=== PATIENT | male | born 1950 | race Caucasian/White ===

== ENCOUNTER 2017-06-19 09:05 | Inpatient (IN) | payer OTHER ==
--- NOTE | 2017-06-19 10:07 | PDOC ---
History of Present Illness - General Chief Complaint: Weakness Stated Complaint: WEAKNESS, CONSTIPATED Time Seen by Provider: 06/19/17 09:27 - History of Present Illness Initial Comments: 06/19/17 10:01 67-year-old male history of schizoaffective disorder (not on meds), COPD, active smoking, throat cancer in remission presents with elevated leukocytosis to 22 as an outpatient. History is from the patient's PMD Dr. Lona Camp as patient denies all symptoms currently. Per Dr. Camp, patient had monthly blood work done 3 days ago and this is routine in [facility] patient's. When his white count was found to be 22 she started him on Augmentin which she has been taking for 2 days. He did not appear to have a source at the time. In addition, she reports the patient has a significant amount of weight loss over the last few months, intermittent complaints of abdominal pain, and per another resident at [facility] the patient had an episode of hematemesis recently. It is unknown when this occured exactly. Dr. Camp reports that he has no family. The patient reports that 2 weeks ago he had generalized muscle weakness and was constipated.He reports that both of these symptoms are a lot better now because he began to take Ex-Lax and had a normal bowel movement. He denies any fevers, chills, chest pain, shortness of breath, abdominal pain, nausea, vomiting, diarrhea, lower extremity edema, focal weakness or numbness. PMD: Dr. Camp Past History - Past Medical History Allergies/Adverse Reactions: Allergies Allergy/AdvReac Type Severity Reaction Status Date / Time "TRANQUILIZERS AND SEDATIVES" Allergy Hives Uncoded 06/19/17 09:08 Home Medications: Ambulatory Orders Albuterol Sulfate Inhaler - [Ventolin Hfa Inhaler -] 1 puff IH BID 06/19/17 Amox-Tr/K Cl [Augmentin - 875Mg Tablet] 1 tab PO BID 06/19/17 Cholecalciferol (Vitamin D3) [Vitamin D3] 2,000 unit PO DAILY 06/19/17 COPD: Yes - Suicide/Smoking/Psychosocial Hx Smoking History: Current every day smoker Have you smoked in the past 12 months: Yes Number of Cigarettes Smoked Daily: 10 Information on smoking cessation initiated: Yes 'Breaking Loose' booklet given: 06/19/17 Hx Alcohol Use: (occasional) Review of Systems - Review of Systems Comments:: 06/19/17 10:07 GENERAL/CONSTITUTIONAL: No fever or chills. No weakness. HEAD, EYES, EARS, NOSE AND THROAT: No change in vision. No ear pain or discharge. No sore throat. GASTROINTESTINAL: No nausea, vomiting, diarrhea or constipation. GENITOURINARY: No dysuria, frequency, or change in urination. CARDIOVASCULAR: No chest pain or shortness of breath. RESPIRATORY: No cough, wheezing, or hemoptysis. MUSCULOSKELETAL: No joint or muscle swelling or pain. No neck or back pain. SKIN: No rash NEUROLOGIC: No headache, vertigo, loss of consciousness, or change in strength/ sensation. ENDOCRINE: No increased thirst. No abnormal weight change. HEMATOLOGIC/LYMPHATIC: No anemia, easy bleeding, or history of blood clots. ALLERGIC/IMMUNOLOGIC: No hives or skin allergy. *Physical Exam - Vital Signs Last Vital Signs Temp Pulse Resp BP Pulse Ox 97.5 F L 96 H 18 122/70 95 06/19/17 09:05 06/19/17 09:05 06/19/17 09:05 06/19/17 09:05 06/19/17 09:05 - Physical Exam Comments: 06/19/17 10:08 GENERAL: Awake, alert, and fully oriented, in no acute distress. Cacechtic and chronically ill appearing HEAD: No signs of trauma EYES: PERRLA, EOMI, mild scleral icterus, conjunctiva clear ENT: Auricles normal inspection, hearing grossly normal, nares patent, oropharynx clear without exudates. Moist mucosa NECK: Normal ROM, supple, no lymphadenopathy, JVD, or masses LUNGS: absent BS on the R base, mild air movement in RML. No wheezes, and no crackles HEART: Regular rate and rhythm, normal S1 and S2, no murmurs, rubs or gallops ABDOMEN: Soft, nontender, normoactive bowel sounds. No guarding, no rebound. No masses EXTREMITIES: Normal range of motion, no edema. No clubbing or cyanosis. No cords, erythema, or tenderness NEUROLOGICAL: Normal speech, cranial nerves intact, negative pronator drift, 5/ 5 strength in all 4 extremities, normal sensation to light touch in all 4 extremities, normal cerebellar exam, normal gait, normal reflexes and tone SKIN: Warm, Dry, normal turgor, no rashes or lesions noted. Heart Score/ECG Review #1 06/19/17 10:22 Twelve-lead EKG was performed and reviewed by me. NSR, rate 80, low voltage in some leads. no RUBIN ED Treatment Course - LABORATORY CBC & Chemistry Diagram: 06/19/17 10:00 06/19/17 10:00 - RADIOLOGY Radiology Studies Ordered: Category Date Time Status CHEST PA & LAT [RAD] Stat Radiology 06/19/17 09:36 Taken Medical Decision Making - Medical Decision Making 06/19/17 10:19 67-year-old male history of throat CA in remission, active smoking, COPD, schizoaffective disorder presents with leukocytosis to 22 as an outpatient. Vitals here are unremarkable. Exam remarkable for cachectic appearance and absent breath sounds on the right. Concern for infectious and possibly malignant process. Plan: -EKG -CXR -labs -UA -consider CT chest/abd pelvis -discuss with Dr. Camp 06/19/17 11:01 EKG nonischemic. Chest x-ray with large effusion and possible underlying mass on the right. Labs remarkable for white count of 33. Ordered Vanc/Zosyn/Azithro IV. Blooc cx/lactate pending. UA is negative for infection. I ordered a CT chest abdomen and pelvis with IV contrast to look for underlying malignancy. I updated Dr. Camp, who will admit the patient for further management and workup. *DC/Admit/Observation/Transfer Diagnosis at time of Disposition: Pleural effusion - Discharge Dispostion Condition at time of disposition: Stable Admit: Yes - Attestations Physician Attestion: 06/19/17 11:03 I, Dr. Radha Sharma MD, attest that this document has been prepared under my direction and personally reviewed by me in its entirety. I further attest, that it accurately reflects all work, treatment, procedures and medical decision -making performed by me.
[2017-06-19 10:17] LABS: PH,URINE 5.5 (4.5-8); URINE APPEARANCE Clear; URINE BILIRUBIN Negative (NEGATIVE); URINE BLOOD Negative (NEGATIVE); URINE COLOR YELLOW; URINE GLUCOSE (UA) Negative (NEGATIVE); URINE KETONE Negative (NEGATIVE); URINE LEUK ESTERASE Negative (NEGATIVE); URINE NITRITE Negative (NEGATIVE); URINE PROTEIN Negative (NEGATIVE)
[2017-06-19 10:27] LABS: MCH 26.5 pg (25.7-33.7); MCHC 32.8 g/dl (32.0-35.9); MEAN CELL VOLUME 80.6 fl (80-96); MEAN PLT VOLUME 8.2 fl (7.5-11.1); PLATELET COUNT 529 K/MM3 (134-434); RDW 15.5 % (11.9-15.9)
[2017-06-19 10:36] LABS: ALK PHOS 111 U/L (32-92); ANION GAP 5 (8-16); BILIRUBIN,TOTAL 0.2 mg/dl (0.2-1.0); CALCIUM 8.1 mg/dl (8.4-10.2); CO2 29 mmol/L (22-28); CREATININE 0.7 mg/dl (0.6-1.3); GLUCOSE,RANDOM 104 mg/dl (74-106); MAGNESIUM 1.9 mg/dL (1.8-2.4); SGOT/AST 31 U/L (10-42); SGPT/ALT 20 U/L (10-40)
[2017-06-19 10:58] LABS: PLATELET COMMENT2 FEW LARGE PLTS; PLATELET ESTIMATE SLT INCREASED (NORMAL)
[2017-06-19] MEDS ORDERED: AZITHROMYCIN IVPB 500 MG in DEXTROSE 5%-WATER - 250 ML IVPB ONE (10:59)
[2017-06-19] MEDS ORDERED: VANCOMYCIN 1,000 MG in DEXTROSE 5%-WATER - 250 ML IVPB ONE (11:00)
[2017-06-19] MEDS ORDERED: PIPERACILLIN/TAZOB 4.5 GM 4.5 GM in DEXTROSE 5%-WATER - 100 ML IVPB ONE (11:00)
[2017-06-19] MEDS ORDERED: AZITHROMYCIN 500 MG VIAL IVPB ONE (11:05)
[2017-06-19] MEDS ORDERED: PIPERACILLIN/TAZOBACTAM 4.5 GM VIAL IVPB ONE (11:05)
[2017-06-19] MEDS ORDERED: VANCOMYCIN 1,000 MG VIAL (RESTRICTED TO ID ONLY) ONE (11:05)
[2017-06-19 14:27] VITALS: BMI 19.9
--- NOTE | 2017-06-19 17:02 | HP ---
Admitting History and Physical - Admission Chief Complaint: elevated WBC, poor appetite and weight loss, hematemesis History of Present Illness: The patient is a 67 yo male with PMH COPD, throat cancer in remission post radiation therapy, chronic smoker, PTSD ([place]). Over the past 2 weeks he developed poor appetite, and weight loss. Approximately 1 month ago he had hemoptysis for which he was evaluated at [facility]. There is no information on how extensive the investigations were and on the outcome of the investigations but he was discharged with no recommendations for follow up. The patient is a very poor historian and most of the information was obtained from the residents at [facility] where he lives. Approximately 25 years ago he moved from his apartment to the [facility] because of his inability to take care of himself. 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 He has a sister living in [place] who he visits frequently. His oncologist is Dr. Kaur from [facility]. History Source: Patient, Family Member (sister) Limitations to Obtaining History: Poor Historian - Past Medical History Cardiovascular: Yes: HTN Pulmonary: Yes: COPD Psych: Yes: Other (PTSD) Endocrine: Yes: Other (Throat cancer) - Past Surgical History Past Surgical History: Yes: None - Smoking History Smoking history: Current every day smoker Have you smoked in the past 12 months: Yes Aproximately how many cigarettes per day: 10 - Alcohol/Substance Use Hx Alcohol Use: No (occasional) History of Substance Use: reports: None - Social History History of Recent Travel: No Home Medications - Allergies Allergies/Adverse Reactions: Allergies Allergy/AdvReac Type Severity Reaction Status Date / Time No Known Drug Allergies Allergy Verified 06/19/17 17:26 "TRANQUILIZERS AND SEDATIVES" Allergy Mild Hives Uncoded 06/19/17 17:26 - Home Medications Home Medications: Ambulatory Orders Albuterol Sulfate Inhaler - [Ventolin Hfa Inhaler -] 1 puff IH BID 06/19/17 Amox-Tr/K Cl [Augmentin - 875Mg Tablet] 1 tab PO BID 06/19/17 Cholecalciferol (Vitamin D3) [Vitamin D3] 2,000 unit PO DAILY 06/19/17 Review of Systems - Review of Systems Constitutional: reports: Lethargy, Loss of Appetite, Malaise, Unintentional Wgt. Loss Eyes: reports: No Symptoms Neck: reports: No Symptoms Cardiovascular: reports: Shortness of Breath Respiratory: reports: Cough, Hemoptysis, SOB, SOB on Exertion. denies: Orthopnea, PND, Wheezing Gastrointestinal: reports: No Symptoms Genitourinary: reports: No Symptoms Breasts: reports: No Symptoms Reported Musculoskeletal: reports: No Symptoms Integumentary: reports: No Symptoms Neurological: reports: No Symptoms Endocrine: reports: No Symptoms Hematology/Lymphatic: reports: No Symptoms Psychiatric: reports: No Symptoms Physical Examination Vital Signs: Vital Signs Temperature 97.7 F 06/19/17 12:53 Pulse Rate 88 06/19/17 12:53 Respiratory Rate 20 06/19/17 12:53 Blood Pressure 103/64 06/19/17 12:53 O2 Sat by Pulse Oximetry (%) 94 L 06/19/17 12:53 Findings/Remarks: The patient looks emaciated with a significant weight loss compared to his baseline, he is dyspneic at rest. Constitutional: Yes: Mild Distress Eyes: Yes: Conjunctiva Clear, EOM Intact HENT: Yes: Atraumatic, Normocephalic Neck: Yes: Supple, Trachea Midline Cardiovascular: Yes: Regular Rate and Rhythm, S1, S2 Respiratory: Yes: Regular, Cough (sporadic), Dullness (at the right base), On Nasal O2, Poor Air Entry (at the right base), SOB, SOB on Exertion, Tachypnea. No: Intubated, Rales, Rhonchi, Wheezes Gastrointestinal: Yes: Normal Bowel Sounds, Soft, Abdomen, Obese. No: Hepatomegaly, Splenomegaly ...Rectal Exam: Yes: Deferred Extremities: No: Calf Tenderness Edema: No Peripheral Pulses WNL: Yes Neurological: Yes: Alert, Oriented Psychiatric: Yes: Alert, Oriented Imaging - Results Chest X-ray: Other (read by me: right pleural effusion, no infiltrate to masses) Cat Scan: Other (no masses, right hepatic lobe 2 cm hemangioma. no pericardial effusion) Problem List - Problems (1) Pleural effusion Assessment/Plan: Zosyn iv Oxygen via nasal cannula interventional radiology and pulmonary consult, monitor oxygen potential transfer to [facility] pending response to antibiotics Code(s): J90 - PLEURAL EFFUSION, NOT ELSEWHERE CLASSIFIED (2) COPD (chronic obstructive pulmonary disease) Assessment/Plan: Albuterol nebulizer Code(s): J44.9 - CHRONIC OBSTRUCTIVE PULMONARY DISEASE, UNSPECIFIED (3) Hemoptysis Assessment/Plan: pulmonary consult Code(s): R04.2 - HEMOPTYSIS (4) History of throat cancer Assessment/Plan: although the initial work up is not indicative of cancer recurrence or metastases, malignancy is still part of the differential Code(s): Z85.819 - PRSNL HX OF MALIG NEOPLM OF UNSP SITE LIP,ORAL CAV,& PHARYNX (5) PTSD (post-traumatic stress disorder) Assessment/Plan: on no medications Code(s): F43.10 - POST-TRAUMATIC STRESS DISORDER, UNSPECIFIED
[2017-06-19] MEDS: AMPICILLIN NA/SULBACTAM NA 3 GM in SODIUM CHLORIDE 100 ML IVPB SCH (18:35)
[2017-06-19] MEDS: POTASSIUM CHLORIDE 10 MEQ in DEXTROSE 5%-NORMAL SALINE 1,000 ML IVPB SCH (18:35)
[2017-06-20] MEDS: ZOLPIDEM TARTRATE 5 MG TABLET PO PRN ×2 (00:11→23:01)
[2017-06-20] MEDS: AMPICILLIN NA/SULBACTAM NA 3 GM in SODIUM CHLORIDE 100 ML IVPB SCH (01:14)
--- NOTE | 2017-06-20 06:39 | PN ---
Progress Note, Physician Chief Complaint: ID Full note dictated 67 y/o [place] COPD history of throat CA in past with weight loss PALOMO productive couph several weeks. Poor historian trinity notes previous hemoptsis. NO fever night sweats history of TB travel HIV risks CT shows loculated right fluid collection/effusion. - Current Medication List Current Medications: Active Medications Acetaminophen (Tylenol -) 325 mg PO Q6H PRN PRN Reason: FEVER OR PAIN Albuterol Sulfate (Ventolin 0.083% Nebulizer Soln -) 1 amp NEB Q6H PRN PRN Reason: SHORT OF BREATH/WHEEZING Potassium Chloride 10 meq/ (Dextrose/Sodium Chloride) 1,005 mls @ 75 mls/hr IVPB Q13H MARIS Last Admin: 06/19/17 18:35 Dose: 75 mls/hr Ampicillin Sodium/Sulbactam (Sodium 3 gm/ Sodium Chloride) 100 mls @ 200 mls/ hr IVPB Q8H-IV MARIS Last Admin: 06/20/17 01:14 Dose: 200 mls/hr Zolpidem Tartrate (Ambien -) 5 mg PO HS PRN PRN Reason: INSOMNIA Last Admin: 06/20/17 00:11 Dose: 5 mg - Objective Vital Signs: Vital Signs Temperature 98.1 F 06/20/17 06:07 Pulse Rate 87 06/20/17 06:07 Respiratory Rate 20 06/20/17 06:07 Blood Pressure 108/57 06/20/17 06:07 O2 Sat by Pulse Oximetry (%) 98 06/20/17 06:07 Constitutional: Yes: Other (Chronically ill appearing in NAD) Cardiovascular: Yes: Murmur, S1, S2, Other (2/6 systolic apical murmur) Respiratory: Yes: Diminished, Rhonchi Problem List - Problems (1) COPD (chronic obstructive pulmonary disease) Code(s): J44.9 - CHRONIC OBSTRUCTIVE PULMONARY DISEASE, UNSPECIFIED (2) History of throat cancer Code(s): Z85.819 - (3) Empyema Code(s): J86.9 - PYOTHORAX WITHOUT FISTULA Assessment/Plan Microbiology Laboratory Tests 06/19/17 06/19/17 10:00 10:00 WBC 33.0 H* D Hgb 11.1 L D Hct 33.6 L D Plt Count 529 H D AST 31 D TSH 2.10 Assessment EMPYEMA Plan Thoracic surgery evaluation for drainage and consideration of thoracotomy Zosyn 4.5 grs every 8H ESR CRP Quant gold HIV testing Mercedes ROBERTS
[2017-06-20] MEDS: POTASSIUM CHLORIDE 10 MEQ in DEXTROSE 5%-NORMAL SALINE 1,000 ML IVPB SCH (06:56)
[2017-06-20 09:17] LABS: BASOPHIL 0.1 % (0-2.0); EOSINOPHIL 0.2 % (0-4.5); MCH 27.2 pg (25.7-33.7); MCHC 32.9 g/dl (32.0-35.9); MEAN CELL VOLUME 82.7 fl (80-96); MEAN PLT VOLUME 8.4 fl (7.5-11.1); NEUTROPHILS 90.9 % (42.8-82.8); PLATELET COUNT 484 K/MM3 (134-434); WHITE BLOOD COUNT 28.3 K/mm3 (4.0-10.8)
[2017-06-20 10:03] LABS: ALBUMIN 1.7 g/dl (3.5-5.0); ALK PHOS 93 U/L (32-92); ANION GAP 8 (8-16); BILIRUBIN,TOTAL 0.5 mg/dl (0.2-1.0); CALCIUM 7.9 mg/dl (8.4-10.2); CO2 27 mmol/L (22-28); CREATININE 0.7 mg/dl (0.6-1.3); GLUCOSE,RANDOM 82 mg/dl (74-106); SGOT/AST 29 U/L (10-42); SGPT/ALT 22 U/L (10-40); TOT PROT 6.1 g/dl (6.4-8.3)
--- NOTE | 2017-06-20 11:41 | EKG ---
Test Reason : Blood Pressure : / mmHG Vent. Rate : 080 BPM Atrial Rate : 080 BPM P-R Int : 128 ms QRS Dur : 094 ms QT Int : 394 ms P-R-T Axes : 009 021 037 degrees QTc Int : 454 ms SINUS RHYTHM LOW VOLTAGE QRS in limb leads CANNOT RULE OUT SEPTAL INFARCT NO PREVIOUS ECGS AVAILABLE Confirmed by ARUNA ROBERTS, NEENA ([id number]) on 06/20/2017 11:41:21 AM Referred By: KATHY SLOAN Confirmed By:NEENA AVLDOVINOS MD
--- NOTE | 2017-06-20 12:11 | CONS ---
DATE OF CONSULTATION: DATE OF DICTATION: 06/20/2017 This is a 67-year-old [place] , who was admitted with 2 to 3 week history of cough productive of sputum with loss of appetite and weight loss. The patient has a history of COPD and throat cancer in the past. He has been followed by Dr. Kaur. He is a poor historian, noting that he experienced cough for some time over April and May and had an admission to [facility] [place], though when asked, says that he only spent 1 day there, so the details of this are unclear. Currently his appetite has been poor and he has continued to cough, noting that his hemoptysis has resolved. He has loss of appetite. Denies any fevers or night sweats. He came to the emergency room now, where his white count was noted to be 33,000. He was afebrile here. A CAT scan of the chest showed a large loculated right pleural effusion. He has no history of recent travel and his HIV status is unknown. Past medical history includes throat cancer, COPD, chronic smoking. MEDICATIONS: Albuterol. ALLERGIES: No known drug allergies. Family history reviewed and noncontributory. SOCIAL HISTORY: Denies drug use, alcohol use, but heavy smoking. REVIEW OF SYSTEMS: Productive cough with sputum, recent hemoptysis. Denies shortness of breath, pleuritic chest pain. Cardiac: No chest pain, palpitations, syncope. Gastrointestinal: No nausea, vomiting, diarrhea. Positive weight loss, positive loss of appetite. No change in bowel habits. Genitourinary: No dysuria, hematuria, urinary frequency. PHYSICAL EXAMINATION: Vital Signs: He was afebrile, with a pulse of 90, respirations 20, blood pressure 130/64, O2 saturation 94%. Neck: Supple. Lungs: With diminished breath sounds, with dullness to percussion at the right base. Scattered rhonchi. No rales. Heart: S1, S2. Regular rhythm with a 2/6 apical systolic murmur. Abdomen: Soft, nontender. Positive bowel sounds, without hepatosplenomegaly. No palpable mass. Extremities: No clubbing, cyanosis or edema. The white count was 33,000, with a hemoglobin of 11.1, hematocrit 33.6, platelets 529, 87% polys, 2 bands, 4 lymphs, and 7 monocytes. BUN 16, creatinine 0.7, TSH 2.1. Liver enzymes: Alkaline phosphatase 111. UA screening negative. Blood and urine cultures pending. CT imaging shows large loculated right pleural effusion with pleural thickening, 2.7 right hepatic lobe hemangioma. ASSESSMENT: Probable empyema, given clinical findings including marked leukocytosis. He does not, however, appear acutely ill at this time. PLAN: I suspect he will need a surgical drainage by way of thoracotomy, and thoracic surgery consult has been requested. I will empirically treat him with piperacillin and tazobactam, obtain a CRP, HIV screening, and sedimentation rate, along with QuantiFERON Gold. PB GARCIA M.D. [id number]
[2017-06-20 12:40] LABS: HIV 1 & 2 AB NEGATIVE; HIV 1 AGp24 NEGATIVE
--- NOTE | 2017-06-20 14:09 | PN ---
Progress Note, Physician Chief Complaint: Patient doing better, still coughing but with no hemoptysis. He has better appetite today, there was no fever. History of Present Illness: 67 yo male known to me from the community, presented to ER for weight loss( more then 20 lbs within 3 weeks), poor appetite and acute elevation in WBC. The patient has h/o throat cancer in remission s/p radiation therapy. The patient' s oncologist is Dr Kaur at [facility]. Mr Jesus is a longstanding smoker who did not stop smoking despite the diagnosis of throat cancer. He was admtted for diagnostic and treatment. - Current Medication List Current Medications: Active Medications Acetaminophen (Tylenol -) 325 mg PO Q6H PRN PRN Reason: FEVER OR PAIN Albuterol Sulfate (Ventolin 0.083% Nebulizer Soln -) 1 amp NEB Q6H PRN PRN Reason: SHORT OF BREATH/WHEEZING Piperacillin Sod/Tazobactam Sod (Zosyn 4.5gm Ivpb (Pre-Docked)) 4.5 gm IVPB Q8H -IV MARIS Zolpidem Tartrate (Ambien -) 5 mg PO HS PRN PRN Reason: INSOMNIA Last Admin: 06/20/17 00:11 Dose: 5 mg - Objective Vital Signs: Vital Signs Temperature 98.1 F 06/20/17 06:07 Pulse Rate 87 06/20/17 06:07 Respiratory Rate 20 06/20/17 06:07 Blood Pressure 108/57 06/20/17 06:07 O2 Sat by Pulse Oximetry (%) 98 06/20/17 06:07 Constitutional: Yes: No Distress Eyes: Yes: Conjunctiva Clear HENT: Yes: Atraumatic, Normocephalic Neck: Yes: Supple, Trachea Midline Cardiovascular: Yes: Regular Rate and Rhythm, S1, S2 Respiratory: Yes: Regular, Cough, Diminished (air entry at the righ base has improved compared to yesterday), Dullness (at the right base), On Nasal O2 (non compliant), SOB. No: Rales, Rhonchi, Wheezes Gastrointestinal: Yes: Normal Bowel Sounds, Soft. No: Hepatomegaly, Splenomegaly, Tenderness, Rebound ...Rectal Exam: Yes: Deferred Genitourinary: No: CVA Tenderness - Right Breast(s): Yes: WNL Extremities: No: Calf Tenderness Edema: No Peripheral Pulses WNL: Yes Integumentary: Yes: WNL Neurological: Yes: Alert, Oriented Psychiatric: Yes: Alert, Oriented Labs: CBC, BMP 06/20/17 06:00 06/20/17 06:00 Problem List - Problems (1) Pleural effusion Assessment/Plan: Zosyn iv Oxygen via nasal canula interventional radiology and pulmonary consult, monitor oxygen potential transfer to [facility] pending response to antibiotics repeat CXR and labs in am stop iv fluids Code(s): J90 - PLEURAL EFFUSION, NOT ELSEWHERE CLASSIFIED (2) COPD (chronic obstructive pulmonary disease) Assessment/Plan: Albuterol nebulizer continue Zosyn Code(s): J44.9 - CHRONIC OBSTRUCTIVE PULMONARY DISEASE, UNSPECIFIED (3) Hemoptysis Assessment/Plan: pulmonary consult bronchiectasis? Code(s): R04.2 - HEMOPTYSIS (4) History of throat cancer Assessment/Plan: although the initial work up was negative for cancer recurrence or metastases, malignancy is still part of the differential diagnosis Code(s): Z85.819 - PRSNL HX OF MALIG NEOPLM OF UNSP SITE LIP,ORAL CAV,& PHARYNX (5) PTSD (post-traumatic stress disorder) Assessment/Plan: on no medications Code(s): F43.10 - POST-TRAUMATIC STRESS DISORDER, UNSPECIFIED
[2017-06-20] MEDS: PIPERACILLIN/TAZOB 4.5 GM/100 ML PRE-DOCKED IVPB SCH ×2 (14:15→18:11)
[2017-06-20] MEDS: MULTIVITAMINS (DAILY MVI) TABLET (FP) PO SCH (14:17)
[2017-06-20] MEDS: ALBUTEROL SO4 0.083% IH SOL 2.5 MG/3 ML VIAL.NEB. NEB PRN (22:13)
[2017-06-21] MEDS: PIPERACILLIN/TAZOB 4.5 GM/100 ML PRE-DOCKED IVPB SCH ×3 (01:24→18:05)
[2017-06-21 09:16] LABS: EOSINOPHIL 0.1 % (0-4.5); MCH 26.6 pg (25.7-33.7); MEAN PLT VOLUME 8.4 fl (7.5-11.1); NEUTROPHILS 92.3 % (42.8-82.8); PLATELET COUNT 447 K/MM3 (134-434); RDW 15.9 % (11.9-15.9)
[2017-06-21 09:18] LABS: WHITE BLOOD COUNT 32.4 K/mm3 (4.0-10.8)
--- NOTE | 2017-06-21 09:18 | CON.PULM ---
Consult Consult Specialty:: PULMONARY Referred by:: PMD Reason for Consultation:: PLEURAL EFFUSION - History of Present Illness Chief Complaint: SOB/COUGH History of Present Illness: 67-year-old male history of schizoaffective disorder (not on meds), COPD, active smoking, throat cancer in remission presents with elevated leukocytosis to 22 as an outpatient. History is from the patient's PMD Dr. Lona Camp as patient denies all symptoms currently. Per Dr. Camp, patient had monthly blood work done 3 days ago and this is routine in [facility] patient's. When his white count was found to be 22 she started him on Augmentin which she has been taking for 2 days. He did not appear to have a source at the time. In addition, she reports the patient has a significant amount of weight loss over the last few months, intermittent complaints of abdominal pain, and per another resident at [facility] the patient had an episode of hematemesis recently. It is unknown when this occured exactly. Dr. Camp reports that he has no family. The patient reports that 2 weeks ago he had generalized muscle weakness and was constipated.He reports that both of these symptoms are a lot better now because he began to take Ex-Lax and had a normal bowel movement. He denies any fevers, chills, chest pain, shortness of breath, abdominal pain, nausea, vomiting, diarrhea, lower extremity edema, focal weakness or numbness. - History Source History Provided By: Patient, Medical Record Limitations to Obtaining History: Poor Historian - Past Medical History [employer]: Yes: Other (PTSD) Cardio/Vascular: Yes: HTN Pulmonary: Yes: COPD Gastrointestinal: Yes: Cancer (LARYNGEAL), Irritable Bowel Disease Psych: Yes: Other (PTSD) Endocrine: Yes: Other (Throat cancer) - Past Surgical History Past Surgical History: Yes: None - Alcohol/Substance Use Hx Alcohol Use: No (occasional) History of Substance Use: reports: None - Smoking History Smoking history: Current every day smoker Have you smoked in the past 12 months: Yes Aproximately how many cigarettes per day: 10 - Social History History of Recent Travel: No Home Medications - Allergies Allergies/Adverse Reactions: Allergies Allergy/AdvReac Type Severity Reaction Status Date / Time No Known Drug Allergies Allergy Verified 06/19/17 17:26 "TRANQUILIZERS AND SEDATIVES" Allergy Mild Hives Uncoded 06/19/17 17:26 - Home Medications Home Medications: Ambulatory Orders Albuterol Sulfate Inhaler - [Ventolin Hfa Inhaler -] 1 puff IH BID 06/19/17 Amox-Tr/K Cl [Augmentin - 875Mg Tablet] 1 tab PO BID 06/19/17 Cholecalciferol (Vitamin D3) [Vitamin D3] 2,000 unit PO DAILY 06/19/17 Family Disease History - Family Disease History Family History: Unable to Obtain Review of Systems - Review of Systems Cardiovascular: denies: Chest Pain Respiratory: reports: Cough, Exercise Intolerance, SOB, SOB on Exertion. denies : Hemoptysis Gastrointestinal: denies: Abdominal Pain Physical Exam Vital Sings: Vital Signs Temperature 98.5 F 06/21/17 06:00 Pulse Rate 108 H 06/21/17 06:00 Respiratory Rate 20 06/21/17 06:00 Blood Pressure 103/66 06/21/17 06:00 O2 Sat by Pulse Oximetry (%) 94 L 06/21/17 08:18 Constitutional: Yes: Anxious Eyes: Yes: EOM Intact HENT: Yes: Normocephalic Neck: Yes: Trachea Midline Cardiovascular: Yes: Tachycardia, S1, S2 Respiratory: Yes: Diminished, Dullness (RIGHT SIDE) Gastrointestinal: Yes: Soft Edema: No Labs: REVIEWED ALL Imaging - Results Chest X-ray: Report Reviewed, Image Reviewed Cat Scan: Report Reviewed, Image Reviewed Problem List - Problems (1) COPD (chronic obstructive pulmonary disease) Code(s): J44.9 - CHRONIC OBSTRUCTIVE PULMONARY DISEASE, UNSPECIFIED (2) History of throat cancer Code(s): Z85.819 - PRSNL HX OF MALIG NEOPLM OF UNSP SITE LIP,ORAL CAV,& PHARYNX (3) PTSD (post-traumatic stress disorder) Code(s): F43.10 - POST-TRAUMATIC STRESS DISORDER, UNSPECIFIED (4) Pleural effusion Code(s): J90 - PLEURAL EFFUSION, NOT ELSEWHERE CLASSIFIED Assessment/Plan LARGE VOLUME LOCULATED RIGHT SIDED EFFUSION IN A PATIENT WITH PREVIOUS LARYNGEAL CA. MUST R/O MALIGNANT PLEURAL EFFUSION WILL THORACENTESIS/T-SURG EVAL CHECK CYTOLOGY CALL ONCOLOGIST DR. Shahzad MCKEE [phone] CONSIDER TRANSFER TO [facility] TO EXPEDITE WORK UP Tiarra LAYTON MD
[2017-06-21 09:19] LABS: ALBUMIN 1.6 g/dl (3.5-5.0); ALK PHOS 77 U/L (32-92); ANION GAP 10 (8-16); BILIRUBIN,TOTAL 0.3 mg/dl (0.2-1.0); CALCIUM 7.9 mg/dl (8.4-10.2); CO2 25 mmol/L (22-28); CREATININE 0.6 mg/dl (0.6-1.3); GLUCOSE,RANDOM 89 mg/dl (74-106); SGOT/AST 24 U/L (10-42); SGPT/ALT 21 U/L (10-40); TOT PROT 5.8 g/dl (6.4-8.3)
[2017-06-21] MEDS: MULTIVITAMINS (DAILY MVI) TABLET (FP) PO SCH (09:36)
[2017-06-21] MEDS: ALBUTEROL SO4 0.083% IH SOL 2.5 MG/3 ML VIAL.NEB. NEB PRN (10:20)
[2017-06-21 11:27] LABS: INR 1.33 (0.82-1.09); PROTHROMBIN TIME (PATIENT) 14.8 SEC (10.2-13.0)
[2017-06-21 13:28] LABS: ARTERIAL BLD GAS O2 SATURATION 97.9 % (90-98.9); ARTERIAL BLOOD GAS BASE EXCESS 3.6 meq/l (-2-2); ARTERIAL BLOOD GAS HCO3 26.9 meq/L (22-26); ARTERIAL BLOOD GAS PO2 94.5 mmHg (80-100); ARTERIAL BLOOD GAS pH 7.48 (7.35-7.45)
[2017-06-21 13:29] LABS: ALLENS TEST POSITIVE; ART PUNCT SITE RIGHT RADIAL; LPM/O2% 35%; MECH. VENT. BIPAP; PT. ON O2? YES; TYPE OF O2 BIPAP; VENT RATE 12
[2017-06-21 14:00] LABS: MCH 25.7 pg (25.7-33.7); MCHC 32.1 g/dl (32.0-35.9); MEAN CELL VOLUME 80.2 fl (80-96); MEAN PLT VOLUME 7.5 fl (7.5-11.1); PLATELET COUNT 408 K/MM3 (134-434); RDW 16.6 % (11.9-15.9)
[2017-06-21 14:03] LABS: WHITE BLOOD COUNT 30.6 K/mm3 (4.0-10.0)
--- NOTE | 2017-06-21 14:54 | CONSULT ---
Consultation: REQUESTING PROVIDER: CONSULT REQUEST: We have been asked to medically evaluate this patient for hemoptysis. HISTORY OF PRESENT ILLNESS: 67 yo M with h/o COPD, PTSD ([place] ), chronic tobacco use, and throat cancer in remission s/p radiation therapy who presented to ED ( 06/19 ) with episode of hemoptysis that has since resolved, elevated WBC~33,000, and CT chest that revealed a large loculated right sided pleural effusion. Patient is a poor historian but endorses 2 weeks of loss of appetite, 20 IB weight loss in 3 weeks, and chronic cough ( 05/06 ). Started on Augmentin 3 days ago following routine blood work revealing WBC of 22,[address] German Camp. Denies fevers/chills, night sweats, N/V, diarrhea, blood per rectum, hematuria, or pleuritic chest pain. on admission. Recently evaluated at [facility] 1 month ago for hemoptysis with 1 day admission. Pt lives at rest home in [place] and his Oncologist is Dr. Kaur from [facility]. Denies recent traveling and HIV status currently unknown. On encounter patient is restless, agitated,and confused. He is repeatedly attempting to exit the room with BIPAP device attached. Patient is poor historian, but denies any current complaints or pain. REVIEW OF SYSTEMS: CONSTITUTIONAL: Absent: Denies fever, chills, diaphoresis, generalized weakness, malaise, loss of appetite, weight change HEENT: Absent: rhinorrhea, nasal congestion, throat pain, throat swelling, difficulty swallowing, mouth swelling, ear pain, eye pain, visual changes CARDIOVASCULAR: Absent: chest pain, syncope, palpitations, irregular heart rate, lightheadedness , peripheral edema RESPIRATORY: +cough, shortness of breath, and dyspnea with exertion. Denies orthopnea, wheezing, stridor, hemoptysis GASTROINTESTINAL: Absent: abdominal pain, abdominal distension, nausea, vomiting, diarrhea, constipation, melena, hematochezia GENITOURINARY: Absent: dysuria, frequency, urgency, hesitancy, hematuria, flank pain, genital pain MUSCULOSKELETAL: Absent: myalgia, arthralgia, joint swelling, back pain, neck pain SKIN: Absent: rash, itching, pallor HEMATOLOGIC/IMMUNOLOGIC: Absent: easy bleeding, easy bruising, lymphadenopathy, frequent infections ENDOCRINE: + unexplained weight loss.Denies heat intolerance, cold intolerance NEUROLOGIC: Absent: headache, focal weakness or paresthesias, dizziness, unsteady gait, seizure, mental status changes, bladder or bowel incontinence PSYCHIATRIC: Absent: anxiety, depression, suicidal or homicidal ideation, hallucinations. PHYSICAL EXAMINATION Vital Signs - 24 hr 06/20/17 06/21/17 06/21/17 21:00 06:00 08:18 Temperature 98.5 F Pulse Rate 108 H Respiratory 20 Rate Blood Pressure 103/66 O2 Sat by Pulse 93 L 94 L 94 L Oximetry (%) 06/21/17 06/21/17 06/21/17 10:10 10:40 12:51 Temperature 99.0 F Pulse Rate 80 108 H Respiratory 28 H Rate Blood Pressure 110/66 O2 Sat by Pulse 96 99 Oximetry (%) 06/21/17 06/21/17 13:28 13:31 Temperature Pulse Rate 86 Respiratory Rate Blood Pressure O2 Sat by Pulse 98 97 Oximetry (%) GENERAL: Awake, alert, and fully oriented, in no acute distress. HEAD: Normal with no signs of trauma. EYES: Pupils equal, round and reactive to light, extraocular movements intact, sclera anicteric, conjunctiva clear. No lid lag. EARS, NOSE, THROAT: Ears normal, nares patent, oropharynx clear without exudates. Moist mucous membranes. NECK: supple without lymphadenopathy, JVD, or masses. LUNGS:+ Diminished breath sounds BL. Diffuse rhonci with absent rales. Dullness to percussion at right lung base. No accesory muscle use. HEART:+ Apical systolic murmur. Normal S1 and S2 without rub or gallop. ABDOMEN: Soft, nontender, not distended, normoactive bowel sounds, no guarding, no rebound, no masses. No hepatomegaly or splenomegaly. MUSCULOSKELETAL: Normal range of motion at all joints. No bony deformities or tenderness. No CVA tenderness. UPPER EXTREMITIES: 2+ pulses, warm, well-perfused. No cyanosis. No clubbing. Cap refill <2 seconds. No peripheral edema. LOWER EXTREMITIES: 2+ pulses, warm, well-perfused. No calf tenderness. No peripheral edema. NEUROLOGICAL: Cranial nerves II-XII intact. Normal speech. Normal gait. PSYCHIATRIC: Slightly agitated Appropriate mood and affect. SKIN: Warm, dry, normal turgor, no rashes or lesions noted. Laboratory Results - last 24 hr 06/21/17 06/21/17 06/21/17 07:20 07:20 07:20 WBC 32.4 H* RBC 2.76 L D Hgb 7.3 L D Hct 22.9 L D MCV 83.0 MCH 26.6 MCHC 32.0 RDW 15.9 Plt Count 447 H MPV 8.4 Neutrophils % 92.3 H Lymphocytes % 3.2 L Monocytes % 4.4 Eosinophils % 0.1 Basophils % 0.0 ESR 128 H PT with INR INR Puncture Site ABG pH ABG pCO2 at Pt Temp ABG pO2 at Pt Temp ABG HCO3 ABG O2 Sat (Measured) ABG O2 Content ABG Base Excess Andre Test O2 Delivery Device Oxygen Flow Rate Vent Mode Vent Rate Mechanical Rate PEEP Pressure Support Vent Sodium 138 Potassium 4.1 Chloride 103 Carbon Dioxide 25 Anion Gap 10 BUN 30 H D Creatinine 0.6 Creat Clearance w eGFR > 60 Random Glucose 89 Calcium 7.9 L Total Bilirubin 0.3 D AST 24 ALT 21 Alkaline Phosphatase 77 Total Protein 5.8 L Albumin 1.6 L Blood Type Antibody Screen Crossmatch 06/21/17 06/21/17 06/21/17 10:00 10:00 10:00 WBC RBC Hgb Hct MCV MCH MCHC RDW Plt Count MPV Neutrophils % Lymphocytes % Monocytes % Eosinophils % Basophils % ESR PT with INR 14.8 H INR 1.33 H Puncture Site ABG pH ABG pCO2 at Pt Temp ABG pO2 at Pt Temp ABG HCO3 ABG O2 Sat (Measured) ABG O2 Content ABG Base Excess Andre Test O2 Delivery Device Oxygen Flow Rate Vent Mode Vent Rate Mechanical Rate PEEP Pressure Support Vent Sodium Potassium Chloride Carbon Dioxide Anion Gap BUN Creatinine Creat Clearance w eGFR Random Glucose Calcium Total Bilirubin AST ALT Alkaline Phosphatase Total Protein Albumin Blood Type O NEGATIVE O NEGATIVE Antibody Screen Negative Crossmatch See Detail See Detail 06/21/17 06/21/17 13:23 13:50 WBC 30.6 H* RBC 2.66 L Hgb 6.8 L* Hct 21.3 L MCV 80.2 MCH 25.7 MCHC 32.1 RDW 16.6 H Plt Count 408 MPV 7.5 Neutrophils % No Result Required. Lymphocytes % No Result Required. Monocytes % Eosinophils % Basophils % ESR PT with INR INR Puncture Site Right radial ABG pH 7.48 H ABG pCO2 at Pt Temp 36.3 ABG pO2 at Pt Temp 94.5 ABG HCO3 26.9 H ABG O2 Sat (Measured) 97.9 ABG O2 Content 9.1 L* ABG Base Excess 3.6 H Andre Test Positive O2 Delivery Device Bipap Oxygen Flow Rate 35% Vent Mode S/t Vent Rate 12 Mechanical Rate Bipap PEEP 0.0 Pressure Support Vent 12/5 Sodium Potassium Chloride Carbon Dioxide Anion Gap BUN Creatinine Creat Clearance w eGFR Random Glucose Calcium Total Bilirubin AST ALT Alkaline Phosphatase Total Protein Albumin Blood Type Antibody Screen Crossmatch Active Medications Generic Name Dose Route Start Last Admin Trade Name Freq PRN Reason Stop Dose Admin Acetaminophen 325 mg 06/19/17 17:16 Tylenol - PO Q6H PRN FEVER OR PAIN Albuterol Sulfate 1 amp 06/19/17 17:25 06/21/17 10:20 Ventolin 0.083% Nebulizer Soln - NEB 1 amp Q6H PRN Administration SHORT OF BREATH/WHEEZING Multivitamins/Minerals/Vitamin C 1 tab 06/20/17 14:15 06/21/17 09:36 Tab-A-Vit - PO 1 tab DAILY MARIS Administration Piperacillin Sod/Tazobactam Sod 4.5 gm 06/20/17 14:00 06/21/17 09:36 Zosyn 4.5gm Ivpb (Pre-Docked) IVPB 4.5 gm Q8H-IV MARIS Administration Zolpidem Tartrate 5 mg 06/20/17 00:06 06/20/17 23:01 Ambien - PO 5 mg HS PRN Administration INSOMNIA ASSESSMENT/PLAN: 67 yo M with h/o COPD, PTSD ([place] ), chronic tobacco use, and laryngeal cancer in remission s/p radiation therapy who presented to ED ( 06/19 ) with resolved episode of hemoptysis, 2 weeks of loss of appetite, 20 IB weight loss in 3 weeks, chronic cough ( 05/06 ) , and elevated WBC~33,000 on admission, and CT chest that revealed a large loculated right sided pleural effusion. Hemoptysis: Possible right sided complicated parapneumoinic effusion vs empyema 2/2 to infection vs. paraneoplastic effusion or malignancy. CT chest ( 06/19) Centrilobular emphysema, large partially loculated right sided pleural effusion, nonspeciifc free fluid in abdomen and pelvis. Patient aefbrile through admission WBC on admission 33,000--> 30.6 ( 06/21) HIV negative Unasyn D/c'd Plan: - Daily CBC - Cont. Zosyn 4.5 mg - Thoracentesis/Surgical Evaluation. Obtain consent for procedure. - Pending IR evaluation for pleural drainage/cytology. - Call Dr. Jayden Kaur [phone] Acute on Chronic COPD: Patient with cont'd swallow labored breathing and decreased breath sounds bilaterally. Increased productive cough over past week. AB.48/36.3/94.5/26.9 Plan: - Albuterol Q6 - BIPAP: FiO2 35%, Rate 12, /5 Anemia: Hgb 11.1 -6.8 (06/21) PRBC if Hgb <7.0 UA Neg Plan: - 1 unit PRBC - Trend Hgb/Hct - FOBT pending FEN: No IVF, Lytes PRN, NPO Dispo: ICU Monitoring Visit type - Emergency Visit Emergency Visit: Yes ED Registration Date: 06/19/17 Care time: The patient presented to the Emergency Department on the above date and was hospitalized for further evaluation of their emergent condition. - New Patient This patient is new to me today: Yes Date on this admission: 06/21/17 - Critical Care Critical Care patient: Yes Total Critical Care Time (in minutes): 30 Critical Care Statement: The care of this patient involved high complexity decision making to prevent further life threatening deterioration of the patient 's condition and/or to evaluate & treat vital organ system(s) failure or risk of failure.
[2017-06-21] MEDS ORDERED: SODIUM BICARBONATE 8.4% 50 MEQ/50 ML VIAL ONE (15:55)
--- NOTE | 2017-06-21 16:36 | PN ---
Progress Note, Physician History of Present Illness: S/P R chest tube No c/o pain No c/o dyspnea Denies cough Afebrile WBC remains elevated Cultures pending - Current Medication List Current Medications: Active Medications Acetaminophen (Tylenol -) 325 mg PO Q6H PRN PRN Reason: FEVER OR PAIN Albuterol Sulfate (Ventolin 0.083% Nebulizer Soln -) 1 amp NEB Q6H PRN PRN Reason: SHORT OF BREATH/WHEEZING Last Admin: 06/21/17 10:20 Dose: 1 amp Multivitamins/Minerals/Vitamin C (Tab-A-Vit -) 1 tab PO DAILY MARIS Last Admin: 06/21/17 09:36 Dose: 1 tab Piperacillin Sod/Tazobactam Sod (Zosyn 4.5gm Ivpb (Pre-Docked)) 4.5 gm IVPB Q8H -IV MARIS Last Admin: 06/21/17 09:36 Dose: 4.5 gm Zolpidem Tartrate (Ambien -) 5 mg PO HS PRN PRN Reason: INSOMNIA Last Admin: 06/20/17 23:01 Dose: 5 mg - Objective Vital Signs: Vital Signs Temperature 98.3 F 06/21/17 16:05 Pulse Rate 98 H 06/21/17 16:22 Respiratory Rate 34 H 06/21/17 16:22 Blood Pressure 107/66 06/21/17 16:22 O2 Sat by Pulse Oximetry (%) 100 06/21/17 16:31 Constitutional: Yes: No Distress Eyes: Yes: Conjunctiva Clear Cardiovascular: Yes: Regular Rate and Rhythm, S1, S2 Respiratory: Yes: Diminished Gastrointestinal: Yes: Normal Bowel Sounds, Soft. No: Tenderness Edema: LLE: 1+, RLE: 1+ Labs: CBC, BMP 06/21/17 13:50 06/21/17 07:20 INR, PTT INR 1.33 (0.82-1.09) H 06/21/17 10:00 Assessment/Plan S/P R chest tube Loculated R effusion COPD Await cultures Continue empiric zosyn
[2017-06-21 17:21] LABS: GLUCOSE,PLEURAL FLUID < 1.000
[2017-06-21 18:03] LABS: TOTAL PROTEIN,PLEURAL FLUID 5.249
--- NOTE | 2017-06-21 19:58 | PN ---
Progress Note, Physician Chief Complaint: During the past 24 hours the patient dropped his H/H.There is no sign of acute bleeding and no record of hemoptysis, hematemesis or melanotic stools while in the hospital. A pig tail catheter was placed with extraction of 200 cc yellow fluid. The patient felt better. Currently his cough is more forceful and he is able to expectorate feeling slightly better. Blood transfusion was started and the patient his appetite improved. The pateint s apoor historian and the information gived for yuliana absence of melanotic stools is not reliable - Current Medication List Current Medications: Active Medications Acetaminophen (Tylenol -) 325 mg PO Q6H PRN PRN Reason: FEVER OR PAIN Albuterol Sulfate (Ventolin 0.083% Nebulizer Soln -) 1 amp NEB Q6H PRN PRN Reason: SHORT OF BREATH/WHEEZING Last Admin: 06/21/17 10:20 Dose: 1 amp Multivitamins/Minerals/Vitamin C (Tab-A-Vit -) 1 tab PO DAILY MARIS Last Admin: 06/21/17 09:36 Dose: 1 tab Pantoprazole Sodium (Protonix -) 40 mg PO DAILY MARIS Piperacillin Sod/Tazobactam Sod (Zosyn 4.5gm Ivpb (Pre-Docked)) 4.5 gm IVPB Q8H -IV MARIS Last Admin: 06/21/17 18:05 Dose: 4.5 gm Zolpidem Tartrate (Ambien -) 5 mg PO HS PRN PRN Reason: INSOMNIA Last Admin: 06/20/17 23:01 Dose: 5 mg - Objective Vital Signs: Vital Signs Temperature 99.6 F 06/21/17 18:00 Pulse Rate 103 H 06/21/17 18:00 Respiratory Rate 28 H 06/21/17 18:00 Blood Pressure 109/66 06/21/17 18:00 O2 Sat by Pulse Oximetry (%) 100 06/21/17 16:31 Constitutional: Yes: No Distress, Calm Eyes: Yes: Conjunctiva Clear, EOM Intact HENT: Yes: Atraumatic, Normocephalic Neck: Yes: Supple, Trachea Midline Cardiovascular: Yes: Regular Rate and Rhythm, S1, S2 Respiratory: Yes: Regular, CTA Bilaterally, On Venti-Mask. No: Accessory Muscle Use Gastrointestinal: Yes: Normal Bowel Sounds, Soft. No: Hepatomegaly, Splenomegaly Genitourinary: Yes: WNL Breast(s): Yes: WNL Musculoskeletal: Yes: WNL Extremities: No: Calf Tenderness Edema: Yes Peripheral Pulses WNL: Yes Wound/Incision: Yes: Well Approximated Neurological: Yes: Alert, Oriented Psychiatric: Yes: Alert, Oriented Labs: CBC, BMP 06/21/17 13:50 06/21/17 07:20 INR, PTT INR 1.33 (0.82-1.09) H 06/21/17 10:00 - ....Imaging Chest X-ray: Other (rright pleaural effusion, no masses, no cardiomegaly) Problem List - Problems (1) Pleural effusion Assessment/Plan: Zosyn in venti MAsk s/p pleural right pig tail catheter, results are pending monitor oxygen transferred to [facility] ICU Code(s): J90 - PLEURAL EFFUSION, NOT ELSEWHERE CLASSIFIED (2) COPD (chronic obstructive pulmonary disease) Assessment/Plan: Albuterol nebulizer continue Zosyn Code(s): J44.9 - CHRONIC OBSTRUCTIVE PULMONARY DISEASE, UNSPECIFIED (3) Hemoptysis Assessment/Plan: pulmonary consult bleeding bronchiectasis? Code(s): R04.2 - HEMOPTYSIS (4) History of throat cancer Assessment/Plan: although the initial work up was negative for cancer recurrence or metastases, malignancy is still part of the differential diagnosis Code(s): Z85.819 - PRSNL HX OF MALIG NEOPLM OF UNSP SITE LIP,ORAL CAV,& PHARYNX (5) PTSD (post-traumatic stress disorder) Assessment/Plan: on no medications Code(s): F43.10 - POST-TRAUMATIC STRESS DISORDER, UNSPECIFIED (6) Acute blood loss anemia Assessment/Plan: monitor CBC, transfuse start Protonix hemocult all stools Code(s): D62 - ACUTE POSTHEMORRHAGIC ANEMIA
[2017-06-21 21:08] LABS: PLEURAL FLUID COLOR COLORLESS; PLEURAL FLUID SOURCE PLEURAL FLUID
[2017-06-21 21:09] LABS: PLEURAL FLUID APPEARANCE CLOUDY; PLEURAL FLUID LYMPHOCYTES 2 %; PLEURAL FLUID NEUTROPHIL 98 %
--- NOTE | 2017-06-21 21:41 | CONSULT ---
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 I do not have any record that I have seen pt since that time in the office.He reports having hemoptysis twice in last 2 months w progressive SOB; He went to ER at [facility] seen by ENT resident ; CT neck which showed improvement in previous fulness of L tonsillar pillar as compared to a 2008 scan and a CXR showed RLL opacification r/o atelectasis/ aspiration/ pneumonitis ; he was referred to see Dr Norman (ENT) as outpatient (pt does not remember). Now , pt w progressive SOB, mild increase in cough, low appetite , 20 lb weight loss in 2 months , generalized weakness ; CT c/a/p here shows large loculated R pleural effusion, no underlying mass,compressive atelectasis , several likely hemangiomas in liver .CBC showedWBC 33K with mostly polys , Hgb11 ,plates 529K ; chemistries w low albumin , nl LFT's/creat/ Na+ ; R pigtail placed and straw colored fluid obtained ; pt w less SOB.Pt on ab 's (Zosyn).He denies fevers/chills /sweats. He has a hx of tonsillectomy as a child . 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 to get records), Irritable Bowel Disease Hepatobiliary: No: Cirrhosis, Cholelithiasis, Cholecystitis, Choledocholithiasis , Hepatitis A, Hepatitis B, Hepatitis C, Other Renal/: No: Renal Failure, Renal Inusuff, BPH, Cancer, Hematuria, Hemodialysis , Neurogenic Bladder, Renal Calculi, UTI, Other Heme/Onc: Yes: Anemia Infectious Disease: No: AIDS, C-Diff, Herpes Zoster, HIV, MRSA, STD's, Tuberculosis, VREF, Other Psych: Yes: Other (PTSD) Musculoskeletal: No: Bursitis, Chronic low back pain, Hemiparesis, Hemiplegia, Osteoarthritis, Paraplegia, Other Rheumatology: No: Fibromyalgia, Gout, Lupus, Rheumatoid Arthritis, Sarcoidosis, Vasculitis, Other ENT: No: Allergic Rhinitis, Sinusitis, Other Dermatology: No: Basal Cell, Cellulitis, Eczema, Melanoma, Psoriasis, Squamous Cell, Other - Past Surgical History Past Surgical History: Yes: None - Alcohol/Substance Use Hx Alcohol Use: No (occ) History of Substance Use: reports: None - Smoking History Smoking history: Current every day smoker Have you smoked in the past 12 months: Yes Aproximately how many cigarettes per day: 10 - Social History History of Recent Travel: No Home Medications - Allergies Allergies/Adverse Reactions: Allergies Allergy/AdvReac Type Severity Reaction Status Date / Time No Known Drug Allergies Allergy Verified 06/19/17 17:26 "TRANQUILIZERS AND SEDATIVES" Allergy Mild Hives Uncoded 06/19/17 17:26 - Home Medications Home Medications: Ambulatory Orders Albuterol Sulfate Inhaler - [Ventolin Hfa Inhaler -] 1 puff IH BID 06/19/17 Amox-Tr/K Cl [Augmentin - 875Mg Tablet] 1 tab PO BID 06/19/17 Cholecalciferol (Vitamin D3) [Vitamin D3] 2,000 unit PO DAILY 06/19/17 Family Disease History - Family Disease History Family History: Unable to Obtain Review of Systems - Review of Systems Constitutional: reports: Loss of Appetite, Unintentional Wgt. Loss, Weakness Eyes: reports: No Symptoms HENT: reports: No Symptoms Neck: reports: No Symptoms Cardiovascular: reports: Shortness of Breath Respiratory: reports: Cough, Exercise Intolerance, SOB on Exertion Gastrointestinal: reports: Constipation. denies: No Symptoms, Abdominal Pain, Bloating, Diarrhea, Dysphagia, Indigestion, Melena, Nausea, Rectal Bleeding, Vomiting, Vomiting Blood, Other Genitourinary: reports: No Symptoms Musculoskeletal: reports: No Symptoms Integumentary: reports: No Symptoms Neurological: reports: No Symptoms Endocrine: reports: No Symptoms, Unexplained Weight Loss Hematology/Lymphatic: reports: No Symptoms Psychiatric: reports: No Symptoms Physical Exam Vital Signs: Vital Signs Temperature 99.6 F 06/21/17 18:00 Pulse Rate 102 H 06/21/17 20:00 Respiratory Rate 24 06/21/17 20:00 Blood Pressure 99/57 06/21/17 20:00 O2 Sat by Pulse Oximetry (%) 100 06/21/17 16:31 Constitutional: Yes: Calm, Cachectic, Mild Distress Eyes: Yes: Conjunctiva Clear, EOM Intact HENT: Yes: Atraumatic, Normocephalic. No: WNL, Drooling, Epistaxis, Hoarseness , Nasal Congestion, Pharyngeal Erythema, Rhinnorhea, Thrush, Tonsillar Exudate, Other Neck: Yes: Supple, Trachea Midline. No: WNL, Decreased ROM, Lymphadenopathy, Rigid, Tenderness, Thyromegaly, Other Cardiovascular: Yes: Regular Rate and Rhythm Respiratory: Yes: Diminished, Poor Air Entry (RLL) Gastrointestinal: Yes: Normal Bowel Sounds, Soft. No: WNL, Abdomen, Obese, Ascites, Distention, Hematemesis, Hemorrhoids, Hepatomegaly, Hernia, Hyperactive Bowel Sounds, Hypoactive Bowel Sounds, Melena, Palpable Mass, Pulsatile Mass, Rectal Bleeding, Splenomegaly, Tenderness, Tenderness, Epigastrium, Tenderness, Rebound, Vomiting, Other Musculoskeletal: Yes: WNL Extremities: Yes: WNL Edema: No Integumentary: Yes: WNL Neurological: Yes: Alert, Oriented Psychiatric: Yes: Alert, Oriented Labs: CBC, BMP 06/21/17 13:50 06/21/17 07:20 Problem List - Problems (1) COPD (chronic obstructive pulmonary disease) Code(s): J44.9 - CHRONIC OBSTRUCTIVE PULMONARY DISEASE, UNSPECIFIED (2) History of throat cancer Code(s): Z85.819 - PRSNL HX OF MALIG NEOPLM OF UNSP SITE LIP,ORAL CAV,& PHARYNX (3) Pleural effusion Code(s): J90 - PLEURAL EFFUSION, NOT ELSEWHERE CLASSIFIED Assessment/Plan Pt w pleural effusion R s/p pigtail etiology uncertain . If empyema may explain the high WBC and the thrombocytosis (reactive ) and perhaps part of the anemia. Need to send the fluid for cytology (send now if not sent). Continue ab's for now /pulm f/u ; will consider a bone marrow exam to make sure there is no primary bone marrow disorder , eg MPD ; Tx as needed for now . Will follow.Will order basic anemia w/u.
[2017-06-21] MEDS: PANTOPRAZOLE 40 MG TABLET (FP) PO SCH (21:55)
[2017-06-22] MEDS: ZOLPIDEM TARTRATE 5 MG TABLET PO PRN ×2 (00:03→23:45)
[2017-06-22] MEDS: PIPERACILLIN/TAZOB 4.5 GM/100 ML PRE-DOCKED IVPB SCH ×3 (02:45→17:40)
[2017-06-22 05:48] LABS: MCH 26.5 pg (25.7-33.7); MCHC 32.9 g/dl (32.0-35.9); MEAN CELL VOLUME 80.6 fl (80-96); MEAN PLT VOLUME 7.9 fl (7.5-11.1); PLATELET COUNT 404 K/MM3 (134-434); RDW 15.8 % (11.9-15.9); WHITE BLOOD COUNT 23.7 K/mm3 (4.0-10.0)
[2017-06-22 06:07] LABS: ALBUMIN 1.5 g/dl (3.4-5.0); BILIRUBIN,TOTAL 0.4 mg/dL (0.2-1.0); CO2 31 mmol/L (21-32); CREATININE 0.7 mg/dL (0.7-1.3); GLUCOSE,RANDOM 92 mg/dL (74-106); LDH 142 U/L (87-241); MAGNESIUM 2.2 mg/dL (1.8-2.4); TOT PROT 6.4 g/dl (6.4-8.2)
[2017-06-22 06:10] LABS: ANION GAP 6 (8-16); CALCIUM 7.8 mg/dL (8.5-10.1); FERRITIN 384.676 ng/ml (16.4-293.9); FREE T4 1.64 ng/dl (0.76-1.16); SGOT/AST 42 U/L (15-37); SGPT/ALT 32 U/L (12-78)
[2017-06-22 06:14] LABS: INR 1.32 (0.82-1.09); PROTHROMBIN TIME (PATIENT) 14.6 SEC (9.98-11.88)
[2017-06-22 06:16] LABS: ALK PHOS 99 U/L (45-117); THYROID STIMULATING HORMONE 0.82 uIU/ml (0.358-3.74)
[2017-06-22] MEDS: MULTIVITAMINS (DAILY MVI) TABLET (FP) PO SCH (09:31)
[2017-06-22] MEDS: PANTOPRAZOLE 40 MG TABLET (FP) PO SCH (09:31)
[2017-06-22 10:19] LABS: TOTAL CELLS COUNTED 100
[2017-06-22 10:20] LABS: MYELOCYTE 1 % (0-2)
[2017-06-22] MEDS ORDERED: methylPREDNISolone NA SUCC 40 MG/1 ML VIAL IVPB SCH (12:15)
--- NOTE | 2017-06-22 12:40 | PN ---
Physical Exam: SUBJECTIVE: Patient seen and examined 67 yo M with h/o COPD, PTSD ([place] ), chronic tobacco use, and throat cancer in remission s/p radiation therapy who presents to ICU with right sided loculated pleural effusion s/p day 1 right chest tube placement. Presented to ED ( 06/19 ) with episode of hemoptysis that has since resolved, elevated WBC~33 ,000, and CT chest that revealed a large loculated right sided pleural effusion. Patient is a poor historian but endorses 2 weeks of loss of appetite, 20 IB weight loss in 3 weeks, and chronic cough ( 05/06 ). Started on Augmentin 3 days ago following routine blood work revealing WBC of 22,[address] [place]. Denies fevers/chills, night sweats, N/V, diarrhea, blood per rectum, hematuria, or pleuritic chest pain. on admission. Recently evaluated at [facility] 1 month ago for hemoptysis with 1 day admission. Pt lives at rest home in [place] and his Oncologist is Dr. Kaur from [facility]. Denies recent traveling and HIV status currently unknown. On encounter patient is alert and resting comfortably in bed. He is s/p day 1 chest tube placement with initial 200 ml pleural drainage. He endorses improvement in respiratory status with partial resolution of SOB. He denies fevers/chills, chest pain, dysuria, abdominal pain. or difficulty sleeping. He reports minor discomfort from right sided posterior chest tube insertion site. OBJECTIVE: Vital Signs Period Temp Pulse Resp BP Sys/Bunn Pulse Ox Last 24 Hr 97.6 F-99.6 F 86-120 20-37 85-119/55-75 97-100 GENERAL: Patient on 2 L NC. The patient is awake, alert, and fully oriented, in no acute distress. HEAD: Normal with no signs of trauma. NECK: supple without lymphadenopathy, JVD, or masses. LUNGS: Rigth sided posterior drainage in place c/d/i. Diffuse rhonci with absent rales. Dullness to percussion at right lung base. No accesory muscle use. HEART:+ Apical systolic murmur. Normal S1 and S2 without rub or gallop. ABDOMEN: Soft, nontender, not distended, normoactive bowel sounds, no guarding, no rebound, no masses. No hepatomegaly or splenomegaly. MUSCULOSKELETAL: Normal range of motion at all joints. No bony deformities or tenderness. No CVA tenderness. UPPER EXTREMITIES: 2+ pulses, warm, well-perfused. No cyanosis. No clubbing. Cap refill <2 seconds. No peripheral edema. LOWER EXTREMITIES: 2+ pulses, warm, well-perfused. No calf tenderness. No peripheral edema. PSYCHIATRIC: Slightly agitated Appropriate mood and affect. SKIN: Warm, dry, normal turgor, no rashes or lesions noted. Laboratory Results - last 24 hr 06/21/17 06/21/17 06/21/17 10:00 10:00 13:23 WBC RBC Hgb Hct MCV MCH MCHC RDW Plt Count MPV Total Counted Neutrophils % Neutrophils % (Manual) Lymphocytes % Lymphocytes % (Manual) Monocytes % (Manual) Myelocytes % (Man) Retic Count PT with INR INR Puncture Site Right radial ABG pH 7.48 H ABG pCO2 at Pt Temp 36.3 ABG pO2 at Pt Temp 94.5 ABG HCO3 26.9 H ABG O2 Sat (Measured) 97.9 ABG O2 Content 9.1 L* ABG Base Excess 3.6 H Andre Test Positive O2 Delivery Device Bipap Oxygen Flow Rate 35% Vent Mode S/t Vent Rate 12 Mechanical Rate Bipap PEEP 0.0 Pressure Support Vent 12/5 Sodium Potassium Chloride Carbon Dioxide Anion Gap BUN Creatinine Creat Clearance w eGFR Random Glucose Calcium Phosphorus Magnesium Ferritin Total Bilirubin AST ALT Alkaline Phosphatase LD Total Total Protein Albumin Vitamin B12 Serum Folate TSH Free T4 Pleural Fluid Source Pleural Color Pleural Appearance Pleural WBC Pleural RBC Pleural Neutrophils Pleural Lymphocytes Pleural Total Protein Pleural Albumin Pleural LDH Pleural Glucose Pleural Amylase Pleural Triglycerides Blood Type O NEGATIVE O NEGATIVE Antibody Screen Negative Crossmatch See Detail See Detail 06/21/17 06/21/17 06/22/17 13:50 16:30 05:00 WBC 30.6 H* RBC 2.66 L Hgb 6.8 L* Hct 21.3 L MCV 80.2 MCH 25.7 MCHC 32.1 RDW 16.6 H Plt Count 408 MPV 7.5 Total Counted Neutrophils % No Result Required. Neutrophils % (Manual) Lymphocytes % No Result Required. Lymphocytes % (Manual) Monocytes % (Manual) Myelocytes % (Man) Retic Count PT with INR 14.60 H INR 1.32 H Puncture Site ABG pH ABG pCO2 at Pt Temp ABG pO2 at Pt Temp ABG HCO3 ABG O2 Sat (Measured) ABG O2 Content ABG Base Excess Andre Test O2 Delivery Device Oxygen Flow Rate Vent Mode Vent Rate Mechanical Rate PEEP Pressure Support Vent Sodium Potassium Chloride Carbon Dioxide Anion Gap BUN Creatinine Creat Clearance w eGFR Random Glucose Calcium Phosphorus Magnesium Ferritin Total Bilirubin AST ALT Alkaline Phosphatase LD Total Total Protein Albumin Vitamin B12 Serum Folate TSH Free T4 Pleural Fluid Source Pleural fluid Pleural Color Colorless Pleural Appearance Cloudy Pleural WBC [id number] Pleural RBC 90893 Pleural Neutrophils 98 Pleural Lymphocytes 2 Pleural Total Protein 5.249 Pleural Albumin 2 Pleural LDH 66471 Pleural Glucose < 1.000 Pleural Amylase 18.850 Pleural Triglycerides 42 Blood Type Antibody Screen Crossmatch 06/22/17 06/22/17 06/22/17 05:00 05:00 05:00 WBC 23.7 H RBC 3.38 L D Hgb 8.9 L D Hct 27.2 L D MCV 80.6 MCH 26.5 MCHC 32.9 RDW 15.8 Plt Count 404 MPV 7.9 Total Counted 100 Neutrophils % Neutrophils % (Manual) 90 H Lymphocytes % Lymphocytes % (Manual) 6 L D Monocytes % (Manual) 3 L Myelocytes % (Man) 1 Retic Count 1.63 H PT with INR INR Puncture Site ABG pH ABG pCO2 at Pt Temp ABG pO2 at Pt Temp ABG HCO3 ABG O2 Sat (Measured) ABG O2 Content ABG Base Excess Andre Test O2 Delivery Device Oxygen Flow Rate Vent Mode Vent Rate Mechanical Rate PEEP Pressure Support Vent Sodium 139 Potassium 4.0 Chloride 102 Carbon Dioxide 31 Anion Gap 6 L BUN 20 H Creatinine 0.7 Creat Clearance w eGFR > 60 Random Glucose 92 Calcium 7.8 L Phosphorus 4.0 Magnesium 2.2 Ferritin Total Bilirubin 0.4 AST 42 H ALT 32 Alkaline Phosphatase 99 LD Total 142 Total Protein 6.4 Albumin 1.5 L Vitamin B12 Serum Folate 13 TSH 0.82 D Free T4 Pleural Fluid Source Pleural Color Pleural Appearance Pleural WBC Pleural RBC Pleural Neutrophils Pleural Lymphocytes Pleural Total Protein Pleural Albumin Pleural LDH Pleural Glucose Pleural Amylase Pleural Triglycerides Blood Type Antibody Screen Crossmatch 06/22/17 05:00 WBC RBC Hgb Hct MCV MCH MCHC RDW Plt Count MPV Total Counted Neutrophils % Neutrophils % (Manual) Lymphocytes % Lymphocytes % (Manual) Monocytes % (Manual) Myelocytes % (Man) Retic Count PT with INR INR Puncture Site ABG pH ABG pCO2 at Pt Temp ABG pO2 at Pt Temp ABG HCO3 ABG O2 Sat (Measured) ABG O2 Content ABG Base Excess Andre Test O2 Delivery Device Oxygen Flow Rate Vent Mode Vent Rate Mechanical Rate PEEP Pressure Support Vent Sodium Potassium Chloride Carbon Dioxide Anion Gap BUN Creatinine Creat Clearance w eGFR Random Glucose Calcium Phosphorus Magnesium Ferritin 384.676 H Total Bilirubin AST ALT Alkaline Phosphatase LD Total Total Protein Albumin Vitamin B12 628 Serum Folate TSH Free T4 1.64 H Pleural Fluid Source Pleural Color Pleural Appearance Pleural WBC Pleural RBC Pleural Neutrophils Pleural Lymphocytes Pleural Total Protein Pleural Albumin Pleural LDH Pleural Glucose Pleural Amylase Pleural Triglycerides Blood Type Antibody Screen Crossmatch Active Medications Generic Name Dose Route Start Last Admin Trade Name Freq PRN Reason Stop Dose Admin Acetaminophen 325 mg 06/19/17 17:16 Tylenol - PO Q6H PRN FEVER OR PAIN Albuterol Sulfate 1 amp 06/19/17 17:25 06/21/17 10:20 Ventolin 0.083% Nebulizer Soln - NEB 1 amp Q6H PRN Administration SHORT OF BREATH/WHEEZING Methylprednisolone Sodium Succinate 40 mg 06/22/17 12:15 Solu-Medrol - IVPB DAILY [facility] Multivitamins/Minerals/Vitamin C 1 tab 06/20/17 14:15 06/22/17 09:31 Tab-A-Vit - PO 1 tab DAILY [facility] Administration Pantoprazole Sodium 40 mg 06/21/17 20:00 06/22/17 09:31 Protonix - PO 40 mg DAILY [facility] Administration Piperacillin Sod/Tazobactam Sod 4.5 gm 06/20/17 14:00 06/22/17 09:32 Zosyn 4.5gm Ivpb (Pre-Docked) IVPB 4.5 gm Q8H-IV [facility] Administration Zolpidem Tartrate 5 mg 06/20/17 00:06 06/22/17 00:03 Ambien - PO 5 mg HS PRN Administration INSOMNIA ASSESSMENT/PLAN: 67 yo M with h/o COPD, PTSD ([place] ), chronic tobacco use, and throat cancer in remission s/p radiation therapy who presents to ICU with right sided loculated pleural effusion s/p day 1 right chest tube placement Hemoptysis: Possible right sided complicated parapneumoinic effusion vs empyema 2/2 to infection vs. paraneoplastic effusion or malignancy. CT chest ( 06/19) Centrilobular emphysema, large partially loculated right sided pleural effusion, nonspeciifc free fluid in abdomen and pelvis. S/P day 1 right sided chest tube placement (300 ml drained- red serous fluid). Cytology reveals Pleural protein/Total protein ratio of 5.249/6.4- 0.82, Pleural LDH 17861/ (2/3 x upper limit of normal)- 148. Lites criteria positive for exudative effusion. Consider bacterial infection, ( glucose >1.000 ) vs. malignant effusion. Dr. Mancilla ( 06/21) - hemotpysis 2/2 bronchiestasis vs. malignancy. Patient afebrile through admission. WBC on admission 33,000--> 23.7 ( 06/22) HIV negative Unasyn D/c'd Plan: - Daily CBC - Cont. Zosyn 4.5 mg - Per cardiothoracic discuss risk/benefit of tPA x2 with patient vs. surgical management. - Incentive Spirometry Acute on Chronic COPD: Patient with cont'd swallow labored breathing and decreased breath sounds bilaterally. Increased productive cough over past week. AB.48/36.3/94.5/26.9 Plan: - Albuterol Q6 - BIPAP: FiO2 35%, Rate 12, 12/5 - D/c Solumedrol and start oral Prednisone 40 mg PO QD Anemia:MDS vs Anemia of chronic disease Hgb 11.1 -6.8 (06/21) PRBC if Hgb <7.0. Patient given 1 PRBC (06/21) Ferritin 384.[address] Kaur ( Oncology) (06/21) recommends bone marrow biopsy to evaluate MDS in setting of thrombocytosis ( PLT 447) and increased RDW. Thrombocytosis may be reactive and d/t empyema. Plan: - Trend Hgb/Hct - FOBT pending - f/u Iron studies FEN: No IVF, Lytes PRN, NPO Dispo: ICU Monitoring Visit type - Emergency Visit Emergency Visit: Yes ED Registration Date: 06/19/17 Care time: The patient presented to the Emergency Department on the above date and was hospitalized for further evaluation of their emergent condition. - New Patient This patient is new to me today: No - Critical Care Critical Care patient: Yes Total Critical Care Time (in minutes): 30 Critical Care Statement: The care of this patient involved high complexity decision making to prevent further life threatening deterioration of the patient 's condition and/or to evaluate & treat vital organ system(s) failure or risk of failure.
--- NOTE | 2017-06-22 12:55 | PN ---
Progress Note, Physician History of Present Illness: Awake, alert No complaints No c/o chest pain or dyspnea No fever/ chills Breathing non-labored Afebrile WBC improved Cultures pending - Current Medication List Current Medications: Active Medications Acetaminophen (Tylenol -) 325 mg PO Q6H PRN PRN Reason: FEVER OR PAIN Albuterol Sulfate (Ventolin 0.083% Nebulizer Soln -) 1 amp NEB Q6H PRN PRN Reason: SHORT OF BREATH/WHEEZING Last Admin: 06/21/17 10:20 Dose: 1 amp Methylprednisolone Sodium Succinate (Solu-Medrol -) 40 mg IVPB DAILY [facility] Multivitamins/Minerals/Vitamin C (Tab-A-Vit -) 1 tab PO DAILY [facility] Last Admin: 06/22/17 09:31 Dose: 1 tab Pantoprazole Sodium (Protonix -) 40 mg PO DAILY [facility] Last Admin: 06/22/17 09:31 Dose: 40 mg Piperacillin Sod/Tazobactam Sod (Zosyn 4.5gm Ivpb (Pre-Docked)) 4.5 gm IVPB Q8H -IV [facility] Last Admin: 06/22/17 09:32 Dose: 4.5 gm Zolpidem Tartrate (Ambien -) 5 mg PO HS PRN PRN Reason: INSOMNIA Last Admin: 06/22/17 00:03 Dose: 5 mg - Objective Vital Signs: Vital Signs Temperature 98.6 F 06/22/17 10:00 Pulse Rate 87 06/22/17 10:47 Respiratory Rate 26 H 06/22/17 10:00 Blood Pressure 107/69 06/22/17 10:00 O2 Sat by Pulse Oximetry (%) 98 06/22/17 10:47 Constitutional: Yes: No Distress Eyes: Yes: Conjunctiva Clear Cardiovascular: Yes: Regular Rate and Rhythm, S1, S2 Respiratory: Yes: Diminished, Other (R chest tube) Gastrointestinal: Yes: Normal Bowel Sounds, Soft. No: Tenderness Edema: No Labs: CBC, BMP 06/22/17 05:00 06/22/17 05:00 INR, PTT INR 1.32 (0.82-1.09) H 06/22/17 05:00 Assessment/Plan S/P R chest tube Loculated R effusion COPD Await cultures Continue empiric zosyn
--- NOTE | 2017-06-22 13:11 | PN ---
Teaching Attending Note Name of Resident: John Smiley ATTENDING PHYSICIAN STATEMENT I saw and evaluated the patient. I reviewed the resident's note and discussed the case with the resident. I agree with the resident's findings and plan as documented. SUBJECTIVE: Patient seen and examined in the ICU. Awake and alert. Some mild discomfort at the pigtail site. Reports SOB is better. Intake & Output 06/19/17 06/20/17 06/21/17 06/22/17 23:59 23:59 23:59 23:59 Intake Total 400 1725 1980 100 Output Total 1350 380 Balance 400 1725 630 -280 Weight 135 lb 129 lb 1.6 oz 125 lb 9 oz Last Vital Signs Temp Pulse Resp BP Pulse Ox 98.6 F 87 26 H 107/69 98 06/22/17 10:00 06/22/17 10:47 06/22/17 10:00 06/22/17 10:00 06/22/17 10:47 Active Medications Acetaminophen (Tylenol -) 325 mg PO Q6H PRN PRN Reason: FEVER OR PAIN Albuterol Sulfate (Ventolin 0.083% Nebulizer Soln -) 1 amp NEB Q6H PRN PRN Reason: SHORT OF BREATH/WHEEZING Last Admin: 06/21/17 10:20 Dose: 1 amp Methylprednisolone Sodium Succinate (Solu-Medrol -) 40 mg IVPB DAILY [facility] Multivitamins/Minerals/Vitamin C (Tab-A-Vit -) 1 tab PO DAILY [facility] Last Admin: 06/22/17 09:31 Dose: 1 tab Pantoprazole Sodium (Protonix -) 40 mg PO DAILY [facility] Last Admin: 06/22/17 09:31 Dose: 40 mg Piperacillin Sod/Tazobactam Sod (Zosyn 4.5gm Ivpb (Pre-Docked)) 4.5 gm IVPB Q8H -IV [facility] Last Admin: 06/22/17 09:32 Dose: 4.5 gm Zolpidem Tartrate (Ambien -) 5 mg PO HS PRN PRN Reason: INSOMNIA Last Admin: 06/22/17 00:03 Dose: 5 mg Constitutional: Yes: Awake and alert Eyes: Yes: EOM Intact HENT: Yes: Normocephalic Neck: Yes: Trachea Midline Cardiovascular: Yes: Tachycardia, S1, S2 Respiratory: Yes: Right pigtail intact. coarse BS and rhonchi on the right Gastrointestinal: Yes: Soft Edema: No Labs: Laboratory Results - last 24 hr 06/21/17 06/21/17 06/21/17 10:00 10:00 13:23 WBC RBC Hgb Hct MCV MCH MCHC RDW Plt Count MPV Total Counted Neutrophils % Neutrophils % (Manual) Lymphocytes % Lymphocytes % (Manual) Monocytes % (Manual) Myelocytes % (Man) Retic Count PT with INR INR Puncture Site Right radial ABG pH 7.48 H ABG pCO2 at Pt Temp 36.3 ABG pO2 at Pt Temp 94.5 ABG HCO3 26.9 H ABG O2 Sat (Measured) 97.9 ABG O2 Content 9.1 L* ABG Base Excess 3.6 H Andre Test Positive O2 Delivery Device Bipap Oxygen Flow Rate 35% Vent Mode S/t Vent Rate 12 Mechanical Rate Bipap PEEP 0.0 Pressure Support Vent 12/5 Sodium Potassium Chloride Carbon Dioxide Anion Gap BUN Creatinine Creat Clearance w eGFR Random Glucose Calcium Phosphorus Magnesium Ferritin Total Bilirubin AST ALT Alkaline Phosphatase LD Total Total Protein Albumin Vitamin B12 Serum Folate TSH Free T4 Pleural Fluid Source Pleural Color Pleural Appearance Pleural WBC Pleural RBC Pleural Neutrophils Pleural Lymphocytes Pleural Total Protein Pleural Albumin Pleural LDH Pleural Glucose Pleural Amylase Pleural Triglycerides Blood Type O NEGATIVE O NEGATIVE Antibody Screen Negative Crossmatch See Detail See Detail 06/21/17 06/21/17 06/22/17 13:50 16:30 05:00 WBC 30.6 H* RBC 2.66 L Hgb 6.8 L* Hct 21.3 L MCV 80.2 MCH 25.7 MCHC 32.1 RDW 16.6 H Plt Count 408 MPV 7.5 Total Counted Neutrophils % No Result Required. Neutrophils % (Manual) Lymphocytes % No Result Required. Lymphocytes % (Manual) Monocytes % (Manual) Myelocytes % (Man) Retic Count PT with INR 14.60 H INR 1.32 H Puncture Site ABG pH ABG pCO2 at Pt Temp ABG pO2 at Pt Temp ABG HCO3 ABG O2 Sat (Measured) ABG O2 Content ABG Base Excess Andre Test O2 Delivery Device Oxygen Flow Rate Vent Mode Vent Rate Mechanical Rate PEEP Pressure Support Vent Sodium Potassium Chloride Carbon Dioxide Anion Gap BUN Creatinine Creat Clearance w eGFR Random Glucose Calcium Phosphorus Magnesium Ferritin Total Bilirubin AST ALT Alkaline Phosphatase LD Total Total Protein Albumin Vitamin B12 Serum Folate TSH Free T4 Pleural Fluid Source Pleural fluid Pleural Color Colorless Pleural Appearance Cloudy Pleural WBC 188665 Pleural RBC 24875 Pleural Neutrophils 98 Pleural Lymphocytes 2 Pleural Total Protein 5.249 Pleural Albumin 2 Pleural LDH 16667 Pleural Glucose < 1.000 Pleural Amylase 18.850 Pleural Triglycerides 42 Blood Type Antibody Screen Crossmatch 06/22/17 06/22/17 06/22/17 05:00 05:00 05:00 WBC 23.7 H RBC 3.38 L D Hgb 8.9 L D Hct 27.2 L D MCV 80.6 MCH 26.5 MCHC 32.9 RDW 15.8 Plt Count 404 MPV 7.9 Total Counted 100 Neutrophils % Neutrophils % (Manual) 90 H Lymphocytes % Lymphocytes % (Manual) 6 L D Monocytes % (Manual) 3 L Myelocytes % (Man) 1 Retic Count 1.63 H PT with INR INR Puncture Site ABG pH ABG pCO2 at Pt Temp ABG pO2 at Pt Temp ABG HCO3 ABG O2 Sat (Measured) ABG O2 Content ABG Base Excess Andre Test O2 Delivery Device Oxygen Flow Rate Vent Mode Vent Rate Mechanical Rate PEEP Pressure Support Vent Sodium 139 Potassium 4.0 Chloride 102 Carbon Dioxide 31 Anion Gap 6 L BUN 20 H Creatinine 0.7 Creat Clearance w eGFR > 60 Random Glucose 92 Calcium 7.8 L Phosphorus 4.0 Magnesium 2.2 Ferritin Total Bilirubin 0.4 AST 42 H ALT 32 Alkaline Phosphatase 99 LD Total 142 Total Protein 6.4 Albumin 1.5 L Vitamin B12 Serum Folate 13 TSH 0.82 D Free T4 Pleural Fluid Source Pleural Color Pleural Appearance Pleural WBC Pleural RBC Pleural Neutrophils Pleural Lymphocytes Pleural Total Protein Pleural Albumin Pleural LDH Pleural Glucose Pleural Amylase Pleural Triglycerides Blood Type Antibody Screen Crossmatch 06/22/17 05:00 WBC RBC Hgb Hct MCV MCH MCHC RDW Plt Count MPV Total Counted Neutrophils % Neutrophils % (Manual) Lymphocytes % Lymphocytes % (Manual) Monocytes % (Manual) Myelocytes % (Man) Retic Count PT with INR INR Puncture Site ABG pH ABG pCO2 at Pt Temp ABG pO2 at Pt Temp ABG HCO3 ABG O2 Sat (Measured) ABG O2 Content ABG Base Excess Andre Test O2 Delivery Device Oxygen Flow Rate Vent Mode Vent Rate Mechanical Rate PEEP Pressure Support Vent Sodium Potassium Chloride Carbon Dioxide Anion Gap BUN Creatinine Creat Clearance w eGFR Random Glucose Calcium Phosphorus Magnesium Ferritin 384.676 H Total Bilirubin AST ALT Alkaline Phosphatase LD Total Total Protein Albumin Vitamin B12 628 Serum Folate TSH Free T4 1.64 H Pleural Fluid Source Pleural Color Pleural Appearance Pleural WBC Pleural RBC Pleural Neutrophils Pleural Lymphocytes Pleural Total Protein Pleural Albumin Pleural LDH Pleural Glucose Pleural Amylase Pleural Triglycerides Blood Type Antibody Screen Crossmatch Problem List - Problems (1) COPD (chronic obstructive pulmonary disease) Code(s): J44.9 - CHRONIC OBSTRUCTIVE PULMONARY DISEASE, UNSPECIFIED (2) History of throat cancer Code(s): Z85.819 - PRSNL HX OF MALIG NEOPLM OF UNSP SITE LIP,ORAL CAV,& PHARYNX (3) PTSD (post-traumatic stress disorder) Code(s): F43.10 - POST-TRAUMATIC STRESS DISORDER, UNSPECIFIED (4) Pleural effusion/Exudate Code(s): J90 - PLEURAL EFFUSION, NOT ELSEWHERE CLASSIFIED Assessment/Plan Continue to monitor CT outputs Daily CXR Incentive Spirometry O2 as needed Medrol ABX coverage May attempt trial of tPA tomorrow via the pleural catheter May needs VATs ICU monitoring Dr Moon Critical care time spent in reviewing chart, evaluating patient and formulating plan - 36 minutes.
--- NOTE | 2017-06-22 13:56 | CONSULT ---
Consult - text type - Consultation Consultation Note: Thoracic Surgery Consultation: Reason for consultation: Right pleural effusion. Pt seen and examined. 67M with Schizoaffective disorder, COPD, active smoker, laryngeal cancer s/p radiation, p/w fatigue, weight loss, leukocytosis and large right pleural effusion. Now s/p U/S guided pigtail. Exudative effusion. PE: slight tachypnea and hypoxia decreased breath sounds right side, poor cough Imp/Plan: Pleural effusion--likely empyema over malignant, parapneumonic possible. -F/U studies, does not appear to be TB -Consider tpa versus vats if clearly this is empyema (at present poor ineffective cough, increasing risk of surgery, no likely bleeding going on). -Will follow I have spent 40minutes on this consultation with >50% in counseling and coordination of care with the patient, Dr. Moon, and health care team in ICU.
[2017-06-22] MEDS ORDERED: CHLORHEXIDINE GLUCONATE 0.12% 15ML CUP MM ONE (19:36)
--- NOTE | 2017-06-22 20:09 | PN ---
Progress Note, Physician Chief Complaint: 67 yo male with PMH of schizoaffective disorder, PTSD, was admitted for weight loss, poor oral intake, remote hematemesis, and elevation of the WBC. Admission CXR and Ct scan diagnosed a large loculated right pleural effusion. A pig tail catheter was inserted with drainage of yellow purulent fluid, today otehr 200 cc inaddition to 200 upon initial catheter placement During the first 48 hours 24 hours of admission the patient dropped his H/H.There was no sign of acute bleeding and no record of hemoptysis, hematemesis or melanotic stools since the hospital admission. 2 units of blood were transfused. The patient is a very poor historian. Today the patient feels fine, and his appetite has a significantly improved.There is no fever, and he has sporadic cough. History of Present Illness: as above - Current Medication List Current Medications: Active Medications Acetaminophen (Tylenol -) 325 mg PO Q6H PRN PRN Reason: FEVER OR PAIN Albuterol Sulfate (Ventolin 0.083% Nebulizer Soln -) 1 amp NEB Q6H PRN PRN Reason: SHORT OF BREATH/WHEEZING Last Admin: 06/21/17 10:20 Dose: 1 amp Multivitamins/Minerals/Vitamin C (Tab-A-Vit -) 1 tab PO DAILY [facility]IS Last Admin: 06/22/17 09:31 Dose: 1 tab Pantoprazole Sodium (Protonix -) 40 mg PO DAILY [facility]IS Last Admin: 06/22/17 09:31 Dose: 40 mg Piperacillin Sod/Tazobactam Sod (Zosyn 4.5gm Ivpb (Pre-Docked)) 4.5 gm IVPB Q8H -IV MARIS Last Admin: 06/22/17 17:40 Dose: 4.5 gm Prednisone (Deltasone -) 40 mg PO DAILY [facility]IS Zolpidem Tartrate (Ambien -) 5 mg PO HS PRN PRN Reason: INSOMNIA Last Admin: 06/22/17 00:03 Dose: 5 mg - Objective Vital Signs: Vital Signs Temperature 98.8 F 06/22/17 16:00 Pulse Rate 101 H 06/22/17 20:00 Respiratory Rate 18 06/22/17 17:54 Blood Pressure 96/72 06/22/17 20:00 O2 Sat by Pulse Oximetry (%) 97 06/22/17 19:34 Constitutional: Yes: No Distress, Calm Eyes: Yes: Conjunctiva Clear, EOM Intact HENT: Yes: Atraumatic, Normocephalic Neck: Yes: Supple, Trachea Midline Cardiovascular: Yes: Regular Rate and Rhythm, S1, S2 Respiratory: Yes: Regular, Poor Air Entry (improved air entry at the righ base) Gastrointestinal: Yes: Normal Bowel Sounds, Soft. No: Ascites, Distention, Hepatomegaly, Melena, Palpable Mass, Splenomegaly, Vomiting Genitourinary: Yes: WNL Breast(s): Yes: WNL Musculoskeletal: Yes: WNL Extremities: Yes: WNL. No: Calf Tenderness Edema: No Peripheral Pulses WNL: Yes Neurological: Yes: Alert, Oriented Psychiatric: Yes: Alert, Oriented Labs: CBC, BMP 06/22/17 05:00 06/22/17 05:00 INR, PTT INR 1.32 (0.82-1.09) H 06/22/17 05:00 Problem List - Problems (1) Pleural effusion Assessment/Plan: continue Zosyn iv continue venti MAsk s/p pleural right pig tail catheter, thoracic surgeon consulted possible VATS? fluid is an exudate monitor oxygen Code(s): J90 - PLEURAL EFFUSION, NOT ELSEWHERE CLASSIFIED (2) COPD (chronic obstructive pulmonary disease) Assessment/Plan: Albuterol nebulizer continue Zosyn Code(s): J44.9 - CHRONIC OBSTRUCTIVE PULMONARY DISEASE, UNSPECIFIED (3) Hemoptysis Assessment/Plan: pulmonary consult bleeding bronchiectasis? Code(s): R04.2 - HEMOPTYSIS (4) History of throat cancer Assessment/Plan: although the initial work up was negative for cancer recurrence or metastases, malignancy is still part of the differential diagnosis Code(s): Z85.819 - PRSNL HX OF MALIG NEOPLM OF UNSP SITE LIP,ORAL CAV,& PHARYNX (5) PTSD (post-traumatic stress disorder) Assessment/Plan: on no medications Code(s): F43.10 - POST-TRAUMATIC STRESS DISORDER, UNSPECIFIED (6) Acute blood loss anemia Assessment/Plan: continue monitoring CBC continue Protonix hemocult all stools Code(s): D62 - ACUTE POSTHEMORRHAGIC ANEMIA (7) Schizoaffective disorder Assessment/Plan: on no medications Code(s): F25.9 - SCHIZOAFFECTIVE DISORDER, UNSPECIFIED
[2017-06-23] MEDS: PIPERACILLIN/TAZOB 4.5 GM/100 ML PRE-DOCKED IVPB SCH ×3 (02:42→17:07)
[2017-06-23 06:06] LABS: FREE T3 1.5 pg/mL (2.0-4.4)
[2017-06-23 06:19] LABS: BASOPHIL 0.4 % (0-2.0); EOSINOPHIL 0.3 % (0-4.5); MCHC 33.1 g/dl (32.0-35.9); MEAN CELL VOLUME 81.5 fl (80-96); NEUTROPHILS 89.5 % (42.8-82.8); PLATELET COUNT 417 K/MM3 (134-434); RDW 15.8 % (11.9-15.9)
[2017-06-23 06:45] LABS: ALBUMIN 1.6 g/dl (3.4-5.0); ANION GAP 9 (8-16); CALCIUM 7.8 mg/dL (8.5-10.1); CO2 30 mmol/L (21-32); GLUCOSE,RANDOM 84 mg/dL (74-106); MAGNESIUM 2.2 mg/dL (1.8-2.4); PHOSPHOROUS 3.3 mg/dL (2.5-4.9); SGOT/AST 38 U/L (15-37); TOT PROT 6.3 g/dl (6.4-8.2)
[2017-06-23 06:50] LABS: ALK PHOS 103 U/L (45-117); BILIRUBIN,TOTAL 0.3 mg/dL (0.2-1.0); CREATININE 0.5 mg/dL (0.7-1.3); SGPT/ALT 35 U/L (12-78)
--- NOTE | 2017-06-23 07:17 | PN ---
Progress Note, Physician Chief Complaint: ID ICU follow up for this 67 year old male wit history of Laryngeal cancer presents with loculated right pleural effusion and WBC 33K. I saw him at [address] but since then transferred here for insertion of chest tube. The fluid is cloudy exudative and has unmeasurably low blood sugar! Currently day 3 Pip Tazobactam Remains afebrile - Current Medication List Current Medications: Active Medications Acetaminophen (Tylenol -) 325 mg PO Q6H PRN PRN Reason: FEVER OR PAIN Albuterol Sulfate (Ventolin 0.083% Nebulizer Soln -) 1 amp NEB Q6H PRN PRN Reason: SHORT OF BREATH/WHEEZING Last Admin: 06/21/17 10:20 Dose: 1 amp Multivitamins/Minerals/Vitamin C (Tab-A-Vit -) 1 tab PO DAILY MARIS Last Admin: 06/22/17 09:31 Dose: 1 tab Pantoprazole Sodium (Protonix -) 40 mg PO DAILY [facility]IS Last Admin: 06/22/17 09:31 Dose: 40 mg Piperacillin Sod/Tazobactam Sod (Zosyn 4.5gm Ivpb (Pre-Docked)) 4.5 gm IVPB Q8H -IV [facility] Last Admin: 06/23/17 02:42 Dose: 4.5 gm Prednisone (Deltasone -) 40 mg PO DAILY [facility] - Objective Vital Signs: Vital Signs Temperature 98.2 F 06/23/17 06:00 Pulse Rate 89 06/23/17 06:00 Respiratory Rate 18 06/23/17 06:00 Blood Pressure 101/70 06/23/17 06:00 O2 Sat by Pulse Oximetry (%) 97 06/22/17 20:01 Constitutional: Yes: Cachectic HENT: Yes: WNL, Atraumatic Neck: Yes: WNL, Supple Cardiovascular: Yes: Regular Rate and Rhythm, S1, S2. No: Murmur Respiratory: Yes: WNL, Regular, CTA Bilaterally, Rhonchi, Other (right chest tube). No: SOB, Wheezes Gastrointestinal: Yes: WNL, Normal Bowel Sounds, Soft. No: Splenomegaly, Tenderness, Tenderness, Epigastrium, Tenderness, Rebound Extremities: No: Cold, Cool, Cyanosis Edema: No Labs: CBC, BMP 06/23/17 06:00 06/23/17 06:00 INR, PTT INR 1.32 (0.82-1.09) H 06/22/17 05:00 Problem List - Problems (1) COPD (chronic obstructive pulmonary disease) Code(s): J44.9 - CHRONIC OBSTRUCTIVE PULMONARY DISEASE, UNSPECIFIED (2) History of throat cancer Code(s): Z85.819 - PRSNL HX OF MALIG NEOPLM OF UNSP SITE LIP,ORAL CAV,& PHARYNX (3) Empyema Code(s): J86.9 - PYOTHORAX WITHOUT FISTULA (4) Hemoptysis Code(s): R04.2 - HEMOPTYSIS Assessment/Plan Microbiology 06/21/17 16:30 Pleural Fluid Gram Stain - Final 06/19/17 10:00 Urine - Urine Clean Catch Urine Culture - Final NO GROWTH OBTAINED 06/21/17 16:30 Pleural Fluid REBECA Preparation - Preliminary 06/21/17 16:30 Pleural Fluid Fungal Culture - Preliminary 06/21/17 16:30 Pleural Fluid AFB Smear Concentration - Preliminary 06/21/17 16:30 Pleural Fluid Mycobacterial Culture - Preliminary 06/19/17 11:10 Blood - Peripheral Venous Blood Culture - Preliminary NO GROWTH OBTAINED AFTER 72 HOURS, INCUBATION TO CONTINUE FOR 2 DAYS. 06/19/17 11:10 Blood - Peripheral Venous Blood Culture - Preliminary NO GROWTH OBTAINED AFTER 72 HOURS, INCUBATION TO CONTINUE FOR 2 DAYS. Laboratory Tests 06/20/17 06/21/17 06/21/17 06:00 07:20 13:23 WBC Hgb Hct Plt Count Neutrophils % Lymphocytes % Monocytes % ESR 128 H INR ABG pH 7.48 H ABG pCO2 at Pt Temp 36.3 Oxygen Flow Rate 35% Creat Clearance w eGFR Total Bilirubin AST ALT Alkaline Phosphatase Albumin Pleural Fluid Source Pleural Color Pleural Appearance Pleural WBC Pleural RBC Pleural Neutrophils Pleural Lymphocytes Pleural Total Protein Pleural LDH Pleural Glucose HIV 1&2 Antibody Screen Negative HIV P24 Antigen Negative 06/21/17 06/22/17 06/23/17 16:30 05:00 06:00 WBC 23.0 H Hgb 8.9 L Hct 26.8 L Plt Count 417 Neutrophils % 89.5 H Lymphocytes % 3.8 L Monocytes % 6.0 ESR INR 1.32 H ABG pH ABG pCO2 at Pt Temp Oxygen Flow Rate Creat Clearance w eGFR Total Bilirubin AST ALT Alkaline Phosphatase Albumin Pleural Fluid Source Pleural fluid Pleural Color Colorless Pleural Appearance Cloudy Pleural WBC 269146 Pleural RBC 47652 Pleural Neutrophils 98 Pleural Lymphocytes 2 Pleural Total Protein 5.249 Pleural LDH 44241 Pleural Glucose < 1.000 HIV 1&2 Antibody Screen HIV P24 Antigen 06/23/17 06:00 WBC Hgb Hct Plt Count Neutrophils % Lymphocytes % Monocytes % ESR INR ABG pH ABG pCO2 at Pt Temp Oxygen Flow Rate Creat Clearance w eGFR > 60 Total Bilirubin 0.3 D AST 38 H ALT 35 Alkaline Phosphatase 103 Albumin 1.6 L Pleural Fluid Source Pleural Color Pleural Appearance Pleural WBC Pleural RBC Pleural Neutrophils Pleural Lymphocytes Pleural Total Protein Pleural LDH Pleural Glucose HIV 1&2 Antibody Screen HIV P24 Antigen Assessment Right sided Empyema post chest tube insertion glucose less then 1 ! Exudative on antibiotic Severe COPD History of Laryngeal cancer Previous hemoptysis Weight loss Plan For now continue current antibiotic as ordered Await final culture Thoracic surgery evaluation done 35 minutes spent providing Critical care evaluation in ICU today Mercedes ROBERTS
[2017-06-23] MEDS: MULTIVITAMINS (DAILY MVI) TABLET (FP) PO SCH (09:20)
[2017-06-23] MEDS: PANTOPRAZOLE 40 MG TABLET (FP) PO SCH (09:20)
[2017-06-23] MEDS ORDERED: predniSONE 20 MG TABLET (UD) PO SCH (10:00)
--- NOTE | 2017-06-23 11:01 | PN ---
Progress Note, Physician Chief Complaint: SOB,weakness,weight loss History of Present Illness: 67 y/o male w hx L oropharyngeal cancer s/p RT [id number] admitted w SOB , weight loss found to have R pleural effusion s/p drainage w CT ; so far fluid more c/w infection , on ab's, afebrile ,cytology pending ; no underlying mass seen on imaging so far. PT also w leukocytosis mostly PMN's , anemia ( hypoproliferative , low iron sat ) at least partilly due to iron def ; Pt still SOB at rest, low appetite, dark soft stool. Occ chest pain at CT site. - Current Medication List Current Medications: Active Medications Acetaminophen (Tylenol -) 325 mg PO Q6H PRN PRN Reason: FEVER OR PAIN Albuterol Sulfate (Ventolin 0.083% Nebulizer Soln -) 1 amp NEB Q6H PRN PRN Reason: SHORT OF BREATH/WHEEZING Last Admin: 06/21/17 10:20 Dose: 1 amp Multivitamins/Minerals/Vitamin C (Tab-A-Vit -) 1 tab PO DAILY [facility] Last Admin: 06/23/17 09:20 Dose: 1 tab Pantoprazole Sodium (Protonix -) 40 mg PO DAILY [facility] Last Admin: 06/23/17 09:20 Dose: 40 mg Piperacillin Sod/Tazobactam Sod (Zosyn 4.5gm Ivpb (Pre-Docked)) 4.5 gm IVPB Q8H -IV [facility] Last Admin: 06/23/17 09:19 Dose: 4.5 gm Prednisone (Deltasone -) 40 mg PO DAILY [facility] Last Admin: 06/23/17 09:20 Dose: 40 mg - Objective Vital Signs: Vital Signs Temperature 98.3 F 06/23/17 10:00 Pulse Rate 94 H 06/23/17 10:00 Respiratory Rate 18 06/23/17 10:00 Blood Pressure 199/83 06/23/17 10:00 O2 Sat by Pulse Oximetry (%) 97 06/22/17 20:01 Constitutional: Yes: Anxious, Mild Distress, Pallor, Thin Eyes: Yes: Conjunctiva Clear, EOM Intact HENT: Yes: Atraumatic, Normocephalic Neck: Yes: WNL, Supple, Trachea Midline. No: Decreased ROM, Lymphadenopathy, Rigid, Tenderness, Thyromegaly, Other Cardiovascular: Yes: WNL, Regular Rate and Rhythm Respiratory: Yes: Diminished Gastrointestinal: Yes: WNL, Normal Bowel Sounds, Soft Musculoskeletal: No: WNL, Back Pain, Joint Stiffness, Joint Swelling, Muscle Pain, Muscle Weakness, Other Edema: No Integumentary: Yes: WNL Neurological: Yes: Alert ...Motor Strength: WNL Labs: CBC, BMP 06/23/17 06:00 06/23/17 06:00 INR, PTT INR 1.32 (0.82-1.09) H 06/22/17 05:00 Problem List - Problems (1) COPD (chronic obstructive pulmonary disease) Code(s): J44.9 - CHRONIC OBSTRUCTIVE PULMONARY DISEASE, UNSPECIFIED (2) History of throat cancer Code(s): Z85.819 - PRSNL HX OF MALIG NEOPLM OF UNSP SITE LIP,ORAL CAV,& PHARYNX (3) Pleural effusion Code(s): J90 - PLEURAL EFFUSION, NOT ELSEWHERE CLASSIFIED Assessment/Plan Await cytology ; continue CT drainage ,ab's ; Tx as needed for now ; follow CBC ; thoracic surgery following
--- NOTE | 2017-06-23 11:39 | PN ---
Physical Exam: SUBJECTIVE: Patient seen and examined Patient resting in bed NAD. No acute events overnight. Afebrile and hemodynamically stable. D2 s/p R chest pigtail placement. No complications at entry site, drained 580 cc in total, 100 cc purulent fluid overnight. Patient has remained on NC 2L wih 95% O2 sats, denies f/c, chest pain, worsening sob cough, palpitations, hemoptysis, n/v, diarhea, dysuria, constipation, melena, hemoatochezia or thorax pain. Plan further discussion with TS about VATS OBJECTIVE: Vital Signs Period Temp Pulse Resp BP Sys/Bunn Pulse Ox Last 24 Hr 98.0 F-99.0 F 86-101 18-26 92-199/52-83 95-97 GENERAL: The patient is awake, alert, and fully oriented, in no acute distress. HEAD: Normal with no signs of trauma. EYES: PERRL, extraocular movements intact, sclera anicteric, conjunctiva clear. No ptosis. ENT:moist mucous membranes. NECK: supple w/o JVD LUNGS: R lung diffusely reduced coarse breath sounds, pigtail in place, entry site erythema, exudate, clean dressing. HEART: Regular rate and rhythm, S1, S2. L lung diffuse end expiratory wheezes, mildly restricted ABDOMEN: Soft, nontender, nondistended, normoactive bowel sounds, no guarding, no rebound, no hepatosplenomegaly, no masses. EXTREMITIES: 2+ pulses, warm, well-perfused, no edema. NEUROLOGICAL: Cranial nerves II through XII grossly intact. Normal speech, gait not observed. PSYCH: Normal mood, normal affect. SKIN: Warm, dry Laboratory Results - last 24 hr 06/22/17 06/23/17 06/23/17 05:00 06:00 06:00 WBC 23.0 H RBC 3.29 L Hgb 8.9 L Hct 26.8 L MCV 81.5 MCH 27.0 MCHC 33.1 RDW 15.8 Plt Count 417 MPV 8.0 Neutrophils % 89.5 H Lymphocytes % 3.8 L Monocytes % 6.0 Eosinophils % 0.3 Basophils % 0.4 Sodium 138 Potassium 4.2 Chloride 99 Carbon Dioxide 30 Anion Gap 9 BUN 14 D Creatinine 0.5 L D Creat Clearance w eGFR > 60 Random Glucose 84 Calcium 7.8 L Phosphorus 3.3 Magnesium 2.2 Iron 14 L TIBC 152 L Iron Saturation 9 L Transferrin 130 L Total Bilirubin 0.3 D AST 38 H ALT 35 Alkaline Phosphatase 103 Total Protein 6.3 L Albumin 1.6 L Free T3 1.5 L Active Medications Generic Name Dose Route Start Last Admin Trade Name Freq PRN Reason Stop Dose Admin Acetaminophen 325 mg 06/19/17 17:16 Tylenol - PO Q6H PRN FEVER OR PAIN Albuterol Sulfate 1 amp 06/19/17 17:25 06/21/17 10:20 Ventolin 0.083% Nebulizer Soln - NEB 1 amp Q6H PRN Administration SHORT OF BREATH/WHEEZING Multivitamins/Minerals/Vitamin C 1 tab 06/20/17 14:15 06/23/17 09:20 Tab-A-Vit - PO 1 tab DAILY MARIS Administration Pantoprazole Sodium 40 mg 06/21/17 20:00 06/23/17 09:20 Protonix - PO 40 mg DAILY [facility] Administration Piperacillin Sod/Tazobactam Sod 4.5 gm 06/20/17 14:00 06/23/17 09:19 Zosyn 4.5gm Ivpb (Pre-Docked) IVPB 4.5 gm Q8H-IV MARIS Administration Prednisone 40 mg 06/23/17 10:00 06/23/17 09:20 Deltasone - PO 40 mg DAILY [facility] Administration ASSESSMENT/PLAN: This is a 67 yo M current smoker with PMH of COPD, laryngeal CA in remission s/ p RT and PTSD ([place] ), who presented due to weight loss, malaise, hemoptysis and respiratory failure, found to have R massive loculated pleural effusion Neuro -aaox3 -PTSD no recent aggravation CV *anemia stable s/p transfusion 1 unit 2 d ago -hgb 8.9 -Fe studies indicative of chronic disease component. Pulm *Massive R sided loculated pleural effusion -Empyema; cannont exclude underlying malignancy -day 2 s/p R chest pig tail placement; insufficient purulent drainage ( 520 cc total) wit minimal cxr improvement -pleural fluid exudative, gram stain negative, cytology p/d; send out triglyceride level -CT chest appreciated, large multiloculated effusion, with pleural enhancement and some bronchial collapse. CT chest from last summer shows a consolidation in RML -In light of clinical picture, Tpa is less likely to be helpful and Kirk Mcbride has been contacted for VATS evaluation -blood cultures negative -leukocytosis platoe at 23, persistent left shift -continue zosyn and prednisone 40 d -BIPAP PRN *hemoptysis -in setting of underlying infection -resolved but expect to reemerge once lung re-expands and cough reflex resumes *COPD -albuterol PRN *current smoker -cessation counseling Oncology *thrombocytosis and increased RDW -Dr. Kaur ( Oncology) (06/21) recommends bone marrow biopsy to evaluate MDS -thrombocytosis may be reactive in setting of empyema. FEN -No IVF -Lytes stable -regular diet Dispo: monitor in ICU Problem List - Problems (1) COPD (chronic obstructive pulmonary disease) Code(s): J44.9 - CHRONIC OBSTRUCTIVE PULMONARY DISEASE, UNSPECIFIED (2) Empyema Code(s): J86.9 - PYOTHORAX WITHOUT FISTULA (3) Hemoptysis Code(s): R04.2 - HEMOPTYSIS (4) History of throat cancer Code(s): Z85.819 - PRSNL HX OF MALIG NEOPLM OF UNSP SITE LIP,ORAL CAV,& PHARYNX (5) Pleural effusion Code(s): J90 - PLEURAL EFFUSION, NOT ELSEWHERE CLASSIFIED (6) PTSD (post-traumatic stress disorder) Code(s): F43.10 - POST-TRAUMATIC STRESS DISORDER, UNSPECIFIED (7) Schizoaffective disorder Code(s): F25.9 - SCHIZOAFFECTIVE DISORDER, UNSPECIFIED Visit type - Emergency Visit Emergency Visit: Yes ED Registration Date: 06/19/17 Care time: The patient presented to the Emergency Department on the above date and was hospitalized for further evaluation of their emergent condition. - New Patient This patient is new to me today: No - Critical Care Critical Care patient: Yes Total Critical Care Time (in minutes): 35 Critical Care Statement: The care of this patient involved high complexity decision making to prevent further life threatening deterioration of the patient 's condition and/or to evaluate & treat vital organ system(s) failure or risk of failure. - Discharge Referral Referred to [facility] Med P.C.: No
--- NOTE | 2017-06-23 13:17 | PN ---
Teaching Attending Note Name of Resident: Ramona Landin ATTENDING PHYSICIAN STATEMENT I saw and evaluated the patient. I reviewed the resident's note and discussed the case with the resident. I agree with the resident's findings and plan as documented. SUBJECTIVE: Pt seen and examined in the ICU. States breathing is slowly improving. No fevers recorded. Denies chest pain. OBJECTIVE: Last Vital Signs Temp Pulse Resp BP Pulse Ox 98.3 F 94 H 18 120/95 98 06/23/17 10:00 06/23/17 12:45 06/23/17 12:45 06/23/17 12:45 06/23/17 11:48 Intake & Output 06/20/17 06/21/17 06/22/17 06/23/17 23:59 23:59 23:59 23:59 Intake Total 1725 1980 1100 400 Output Total 1350 1520 1000 Balance 1725 630 -420 -600 Weight 129 lb 1.6 oz 125 lb 9 oz 127 lb 1 oz Gen: NAD at rest Heart: RRR Lung: decreased breath sounds right base, bilateral rhonchi, wheezes Abd: soft, nontender Ext: no edema Chest tube: purulent drainage, no air leak CBC, BMP 06/23/17 06:00 06/23/17 06:00 Active Medications Acetaminophen (Tylenol -) 325 mg PO Q6H PRN PRN Reason: FEVER OR PAIN Albuterol Sulfate (Ventolin 0.083% Nebulizer Soln -) 1 amp NEB Q6H PRN PRN Reason: SHORT OF BREATH/WHEEZING Last Admin: 06/21/17 10:20 Dose: 1 amp Multivitamins/Minerals/Vitamin C (Tab-A-Vit -) 1 tab PO DAILY [facility] Last Admin: 06/23/17 09:20 Dose: 1 tab Pantoprazole Sodium (Protonix -) 40 mg PO DAILY [facility] Last Admin: 06/23/17 09:20 Dose: 40 mg Piperacillin Sod/Tazobactam Sod (Zosyn 4.5gm Ivpb (Pre-Docked)) 4.5 gm IVPB Q8H -IV MARIS Last Admin: 06/23/17 09:19 Dose: 4.5 gm Prednisone (Deltasone -) 40 mg PO DAILY [facility] Last Admin: 06/23/17 09:20 Dose: 40 mg ASSESSMENT AND PLAN: Loculated Pleural Effusion likely Empyema Acute COPD Exacerbation Hemoptysis PTSD h/o Laryngeal Ca Smoker - continue antibiotics - f/u cultures - f/u pleural fluid cytology - continue prednisone - inhaled bronchodilators - O2 to keep SpO2 >90% - will likely need VATS - DVT prophylaxis
--- NOTE | 2017-06-23 13:35 | SPA.PREOP ---
- PRE-OP NOTE Dx: Right parapneumonic effusion Planned Procedure: Right VATS/possible decortication/thoracotomy Surgeon: Dr. Cleaning Last Vital Signs Temp Pulse Resp BP Pulse Ox 98.3 F 94 H 18 120/95 98 06/23/17 10:00 06/23/17 12:45 06/23/17 12:45 06/23/17 12:45 06/23/17 11:48 Lab Results WBC 23.0 K/mm3 (4.0-10.0) H 06/23/17 06:00 RBC 3.29 M/mm3 (4.00-5.60) L 06/23/17 06:00 Hgb 8.9 GM/dL (11.7-16.9) L 06/23/17 06:00 Hct 26.8 % (35.4-49) L 06/23/17 06:00 MCV 81.5 fl (80-96) 06/23/17 06:00 MCHC 33.1 g/dl (32.0-35.9) 06/23/17 06:00 RDW 15.8 % (11.9-15.9) 06/23/17 06:00 Plt Count 417 K/MM3 (134-434) 06/23/17 06:00 Sodium 138 mmol/L (136-145) 06/23/17 06:00 Potassium 4.2 mmol/L (3.5-5.1) 06/23/17 06:00 Chloride 99 mmol/L (98-107) 06/23/17 06:00 Carbon Dioxide 30 mmol/L (21-32) 06/23/17 06:00 Anion Gap 9 (8-16) 06/23/17 06:00 BUN 14 mg/dL (7-18) D 06/23/17 06:00 Creatinine 0.5 mg/dL (0.7-1.3) L D 06/23/17 06:00 Random Glucose 84 mg/dL (74-106) 06/23/17 06:00 Calcium 7.8 mg/dL (8.5-10.1) L 06/23/17 06:00 Blood Type O NEGATIVE 06/21/17 10:00 Antibody Screen Negative 06/21/17 10:00 INR 1.32 (0.82-1.09) H 06/22/17 05:00 PE: chest tube with purulent drainage, no obvious air leak, on suction, 450ml drainage in canister - IMAGING Chest X-ray: Report Reviewed (right chest tube with effusion) - ASSESSMENT/PLAN 1. Make NPO after midnight except po meds 2. GI/DVT PPX 3. Medical optimization / clearance 4. Type and screen ordered, s/p transfusion of 2 units PRBC Visit type - Case Type Case Type: ED Admission - Emergency Emergency Visit: Yes ED Registration Date: 06/19/17 Care time: The patient presented to the Emergency Department on the above date and was hospitalized for further evaluation of their emergent condition. - New patient This patient is new to me today: Yes Date on this admission: 06/23/17
--- NOTE | 2017-06-23 14:35 | PATH ---
Cytology Non-Gynecological Report Patient Name: JOSE WEEMS [facility]. Rec. #: [id number] /Age/Gender: 1950 (Age: 67) / M Account: [id number] Location: ICU GUEST SERVICES AGENT Taken: 06/21/2017 Received: 06/22/2017 Reported: 06/23/2017 Physicians: Osman Nick M.D. Carmelo Puccio, MD Specimen(s) Received PLEURAL FLUID Clinical History Pleural effusion, history of head and neck cancer Final Diagnosis PLEURAL FLUID, THORACENTESIS: NO MALIGNANT CELLS IDENTIFIED. ABUNDANT ACUTE INFLAMMATION AND NECROINFLAMMATORY MATERIAL. Electronically Signed Rajiv Toussaint M.D. Gross Description Received is 50 cc of yellow fluid in 50% alcohol. Two cytofunnel slides and one cell block are made.
[2017-06-23] MEDS: methylPREDNISolone NA SUCC 40 MG/1 ML VIAL IVPB SCH ×2 (17:06→17:07)
--- NOTE | 2017-06-23 22:38 | PN ---
Progress Note, Physician Chief Complaint: 67 yo male poor historian with PMH of schizoaffective disorder, PTSD, was admitted for weight loss, poor oral intake, remote hematemesis, and elevation of the WBC. Admission CXR and Ct scan diagnosed a large loculated right pleural effusion. A pig tail catheter was inserted with continuous drainage of yellow purulent fluid, approximately 400 cc daily over the past 3 days. The patient developed acute anemia which required transfusion. There was no sign of acute bleeding and no record of hemoptysis, hematemesis or melanotic stools since the hospital admission. Today the patient feels fine, and his appetite improved and denies any pain. There is dyspnea when the patient is speaking and he has audible wheezes. - Current Medication List Current Medications: Active Medications Acetaminophen (Tylenol -) 325 mg PO Q6H PRN PRN Reason: FEVER OR PAIN Albuterol Sulfate (Ventolin 0.083% Nebulizer Soln -) 1 amp NEB Q6H PRN PRN Reason: SHORT OF BREATH/WHEEZING Last Admin: 06/21/17 10:20 Dose: 1 amp Methylprednisolone Sodium Succinate (Solu-Medrol -) 40 mg IVPB Q8H-IV MARIS Last Admin: 06/23/17 17:07 Dose: Not Given Multivitamins/Minerals/Vitamin C (Tab-A-Vit -) 1 tab PO DAILY MARIS Last Admin: 06/23/17 09:20 Dose: 1 tab Pantoprazole Sodium (Protonix -) 40 mg PO DAILY MARIS Last Admin: 06/23/17 09:20 Dose: 40 mg Piperacillin Sod/Tazobactam Sod (Zosyn 4.5gm Ivpb (Pre-Docked)) 4.5 gm IVPB Q8H -IV MARIS Last Admin: 06/23/17 17:07 Dose: 4.5 gm - Objective Vital Signs: Vital Signs Temperature 98.1 F 06/23/17 20:00 Pulse Rate 80 06/23/17 22:00 Respiratory Rate 17 06/23/17 22:00 Blood Pressure 127/66 06/23/17 22:00 O2 Sat by Pulse Oximetry (%) 98 06/23/17 20:29 Constitutional: Yes: No Distress (sporadic cough) Eyes: Yes: Conjunctiva Clear, EOM Intact HENT: Yes: Atraumatic, Normocephalic Neck: Yes: Supple, Trachea Midline Cardiovascular: Yes: Regular Rate and Rhythm, S1, S2 Respiratory: Yes: Regular, CTA Bilaterally, Accessory Muscle Use, On Nasal O2, SOB, Wheezes (bilaterally from bottom to the top), Other (pig taill catheter present right posterior hemithorax). No: Intubated, Rhonchi Gastrointestinal: Yes: Normal Bowel Sounds, Soft. No: Distention, Hematemesis, Hemorrhoids, Hepatomegaly, Melena, Rectal Bleeding, Splenomegaly ...Rectal Exam: Yes: Deferred Musculoskeletal: Yes: WNL Extremities: Yes: WNL. No: Calf Tenderness Edema: No Peripheral Pulses WNL: Yes Neurological: Yes: Alert, Oriented Psychiatric: Yes: Alert, Oriented Labs: CBC, BMP 06/23/17 06:00 06/23/17 06:00 INR, PTT INR 1.32 (0.82-1.09) H 06/22/17 05:00 Problem List - Problems (1) Pleural effusion Assessment/Plan: continue Zosyn iv switched to O2 NC during the day s/p pleural right pig tail catheter, possible VATS? monitor oxygen discussed with sister and patient regarding procedure Code(s): J90 - PLEURAL EFFUSION, NOT ELSEWHERE CLASSIFIED (2) COPD (chronic obstructive pulmonary disease) Assessment/Plan: the patient has bilateral wheezing from bottom to the top, requiring injectable steroid and not oral Prednisone. I switched the patient to IV SoluMedrol 40 mg iv every 8 hours Albuterol nebulizer to be continued continue Zosyn Code(s): J44.9 - CHRONIC OBSTRUCTIVE PULMONARY DISEASE, UNSPECIFIED (3) Hemoptysis Assessment/Plan: pulmonary consult bleeding bronchiectasis? high retic count: acute loss anemia continue monitoring H/H Code(s): R04.2 - HEMOPTYSIS (4) History of throat cancer Assessment/Plan: although the initial work up was negative for cancer recurrence or metastases, malignancy is still part of the differential diagnosis Code(s): Z85.819 - PRSNL HX OF MALIG NEOPLM OF UNSP SITE LIP,ORAL CAV,& PHARYNX (5) PTSD (post-traumatic stress disorder) Assessment/Plan: on no medications Code(s): F43.10 - POST-TRAUMATIC STRESS DISORDER, UNSPECIFIED (6) Acute blood loss anemia Code(s): D62 - ACUTE POSTHEMORRHAGIC ANEMIA (7) Schizoaffective disorder Code(s): F25.9 - SCHIZOAFFECTIVE DISORDER, UNSPECIFIED Assessment/Plan 67 yo male with loculated right pleural effusion scheduled tomorrow for VATS procedure +- lung decortication in am PAtient class III ASA medically clear for procedure; EKG in am, ABG in am continue Solumedrol iv, there is no need for stress dose
[2017-06-24] MEDS: ZOLPIDEM TARTRATE 5 MG TABLET PO PRN (01:18)
[2017-06-24] MEDS: PIPERACILLIN/TAZOB 4.5 GM/100 ML PRE-DOCKED IVPB SCH ×4 (02:03→17:59)
[2017-06-24] MEDS: methylPREDNISolone NA SUCC 40 MG/1 ML VIAL IVPB SCH ×3 (02:03→18:00)
[2017-06-24 06:27] LABS: MCH 26.5 pg (25.7-33.7); MCHC 32.7 g/dl (32.0-35.9); MEAN CELL VOLUME 81.1 fl (80-96); PLATELET COUNT 465 K/MM3 (134-434); RDW 16.1 % (11.9-15.9); WHITE BLOOD COUNT 28.9 K/mm3 (4.0-10.0)
[2017-06-24 06:29] LABS: INR 1.19 (0.82-1.09); PROTHROMBIN TIME (PATIENT) 13.1 SEC (9.98-11.88)
[2017-06-24 06:58] LABS: ALBUMIN 1.6 g/dl (3.4-5.0); ANION GAP 8 (8-16); CALCIUM 8.6 mg/dL (8.5-10.1); CO2 32 mmol/L (21-32); CREATININE 0.5 mg/dL (0.7-1.3); GLUCOSE,RANDOM 115 mg/dL (74-106); SGOT/AST 21 U/L (15-37); SGPT/ALT 32 U/L (12-78)
[2017-06-24 07:00] LABS: ALK PHOS 102 U/L (45-117); BILIRUBIN,TOTAL 0.3 mg/dL (0.2-1.0); TOT PROT 6.7 g/dl (6.4-8.2)
[2017-06-24] MEDS ORDERED: LIDOCAINE 1%/EPI 1:100000 (50 ML MULTI DOSE VIAL) ONE (08:03)
[2017-06-24] MEDS ORDERED: PROPOFOL 20 ML ONE ×2 (08:29→09:06)
[2017-06-24] MEDS ORDERED: LIDOCAINE HCL/PF 2% SDV 5ML VIAL ONE (08:29)
[2017-06-24] MEDS ORDERED: ROCURONIUM BROMIDE 50 MG/5 ML VIAL ONE ×4 (08:29→12:02)
--- NOTE | 2017-06-24 08:34 | PN ---
Progress Note (short form) - Note Progress Note: ID Jacquelyn day 4 therapy Afebrile Selected Entries 06/24/17 07:00 Temperature 97.8 F Pulse Rate 76 Respiratory 21 Rate Blood Pressure 117/68 Chest tube in Microbiology 06/21/17 16:30 Pleural Fluid Gram Stain - Final 06/19/17 10:00 Urine - Urine Clean Catch Urine Culture - Final NO GROWTH OBTAINED 06/21/17 16:30 Pleural Fluid REBECA Preparation - Preliminary 06/21/17 16:30 Pleural Fluid Fungal Culture - Preliminary 06/21/17 16:30 Pleural Fluid Body Fluid Culture - Preliminary NO AEROBIC GROWTH, 24 HRS 06/21/17 16:30 Pleural Fluid AFB Smear Concentration - Preliminary 06/21/17 16:30 Pleural Fluid Mycobacterial Culture - Preliminary 06/19/17 11:10 Blood - Peripheral Venous Blood Culture - Preliminary NO GROWTH OBTAINED AFTER 96 HOURS, INCUBATION TO CONTINUE FOR 1 DAYS. 06/19/17 11:10 Blood - Peripheral Venous Blood Culture - Preliminary NO GROWTH OBTAINED AFTER 96 HOURS, INCUBATION TO CONTINUE FOR 1 DAYS. Laboratory Tests 06/20/17 06/21/17 06/24/17 06:00 07:20 05:10 WBC 28.9 H Hgb 9.0 L Hct 27.7 L Plt Count 465 H ESR 128 H C-Reactive Protein 15.7 H Assessment Empyema cultures pending Plan Thoracotomy today Await c/s Antibiotic Mercedes ROBERTS Problem List - Problems (1) COPD (chronic obstructive pulmonary disease) Code(s): J44.9 - CHRONIC OBSTRUCTIVE PULMONARY DISEASE, UNSPECIFIED (2) History of throat cancer Code(s): Z85.819 - PRSNL HX OF MALIG NEOPLM OF UNSP SITE LIP,ORAL CAV,& PHARYNX (3) Empyema Code(s): J86.9 - PYOTHORAX WITHOUT FISTULA (4) Hemoptysis Code(s): R04.2 - HEMOPTYSIS
[2017-06-24] MEDS ORDERED: ePHEDrine SULFATE 50 MG/1 ML AMPULE ONE ×2 (09:24→11:59)
[2017-06-24] MEDS ORDERED: BUPIVACAINE HCL/PF 0.25% (2.5MG/ML) 10 ML VIAL IJ ONE (09:33)
[2017-06-24] MEDS ORDERED: BUPIVACAINE HCL/PF 0.5% (5MG/ML) 10 ML VIAL IJ ONE ×2 (09:33)
[2017-06-24] MEDS ORDERED: LIDOCAINE 1%/EPI 1:100000 (50 ML MULTI DOSE VIAL) INF ONE ×2 (09:33)
[2017-06-24] MEDS ORDERED: FENTANYL/BUPIVACAINE/NS/PF - PCEA - 50 ML DISP.SYRIN EP SCH (09:45)
[2017-06-24] MEDS: MULTIVITAMINS (DAILY MVI) TABLET (FP) PO SCH (10:08)
[2017-06-24] MEDS: PANTOPRAZOLE 40 MG TABLET (FP) PO SCH (10:08)
[2017-06-24] MEDS ORDERED: PHENYLEPHRINE HCL 10 MG/1 ML SINGLE DOSE VIAL ONE (11:59)
[2017-06-24] MEDS ORDERED: MIDAZOLAM HCL 2 MG/2 ML SINGLE DOSE VIAL ONE ×3 (12:25→14:20)
--- NOTE | 2017-06-24 12:39 | OP ---
Operative Note - Note: Operative Date: 06/24/17 Pre-Operative Diagnosis: Right empyema Operation: Bronchoscopy, right VATS, thoracotomy, pneumolysis, partial decortication, drainage of empyema Findings: Pre-bronchoscopy: extremely narrowed lower lobe segmental bronchi Thoracoscopy: severely trapped lower lobe with dense adhesions to chest wall suggesting chronicity, moderately trapped upper and middle lobe; ~800cc seropurulent fluid and fibrinous exudate in the chest; no organized rind allowing reexpansion of lower lobe Post-bronchoscopy: open superior segment and basilar bronchi, still some mucus in right airway. Post-Operative Diagnosis: Same as Pre-op Surgeon: Brayan Cleaning Asset Protection Specialist: Hadley Hanks Specimens Removed: bronchial washing, pleural fluid, rind and pleura Estimated Blood Loss (mls): 250 Drains & Tubes with Location: 3 chest tubes in chest Operative Report Dictated: Yes
--- NOTE | 2017-06-24 12:55 | SURG ---
Surgery Wrap Yarn Sorter Note Wrap Yarn Sorter: Hadley Hanks PA-C Date of Service: 06/24/17 Diagnosis: Right empyema Procedure: Bronchoscopy, right VATS, thoracotomy, pneumolysis, partial decortication, drainage of empyema I was present for the entirety of the operative procedure. For further detail, please refer to operative report. Visit type - Case Type Case Type: ED Admission - Emergency Emergency Visit: Yes ED Registration Date: 06/19/17 Care time: The patient presented to the Emergency Department on the above date and was hospitalized for further evaluation of their emergent condition. - New patient This patient is new to me today: Yes Date on this admission: 06/24/17
[2017-06-24 13:04] LABS: HYPOCHROMIA 1+; PLATELET ESTIMATE ADEQUATE (NORMAL); TOTAL CELLS COUNTED 100
[2017-06-24] MEDS ORDERED: SODIUM CHLORIDE 0.9% 1000 ML INFUS.BAG IV SCH (13:45)
[2017-06-24] MEDS ORDERED: SODIUM CHLORIDE 1,000 ML IV STA (13:50)
[2017-06-24] MEDS ORDERED: NOREPINEPHRINE BITARTRATE 4 MG/4 ML ML IV ONE ×2 (13:58→22:16)
[2017-06-24] MEDS ORDERED: MAGNESIUM SULF 50% (8.12 MEQ/2 ML-1 GM VIAL) ONE (14:01)
[2017-06-24] MEDS ORDERED: AMIODARONE HCL 150 MG/3 ML VIAL ONE (14:10)
[2017-06-24] MEDS ORDERED: AMIODARONE HCL INJECTION 450 MG in DEXTROSE 5%-WATER - 241 ML IVPB SCH (14:15)
--- NOTE | 2017-06-24 14:16 | EKG ---
Test Reason : Blood Pressure : / mmHG Vent. Rate : 089 BPM Atrial Rate : 089 BPM P-R Int : 156 ms QRS Dur : 098 ms QT Int : 374 ms P-R-T Axes : -15 083 008 degrees QTc Int : 455 ms SINUS RHYTHM WITH PREMATURE ATRIAL COMPLEXES LOW VOLTAGE QRS BORDERLINE ECG WHEN COMPARED WITH ECG OF 19-JUN-2017 10:20, PREMATURE ATRIAL COMPLEXES ARE NOW PRESENT Confirmed by JAYJAY ROBERTS, NATALIE ([id number]) on 06/24/2017 2:15:32 PM Referred By: CRISTINA SO DR Confirmed By:NATALIE RO MD
[2017-06-24 14:26] LABS: ARTERIAL BLD GAS O2 SATURATION 95.5 % (90-98.9); ARTERIAL BLOOD GAS BASE EXCESS 0.5 meq/l (-2-2); ARTERIAL BLOOD GAS HCO3 26.6 meq/L (22-26); ARTERIAL BLOOD GAS PO2 90.2 mmHg (80-100)
[2017-06-24 14:29] LABS: ART PUNCT SITE RIGHT BRACHIAL; LPM/O2% 100%; MECH. VENT. ESPRIT; PT. ON O2? YES; TYPE OF O2 OT; VENT RATE 14; VT/PRESS 500
[2017-06-24] MEDS ORDERED: MIDAZOLAM HCL 2 MG/2 ML SINGLE DOSE VIAL IVPUSH ONE (14:36)
--- NOTE | 2017-06-24 14:55 | PN ---
Progress Note (short form) - Note Progress Note: Code Note: Patient arrived from OR without difficulty following flexible bronchoscopy, right thoracoscopy, pneumolysis, thoracotomy, and decortication. Pt. was intubated and three chest tubes were placed in OR. CBC was ordered on arrival to ICU. 30 minutes upon his arrival SBP dropped from 100's-60's. On physical exam patient was cold, clammy, responsive to painful stimuli. Patient was given 1 L NS and SBP improved to 90's. 5-10 minutes later SBP declined to 46, and patient became bradycardic. On reassessment patient was cold and clammy with weak and thready pulses. 1 Unit PRBC was then ordered. Shortly after patient developed PEA and 4 cycles of chest compressions were started, while leads were placed, and epinephrine was administered x 1. Patient then developed return of spontaneous circulation and chest compressions were withheld. SBP improved to 187. 2 minutes later patient developed v-tach and v-fib and cardioverted to sinus rate rhythm at 200 Joules. Epidural was stopped. Central line was placed. CMP, ABG, trop, BNP, CKMB, CPK labs were ordered. Problem List - Problems (1) Empyema Code(s): J86.9 - PYOTHORAX WITHOUT FISTULA
[2017-06-24 15:06] LABS: INR 1.23 (0.82-1.09); PROTHROMBIN TIME (PATIENT) 13.6 SEC (9.98-11.88)
[2017-06-24 15:13] LABS: ALBUMIN 1.1 g/dl (3.4-5.0); ANION GAP 8 (8-16); BILIRUBIN,TOTAL 0.1 mg/dL (0.2-1.0); CALCIUM 7.7 mg/dL (8.5-10.1); CO2 27 mmol/L (21-32); CREATININE 0.8 mg/dL (0.7-1.3); GLUCOSE,RANDOM 223 mg/dL (74-106); PHOSPHOROUS 5.4 mg/dL (2.5-4.9); SGOT/AST 128 U/L (15-37); SGPT/ALT 73 U/L (12-78)
[2017-06-24 15:16] LABS: ALK PHOS 75 U/L (45-117); CPK 167 IU/L (39-308); TROPONIN I 0.02 ng/ml (0.00-0.05)
--- NOTE | 2017-06-24 15:30 | PN ---
Progress Note, Physician Chief Complaint: 67 yo male poor historian with PMH of schizoaffective disorder, PTSD, was admitted for weight loss, poor oral intake, remote hematemesis, and elevation of the WBC. Admission CXR and Ct scan diagnosed a large loculated right pleural effusion. A pig tail catheter was inserted with continuous drainage of yellow purulent fluid, approximately 400 cc daily over the past 3 days. The patient developed acute anemia which required transfusion. There was no sign of acute bleeding and no record of hemoptysis, hematemesis or melanotic stools since the hospital admission. The patient had thoracotomy, right pulmonary partial decortication, VATS, bronchoscopy, 3 chest tubes were placed in the right hemithorax, the patient lost approximately 250 cc of blood during the procedure. He cam from OR but shortly after that his blood pressure dropped and he became bradycardic, developed V Fib had cardioversion at 200 Joules, with conversion to sinus rate. Epidural was stopped, he had 2 mg of Versed and was intubated. History of Present Illness: as above - Current Medication List Current Medications: Active Medications Acetaminophen (Tylenol -) 325 mg PO Q6H PRN PRN Reason: FEVER OR PAIN Albuterol Sulfate (Ventolin 0.083% Nebulizer Soln -) 1 amp NEB Q6H PRN PRN Reason: SHORT OF BREATH/WHEEZING Last Admin: 06/21/17 10:20 Dose: 1 amp Fentanyl/Bupivacaine/Sodium Chlor (Bupivicaine 0.125%/Fentanyl 2mcg/Ml Pcea -) 50 ml EP ASDIR MARIS PRN Reason: Protocol Amiodarone HCl 450 mg/ (Dextrose) 250 mls @ 16.66 mls/hr IVPB TITR MARIS; 0.5 MG/ MIN PRN Reason: Protocol Methylprednisolone Sodium Succinate (Solu-Medrol -) 40 mg IVPB Q8H-IV MARIS Last Admin: 06/24/17 11:27 Dose: Not Given Multivitamins/Minerals/Vitamin C (Tab-A-Vit -) 1 tab PO DAILY MARIS Last Admin: 06/24/17 10:08 Dose: Not Given Pantoprazole Sodium (Protonix -) 40 mg PO DAILY MARIS Last Admin: 06/24/17 10:08 Dose: Not Given Piperacillin Sod/Tazobactam Sod (Zosyn 4.5gm Ivpb (Pre-Docked)) 4.5 gm IVPB Q8H -IV MARIS Last Admin: 06/24/17 11:28 Dose: Not Given Zolpidem Tartrate (Ambien -) 5 mg PO HS PRN PRN Reason: INSOMNIA Last Admin: 06/24/17 01:18 Dose: 5 mg - Objective Vital Signs: Vital Signs Temperature 96.9 F L 06/24/17 13:35 Pulse Rate 76 06/24/17 13:35 Respiratory Rate 14 06/24/17 14:00 Blood Pressure 73/60 06/24/17 13:35 O2 Sat by Pulse Oximetry (%) 100 06/24/17 12:45 Constitutional: Yes: Other (sedated and intubated CMV PEEP 7) Eyes: Yes: WNL HENT: Yes: Other (intubated) Cardiovascular: Yes: Regular Rate and Rhythm, S1, S2 Respiratory: Yes: Rhonchi (at the right middle lobe), Other (no air entry at the right base). No: Wheezes Gastrointestinal: Yes: Normal Bowel Sounds, Soft. No: Hepatomegaly, Splenomegaly Genitourinary: Yes: Cruz Present Extremities: No: Calf Tenderness Edema: No Peripheral Pulses WNL: Yes Neurological: Yes: Oriented Labs: CBC, BMP 06/24/17 05:10 06/24/17 14:40 INR, PTT INR 1.23 (0.82-1.09) H 06/24/17 14:40 - ....Imaging X-ray: Other (non expaneded right lung post procedure) Problem List - Problems (1) Pleural effusion Assessment/Plan: the patient developed asystole and V fib and coded post VATS procedure continue Zosyn iv had VATS an 3 chest tubes were placed in intubated right now no expansion of the right lung by the CXR performed at 14:33 patient was suctioned and a repeat CXR will be performed to check the right lung status Code(s): J90 - PLEURAL EFFUSION, NOT ELSEWHERE CLASSIFIED (2) Empyema Assessment/Plan: S/p decortication and VATS, with 3 chest tubes planted in the right hemithorax, continue IV antibiotics Code(s): J86.9 - PYOTHORAX WITHOUT FISTULA (3) COPD (chronic obstructive pulmonary disease) Assessment/Plan: chronic smoker status the patient was intubated, there is poor air entry at the right base Albuterol nebulizer to be continued continue Zosyn continue Solu-Medrol Code(s): J44.9 - CHRONIC OBSTRUCTIVE PULMONARY DISEASE, UNSPECIFIED Qualifiers : COPD type: COPD with acute exacerbation Qualified Code(s): J44.1 - Chronic obstructive pulmonary disease with (acute) exacerbation; J44.1 - Chronic obstructive pulmonary disease with (acute) exacerbation; J44.1 - Chronic obstructive pulmonary disease with (acute) exacerbation; J44.1 - Chronic obstructive pulmonary disease with (acute) exacerbation (4) History of throat cancer Assessment/Plan: in remission Code(s): Z85.819 - PRSNL [facility],ORAL CAV,& PHARYNX (5) Schizoaffective disorder Assessment/Plan: on no medications Code(s): F25.9 - SCHIZOAFFECTIVE DISORDER, UNSPECIFIED Qualifiers: Schizoaffective disorder type: unspecified Qualified Code(s): F25.9 - Schizoaffective disorder, unspecified; F25.9 - Schizoaffective disorder, unspecified; F25.9 - Schizoaffective disorder, unspecified; F25.9 - Schizoaffective disorder, unspecified Assessment/Plan discussed with sister and informed her on the critical situation of he patient: Genet [phone]
--- NOTE | 2017-06-24 15:30 | PN ---
Teaching Attending Note Name of Resident: John Smiley ATTENDING PHYSICIAN STATEMENT I saw and evaluated the patient. I reviewed the resident's note and discussed the case with the resident. I agree with the resident's findings and plan as documented. SUBJECTIVE: Patient seen and examined in the ICU. S/P Right VATs/decortication/converted to Thoracotomy/placement of CT x 3. Shortly after arrival to the ICU, patient rapidly went into sinus bradycardia and then asystole. CPR initiated. 1 Epi given. VT noted and cardioverted x 1. ROSC after about 4. OBJECTIVE: Intake & Output 06/21/17 06/22/17 06/23/17 06/24/17 23:59 23:59 23:59 23:59 Intake Total 1980 1100 1350 5800 Output Total 1350 1520 1940 4120 Balance 630 -420 -590 1680 Weight 129 lb 1.6 oz 125 lb 9 oz 127 lb 1 oz 125 lb 7.088 oz Last Vital Signs Temp Pulse Resp BP Pulse Ox 96.9 F L 76 14 73/60 100 06/24/17 13:35 06/24/17 13:35 06/24/17 14:00 06/24/17 13:35 06/24/17 12:45 Active Medications Acetaminophen (Tylenol -) 325 mg PO Q6H PRN PRN Reason: FEVER OR PAIN Albuterol Sulfate (Ventolin 0.083% Nebulizer Soln -) 1 amp NEB Q6H PRN PRN Reason: SHORT OF BREATH/WHEEZING Last Admin: 06/21/17 10:20 Dose: 1 amp Fentanyl/Bupivacaine/Sodium Chlor (Bupivicaine 0.125%/Fentanyl 2mcg/Ml Pcea -) 50 ml EP ASDIR MARIS PRN Reason: Protocol Amiodarone HCl 450 mg/ (Dextrose) 250 mls @ 16.66 mls/hr IVPB TITR MARIS; 0.5 MG/ MIN PRN Reason: Protocol Sodium Chloride (Normal Saline -) 1,000 mls @ 150 mls/hr IV ASDIR MARIS Methylprednisolone Sodium Succinate (Solu-Medrol -) 40 mg IVPB Q8H-IV MARIS Last Admin: 06/24/17 11:27 Dose: Not Given Multivitamins/Minerals/Vitamin C (Tab-A-Vit -) 1 tab PO DAILY MARIS Last Admin: 06/24/17 10:08 Dose: Not Given Pantoprazole Sodium (Protonix -) 40 mg PO DAILY MARIS Last Admin: 06/24/17 10:08 Dose: Not Given Piperacillin Sod/Tazobactam Sod (Zosyn 4.5gm Ivpb (Pre-Docked)) 4.5 gm IVPB Q8H -IV MARIS Last Admin: 06/24/17 11:28 Dose: Not Given Zolpidem Tartrate (Ambien -) 5 mg PO HS PRN PRN Reason: INSOMNIA Last Admin: 06/24/17 01:18 Dose: 5 mg Gen: Intubated and sedated Heart: RRR Lung: decreased breath sounds right, CT x 3 intact, small airleak noted. Abd: soft, nontender Ext: no edema Laboratory Results - last 24 hr 06/23/17 06/24/17 06/24/17 14:00 05:10 05:10 WBC 28.9 H RBC 3.41 L Hgb 9.0 L Hct 27.7 L MCV 81.1 MCH 26.5 MCHC 32.7 RDW 16.1 H Plt Count 465 H MPV 8.0 Total Counted 100 Neutrophils % No Result Required. Neutrophils % (Manual) 97 H* Lymphocytes % No Result Required. Lymphocytes % (Manual) 2 L Monocytes % (Manual) 1 L Hypochromia 1+ Platelet Estimate Adequate PT with INR 13.10 H INR 1.19 H Puncture Site ABG pH ABG pCO2 at Pt Temp ABG pO2 at Pt Temp ABG HCO3 ABG O2 Sat (Measured) ABG O2 Content ABG Base Excess Andre Test O2 Delivery Device Oxygen Flow Rate Vent Mode Vent Rate Mechanical Rate PEEP Pressure Support Vent Sodium Potassium Chloride Carbon Dioxide Anion Gap BUN Creatinine Creat Clearance w eGFR Random Glucose Calcium Phosphorus Magnesium Total Bilirubin AST ALT Alkaline Phosphatase Creatine Kinase Creatine Kinase Index CK-MB (CK-2) Troponin I Total Protein Albumin Blood Type O NEGATIVE Antibody Screen Negative Crossmatch See Detail 06/24/17 06/24/17 06/24/17 05:10 14:10 14:40 WBC RBC Hgb Hct MCV MCH MCHC RDW Plt Count MPV Total Counted Neutrophils % Neutrophils % (Manual) Lymphocytes % Lymphocytes % (Manual) Monocytes % (Manual) Hypochromia Platelet Estimate PT with INR 13.60 H INR 1.23 H Puncture Site Right brachial ABG pH 7.30 L D ABG pCO2 at Pt Temp 55.7 H D ABG pO2 at Pt Temp 90.2 ABG HCO3 26.6 H ABG O2 Sat (Measured) 95.5 ABG O2 Content 10.3 L ABG Base Excess 0.5 Andre Test Not applicable O2 Delivery Device Ot Oxygen Flow Rate 100% Vent Mode Ac Vent Rate 14 Mechanical Rate Esprit PEEP 7.0 Pressure Support Vent 500 Sodium 141 Potassium 4.7 Chloride 101 Carbon Dioxide 32 Anion Gap 8 BUN 23 H D Creatinine 0.5 L Creat Clearance w eGFR > 60 Random Glucose 115 H D Calcium 8.6 Phosphorus Magnesium Total Bilirubin 0.3 AST 21 D ALT 32 Alkaline Phosphatase 102 Creatine Kinase Creatine Kinase Index CK-MB (CK-2) Troponin I Total Protein 6.7 Albumin 1.6 L Blood Type Antibody Screen Crossmatch 06/24/17 14:40 WBC RBC Hgb Hct MCV MCH MCHC RDW Plt Count MPV Total Counted Neutrophils % Neutrophils % (Manual) Lymphocytes % Lymphocytes % (Manual) Monocytes % (Manual) Hypochromia Platelet Estimate PT with INR INR Puncture Site ABG pH ABG pCO2 at Pt Temp ABG pO2 at Pt Temp ABG HCO3 ABG O2 Sat (Measured) ABG O2 Content ABG Base Excess Andre Test O2 Delivery Device Oxygen Flow Rate Vent Mode Vent Rate Mechanical Rate PEEP Pressure Support Vent Sodium 141 Potassium 4.5 Chloride 106 Carbon Dioxide 27 Anion Gap 8 BUN 26 H Creatinine 0.8 D Creat Clearance w eGFR > 60 Random Glucose 223 H D Calcium 7.7 L Phosphorus 5.4 H D Magnesium 3.0 H D Total Bilirubin 0.1 L D AST 128 H D ALT 73 D Alkaline Phosphatase 75 D Creatine Kinase 167 Creatine Kinase Index 1.1 CK-MB (CK-2) 1.844 Troponin I 0.02 Total Protein 5.0 L D Albumin 1.1 L D Blood Type Antibody Screen Crossmatch ASSESSMENT AND PLAN: Loculated Pleural Effusion likely Empyema Acute COPD Exacerbation Hemoptysis PTSD h/o Laryngeal Ca Smoker - NE for hemodynamic support - ABX - BD TX - f/u pleural fluid analysis - Medrol - Strict I & O - IVF for low CVP - Follow CXR - Follow ABG - May need Bronch Dr Moon Critical care time spent in reviewing chart, evaluating patient and formulating plan - 35 minutes
[2017-06-24] MEDS ORDERED: SODIUM CHLORIDE 1,000 ML IV SCH ×2 (15:45→16:15)
--- NOTE | 2017-06-24 15:57 | OPR ---
Patient Name: Ponce Jesus MR#: [id number] Procedure Date: 06/24/17 Preoperative Diagnosis: Right empyema Postoperative Diagnosis: Same, trapped lung Procedure: 1. Flexible bronchoscopy; 2. Right thoracoscopy; 3. Pneumolysis; 4. Thoracotomy; 5. Decortication; Indication: as above Surgeon(s): Dr. Brayan Cleaning, VICENTE Johnston. Anesthesia: General Endotracheal Wound Classification: Clean Antibiotic Prophylaxis: n/a Findings: 1. Pre-bronchoscopy: thick mucus in lower lobe; compressed superior segment and basilar bronchi; 2. VATS/thoracotomy: chronically trapped lower lobe; 800cc seropurulent fluid and fibrinous exudate; lower lobe not able to expand significantly despite decortication; 3. Post-bronchoscopy: easier to intubate superior segment and basilar bronchi. Specimens Sent: BAL cultures; frozen on pleura negative for tumor; pleura for permanent; pleural tissue for culture. Complications: none Drains / Tubes / Catheters: 3 right chest tubes Hardware / Implants: n/a Blood / Fluid Losses: 250cc Blood / Fluids Administered: per anesthesia Post-Operative Condition: stable, extubated to PACU Indications: This patient is a 67 year-old male smoker with a history of head and neck cancer s/p radiation who presented with fatigue, an abnormal x-ray, and a leukocytosis. A diagnosis of empyema was made. Dr. Green and I discussed the option of surgery since he had not improved significantly after IR drainage. We both agreed it was best to expedite his recovery. The patient was explained the risks, benefits, and alternatives of a bronchoscopy, vats, thoracoscopy, possible thoracotomy, and agreed and understood. Details of Procedure: The patient was taken into the operating room and placed supine on the table. He was monitored with pulse oximetry and blood pressure monitoring. Sequential compression devices were placed. Subcutaneous heparin was not given. A viveros catheter was placed. He was given sedation and an endotracheal tube was placed. A bronchoscopy was performed showing a narrowed lower lobe bronchus and significant secretions. A bronchial penny was placed. He was then positioned in the left lateral decubitus postion and the penny position was reconfirmed. His chest was prepared and draped in sterile fashion. We made 3 ports and performed pneumolysis. The lower lobe felt like a mass from chronic consolidation. There was over 800cc of seropurulent fluid and extensive fibrinous exudate throughout. We sent frozen section on some pleura which came back as inflammatory. We then decided to do extend the lower incision into a thoracotomy to completely pneumolyse the lower lobe. This was done. We also performed decortication. The lower lobe and part of the middle lobe was severely trapped and decorticated by the end of the procedure. The lower lobe did not expand completely. All pockets were drained. Multiple cultures were sent. We then placed 3 chest tubes. We then closed the thoracotomy with pericostal sutures. We expanded the lung after ensuring good hemostasis. The lower lobe expanded more than prior to bronchoscopy but there was some residual space. The chest tubes were secured and the ports and thoracotomy were closed with absorbable sutures. Sterile dressings were placed. The patient was then awakened but needed to remain intubated due to poor oxygenation and to maximize lung expansion. He tolerated the procedure well and was taken to the ICU.
[2017-06-24] MEDS: NOREPINEPHRINE BITARTRATE 8,000 MCG in DEXTROSE 5%-WATER - 492 ML IV SCH (16:00)
[2017-06-24] MEDS: FENTANYL INJECTION 500 MCG in DEXTROSE 5%-WATER - 90 ML IJ SCH (16:00)
[2017-06-24] MEDS: MIDAZOLAM 100 MG in SODIUM CHLORIDE 100 ML IVPB SCH (16:00)
--- NOTE | 2017-06-24 16:35 | PN ---
Physical Exam: SUBJECTIVE: Patient seen and examined 67 yo M with h/o COPD, PTSD ([place] ), chronic tobacco use, and throat cancer in remission s/p radiation therapy who presents to ICU with right sided loculated pleural effusion s/p day 1 right chest tube placement. Presented to ED ( 06/19 ) with episode of hemoptysis that has since resolved, elevated WBC~33 ,000, and CT chest that revealed a large loculated right sided pleural effusion. Patient is a poor historian but endorses 2 weeks of loss of appetite, 20 IB weight loss in 3 weeks, and chronic cough ( 05/06 ). Started on Augmentin 3 days ago following routine blood work revealing WBC of 22,[address] German Camp. Denies fevers/chills, night sweats, N/V, diarrhea, blood per rectum, hematuria, or pleuritic chest pain. on admission. Recently evaluated at [facility] 1 month ago for hemoptysis with 1 day admission. Pt lives at rest home in [place] and his Oncologist is Dr. Kaur from [facility]. Denies recent traveling and HIV status currently unknown. On encounter patient is alert and resting comfortably in bed. He denies fevers/ chills, chest pain, dysuria, melena/hematochezia abdominal pain. or difficulty sleeping. He reports minor discomfort from right sided posterior chest tube insertion site. Afebrile and hemodynamically stable. No complications at entry site, drained 110 cc overnight, 670 cc purulent fluid total .n. Plan for bronchoscopy VATS this AM with possible thoracotomy. Obtain consent. OBJECTIVE: Vital Signs Period Temp Pulse Resp BP Sys/Bunn Pulse Ox Last 24 Hr 96.9 F-98.8 F 68-86 10-21 73-127/50-71 96-100 GENERAL: Patient on 2 L NC. The patient is awake, alert, and fully oriented, in no acute distress. HEAD: Normal with no signs of trauma. NECK: supple without lymphadenopathy, JVD, or masses. LUNGS: Rigth sided posterior drainage in place c/d/i. Diffuse rhonci with absent rales. Dullness to percussion at right lung base. No accesory muscle use. HEART:+ Apical systolic murmur. Normal S1 and S2 without rub or gallop. ABDOMEN: Soft, nontender, not distended, normoactive bowel sounds, no guarding, no rebound, no masses. No hepatomegaly or splenomegaly. MUSCULOSKELETAL: Normal range of motion at all joints. No bony deformities or tenderness. No CVA tenderness. UPPER EXTREMITIES: 2+ pulses, warm, well-perfused. No cyanosis. No clubbing. Cap refill <2 seconds. No peripheral edema. LOWER EXTREMITIES: 2+ pulses, warm, well-perfused. No calf tenderness. No peripheral edema. PSYCHIATRIC: Slightly agitated Appropriate mood and affect. SKIN: Warm, dry, normal turgor, no rashes or lesions noted. Laboratory Results - last 24 hr 06/21/17 06/23/17 06/24/17 10:00 14:00 05:10 WBC 28.9 H RBC 3.41 L Hgb 9.0 L Hct 27.7 L MCV 81.1 MCH 26.5 MCHC 32.7 RDW 16.1 H Plt Count 465 H MPV 8.0 Total Counted 100 Neutrophils % No Result Required. Neutrophils % (Manual) 97 H* Lymphocytes % No Result Required. Lymphocytes % (Manual) 2 L Monocytes % (Manual) 1 L Hypochromia 1+ Platelet Estimate Adequate PT with INR INR Puncture Site ABG pH ABG pCO2 at Pt Temp ABG pO2 at Pt Temp ABG HCO3 ABG O2 Sat (Measured) ABG O2 Content ABG Base Excess Andre Test O2 Delivery Device Oxygen Flow Rate Vent Mode Vent Rate Mechanical Rate PEEP Pressure Support Vent Sodium Potassium Chloride Carbon Dioxide Anion Gap BUN Creatinine Creat Clearance w eGFR Random Glucose Calcium Phosphorus Magnesium Total Bilirubin AST ALT Alkaline Phosphatase Creatine Kinase Creatine Kinase Index CK-MB (CK-2) Troponin I Total Protein Albumin Blood Type O NEGATIVE O NEGATIVE Antibody Screen Negative Crossmatch See Detail See Detail 06/24/17 06/24/17 06/24/17 05:10 05:10 14:10 WBC RBC Hgb Hct MCV MCH MCHC RDW Plt Count MPV Total Counted Neutrophils % Neutrophils % (Manual) Lymphocytes % Lymphocytes % (Manual) Monocytes % (Manual) Hypochromia Platelet Estimate PT with INR 13.10 H INR 1.19 H Puncture Site Right brachial ABG pH 7.30 L D ABG pCO2 at Pt Temp 55.7 H D ABG pO2 at Pt Temp 90.2 ABG HCO3 26.6 H ABG O2 Sat (Measured) 95.5 ABG O2 Content 10.3 L ABG Base Excess 0.5 Andre Test Not applicable O2 Delivery Device Ot Oxygen Flow Rate 100% Vent Mode Ac Vent Rate 14 Mechanical Rate Esprit PEEP 7.0 Pressure Support Vent 500 Sodium 141 Potassium 4.7 Chloride 101 Carbon Dioxide 32 Anion Gap 8 BUN 23 H D Creatinine 0.5 L Creat Clearance w eGFR > 60 Random Glucose 115 H D Calcium 8.6 Phosphorus Magnesium Total Bilirubin 0.3 AST 21 D ALT 32 Alkaline Phosphatase 102 Creatine Kinase Creatine Kinase Index CK-MB (CK-2) Troponin I Total Protein 6.7 Albumin 1.6 L Blood Type Antibody Screen Crossmatch 06/24/17 06/24/17 14:40 14:40 WBC RBC Hgb Hct MCV MCH MCHC RDW Plt Count MPV Total Counted Neutrophils % Neutrophils % (Manual) Lymphocytes % Lymphocytes % (Manual) Monocytes % (Manual) Hypochromia Platelet Estimate PT with INR 13.60 H INR 1.23 H Puncture Site ABG pH ABG pCO2 at Pt Temp ABG pO2 at Pt Temp ABG HCO3 ABG O2 Sat (Measured) ABG O2 Content ABG Base Excess Andre Test O2 Delivery Device Oxygen Flow Rate Vent Mode Vent Rate Mechanical Rate PEEP Pressure Support Vent Sodium 141 Potassium 4.5 Chloride 106 Carbon Dioxide 27 Anion Gap 8 BUN 26 H Creatinine 0.8 D Creat Clearance w eGFR > 60 Random Glucose 223 H D Calcium 7.7 L Phosphorus 5.4 H D Magnesium 3.0 H D Total Bilirubin 0.1 L D AST 128 H D ALT 73 D Alkaline Phosphatase 75 D Creatine Kinase 167 Creatine Kinase Index 1.1 CK-MB (CK-2) 1.844 Troponin I 0.02 Total Protein 5.0 L D Albumin 1.1 L D Blood Type Antibody Screen Crossmatch Active Medications Generic Name Dose Route Start Last Admin Trade Name Freq PRN Reason Stop Dose Admin Acetaminophen 325 mg 06/19/17 17:16 Tylenol - PO Q6H PRN FEVER OR PAIN Albuterol Sulfate 1 amp 06/19/17 17:25 06/21/17 10:20 Ventolin 0.083% Nebulizer Soln - NEB 1 amp Q6H PRN Administration SHORT OF BREATH/WHEEZING Fentanyl/Bupivacaine/Sodium Chlor 50 ml 06/24/17 09:45 Bupivicaine 0.125%/Fentanyl 2mcg/Ml Pcea - EP ASDIR MARIS Protocol Amiodarone HCl 450 mg/ 250 mls @ 16.66 mls/hr 06/24/17 14:15 06/24/17 16:16 Dextrose IVPB Not Given TITR MARIS Protocol 0.5 MG/MIN Sodium Chloride 1,000 mls @ 150 mls/hr 06/24/17 16:15 06/24/17 16:00 Normal Saline - IV 150 mls/hr ASDIR MARIS Administration Midazolam HCl 100 mg/ Sodium 100 mls @ 1 mls/hr 06/24/17 16:30 Chloride IVPB TITR MARIS Protocol 1 MG/HR Fentanyl 500 mcg/ Dextrose 100 mls @ 10 mls/hr 06/24/17 16:30 IJ TITR MARIS 50 MCG/HR Norepinephrine Bitartrate 8, 500 mls @ 18.75 mls/hr 06/24/17 16:30 000 mcg/ Dextrose IV TITR MARIS Protocol 5 MCG/MIN Methylprednisolone Sodium Succinate 40 mg 06/23/17 14:30 06/24/17 11:27 Solu-Medrol - IVPB Not Given Q8H-IV MARIS Multivitamins/Minerals/Vitamin C 1 tab 06/20/17 14:15 06/24/17 10:08 Tab-A-Vit - PO Not Given DAILY MARIS Pantoprazole Sodium 40 mg 06/21/17 20:00 06/24/17 10:08 Protonix - PO Not Given DAILY MARIS Piperacillin Sod/Tazobactam Sod 4.5 gm 06/20/17 14:00 06/24/17 11:28 Zosyn 4.5gm Ivpb (Pre-Docked) IVPB Not Given Q8H-IV MARIS Zolpidem Tartrate 5 mg 06/24/17 01:01 06/24/17 01:18 Ambien - PO 5 mg HS PRN Administration INSOMNIA ASSESSMENT/PLAN: 67 yo M with h/o COPD, PTSD ([place] ), chronic tobacco use, and throat cancer in remission s/p radiation therapy who presents to ICU with right sided loculated pleural effusion s/p day 3 right chest tube placement. Neuro: H/o PTSD -A&Ox3 - holding PTSD medications Cardiovascular: Anemia: stable - Hgb 11.1 -9.0 (06/24) - PRBC if Hgb <7.0. Patient given 1 PRBC (06/21) - Fe studies: Anemia of chronic disease. Ferritin 384.676 Plan: - Trend Hgb/Hct - FOBT pending Pulmonary: Massive R sided loculated pleural effusion: Possible right sided complicated parapneumoinic effusion vs empyema 2/2 to infection vs. paraneoplastic effusion or malignancy. - Most likely 2/2 empyema. - Pleural protein/Total protein ratio of 5.249/6.4- 0.82, Pleural LDH 17496/ (2/ 3 x upper limit of normal)- 148. Lites criteria positive for exudative effusion. - cytology (06/24) reveals non malignant cells with increased inflammatory cells. - Day 3 s/p R chest pig tail placement; insufficient purulent drainage ( 520 cc total) wit minimal cxr improvement -pleural fluid exudative, gram stain negative, cytology p/d; send out triglyceride level -CT chest ( 06/19) Centrilobular emphysema, large partially loculated right sided pleural effusion, nonspeciifc free fluid in abdomen and pelvis. CT chest from past summer depicts RML consolidation -blood cultures negative - Patient afebrile through admission. - WBC on admission 33,000--> 28.9 ( 06/24) -Per cardiothoracic discuss risk/benefit of tPA x2 with patient vs. surgical management. - HIV negative - Unasyn D/c'd Plan: - Prepare pt. for VATS ( 06/24) -continue zosyn and IV solumedrol ( audible wheezing) - BIPAP PRN Hemoptysis: 2/2 malignancy vs. underlying infection. - In setting of underlying infection -resolved COPD: -Albuterol PRN - incentive spriometry Tobacco/smoking: -smoking cessation/counseling Oncology - Thrombocytosis and increased RDW - Per Dr. Kaur ( Oncology) (06/24) bone marrow biopsy to evaluate MDS -Thrombocytosis may be reactive in setting of empyema. FEN -No IVF -Lytes stable -regular diet Dispo: monitor in ICU Visit type - Emergency Visit Emergency Visit: Yes ED Registration Date: 06/19/17 Care time: The patient presented to the Emergency Department on the above date and was hospitalized for further evaluation of their emergent condition. - New Patient This patient is new to me today: No - Critical Care Critical Care patient: Yes Total Critical Care Time (in minutes): 35 Critical Care Statement: The care of this patient involved high complexity decision making to prevent further life threatening deterioration of the patient 's condition and/or to evaluate & treat vital organ system(s) failure or risk of failure.
--- NOTE | 2017-06-24 16:58 | CON.CARD ---
Consult Consult Specialty:: Cardiology Referred by:: Lona Camp MD Reason for Consultation:: Post-arrest cardiovascular evaluation - History of Present Illness Chief Complaint: Intra-procedure arrest History of Present Illness: 67-year-old male history of schizoaffective disorder (not on meds), COPD, active smoking, throat cancer in remission presented with episode of hematemesis , leukocytosis, inadvertent weight loss, found to have right empyema and underwent bronchoscopy, right VATS, thoracotomy, pneumolysis, partial decortication, drainage of empyema, noted to have trapped right lung. Shortly after arrival to the ICU, patient rapidly went into sinus bradycardia and then asystole. CPR initiated. 1 Epi given. VT noted and cardioverted x 1. ROSC after about 4. Currently hemodynamically stable on Levophed gtt, ventilated, moving all extremities. - History Source History Provided By: Medical Record Limitations to Obtaining History: Intubated - Past Medical History JOB P[employer]: Yes: Other (PTSD) Cardio/Vascular: Yes: HTN Pulmonary: Yes: COPD Gastrointestinal: Yes: Cancer (type? to get records), Irritable Bowel Disease Hepatobiliary: No: Cirrhosis, Cholelithiasis, Cholecystitis, Choledocholithiasis , Hepatitis A, Hepatitis B, Hepatitis C, Other Renal/: No: Renal Failure, Renal Inusuff, BPH, Cancer, Hematuria, Hemodialysis , Neurogenic Bladder, Renal Calculi, UTI, Other Infectious Disease: No: AIDS, C-Diff, Herpes Zoster, HIV, MRSA, STD's, Tuberculosis, VREF, Other Psych: Yes: Other (PTSD) Musculoskeletal: No: Bursitis, Chronic low back pain, Hemiparesis, Hemiplegia, Osteoarthritis, Paraplegia, Other Rheumatology: No: Fibromyalgia, Gout, Lupus, Rheumatoid Arthritis, Sarcoidosis, Vasculitis, Other ENT: No: Allergic Rhinitis, Sinusitis, Other Endocrine: Yes: Other (Throat cancer) Dermatology: No: Basal Cell, Cellulitis, Eczema, Melanoma, Psoriasis, Squamous Cell, Other - Past Surgical History Past Surgical History: Yes: None - Alcohol/Substance Use Hx Alcohol Use: No (occ) History of Substance Use: reports: None - Smoking History Smoking history: Current every day smoker Have you smoked in the past 12 months: Yes Aproximately how many cigarettes per day: 10 - Social History History of Recent Travel: No Home Medications - Allergies Allergies/Adverse Reactions: Allergies Allergy/AdvReac Type Severity Reaction Status Date / Time No Known Drug Allergies Allergy Verified 06/19/17 17:26 "TRANQUILIZERS AND SEDATIVES" Allergy Mild Hives Uncoded 06/19/17 17:26 - Home Medications Home Medications: Ambulatory Orders Albuterol Sulfate Inhaler - [Ventolin Hfa Inhaler -] 1 puff IH BID 06/19/17 Amox-Tr/K Cl [Augmentin - 875Mg Tablet] 1 tab PO BID 06/19/17 Cholecalciferol (Vitamin D3) [Vitamin D3] 2,000 unit PO DAILY 06/19/17 Review of Systems Unable to obtain ROS, reason: Intubated Vital Signs: Vital Signs Temperature 97.8 F 06/24/17 15:00 Pulse Rate 96 H 06/24/17 15:00 Respiratory Rate 14 06/24/17 16:45 Blood Pressure 133/87 06/24/17 15:00 O2 Sat by Pulse Oximetry (%) 100 06/24/17 12:45 Respiratory: Yes: Intubated, Mechanically Ventilated, Rhonchi Gastrointestinal: Yes: Soft, Hypoactive Bowel Sounds Cardiovascular: Yes: Regular Rate and Rhythm JVD: No Carotid Bruit: No Heart Sounds: Yes: S1, S2 Murmur: Yes: Systolic Murmur, Grade 1 Edema: No - Other Data Labs, Other Data: CBC, BMP 06/24/17 05:10 06/24/17 14:40 INR, PTT INR 1.23 (0.82-1.09) H 06/24/17 14:40 Troponin, BNP 06/24/17 14:40 Troponin I 0.02 Troponin, BNP 06/24/17 14:40 Troponin I 0.02 NSR @ 89 PAC QTc 455 msec Imaging - Results Chest X-ray: Report Reviewed (Developing right hemithorax opacification c/w atelectasis) Problem List - Problems (1) Acute blood loss anemia Code(s): D62 - ACUTE POSTHEMORRHAGIC ANEMIA (2) COPD (chronic obstructive pulmonary disease) Code(s): J44.9 - CHRONIC OBSTRUCTIVE PULMONARY DISEASE, UNSPECIFIED Qualifiers : COPD type: COPD with acute exacerbation Qualified Code(s): J44.1 - Chronic obstructive pulmonary disease with (acute) exacerbation; J44.1 - Chronic obstructive pulmonary disease with (acute) exacerbation; J44.1 - Chronic obstructive pulmonary disease with (acute) exacerbation; J44.1 - Chronic obstructive pulmonary disease with (acute) exacerbation (3) Empyema Code(s): J86.9 - PYOTHORAX WITHOUT FISTULA (4) Hemoptysis Code(s): R04.2 - HEMOPTYSIS (5) History of throat cancer Code(s): Z85.819 - PRSNL HX OF MALIG NEOPLM OF UNSP SITE LIP,ORAL CAV,& PHARYNX (6) PTSD (post-traumatic stress disorder) Code(s): F43.10 - POST-TRAUMATIC STRESS DISORDER, UNSPECIFIED (7) Schizoaffective disorder Code(s): F25.9 - SCHIZOAFFECTIVE DISORDER, UNSPECIFIED Qualifiers: Schizoaffective disorder type: unspecified Qualified Code(s): F25.9 - Schizoaffective disorder, unspecified; F25.9 - Schizoaffective disorder, unspecified; F25.9 - Schizoaffective disorder, unspecified; F25.9 - Schizoaffective disorder, unspecified (8) Leukocytosis Code(s): D72.829 - ELEVATED WHITE BLOOD CELL COUNT, UNSPECIFIED Qualifiers: Leukocytosis type: unspecified Qualified Code(s): D72.829 - Elevated white blood cell count, unspecified; D72.829 - Elevated white blood cell count, unspecified (9) Acute hypercapnic respiratory failure Code(s): J96.02 - ACUTE RESPIRATORY FAILURE WITH HYPERCAPNIA Assessment/Plan 1. Post bradycardic/asystolic arrest suspect mucous plugging and atelectasis 2. Hemoptysis and loculated pleural effusion likely empyema post bronchoscopy, right VATS, thoracotomy, pneumolysis, partial decortication, drainage of empyema 3. h/o Laryngeal Ca 4. PTSD 5. Acute COPD Exacerbation 6. Anemia P:1. Wean Levophed gtt for MAP>65 mmHg 2. BD, empiric abx, steroids, vent management per ABG, transfuse to maintain Hgb >8.0 3. Chest tube management, daily CXR, f/u pleural fluid studies and cultures 4. Consider bronchoscopy if right lung atelectasis persists despite mucolytics, chest PT 5. F/u echocardiogram to assess ventricular and valve fxn 6. Thank you for consultative opportunity
[2017-06-24 17:30] LABS: MCH 26.4 pg (25.7-33.7); MCHC 30.9 g/dl (32.0-35.9); MEAN CELL VOLUME 85.3 fl (80-96); MEAN PLT VOLUME 8.2 fl (7.5-11.1); PLATELET COUNT 392 K/MM3 (134-434); RDW 16.8 % (11.9-15.9); WHITE BLOOD COUNT 29.5 K/mm3 (4.0-10.0)
[2017-06-24 17:45] LABS: ARTERIAL BLD GAS O2 SATURATION 99.1 % (90-98.9); ARTERIAL BLOOD GAS BASE EXCESS 1.7 meq/l (-2-2); ARTERIAL BLOOD GAS HCO3 27.1 meq/L (22-26); ARTERIAL BLOOD GAS pH 7.36 (7.35-7.45)
[2017-06-24 17:47] LABS: ALLENS TEST POSITIVE; ART PUNCT SITE RIGHT RADIAL; LPM/O2% 80%; MECH. VENT. ESPRIT; PT. ON O2? YES; VENT RATE 10; VT/PRESS 600
[2017-06-24 18:09] LABS: PLATELET ESTIMATE INCREASED (NORMAL); TOTAL CELLS COUNTED 100
[2017-06-24 19:41] LABS: TROPONIN I 0.09 ng/ml (0.00-0.05)
[2017-06-24] MEDS ORDERED: ALBUTEROL SO4 2.5/IPRATROPIUM 0.5 INH SOL 3 ML VIAL.NEB. NEB PRN (19:56)
[2017-06-24 22:19] LABS: MCH 26.6 pg (25.7-33.7); MCHC 32.1 g/dl (32.0-35.9); MEAN CELL VOLUME 82.8 fl (80-96); MEAN PLT VOLUME 8.2 fl (7.5-11.1); PLATELET COUNT 433 K/MM3 (134-434); RDW 15.7 % (11.9-15.9); WHITE BLOOD COUNT 41.4 K/mm3 (4.0-10.0)
[2017-06-25] MEDS: DEXTROSE 5%-NORMAL SALINE 1,000 ML IV SCH ×3 (00:32→18:11)
[2017-06-25] MEDS: NOREPINEPHRINE BITARTRATE 8,000 MCG in DEXTROSE 5%-WATER - 492 ML IV SCH ×3 (00:33→17:07)
[2017-06-25] MEDS: INSULIN SLIDING SCALE (NOVOLOG) 1 VIAL SQ SCH ×5 (00:38→23:11)
[2017-06-25 01:21] LABS: TROPONIN I 0.09 ng/ml (0.00-0.05)
[2017-06-25] MEDS: methylPREDNISolone NA SUCC 40 MG/1 ML VIAL IVPB SCH ×2 (02:23→10:20)
[2017-06-25] MEDS: PIPERACILLIN/TAZOB 4.5 GM/100 ML PRE-DOCKED IVPB SCH ×3 (02:23→17:05)
[2017-06-25] MEDS: FENTANYL INJECTION 500 MCG in DEXTROSE 5%-WATER - 90 ML IJ SCH (03:54)
[2017-06-25] MEDS: MIDAZOLAM 100 MG in SODIUM CHLORIDE 100 ML IVPB SCH (04:00)
[2017-06-25 05:55] LABS: BASOPHIL 0.1 % (0-2.0); MCH 26.5 pg (25.7-33.7); MEAN PLT VOLUME 8.2 fl (7.5-11.1); NEUTROPHILS 92.4 % (42.8-82.8); PLATELET COUNT 407 K/MM3 (134-434); WHITE BLOOD COUNT 26.6 K/mm3 (4.0-10.0)
[2017-06-25 06:35] LABS: ALBUMIN 1.3 g/dl (3.4-5.0); ALK PHOS 80 U/L (45-117); ANION GAP 7 (8-16); BILIRUBIN,TOTAL 0.3 mg/dL (0.2-1.0); CALCIUM 7.7 mg/dL (8.5-10.1); CO2 28 mmol/L (21-32); CREATININE 0.8 mg/dL (0.7-1.3); GLUCOSE,RANDOM 179 mg/dL (74-106); MAGNESIUM 2.3 mg/dL (1.8-2.4); PHOSPHOROUS 4.2 mg/dL (2.5-4.9); SGOT/AST 50 U/L (15-37); SGPT/ALT 65 U/L (12-78); TOT PROT 5.7 g/dl (6.4-8.2)
[2017-06-25 06:42] LABS: PLATELET ESTIMATE SLT INCREASED (NORMAL); TOTAL CELLS COUNTED 100
[2017-06-25 06:44] LABS: ANISOCYTOSIS 1+; HYPOCHROMIA 2+; MICROCYTOSIS 1+
--- NOTE | 2017-06-25 07:11 | PN ---
Progress Note, Physician Chief Complaint: Went for thoracotomy for empyema yesterday and post op cardiac arrest. Currently intubated minimal pressors support Got transfused PRBC 40%FIO2 Zosyn empiric at this point 800 cc seropurulent fluid at time of surgery Tissue negative for malignancy Solumedrol - Current Medication List Current Medications: Active Medications Acetaminophen (Tylenol -) 325 mg PO Q6H PRN PRN Reason: FEVER OR PAIN Albuterol Sulfate (Ventolin 0.083% Nebulizer Soln -) 1 amp NEB Q6H PRN PRN Reason: SHORT OF BREATH/WHEEZING Last Admin: 06/21/17 10:20 Dose: 1 amp Albuterol/Ipratropium (Duoneb -) 1 amp NEB Q6H PRN PRN Reason: SHORTNESS OF BREATH Fentanyl/Bupivacaine/Sodium Chlor (Bupivicaine 0.125%/Fentanyl 2mcg/Ml Pcea -) 50 ml EP ASDIR MARIS PRN Reason: Protocol Midazolam HCl 100 mg/ Sodium (Chloride) 100 mls @ 1 mls/hr IVPB TITR MARIS; 1 MG/ HR PRN Reason: Protocol Last Admin: 06/25/17 04:00 Dose: 5 mls/hr Fentanyl 500 mcg/ Dextrose 100 mls @ 10 mls/hr IJ TITR MARIS PRN Reason: 50 MCG/HR Last Admin: 06/25/17 03:54 Dose: 10 mls/hr Norepinephrine Bitartrate 8, (000 mcg/ Dextrose) 500 mls @ 18.75 mls/hr IV TITR MARIS; 5 MCG/MIN PRN Reason: Protocol Last Titration: 06/25/17 03:00 Dose: 4 mcg/min Dextrose/Sodium Chloride (D5-Ns -) 1,000 mls @ 125 mls/hr IV ASDIR MARIS Last Admin: 06/25/17 00:32 Dose: 125 mls/hr Insulin Aspart (Novolog Vial Sliding Scale -) 1 vial SQ Q6H MARIS PRN Reason: Protocol Last Admin: 06/25/17 06:04 Dose: 2 units Methylprednisolone Sodium Succinate (Solu-Medrol -) 40 mg IVPB Q8H-IV MARIS Last Admin: 06/25/17 02:23 Dose: 40 mg Multivitamins/Minerals/Vitamin C (Tab-A-Vit -) 1 tab PO DAILY MARIS Last Admin: 06/24/17 10:08 Dose: Not Given Pantoprazole Sodium (Protonix -) 40 mg PO DAILY MARIS Last Admin: 06/24/17 10:08 Dose: Not Given Piperacillin Sod/Tazobactam Sod (Zosyn 4.5gm Ivpb (Pre-Docked)) 4.5 gm IVPB Q8H -IV MARIS Last Admin: 06/25/17 02:23 Dose: 4.5 gm Zolpidem Tartrate (Ambien -) 5 mg PO HS PRN PRN Reason: INSOMNIA Last Admin: 06/24/17 01:18 Dose: 5 mg - Objective Vital Signs: Vital Signs Temperature 98.4 F 06/25/17 05:58 Pulse Rate 82 06/25/17 05:58 Respiratory Rate 12 06/25/17 07:04 Blood Pressure 104/73 06/25/17 05:58 O2 Sat by Pulse Oximetry (%) 99 06/24/17 22:35 Constitutional: Yes: Severe Distress HENT: Yes: Other (Intubated) Neck: Yes: Other (CVC line) Cardiovascular: Yes: Regular Rate and Rhythm, S1, S2. No: Murmur, Rub Respiratory: Yes: WNL, Regular, CTA Bilaterally, Rhonchi, Other (3 right chest tubes) Gastrointestinal: Yes: WNL, Normal Bowel Sounds, Soft. No: Tenderness, Tenderness, Epigastrium, Tenderness, Rebound Extremities: No: Cold, Cool, Cyanosis Edema: No Labs: CBC, BMP 06/25/17 05:30 06/25/17 05:30 INR, PTT INR 1.23 (0.82-1.09) H 06/24/17 14:40 Problem List - Problems (1) COPD (chronic obstructive pulmonary disease) Code(s): J44.9 - CHRONIC OBSTRUCTIVE PULMONARY DISEASE, UNSPECIFIED Qualifiers : COPD type: COPD with acute exacerbation Qualified Code(s): J44.1 - Chronic obstructive pulmonary disease with (acute) exacerbation; J44.1 - Chronic obstructive pulmonary disease with (acute) exacerbation; J44.1 - Chronic obstructive pulmonary disease with (acute) exacerbation; J44.1 - Chronic obstructive pulmonary disease with (acute) exacerbation (2) History of throat cancer Code(s): Z85.819 - PRSNL HX OF MALIG NEOPLM OF UNSP SITE LIP,ORAL CAV,& PHARYNX (3) Empyema Code(s): J86.9 - PYOTHORAX WITHOUT FISTULA (4) Hemoptysis Code(s): R04.2 - HEMOPTYSIS Assessment/Plan Microbiology 06/21/17 16:30 Pleural Fluid Gram Stain - Final 06/21/17 16:30 Pleural Fluid Anaerobic Culture - Final NO GROWTH OF AEROBIC ORGANISMS AFTER 48 HOURS INCUBATION NO ANAEROBES WERE ISOLATED 06/21/17 16:30 Pleural Fluid AFB Smear Concentration - Final 06/24/17 09:40 Pleural Fluid REBECA Preparation - Preliminary 06/24/17 09:40 Pleural Fluid Fungal Culture - Preliminary 06/24/17 09:40 Bronchial Washings - Right Upper Lobe REBECA Preparation - Preliminary 06/24/17 09:40 Bronchial Washings - Right Upper Lobe Fungal Culture - Preliminary 06/21/17 16:30 Pleural Fluid Mycobacterial Culture - Preliminary 06/21/17 16:30 Pleural Fluid REBECA Preparation - Preliminary 06/21/17 16:30 Pleural Fluid Fungal Culture - Preliminary Laboratory Tests 06/24/17 06/24/17 06/25/17 14:40 17:40 05:30 WBC Hgb Hct Plt Count INR 1.23 H ABG pH 7.36 ABG pO2 at Pt Temp 189.0 H* Oxygen Flow Rate 80% Random Glucose 179 H Total Bilirubin 0.3 D AST 50 H D ALT 65 Alkaline Phosphatase 80 06/25/17 05:30 WBC 26.6 H D Hgb 8.8 L Hct 27.5 L Plt Count 407 INR ABG pH ABG pO2 at Pt Temp Oxygen Flow Rate Random Glucose Total Bilirubin AST ALT Alkaline Phosphatase Assessment Post cardiac arrest S/P thoracotomy for empyema yesterday Transfusion of 2 units PRBC Empyema culture negative but pretreated 2 days prior to surgery( Pus at time of surgery) History of Laryngeal cancer but neg malignancy at time of surgery Severe COPD Plan Continue current therapy antibiotic Critical care time spent today 38 minutes Mercedes ROBERTS
[2017-06-25 07:36] LABS: ARTERIAL BLD GAS O2 SATURATION 99.3 % (90-98.9); ARTERIAL BLOOD GAS BASE EXCESS 2.1 meq/l (-2-2); ARTERIAL BLOOD GAS HCO3 26.7 meq/L (22-26)
[2017-06-25 07:45] LABS: ALLENS TEST POSITIVE; ART PUNCT SITE RIGHT RADIAL; LPM/O2% 40; MECH. VENT. YES; PT. ON O2? YES; TYPE OF O2 VENT; VENT RATE 10; VT/PRESS 600
--- NOTE | 2017-06-25 08:48 | PN ---
Progress Note (short form) - Note Progress Note: POD #1 - s/p right VATS, decortication, thoracotomy under general anesthesia. Pt. was transferred directly to ICU post-op. Shortly after arrival, pt. had a cardiac arrest, and was resuscitated successfully. Currently pt. remains intubated and sedated, on minimal pressure support. Thoracic epidural placed preoperatively for post-op pain management removed intact. Continue current critical care management.
[2017-06-25] MEDS ORDERED: HYDROmorphone HCL CARPU-JECT 2 MG/1 ML DISP.SYRIN ONE (09:40)
--- NOTE | 2017-06-25 09:58 | PN ---
Progress Note, Physician Chief Complaint: SOB/weakness History of Present Illness: 67y/o M hx H&N cancer yrs ago now w clinical picture c/w empyema , cytology pleural fluid neg, s/p VATS/decortication , currently w 3 chest tubes , awake, on ab's, mild pail R chest/mild SOB at rest on O2 mask - Current Medication List Current Medications: Active Medications Acetaminophen (Tylenol -) 325 mg PO Q6H PRN PRN Reason: FEVER OR PAIN Acetaminophen (Ofirmev Injection -) 1,000 mg IVPB Q6H PRN PRN Reason: FEVER OR PAIN Stop: 06/26/17 03:34 Albuterol Sulfate (Ventolin 0.083% Nebulizer Soln -) 1 amp NEB Q6H PRN PRN Reason: SHORT OF BREATH/WHEEZING Last Admin: 06/21/17 10:20 Dose: 1 amp Albuterol/Ipratropium (Duoneb -) 1 amp NEB Q6H PRN PRN Reason: SHORTNESS OF BREATH Fentanyl/Bupivacaine/Sodium Chlor (Bupivicaine 0.125%/Fentanyl 2mcg/Ml Pcea -) 50 ml EP ASDIR MARIS PRN Reason: Protocol Last Admin: 06/25/17 09:49 Dose: Not Given Hydromorphone HCl (Dilaudid Injection -) 1 mg IVPUSH Q4H PRN PRN Reason: PAIN Midazolam HCl 100 mg/ Sodium (Chloride) 100 mls @ 1 mls/hr IVPB TITR MARIS; 1 MG/ HR PRN Reason: Protocol Last Titration: 06/25/17 09:30 Dose: 0 mg/hr Fentanyl 500 mcg/ Dextrose 100 mls @ 10 mls/hr IJ TITR MARIS PRN Reason: 50 MCG/HR Last Titration: 06/25/17 09:47 Dose: 0 mcg/hr Norepinephrine Bitartrate 8, (000 mcg/ Dextrose) 500 mls @ 18.75 mls/hr IV TITR MARIS; 5 MCG/MIN PRN Reason: Protocol Last Titration: 06/25/17 09:46 Dose: 0 mcg/min Dextrose/Sodium Chloride (D5-Ns -) 1,000 mls @ 125 mls/hr IV ASDIR MARIS Last Admin: 06/25/17 09:44 Dose: 125 mls/hr Insulin Aspart (Novolog Vial Sliding Scale -) 1 vial SQ Q6H MARIS PRN Reason: Protocol Last Admin: 06/25/17 06:04 Dose: 2 units Methylprednisolone Sodium Succinate (Solu-Medrol -) 40 mg IVPB Q8H-IV MARIS Last Admin: 06/25/17 02:23 Dose: 40 mg Multivitamins/Minerals/Vitamin C (Tab-A-Vit -) 1 tab PO DAILY MARIS Last Admin: 06/24/17 10:08 Dose: Not Given Pantoprazole Sodium (Protonix -) 40 mg PO DAILY MARIS Last Admin: 06/24/17 10:08 Dose: Not Given Piperacillin Sod/Tazobactam Sod (Zosyn 4.5gm Ivpb (Pre-Docked)) 4.5 gm IVPB Q8H -IV MARIS Last Admin: 06/25/17 02:23 Dose: 4.5 gm Zolpidem Tartrate (Ambien -) 5 mg PO HS PRN PRN Reason: INSOMNIA Last Admin: 06/24/17 01:18 Dose: 5 mg - Objective Vital Signs: Vital Signs Temperature 98.4 F 06/25/17 05:58 Pulse Rate 90 06/25/17 09:46 Respiratory Rate 12 06/25/17 07:04 Blood Pressure 117/76 06/25/17 09:46 O2 Sat by Pulse Oximetry (%) 99 06/24/17 22:35 Constitutional: Yes: Anxious, Cachectic, Mild Distress, Pallor Eyes: Yes: Conjunctiva Clear, EOM Intact HENT: Yes: Atraumatic, Normocephalic Neck: Yes: Supple, Trachea Midline Cardiovascular: Yes: Regular Rate and Rhythm Respiratory: Yes: Diminished, Dullness (right base) Gastrointestinal: Yes: Soft, Hypoactive Bowel Sounds (not distended, non-tender) , Other (nontender,non-distended) Labs: CBC, BMP 06/25/17 05:30 06/25/17 05:30 INR, PTT INR 1.23 (0.82-1.09) H 06/24/17 14:40 Problem List - Problems (1) COPD (chronic obstructive pulmonary disease) Code(s): J44.9 - CHRONIC OBSTRUCTIVE PULMONARY DISEASE, UNSPECIFIED Qualifiers : COPD type: COPD with acute exacerbation Qualified Code(s): J44.1 - Chronic obstructive pulmonary disease with (acute) exacerbation; J44.1 - Chronic obstructive pulmonary disease with (acute) exacerbation; J44.1 - Chronic obstructive pulmonary disease with (acute) exacerbation; J44.1 - Chronic obstructive pulmonary disease with (acute) exacerbation (2) History of throat cancer Code(s): Z85.819 - PRSNL HX OF MALIG NEOPLM OF UNSP SITE LIP,ORAL CAV,& PHARYNX (3) Pleural effusion Code(s): J90 - PLEURAL EFFUSION, NOT ELSEWHERE CLASSIFIED (4) Empyema Code(s): J86.9 - PYOTHORAX WITHOUT FISTULA (5) Anemia, iron deficiency Code(s): D50.9 - IRON DEFICIENCY ANEMIA, UNSPECIFIED Assessment/Plan Continue cardiothoracic/ICU managenent, ab's for empyema/COPD, Tx as necessary , await any other pathology/cytology to r/o any underlying cancer
[2017-06-25] MEDS: HYDROmorphone HCL CARPU-JECT 1 MG/1 ML DISP.SYRIN IVPUSH PRN ×3 (10:30→21:30)
[2017-06-25] MEDS: PANTOPRAZOLE 40 MG TABLET (FP) PO SCH (10:49)
[2017-06-25] MEDS: MULTIVITAMINS (DAILY MVI) TABLET (FP) PO SCH (10:53)
--- NOTE | 2017-06-25 10:53 | PN ---
Progress Note, Physician Chief Complaint: The patient was intubated post op yesterday, and started on pressors and iv fluids to maintain BP within NL. Levophed, Phentanyl were stopped this morning. The am CXR showed improvement and expansion of the right lung with atelectatic changes at the right base. The chest tubes drained 320 cc serosangvinolent fluid with the past 12 hours, and the patient's urine output was 360 cc in 3 hours since 6 am. He received 2 u PRBC since yesterday, 4 units of RBC in total since admission and 5 l of iv fluids since procedure. History of Present Illness: as67 yo male with PMH of throat cancer was admitted with complaints of weight loss, poor appetite and elevated WBC. He was diagnosed with right empyema which was treated with VATS pulmonary decortication and temporary placement of 3 right chest tubes. The patient coded post op and had to be intubated due to low blood pressure and collapsed right lung. The patient was extubated this am and pressors were discontinued - Current Medication List Current Medications: Active Medications Acetaminophen (Tylenol -) 325 mg PO Q6H PRN PRN Reason: FEVER OR PAIN Acetaminophen (Ofirmev Injection -) 1,000 mg IVPB Q6H PRN PRN Reason: FEVER OR PAIN Stop: 06/26/17 03:34 Albuterol Sulfate (Ventolin 0.083% Nebulizer Soln -) 1 amp NEB Q6H PRN PRN Reason: SHORT OF BREATH/WHEEZING Last Admin: 06/21/17 10:20 Dose: 1 amp Albuterol/Ipratropium (Duoneb -) 1 amp NEB Q6H PRN PRN Reason: SHORTNESS OF BREATH Hydromorphone HCl (Dilaudid Injection -) 1 mg IVPUSH Q4H PRN PRN Reason: PAIN Midazolam HCl 100 mg/ Sodium (Chloride) 100 mls @ 1 mls/hr IVPB TITR MARIS; 1 MG/ HR PRN Reason: Protocol Last Titration: 06/25/17 09:30 Dose: 0 mg/hr Fentanyl 500 mcg/ Dextrose 100 mls @ 10 mls/hr IJ TITR MARIS PRN Reason: 50 MCG/HR Last Titration: 06/25/17 09:47 Dose: 0 mcg/hr Norepinephrine Bitartrate 8, (000 mcg/ Dextrose) 500 mls @ 18.75 mls/hr IV TITR MARIS; 5 MCG/MIN PRN Reason: Protocol Last Titration: 06/25/17 09:46 Dose: 0 mcg/min Dextrose/Sodium Chloride (D5-Ns -) 1,000 mls @ 125 mls/hr IV ASDIR MARIS Last Admin: 06/25/17 09:44 Dose: 125 mls/hr Insulin Aspart (Novolog Vial Sliding Scale -) 1 vial SQ Q6H MARIS PRN Reason: Protocol Last Admin: 06/25/17 06:04 Dose: 2 units Methylprednisolone Sodium Succinate (Solu-Medrol -) 40 mg IVPB Q8H-IV MARIS Last Admin: 06/25/17 02:23 Dose: 40 mg Multivitamins/Minerals/Vitamin C (Tab-A-Vit -) 1 tab PO DAILY MARIS Last Admin: 06/24/17 10:08 Dose: Not Given Pantoprazole Sodium (Protonix -) 40 mg PO DAILY MARIS Last Admin: 06/24/17 10:08 Dose: Not Given Piperacillin Sod/Tazobactam Sod (Zosyn 4.5gm Ivpb (Pre-Docked)) 4.5 gm IVPB Q8H -IV MARIS Last Admin: 06/25/17 02:23 Dose: 4.5 gm Zolpidem Tartrate (Ambien -) 5 mg PO HS PRN PRN Reason: INSOMNIA Last Admin: 06/24/17 01:18 Dose: 5 mg - Objective Vital Signs: Vital Signs Temperature 98.4 F 06/25/17 05:58 Pulse Rate 90 06/25/17 09:46 Respiratory Rate 12 06/25/17 07:04 Blood Pressure 117/76 06/25/17 09:46 O2 Sat by Pulse Oximetry (%) 99 06/24/17 22:35 Constitutional: Yes: Other (receievd Dilaudid IV foe pain cvontrol and is sedated now) Eyes: Yes: EOM Intact HENT: Yes: Atraumatic, Normocephalic Neck: Yes: Supple, Trachea Midline Cardiovascular: Yes: Regular Rate and Rhythm, S1, S2 Respiratory: Yes: Regular, Other (improved air entry at the right base, pleuritic rubs present. no rales and no wheezing) Gastrointestinal: Yes: Normal Bowel Sounds, Soft. No: Hepatomegaly, Splenomegaly Genitourinary: Yes: Cruz Present (urine output aproxiametly 120 cc/ hr since 6 am) Breast(s): Yes: WNL Musculoskeletal: Yes: Other (3 chesttubes present in the right thorax) Extremities: No: Calf Tenderness Edema: No Peripheral Pulses WNL: Yes (warm lower extremities, good capillary refill) Integumentary: Yes: WNL Neurological: Yes: Other (sedated) ...Motor Strength: WNL Psychiatric: Yes: Alert, Other (sedated) Labs: CBC, BMP 06/25/17 05:30 06/25/17 05:30 INR, PTT INR 1.23 (0.82-1.09) H 06/24/17 14:40 - ....Imaging X-ray: Other (improved air entry in the right lung, atelectasis present at the right base) EKG: Other (06/25/17 ------``NSR 79 b/min, [facility], normal PA interval, QRS axis at 0, DIV[facility], good R wave progression, increased voltage of the QRS, non specific St - T changes) Problem List - Problems (1) Pleural effusion Assessment/Plan: empyema by chemistry of fluid, negative gram stains and cultures of fluid pending 3 chest tubes are present in the right hemithorax draining sangvinolent fluid the patient was extubated and is now on VM, tolerating it well with good oxygenation still receiving Zosyn empirically pain management with Dilaudid 1 gm iv every 4 hours prn Code(s): J90 - PLEURAL EFFUSION, NOT ELSEWHERE CLASSIFIED (2) Empyema Assessment/Plan: S/p decortication and VATS, with 3 chest tubes planted in the right hemithorax, continue IV antibiotics Code(s): J86.9 - PYOTHORAX WITHOUT FISTULA (3) COPD (chronic obstructive pulmonary disease) Assessment/Plan: Albuterol nebulizer Solu Medrol, decrease dosage continue Zosyn Code(s): J44.9 - CHRONIC OBSTRUCTIVE PULMONARY DISEASE, UNSPECIFIED Qualifiers : COPD type: COPD with acute exacerbation Qualified Code(s): J44.1 - Chronic obstructive pulmonary disease with (acute) exacerbation; J44.1 - Chronic obstructive pulmonary disease with (acute) exacerbation; J44.1 - Chronic obstructive pulmonary disease with (acute) exacerbation; J44.1 - Chronic obstructive pulmonary disease with (acute) exacerbation (4) History of throat cancer Assessment/Plan: pleural fluid negative for malignancy Code(s): Z85.819 - PRSNL HX OF MALIG NEOPLM OF UNSP SITE LIP,ORAL CAV,& PHARYNX (5) Schizoaffective disorder Assessment/Plan: on no medications Code(s): F25.9 - SCHIZOAFFECTIVE DISORDER, UNSPECIFIED Qualifiers: Schizoaffective disorder type: unspecified Qualified Code(s): F25.9 - Schizoaffective disorder, unspecified; F25.9 - Schizoaffective disorder, unspecified; F25.9 - Schizoaffective disorder, unspecified; F25.9 - Schizoaffective disorder, unspecified (6) Cardiac arrest Assessment/Plan: s/p cardiac arrest yesterday, serial cardiac enzymes slightly elevated, repeat levels at 2 pm, ekg serially showing normalization of low voltage QRS complexes ECHO pending Code(s): I46.9 - CARDIAC ARREST, CAUSE UNSPECIFIED (7) Cachexia Assessment/Plan: the patient has poor nutritional status, needs supplements and start feeding as soon as more alert Code(s): R64 - CACHEXIA (8) Glucose intolerance (impaired glucose tolerance) Assessment/Plan: had borderline Hb A1 C of 6.5 before the weigh loss, since IV steroids were started will monitor glucose levels Code(s): R73.02 - IMPAIRED GLUCOSE TOLERANCE (ORAL)
[2017-06-25] MEDS: ACETAMINOPHEN 1000 MG/100 ML VIAL (NON FORMULARY) IVPB PRN ×3 (10:54→23:34)
--- NOTE | 2017-06-25 12:00 | EKG ---
Test Reason : Blood Pressure : / mmHG Vent. Rate : 079 BPM Atrial Rate : 079 BPM P-R Int : 166 ms QRS Dur : 096 ms QT Int : 394 ms P-R-T Axes : 071 -07 041 degrees QTc Int : 451 ms SINUS RHYTHM WITH MARKED SINUS ARRHYTHMIA CANNOT RULE OUT INFERIOR INFARCT , AGE UNDETERMINED Confirmed by JONAS LOCKWOOD MD ([id number]) on 06/25/2017 12:00:06 PM Referred By: CRISTINA SO DR Confirmed By:JONAS LOCKWOOD MD
--- NOTE | 2017-06-25 12:22 | PN ---
Teaching Attending Note Name of Resident: John Smiley ATTENDING PHYSICIAN STATEMENT I saw and evaluated the patient. I reviewed the resident's note and discussed the case with the resident. I agree with the resident's findings and plan as documented. SUBJECTIVE: Patient seen and examined in the ICU. Awake and alert. Remains on low dose NE for hemodynamic support. AC mode of vent. CXR : improving aeration of the right hemithorax / left is clear. OBJECTIVE: Intake & Output 06/22/17 06/23/17 06/24/17 06/25/17 23:59 23:59 23:59 23:59 Intake Total 1100 1350 8350 2157 Output Total 1520 1940 5105 563 Balance -420 -590 3245 1594 Weight 125 lb 9 oz 127 lb 1 oz 125 lb 7.088 oz 136 lb 10.986 oz Last Vital Signs Temp Pulse Resp BP Pulse Ox 98.3 F 76 12 120/73 99 06/25/17 10:00 06/25/17 12:00 06/25/17 12:00 06/25/17 12:00 06/25/17 11:42 Active Medications Acetaminophen (Tylenol -) 325 mg PO Q6H PRN PRN Reason: FEVER OR PAIN Acetaminophen (Ofirmev Injection -) 1,000 mg IVPB Q6H PRN PRN Reason: FEVER OR PAIN Stop: 06/26/17 03:34 Last Admin: 06/25/17 10:54 Dose: 1,000 mg Albuterol Sulfate (Ventolin 0.083% Nebulizer Soln -) 1 amp NEB Q6H PRN PRN Reason: SHORT OF BREATH/WHEEZING Last Admin: 06/21/17 10:20 Dose: 1 amp Albuterol/Ipratropium (Duoneb -) 1 amp NEB Q6H PRN PRN Reason: SHORTNESS OF BREATH Hydromorphone HCl (Dilaudid Injection -) 1 mg IVPUSH Q4H PRN PRN Reason: PAIN Last Admin: 06/25/17 10:30 Dose: 1 mg Norepinephrine Bitartrate 8, (000 mcg/ Dextrose) 500 mls @ 18.75 mls/hr IV TITR MARIS; 5 MCG/MIN PRN Reason: Protocol Last Titration: 06/25/17 09:46 Dose: 0 mcg/min Dextrose/Sodium Chloride (D5-Ns -) 1,000 mls @ 125 mls/hr IV ASDIR [facility] Last Admin: 06/25/17 09:44 Dose: 125 mls/hr Insulin Aspart (Novolog Vial Sliding Scale -) 1 vial SQ Q6H MARIS PRN Reason: Protocol Last Admin: 06/25/17 06:04 Dose: 2 units Methylprednisolone Sodium Succinate (Solu-Medrol -) 40 mg IVPB BID MARIS Multivitamins/Minerals/Vitamin C (Tab-A-Vit -) 1 tab PO DAILY MARIS Last Admin: 06/25/17 10:53 Dose: Not Given Pantoprazole Sodium (Protonix -) 40 mg PO DAILY MARIS Last Admin: 06/25/17 10:49 Dose: Not Given Piperacillin Sod/Tazobactam Sod (Zosyn 4.5gm Ivpb (Pre-Docked)) 4.5 gm IVPB Q8H -IV MARIS Last Admin: 06/25/17 10:50 Dose: 4.5 gm Zolpidem Tartrate (Ambien -) 5 mg PO HS PRN PRN Reason: INSOMNIA Last Admin: 06/24/17 01:18 Dose: 5 mg Gen: Intubated and awake and responsive Heart: RRR Lung: decreased breath sounds right, CT x 3 intact, no air leak noted. Abd: soft, nontender Ext: no edema Laboratory Results - last 24 hr 06/21/17 06/21/17 06/23/17 10:00 10:00 14:00 WBC RBC Hgb Hct MCV MCH MCHC RDW Plt Count MPV Total Counted Neutrophils % Neutrophils % (Manual) Band Neuts % (Manual) Lymphocytes % Lymphocytes % (Manual) Monocytes % Monocytes % (Manual) Eosinophils % Eosinophils % (Manual) Basophils % Hypochromia Platelet Estimate Platelet Comment RBC Morphology Anisocytosis Microcytosis PT with INR INR Puncture Site ABG pH ABG pCO2 at Pt Temp ABG pO2 at Pt Temp ABG HCO3 ABG O2 Sat (Measured) ABG O2 Content ABG Base Excess Andre Test O2 Delivery Device Oxygen Flow Rate Vent Mode Vent Rate Mechanical Rate PEEP Pressure Support Vent Sodium Potassium Chloride Carbon Dioxide Anion Gap BUN Creatinine Creat Clearance w eGFR Random Glucose Lactic Acid Calcium Phosphorus Magnesium Total Bilirubin AST ALT Alkaline Phosphatase Creatine Kinase Creatine Kinase Index CK-MB (CK-2) Troponin I Total Protein Albumin Blood Type O NEGATIVE O NEGATIVE O NEGATIVE Antibody Screen Negative Negative Crossmatch See Detail See Detail See Detail 06/24/17 06/24/17 06/24/17 05:10 14:10 14:40 WBC 28.9 H RBC 3.41 L Hgb 9.0 L Hct 27.7 L MCV 81.1 MCH 26.5 MCHC 32.7 RDW 16.1 H Plt Count 465 H MPV 8.0 Total Counted 100 Neutrophils % Neutrophils % (Manual) 97 H* Band Neuts % (Manual) Lymphocytes % Lymphocytes % (Manual) 2 L Monocytes % Monocytes % (Manual) 1 L Eosinophils % Eosinophils % (Manual) Basophils % Hypochromia 1+ Platelet Estimate Adequate Platelet Comment RBC Morphology Anisocytosis Microcytosis PT with INR 13.60 H INR 1.23 H Puncture Site Right brachial ABG pH 7.30 L D ABG pCO2 at Pt Temp 55.7 H D ABG pO2 at Pt Temp 90.2 ABG HCO3 26.6 H ABG O2 Sat (Measured) 95.5 ABG O2 Content 10.3 L ABG Base Excess 0.5 Andre Test Not applicable O2 Delivery Device Ot Oxygen Flow Rate 100% Vent Mode Ac Vent Rate 14 Mechanical Rate Esprit PEEP 7.0 Pressure Support Vent 500 Sodium Potassium Chloride Carbon Dioxide Anion Gap BUN Creatinine Creat Clearance w eGFR Random Glucose Lactic Acid Calcium Phosphorus Magnesium Total Bilirubin AST ALT Alkaline Phosphatase Creatine Kinase Creatine Kinase Index CK-MB (CK-2) Troponin I Total Protein Albumin Blood Type Antibody Screen Crossmatch 06/24/17 06/24/17 06/24/17 14:40 16:35 17:40 WBC 29.5 H RBC 2.99 L Hgb 7.9 L D Hct 25.5 L MCV 85.3 MCH 26.4 MCHC 30.9 L RDW 16.8 H Plt Count 392 MPV 8.2 Total Counted 100 Neutrophils % No Result Required. Neutrophils % (Manual) 85 H Band Neuts % (Manual) 1 Lymphocytes % No Result Required. Lymphocytes % (Manual) 6 L D Monocytes % Monocytes % (Manual) 8 D Eosinophils % Eosinophils % (Manual) Basophils % Hypochromia Platelet Estimate Increased Platelet Comment No clumping noted RBC Morphology Anisocytosis Microcytosis PT with INR INR Puncture Site Right radial ABG pH 7.36 ABG pCO2 at Pt Temp 49.6 H ABG pO2 at Pt Temp 189.0 H* ABG HCO3 27.1 H ABG O2 Sat (Measured) 99.1 H ABG O2 Content 13.9 L ABG Base Excess 1.7 Andre Test Positive O2 Delivery Device Oxygen Flow Rate 80% Vent Mode Ac Vent Rate 10 Mechanical Rate Esprit PEEP 8.0 Pressure Support Vent 600 Sodium 141 Potassium 4.5 Chloride 106 Carbon Dioxide 27 Anion Gap 8 BUN 26 H Creatinine 0.8 D Creat Clearance w eGFR > 60 Random Glucose 223 H D Lactic Acid Calcium 7.7 L Phosphorus 5.4 H D Magnesium 3.0 H D Total Bilirubin 0.1 L D AST 128 H D ALT 73 D Alkaline Phosphatase 75 D Creatine Kinase 167 Creatine Kinase Index 1.1 CK-MB (CK-2) 1.844 Troponin I 0.02 Total Protein 5.0 L D Albumin 1.1 L D Blood Type Antibody Screen Crossmatch 06/24/17 06/24/17 06/25/17 18:30 22:05 00:30 WBC 41.4 H* D RBC 3.54 L Hgb 9.4 L D Hct 29.3 L MCV 82.8 MCH 26.6 MCHC 32.1 RDW 15.7 Plt Count 433 MPV 8.2 Total Counted 100 Neutrophils % Neutrophils % (Manual) 89 H Band Neuts % (Manual) 6 D Lymphocytes % Lymphocytes % (Manual) 1 L D Monocytes % Monocytes % (Manual) Eosinophils % Eosinophils % (Manual) 4 Basophils % Hypochromia 2+ Platelet Estimate Slt increased Platelet Comment Few large plts RBC Morphology Anisocytosis 1+ Microcytosis 1+ PT with INR INR Puncture Site ABG pH ABG pCO2 at Pt Temp ABG pO2 at Pt Temp ABG HCO3 ABG O2 Sat (Measured) ABG O2 Content ABG Base Excess Andre Test O2 Delivery Device Oxygen Flow Rate Vent Mode Vent Rate Mechanical Rate PEEP Pressure Support Vent Sodium Potassium Chloride Carbon Dioxide Anion Gap BUN Creatinine Creat Clearance w eGFR Random Glucose Lactic Acid Calcium Phosphorus Magnesium Total Bilirubin AST ALT Alkaline Phosphatase Creatine Kinase 204 163 Creatine Kinase Index 1.4 1.3 CK-MB (CK-2) 2.926 2.162 Troponin I 0.09 H D 0.09 H Total Protein Albumin Blood Type Antibody Screen Crossmatch 06/25/17 06/25/17 06/25/17 05:30 05:30 05:30 WBC 26.6 H D RBC 3.32 L Hgb 8.8 L Hct 27.5 L MCV 83.0 MCH 26.5 MCHC 32.0 RDW 16.0 H Plt Count 407 MPV 8.2 Total Counted Neutrophils % 92.4 H Neutrophils % (Manual) Band Neuts % (Manual) Lymphocytes % 3.3 L Lymphocytes % (Manual) Monocytes % 4.2 Monocytes % (Manual) Eosinophils % 0.0 D Eosinophils % (Manual) Basophils % 0.1 Hypochromia Platelet Estimate Platelet Comment RBC Morphology Anisocytosis Microcytosis PT with INR INR Puncture Site ABG pH ABG pCO2 at Pt Temp ABG pO2 at Pt Temp ABG HCO3 ABG O2 Sat (Measured) ABG O2 Content ABG Base Excess Andre Test O2 Delivery Device Oxygen Flow Rate Vent Mode Vent Rate Mechanical Rate PEEP Pressure Support Vent Sodium 140 Potassium 5.1 Chloride 105 Carbon Dioxide 28 Anion Gap 7 L BUN 29 H Creatinine 0.8 Creat Clearance w eGFR > 60 Random Glucose 179 H Lactic Acid 1.7 Calcium 7.7 L Phosphorus 4.2 D Magnesium 2.3 D Total Bilirubin 0.3 D AST 50 H D ALT 65 Alkaline Phosphatase 80 Creatine Kinase Creatine Kinase Index CK-MB (CK-2) Troponin I Total Protein 5.7 L Albumin 1.3 L Blood Type Antibody Screen Crossmatch 06/25/17 07:20 WBC RBC Hgb Hct MCV MCH MCHC RDW Plt Count MPV Total Counted Neutrophils % Neutrophils % (Manual) Band Neuts % (Manual) Lymphocytes % Lymphocytes % (Manual) Monocytes % Monocytes % (Manual) Eosinophils % Eosinophils % (Manual) Basophils % Hypochromia Platelet Estimate Platelet Comment RBC Morphology Anisocytosis Microcytosis PT with INR INR Puncture Site Right radial ABG pH 7.40 ABG pCO2 at Pt Temp 44.1 ABG pO2 at Pt Temp 165.0 H* ABG HCO3 26.7 H ABG O2 Sat (Measured) 99.3 H ABG O2 Content 12.3 L ABG Base Excess 2.1 H Andre Test Positive O2 Delivery Device Vent Oxygen Flow Rate 40 Vent Mode A/c Vent Rate 10 Mechanical Rate Yes PEEP 8.0 Pressure Support Vent 600 Sodium Potassium Chloride Carbon Dioxide Anion Gap BUN Creatinine Creat Clearance w eGFR Random Glucose Lactic Acid Calcium Phosphorus Magnesium Total Bilirubin AST ALT Alkaline Phosphatase Creatine Kinase Creatine Kinase Index CK-MB (CK-2) Troponin I Total Protein Albumin Blood Type Antibody Screen Crossmatch ASSESSMENT AND PLAN: Loculated Pleural Effusion likely Empyema Acute COPD Exacerbation Hemoptysis PTSD h/o Laryngeal Ca Smoker - Wean NE for hemodynamic support - ABX - BD TX - f/u pleural fluid analysis - Medrol - Strict I & O - IVF - Follow CXR - Incentive Spirometry Dr Moon Critical care time spent in reviewing chart, evaluating patient and formulating plan - 35 minutes
[2017-06-25] MEDS ORDERED: HEMOQUE TEST 1 EACH EACH ONE ×2 (12:29→23:05)
--- NOTE | 2017-06-25 12:41 | PN ---
Physical Exam: SUBJECTIVE: Patient seen and examined 67 yo M with h/o COPD, PTSD ([place] ), chronic tobacco use, and throat cancer in remission s/p radiation therapy who presents to ICU with right sided loculated pleural effusion s/p day 1 right chest tube placement. Presented to ED ( 06/19 ) with episode of hemoptysis that has since resolved, elevated WBC~33 ,000, and CT chest that revealed a large loculated right sided pleural effusion. Patient is a poor historian but endorses 2 weeks of loss of appetite, 20 IB weight loss in 3 weeks, and chronic cough ( 05/06 ). Started on Augmentin 3 days ago following routine blood work revealing WBC of 22,[address] [place]. Denies fevers/chills, night sweats, N/V, diarrhea, blood per rectum, hematuria, or pleuritic chest pain. on admission. Recently evaluated at [facility] 1 month ago for hemoptysis with 1 day admission. Pt lives at rest home in [place] and his Oncologist is Dr. Kaur from [facility]. On encounter patient is alert, intubated, and resting comfortably in bed. He denies fevers/chills, chest pain, dysuria, melena/hematochezia abdominal pain. or difficulty sleeping. He reports minor discomfort from posterior chest tube insertion sites currently being treated with fentanyl. Afebrile and hemodynamically stable. Morning CXR revealed re-expansion of the R lung with RLL base atelectasis. Chest tubes drained 320 ml serosanguinoeus fluid within past 12 hours. He has received 2 U PRBC 5L NS IV following OR. OBJECTIVE: Vital Signs Period Temp Pulse Resp BP Sys/Bunn Pulse Ox Last 24 Hr 96.9 F-98.9 F 74-98 10-19 53-136/40-88 98-100 GGENERAL: Patient on 2 L NC. The patient is awake, alert, and fully oriented, in no acute distress. HEAD: Normal with no signs of trauma. NECK: supple without lymphadenopathy, JVD, or masses. LUNGS: Rigth sided posterior drainage in place c/d/i. absent rhonci with absent rales. Dullness to percussion at right lung base. No accesory muscle use. HEART:+ Apical systolic murmur. Normal S1 and S2 without rub or gallop. ABDOMEN: Soft, nontender, not distended, normoactive bowel sounds, no guarding, no rebound, no masses. No hepatomegaly or splenomegaly. MUSCULOSKELETAL: Normal range of motion at all joints. No bony deformities or tenderness. No CVA tenderness. UPPER EXTREMITIES: 2+ pulses, warm, well-perfused. No cyanosis. No clubbing. Cap refill <2 seconds. No peripheral edema. LOWER EXTREMITIES: 2+ pulses, warm, well-perfused. No calf tenderness. No peripheral edema. PSYCHIATRIC: Slightly agitated Appropriate mood and affect. SKIN: Warm, dry, normal turgor, no rashes or lesions noted. Laboratory Results - last 24 hr 06/21/17 06/21/17 06/23/17 10:00 10:00 14:00 WBC RBC Hgb Hct MCV MCH MCHC RDW Plt Count MPV Total Counted Neutrophils % Neutrophils % (Manual) Band Neuts % (Manual) Lymphocytes % Lymphocytes % (Manual) Monocytes % Monocytes % (Manual) Eosinophils % Eosinophils % (Manual) Basophils % Hypochromia Platelet Estimate Platelet Comment RBC Morphology Anisocytosis Microcytosis PT with INR INR Puncture Site ABG pH ABG pCO2 at Pt Temp ABG pO2 at Pt Temp ABG HCO3 ABG O2 Sat (Measured) ABG O2 Content ABG Base Excess Andre Test O2 Delivery Device Oxygen Flow Rate Vent Mode Vent Rate Mechanical Rate PEEP Pressure Support Vent Sodium Potassium Chloride Carbon Dioxide Anion Gap BUN Creatinine Creat Clearance w eGFR Random Glucose Lactic Acid Calcium Phosphorus Magnesium Total Bilirubin AST ALT Alkaline Phosphatase Creatine Kinase Creatine Kinase Index CK-MB (CK-2) Troponin I Total Protein Albumin Blood Type O NEGATIVE O NEGATIVE O NEGATIVE Antibody Screen Negative Negative Crossmatch See Detail See Detail See Detail 06/24/17 06/24/17 06/24/17 05:10 14:10 14:40 WBC 28.9 H RBC 3.41 L Hgb 9.0 L Hct 27.7 L MCV 81.1 MCH 26.5 MCHC 32.7 RDW 16.1 H Plt Count 465 H MPV 8.0 Total Counted 100 Neutrophils % Neutrophils % (Manual) 97 H* Band Neuts % (Manual) Lymphocytes % Lymphocytes % (Manual) 2 L Monocytes % Monocytes % (Manual) 1 L Eosinophils % Eosinophils % (Manual) Basophils % Hypochromia 1+ Platelet Estimate Adequate Platelet Comment RBC Morphology Anisocytosis Microcytosis PT with INR 13.60 H INR 1.23 H Puncture Site Right brachial ABG pH 7.30 L D ABG pCO2 at Pt Temp 55.7 H D ABG pO2 at Pt Temp 90.2 ABG HCO3 26.6 H ABG O2 Sat (Measured) 95.5 ABG O2 Content 10.3 L ABG Base Excess 0.5 Andre Test Not applicable O2 Delivery Device Ot Oxygen Flow Rate 100% Vent Mode Ac Vent Rate 14 Mechanical Rate Esprit PEEP 7.0 Pressure Support Vent 500 Sodium Potassium Chloride Carbon Dioxide Anion Gap BUN Creatinine Creat Clearance w eGFR Random Glucose Lactic Acid Calcium Phosphorus Magnesium Total Bilirubin AST ALT Alkaline Phosphatase Creatine Kinase Creatine Kinase Index CK-MB (CK-2) Troponin I Total Protein Albumin Blood Type Antibody Screen Crossmatch 06/24/17 06/24/17 06/24/17 14:40 16:35 17:40 WBC 29.5 H RBC 2.99 L Hgb 7.9 L D Hct 25.5 L MCV 85.3 MCH 26.4 MCHC 30.9 L RDW 16.8 H Plt Count 392 MPV 8.2 Total Counted 100 Neutrophils % No Result Required. Neutrophils % (Manual) 85 H Band Neuts % (Manual) 1 Lymphocytes % No Result Required. Lymphocytes % (Manual) 6 L D Monocytes % Monocytes % (Manual) 8 D Eosinophils % Eosinophils % (Manual) Basophils % Hypochromia Platelet Estimate Increased Platelet Comment No clumping noted RBC Morphology Anisocytosis Microcytosis PT with INR INR Puncture Site Right radial ABG pH 7.36 ABG pCO2 at Pt Temp 49.6 H ABG pO2 at Pt Temp 189.0 H* ABG HCO3 27.1 H ABG O2 Sat (Measured) 99.1 H ABG O2 Content 13.9 L ABG Base Excess 1.7 Andre Test Positive O2 Delivery Device Oxygen Flow Rate 80% Vent Mode Ac Vent Rate 10 Mechanical Rate Esprit PEEP 8.0 Pressure Support Vent 600 Sodium 141 Potassium 4.5 Chloride 106 Carbon Dioxide 27 Anion Gap 8 BUN 26 H Creatinine 0.8 D Creat Clearance w eGFR > 60 Random Glucose 223 H D Lactic Acid Calcium 7.7 L Phosphorus 5.4 H D Magnesium 3.0 H D Total Bilirubin 0.1 L D AST 128 H D ALT 73 D Alkaline Phosphatase 75 D Creatine Kinase 167 Creatine Kinase Index 1.1 CK-MB (CK-2) 1.844 Troponin I 0.02 Total Protein 5.0 L D Albumin 1.1 L D Blood Type Antibody Screen Crossmatch 06/24/17 06/24/17 06/25/17 18:30 22:05 00:30 WBC 41.4 H* D RBC 3.54 L Hgb 9.4 L D Hct 29.3 L MCV 82.8 MCH 26.6 MCHC 32.1 RDW 15.7 Plt Count 433 MPV 8.2 Total Counted 100 Neutrophils % Neutrophils % (Manual) 89 H Band Neuts % (Manual) 6 D Lymphocytes % Lymphocytes % (Manual) 1 L D Monocytes % Monocytes % (Manual) Eosinophils % Eosinophils % (Manual) 4 Basophils % Hypochromia 2+ Platelet Estimate Slt increased Platelet Comment Few large plts RBC Morphology Anisocytosis 1+ Microcytosis 1+ PT with INR INR Puncture Site ABG pH ABG pCO2 at Pt Temp ABG pO2 at Pt Temp ABG HCO3 ABG O2 Sat (Measured) ABG O2 Content ABG Base Excess Andre Test O2 Delivery Device Oxygen Flow Rate Vent Mode Vent Rate Mechanical Rate PEEP Pressure Support Vent Sodium Potassium Chloride Carbon Dioxide Anion Gap BUN Creatinine Creat Clearance w eGFR Random Glucose Lactic Acid Calcium Phosphorus Magnesium Total Bilirubin AST ALT Alkaline Phosphatase Creatine Kinase 204 163 Creatine Kinase Index 1.4 1.3 CK-MB (CK-2) 2.926 2.162 Troponin I 0.09 H D 0.09 H Total Protein Albumin Blood Type Antibody Screen Crossmatch 06/25/17 06/25/17 06/25/17 05:30 05:30 05:30 WBC 26.6 H D RBC 3.32 L Hgb 8.8 L Hct 27.5 L MCV 83.0 MCH 26.5 MCHC 32.0 RDW 16.0 H Plt Count 407 MPV 8.2 Total Counted Neutrophils % 92.4 H Neutrophils % (Manual) Band Neuts % (Manual) Lymphocytes % 3.3 L Lymphocytes % (Manual) Monocytes % 4.2 Monocytes % (Manual) Eosinophils % 0.0 D Eosinophils % (Manual) Basophils % 0.1 Hypochromia Platelet Estimate Platelet Comment RBC Morphology Anisocytosis Microcytosis PT with INR INR Puncture Site ABG pH ABG pCO2 at Pt Temp ABG pO2 at Pt Temp ABG HCO3 ABG O2 Sat (Measured) ABG O2 Content ABG Base Excess Andre Test O2 Delivery Device Oxygen Flow Rate Vent Mode Vent Rate Mechanical Rate PEEP Pressure Support Vent Sodium 140 Potassium 5.1 Chloride 105 Carbon Dioxide 28 Anion Gap 7 L BUN 29 H Creatinine 0.8 Creat Clearance w eGFR > 60 Random Glucose 179 H Lactic Acid 1.7 Calcium 7.7 L Phosphorus 4.2 D Magnesium 2.3 D Total Bilirubin 0.3 D AST 50 H D ALT 65 Alkaline Phosphatase 80 Creatine Kinase Creatine Kinase Index CK-MB (CK-2) Troponin I Total Protein 5.7 L Albumin 1.3 L Blood Type Antibody Screen Crossmatch 06/25/17 07:20 WBC RBC Hgb Hct MCV MCH MCHC RDW Plt Count MPV Total Counted Neutrophils % Neutrophils % (Manual) Band Neuts % (Manual) Lymphocytes % Lymphocytes % (Manual) Monocytes % Monocytes % (Manual) Eosinophils % Eosinophils % (Manual) Basophils % Hypochromia Platelet Estimate Platelet Comment RBC Morphology Anisocytosis Microcytosis PT with INR INR Puncture Site Right radial ABG pH 7.40 ABG pCO2 at Pt Temp 44.1 ABG pO2 at Pt Temp 165.0 H* ABG HCO3 26.7 H ABG O2 Sat (Measured) 99.3 H ABG O2 Content 12.3 L ABG Base Excess 2.1 H Andre Test Positive O2 Delivery Device Vent Oxygen Flow Rate 40 Vent Mode A/c Vent Rate 10 Mechanical Rate Yes PEEP 8.0 Pressure Support Vent 600 Sodium Potassium Chloride Carbon Dioxide Anion Gap BUN Creatinine Creat Clearance w eGFR Random Glucose Lactic Acid Calcium Phosphorus Magnesium Total Bilirubin AST ALT Alkaline Phosphatase Creatine Kinase Creatine Kinase Index CK-MB (CK-2) Troponin I Total Protein Albumin Blood Type Antibody Screen Crossmatch Active Medications Generic Name Dose Route Start Last Admin Trade Name Freq PRN Reason Stop Dose Admin Acetaminophen 325 mg 06/19/17 17:16 Tylenol - PO Q6H PRN FEVER OR PAIN Acetaminophen 1,000 mg 06/25/17 09:33 06/25/17 10:54 Ofirmev Injection - IVPB 06/26/17 03:34 1,000 mg Q6H PRN Administration FEVER OR PAIN Albuterol Sulfate 1 amp 06/19/17 17:25 06/21/17 10:20 Ventolin 0.083% Nebulizer Soln - NEB 1 amp Q6H PRN Administration SHORT OF BREATH/WHEEZING Albuterol/Ipratropium 1 amp 06/24/17 19:56 Duoneb - NEB Q6H PRN SHORTNESS OF BREATH Hydromorphone HCl 1 mg 06/25/17 09:31 06/25/17 10:30 Dilaudid Injection - IVPUSH 1 mg Q4H PRN Administration PAIN Norepinephrine Bitartrate 8, 500 mls @ 18.75 mls/hr 06/24/17 16:30 06/25/17 09: 46 000 mcg/ Dextrose IV 0 mcg/min TITR MARIS Titration Protocol 5 MCG/MIN Dextrose/Sodium Chloride 1,000 mls @ 125 mls/hr 06/24/17 23:00 06/25/17 09:44 D5-Ns - IV 125 mls/hr ASDIR MARIS Administration Insulin Aspart 1 vial 06/24/17 23:00 06/25/17 06:04 Novolog Vial Sliding Scale - SQ 2 units Q6H MARIS Administration Protocol Methylprednisolone Sodium Succinate 40 mg 06/25/17 22:00 Solu-Medrol - IVPB BID MARIS Multivitamins/Minerals/Vitamin C 1 tab 06/20/17 14:15 06/25/17 10:53 Tab-A-Vit - PO Not Given DAILY MARIS Pantoprazole Sodium 40 mg 06/21/17 20:00 06/25/17 10:49 Protonix - PO Not Given DAILY MARIS Piperacillin Sod/Tazobactam Sod 4.5 gm 06/20/17 14:00 06/25/17 10:50 Zosyn 4.5gm Ivpb (Pre-Docked) IVPB 4.5 gm Q8H-IV MARIS Administration Zolpidem Tartrate 5 mg 06/24/17 01:01 06/24/17 01:18 Ambien - PO 5 mg HS PRN Administration INSOMNIA ASSESSMENT/PLAN: 67 yo M with h/o COPD, PTSD ([place] ), chronic tobacco use, and throat cancer in remission s/p radiation therapy who presents to ICU with right sided loculated pleural effusion s/p day 3 right chest tube placement. Neuro: H/o PTSD -A&Ox3 - holding PTSD medications Cardiovascular: Anemia: stable - Hgb 11.1 -9.0 (06/24) - PRBC if Hgb <7.0. Patient given 1 PRBC (06/21) - Fe studies: Anemia of chronic disease. Ferritin 384.676 Plan: - D/c Levophed gtt for MAP>65 mmHg - Trend Hgb/Hct - FOBT pending - Maintain Hgb>8.0 Day 1 s/p cardiac arrest: - (06/24) Patient arrived from OR without difficulty following flexible bronchoscopy, right thoracoscopy, pneumolysis, thoracotomy, and decortication. 30 minutes upon his arrival SBP dropped from 100's-60's. Patient was given 1 L NS and SBP improved to 90's. 5-10 minutes later SBP declined to 46, and patient became bradycardic. 1 Unit PRBC was then ordered. Shortly after patient developed PEA and 4 cycles of chest compressions were started, Epi x 1. Patient then ROSC and chest compressions were withheld. SBP improved to 187. 2 minutes later patient developed v-tach and v-fib and cardioverted to NSR at 200 Joules. Central line was placed. - EKG with NSR and low voltage QRS waves - Chest tube management - Echo pending: To assess ventricular and valve function Pulmonary: Massive R sided loculated pleural effusion: Possible right sided complicated parapneumoinic effusion vs empyema 2/2 to infection vs. paraneoplastic effusion or malignancy. - Most likely 2/2 empyema. - Pleural protein/Total protein ratio of 5.249/6.4- 0.82, Pleural LDH 00498/ (2/ 3 x upper limit of normal)- 148. Lites criteria positive for exudative effusion. - cytology (06/24) reveals non malignant cells with increased inflammatory cells. - Day 3 s/p R chest pig tail placement; insufficient purulent drainage ( 520 cc total) wit minimal cxr improvement -pleural fluid exudative, gram stain negative, cytology p/d; send out triglyceride level -CT chest ( 06/19) Centrilobular emphysema, large partially loculated right sided pleural effusion, nonspeciifc free fluid in abdomen and pelvis. CT chest from past summer depicts RML consolidation -blood cultures negative - Patient afebrile through admission. - WBC on admission 33,000--> 28.9 ( 06/24) -Per cardiothoracic discuss risk/benefit of tPA x2 with patient vs. surgical management. - HIV negative - Unasyn D/c'd Plan: - Prepare pt. for VATS ( 06/24) -continue zosyn and IV solumedrol ( audible wheezing) - Extubate ( 06/25) - BiPAP - Adequate pain control with IV Tylenol, fentanyl, and dilaudid Hemoptysis: 2/2 malignancy vs. underlying infection. - In setting of underlying infection -resolved COPD: -Albuterol PRN - incentive spriometry - BiPAP Tobacco/smoking: -smoking cessation/counseling Oncology - Thrombocytosis and increased RDW - Per Dr. Kaur ( Oncology) (06/24) bone marrow biopsy to evaluate MDS -Thrombocytosis may be reactive in setting of empyema. FEN -No IVF -Lytes stable -Clear liquids and advance to DM diet as tolerated Dispo: monitor in ICU Problem List - Problems (1) Empyema Code(s): J86.9 - PYOTHORAX WITHOUT FISTULA Visit type - Emergency Visit Emergency Visit: Yes ED Registration Date: 06/19/17 Care time: The patient presented to the Emergency Department on the above date and was hospitalized for further evaluation of their emergent condition. - New Patient This patient is new to me today: No - Critical Care Critical Care patient: Yes Total Critical Care Time (in minutes): 35 Critical Care Statement: The care of this patient involved high complexity decision making to prevent further life threatening deterioration of the patient 's condition and/or to evaluate & treat vital organ system(s) failure or risk of failure.
--- NOTE | 2017-06-25 12:53 | PN ---
Progress Note, Physician History of Present Illness: Extubated on 40% VM, no arrhythmias on telemetry. - Current Medication List Current Medications: Active Medications Acetaminophen (Tylenol -) 325 mg PO Q6H PRN PRN Reason: FEVER OR PAIN Acetaminophen (Ofirmev Injection -) 1,000 mg IVPB Q6H PRN PRN Reason: FEVER OR PAIN Stop: 06/26/17 03:34 Last Admin: 06/25/17 10:54 Dose: 1,000 mg Albuterol Sulfate (Ventolin 0.083% Nebulizer Soln -) 1 amp NEB Q6H PRN PRN Reason: SHORT OF BREATH/WHEEZING Last Admin: 06/21/17 10:20 Dose: 1 amp Albuterol/Ipratropium (Duoneb -) 1 amp NEB Q6H PRN PRN Reason: SHORTNESS OF BREATH Hydromorphone HCl (Dilaudid Injection -) 1 mg IVPUSH Q4H PRN PRN Reason: PAIN Last Admin: 06/25/17 10:30 Dose: 1 mg Norepinephrine Bitartrate 8, (000 mcg/ Dextrose) 500 mls @ 18.75 mls/hr IV TITR MARIS; 5 MCG/MIN PRN Reason: Protocol Last Titration: 06/25/17 09:46 Dose: 0 mcg/min Dextrose/Sodium Chloride (D5-Ns -) 1,000 mls @ 125 mls/hr IV ASDIR MARIS Last Admin: 06/25/17 09:44 Dose: 125 mls/hr Insulin Aspart (Novolog Vial Sliding Scale -) 1 vial SQ Q6H MARIS PRN Reason: Protocol Last Admin: 06/25/17 12:48 Dose: Not Given Methylprednisolone Sodium Succinate (Solu-Medrol -) 40 mg IVPB BID [facility] Multivitamins/Minerals/Vitamin C (Tab-A-Vit -) 1 tab PO DAILY MARIS Last Admin: 06/25/17 10:53 Dose: Not Given Pantoprazole Sodium (Protonix -) 40 mg PO DAILY MARIS Last Admin: 06/25/17 10:49 Dose: Not Given Piperacillin Sod/Tazobactam Sod (Zosyn 4.5gm Ivpb (Pre-Docked)) 4.5 gm IVPB Q8H -IV MARIS Last Admin: 06/25/17 10:50 Dose: 4.5 gm Zolpidem Tartrate (Ambien -) 5 mg PO HS PRN PRN Reason: INSOMNIA Last Admin: 06/24/17 01:18 Dose: 5 mg - Objective Vital Signs: Vital Signs Temperature 98.3 F 06/25/17 10:00 Pulse Rate 76 06/25/17 12:00 Respiratory Rate 12 06/25/17 12:00 Blood Pressure 120/73 06/25/17 12:00 O2 Sat by Pulse Oximetry (%) 99 06/25/17 11:42 Constitutional: Yes: No Distress, Calm, Thin Neck: Yes: Supple Cardiovascular: Yes: Regular Rate and Rhythm Respiratory: Yes: Diminished, On Venti-Mask, Rhonchi Gastrointestinal: Yes: Soft, Hypoactive Bowel Sounds Edema: No Labs: CBC, BMP 06/25/17 05:30 06/25/17 05:30 INR, PTT INR 1.23 (0.82-1.09) H 06/24/17 14:40 - ....Imaging Chest X-ray: Report Reviewed (Improved aeration and effusion right lung) EKG: Report Reviewed (Tele: SR) Problem List - Problems (1) Acute blood loss anemia Code(s): D62 - ACUTE POSTHEMORRHAGIC ANEMIA (2) COPD (chronic obstructive pulmonary disease) Code(s): J44.9 - CHRONIC OBSTRUCTIVE PULMONARY DISEASE, UNSPECIFIED Qualifiers : Qualified Code(s): J44.1 - Chronic obstructive pulmonary disease with ( acute) exacerbation; J44.1 - Chronic obstructive pulmonary disease with (acute) exacerbation; J44.1 - Chronic obstructive pulmonary disease with (acute) exacerbation; J44.1 - Chronic obstructive pulmonary disease with (acute) exacerbation (3) Empyema Code(s): J86.9 - PYOTHORAX WITHOUT FISTULA (4) Hemoptysis Code(s): R04.2 - HEMOPTYSIS (5) History of throat cancer Code(s): Z85.819 - PRSNL HX OF MALIG NEOPLM OF UNSP SITE LIP,ORAL CAV,& PHARYNX (6) PTSD (post-traumatic stress disorder) Code(s): F43.10 - POST-TRAUMATIC STRESS DISORDER, UNSPECIFIED (7) Schizoaffective disorder Code(s): F25.9 - SCHIZOAFFECTIVE DISORDER, UNSPECIFIED Qualifiers: Qualified Code(s): F25.9 - Schizoaffective disorder, unspecified; F25.9 - Schizoaffective disorder, unspecified; F25.9 - Schizoaffective disorder, unspecified; F25.9 - Schizoaffective disorder, unspecified (8) Leukocytosis Code(s): D72.829 - ELEVATED WHITE BLOOD CELL COUNT, UNSPECIFIED Qualifiers: Qualified Code(s): D72.829 - Elevated white blood cell count, unspecified; D72.829 - Elevated white blood cell count, unspecified (9) Acute hypercapnic respiratory failure Code(s): J96.02 - ACUTE RESPIRATORY FAILURE WITH HYPERCAPNIA Assessment/Plan 1. Post bradycardic/asystolic arrest suspect mucous plugging and atelectasis 2. Hemoptysis and loculated pleural effusion likely empyema post drainage 3. h/o Laryngeal Ca 4. PTSD 5. Acute COPD Exacerbation 6. Anemia P:1. Weaned off Levophed gtt 2. BD, empiric abx, steroids, wean FIO2 per saO2, transfuse to maintain Hgb>8.0 3. Chest tube management, daily CXR, f/u pleural fluid studies and cultures 4. F/u echocardiogram to assess ventricular and valve fxn 5. DVT and GI prophylaxis
--- NOTE | 2017-06-25 13:41 | PATH ---
Cytology Non-Gynecological Report Patient Name: JOSE WEEMS [facility]. Rec. 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 Specimen(s) Received BRONCHOALVEOLAR LAVAGE RIGHT LOBE Clinical History Pleural effusion Final Diagnosis LUNG, RIGHT LOBE, BRONCHOALVEOLAR LAVAGE: SATISFACTORY FOR EVALUATION. NO MALIGNANT CELLS IDENTIFIED. REACTIVE BRONCHIAL CELLS AND ACUTE INFLAMMATION. Electronically Signed Rajiv Toussaint M.D. Gross Description Received is 10 cc of clear fluid fresh. Two cytofunnel slides and one cell block are made.
--- NOTE | 2017-06-25 13:43 | PATH ---
Cytology Non-Gynecological Report Patient Name: JOSE WEEMS [facility]. Rec. 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 Specimen(s) Received PLEURAL FLUID Clinical History Pleural effusion Final Diagnosis PLEURAL FLUID: SATISFACTORY FOR EVALUATION. NO MALIGNANT CELLS IDENTIFIED. ABUNDANT ACUTE INFLAMMATION AND NECROINFLAMMATORY MATERIAL. Electronically Signed Rajiv Toussaint M.D. Gross Description Received is 20 cc of yellow fluid fresh. Two cytofunnel slides and two cell blocks are made.
--- NOTE | 2017-06-25 13:52 | PATH ---
Surgical Pathology Report Patient Name: JOSE WEEMS [facility]. Rec. 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 Carmelo Puccio, MD Specimen(s) Received A: PLEURAL EFFUSION RIGHT LUNG B: RIGHT LUNG C: LUNG PEEL D: PLEURAL BIOPSY E: CHRONIC RIGHT OF PLEURA Clinical History Pleural effusion Rule out cancer Intraoperative Consult Diagnosis A. Pleura, frozen section: Benign pleura with acute inflammation B. Pleura, frozen section: Benign pleura with acute and chronic inflammation and reactive changes Carol John M.D., 06/24/17 Final Diagnosis A. PLEURA, BIOPSY: BENIGN PLEURA WITH ACUTE AND CHRONIC INFLAMMATION. BENIGN SKELETAL MUSCLE PRESENT. B. PLEURA, BIOPSY: BENIGN PLEURA WITH ACUTE AND CHRONIC INFLAMMATION, AND REACTIVE MESOTHELIAL CHANGES. AREAS OF FIBROSIS ARE PRESENT. C. LUNG, RIGHT, PLEURAL PEEL: FIBRINOPURULENT MATERIAL WITH AREAS OF ORGANIZATION AND CLOTTED BLOOD. D. PLEURA, BIOPSY: BENIGN FIBROUS TISSUE WITH ACUTE AND CHRONIC INFLAMMATION, WITH ADHERENT FIBRINOPURULENT MATERIAL AND CLOTTED BLOOD. E. PLEURA, RIGHT, DECORTICATION: BENIGN FIBROUS TISSUE WITH ACUTE AND CHRONIC INFLAMMATION, WITH ADHERENT FIBRINOPURULENT MATERIAL AND CLOTTED BLOOD. Comment: No carcinoma is identified in any of the specimens. Electronically Signed Ed John M.D. Gross Description A. Received fresh labeled "pleura," is a 1.4 x 0.6 x 0.3 cm pink-corrales, irregular portion of soft tissue. The specimen is submitted in toto for frozen section. The frozen section residue is entirely submitted in one cassette. B. Received fresh labeled "pleura #2," is a 2.8 x 1.7 x 0.3 cm aggregate of corrales pink soft tissue fragments. The specimen is submitted in toto for frozen section. The frozen section residue is entirely submitted in one cassette. C. Received in formalin labeled "right lung peel," is a 14.5 x 14.0 x 2.5 cm aggregate of corrales soft tissue fragments with fibrinous exudate and blood clot. Past Due Accounts Clerk sections are submitted in 4 cassettes. D. Received in formalin labeled "pleural biopsy," is a 2.5 x 1.7 x 0.3 cm aggregate of corrales fragments of pleural tissue. The specimen is submitted in toto in one cassette. E. Received in formalin labeled "chronic rhinitis of pleura," are 2 pink-corrales, irregular portions of soft tissue measuring 2.0 x 1.7 x 0.3 cm and 2.3 x 1.5 x 0.5 cm. The specimens are serially sectioned and entirely submitted in 2 cassettes. 06/24/201706/24/2017
[2017-06-25 14:39] LABS: TROPONIN I 0.04 ng/ml (0.00-0.05)
--- NOTE | 2017-06-25 15:32 | PN ---
Progress Note (short form) - Note Progress Note: Pt seen and examined this am, he was just extubated this morning. Overall sleepy but answering questions. Vital Signs Period Temp Pulse Resp BP Sys/Bunn Pulse Ox Last 24 Hr 97.5 F-98.9 F 74-97 10-19 94-136/64-88 98-99 CT-#[address]-#[address]-#3 400 ml serosangrenous Cruz-clear/yellow urine GEN: sleepy but arousable and answers questions CV: RRR Lungs: diffuse Rhonchi Right, left CTA anteriorly dressing c/d/i over CT sites, no air leak noted in CT's-poor effort, all CT's on suction CBC, BMP 06/25/17 05:30 06/25/17 05:30 Microbiology 06/24/17 11:00 Tissue-Other Gram Stain - Final 06/24/17 09:40 Pleural Fluid Gram Stain - Final 06/24/17 11:00 Tissue-Other Tissue Culture - Preliminary NO AEROBIC GROWTH, 24 HRS 06/24/17 09:40 Pleural Fluid Body Fluid Culture - Preliminary NO AEROBIC GROWTH, 24 HRS CXR: [address], decrease in pleural effusion, no PNTX 67 yo male s/p Right thorascopy, pneumolysis, decortication, thoracotomy for emphyema POD#1, extubated pain control-epidural removed and tolerating IV push pain medications Continue CT to suction Daily CXR Follow OR cultures, cont IV abx D/w. Dr Cleaning-continue ICU care OOB/PT
[2017-06-25] MEDS: ENOXAPARIN NA (PORCINE) 40 MG/0.4 ML DISP.SYRIN SQ SCH (16:55)
[2017-06-25] MEDS ORDERED: methylPREDNISolone NA SUCC 40 MG/1 ML VIAL IVPB SCH (22:00)
[2017-06-25] MEDS: ZOLPIDEM TARTRATE 5 MG TABLET PO PRN (23:01)
[2017-06-26] MEDS: HYDROmorphone HCL CARPU-JECT 1 MG/1 ML DISP.SYRIN IVPUSH PRN ×5 (01:42→21:34)
[2017-06-26] MEDS: PIPERACILLIN/TAZOB 4.5 GM/100 ML PRE-DOCKED IVPB SCH ×3 (01:43→18:22)
[2017-06-26] MEDS: DEXTROSE 5%-NORMAL SALINE 1,000 ML IV SCH (01:45)
[2017-06-26] MEDS: INSULIN SLIDING SCALE (NOVOLOG) 1 VIAL SQ SCH ×4 (05:45→23:22)
[2017-06-26 06:10] LABS: BASOPHIL 0.3 % (0-2.0); MCH 26.8 pg (25.7-33.7); MCHC 32.4 g/dl (32.0-35.9); MEAN CELL VOLUME 82.9 fl (80-96); MEAN PLT VOLUME 8.3 fl (7.5-11.1); PLATELET COUNT 356 K/MM3 (134-434); RDW 16.3 % (11.9-15.9); WHITE BLOOD COUNT 22.6 K/mm3 (4.0-10.0)
[2017-06-26 06:32] LABS: ALBUMIN 1.4 g/dl (3.4-5.0); ANION GAP 5 (8-16); BILIRUBIN,TOTAL 0.2 mg/dL (0.2-1.0); CALCIUM 7.9 mg/dL (8.5-10.1); CO2 32 mmol/L (21-32); CREATININE 0.5 mg/dL (0.7-1.3); GLUCOSE,RANDOM 110 mg/dL (74-106); MAGNESIUM 2.1 mg/dL (1.8-2.4); PHOSPHOROUS 2.8 mg/dL (2.5-4.9); SGOT/AST 28 U/L (15-37); SGPT/ALT 44 U/L (12-78)
[2017-06-26 06:36] LABS: ALK PHOS 81 U/L (45-117); CPK 107 IU/L (39-308); TOT PROT 5.7 g/dl (6.4-8.2); TROPONIN I 0.02 ng/ml (0.00-0.05)
[2017-06-26] MEDS ORDERED: ALBUTEROL SO4 0.083% IH SOL 2.5 MG/3 ML VIAL.NEB. NEB PRN ×2 (08:23→08:26)
[2017-06-26] MEDS ORDERED: ALBUTEROL SO4 2.5/IPRATROPIUM 0.5 INH SOL 3 ML VIAL.NEB. NEB SCH (08:30)
[2017-06-26] MEDS ORDERED: FUROSEMIDE 40 MG/4 ML INJECTABLE VIAL IVPB ONE (08:33)
--- NOTE | 2017-06-26 08:33 | PN ---
Progress Note, Physician Chief Complaint: Patient seen,alert, hungry, slightly dyspneic and with bilateral wheezes, using O2 while eating, there was no fever during the night and the urine output is good. History of Present Illness: 67 yo male with PMH of throat cancer was admitted with complaints of weight loss , poor appetite and elevated WBC. He was diagnosed with right empyema which was treated with VATS pulmonary decortication and temporary placement of 3 right chest tubes. The patient coded post op and had to be intubated due to low blood pressure and collapsed right lung. The patient was extubated this am and pressors were discontinued . He did well during the past 24 hours and now he is eating his breakfast but is dyspneic - Current Medication List Current Medications: Active Medications Acetaminophen (Tylenol -) 325 mg PO Q6H PRN PRN Reason: FEVER OR PAIN Albuterol Sulfate (Ventolin 0.083% Nebulizer Soln -) 1 amp NEB Q2H PRN PRN Reason: SHORT OF BREATH/WHEEZING Albuterol/Ipratropium (Duoneb -) 1 amp NEB Q6H [facility] Enoxaparin Sodium (Lovenox -) 40 mg SQ DAILY [facility] Last Admin: 06/25/17 16:55 Dose: 40 mg Hydromorphone HCl (Dilaudid Injection -) 1 mg IVPUSH Q4H PRN PRN Reason: PAIN Last Admin: 06/26/17 06:16 Dose: 1 mg Insulin Aspart (Novolog Vial Sliding Scale -) 1 vial SQ Q6H [facility] PRN Reason: Protocol Last Admin: 06/26/17 05:45 Dose: Not Given Methylprednisolone Sodium Succinate (Solu-Medrol -) 40 mg IVPB Q8H-IV [facility] Multivitamins/Minerals/Vitamin C (Tab-A-Vit -) 1 tab PO DAILY [facility] Last Admin: 06/25/17 10:53 Dose: Not Given Pantoprazole Sodium (Protonix -) 40 mg PO DAILY [facility] Last Admin: 06/25/17 10:49 Dose: Not Given Piperacillin Sod/Tazobactam Sod (Zosyn 4.5gm Ivpb (Pre-Docked)) 4.5 gm IVPB Q8H -IV [facility] Last Admin: 06/26/17 01:43 Dose: 4.5 gm Zolpidem Tartrate (Ambien -) 5 mg PO HS PRN PRN Reason: INSOMNIA Last Admin: 06/25/17 23:01 Dose: 5 mg - Objective Vital Signs: Vital Signs Temperature 97.4 F L 06/26/17 06:00 Pulse Rate 74 06/26/17 06:00 Respiratory Rate 19 06/26/17 06:00 Blood Pressure 126/66 06/26/17 06:00 O2 Sat by Pulse Oximetry (%) 100 06/25/17 20:33 Constitutional: Yes: No Distress, Calm Eyes: Yes: Conjunctiva Clear, EOM Intact HENT: Yes: Atraumatic, Normocephalic Neck: Yes: Supple, Trachea Midline Cardiovascular: Yes: Regular Rate and Rhythm, S1, S2 Respiratory: Yes: SOB, Tachypnea, Wheezes (bilateral wheezes, pleural rubs right hemithorax from bottomn to top), Other (chest tubes present inserted in the right hemithorax, draining sangvinolent fluid approxiamtely 360 cc in 10 hours) Gastrointestinal: Yes: Normal Bowel Sounds, Soft. No: Hepatomegaly, Splenomegaly Breast(s): Yes: WNL Edema: No Peripheral Pulses WNL: Yes Neurological: Yes: Alert, Oriented Psychiatric: Yes: Alert, Oriented Labs: CBC, BMP 06/26/17 05:45 06/26/17 05:45 INR, PTT INR 1.23 (0.82-1.09) H 06/24/17 14:40 - ....Imaging X-ray: Other (improved air entry right lung) Problem List - Problems (1) Pleural effusion Assessment/Plan: empyema by chemistry of fluid, negative gram stains and cultures 3 chest tubes are present in the right hemithorax draining sangvinolent fluid still receiving Zosyn empirically pain management with Dilaudid 1 gm iv every 4 hours prn Code(s): J90 - PLEURAL EFFUSION, NOT ELSEWHERE CLASSIFIED (2) Empyema Assessment/Plan: S/p decortication and VATS, with 3 chest tubes planted in the right hemithorax, continue IV antibiotics Code(s): J86.9 - PYOTHORAX WITHOUT FISTULA (3) COPD (chronic obstructive pulmonary disease) Assessment/Plan: Albuterol nebulizer changed to every 6 hours scheduled and not prn added Albuterol nebs every 2 hours prn Solu Medrol, increased dosage to every 8 hours continue Zosyn Code(s): J44.9 - CHRONIC OBSTRUCTIVE PULMONARY DISEASE, UNSPECIFIED Qualifiers : COPD type: COPD with acute exacerbation Qualified Code(s): J44.1 - Chronic obstructive pulmonary disease with (acute) exacerbation; J44.1 - Chronic obstructive pulmonary disease with (acute) exacerbation; J44.1 - Chronic obstructive pulmonary disease with (acute) exacerbation; J44.1 - Chronic obstructive pulmonary disease with (acute) exacerbation (4) History of throat cancer Assessment/Plan: pleural fluid negative for malignancy Code(s): Z85.819 - PRSNL HX OF MALIG NEOPLM OF UNSP SITE LIP,ORAL CAV,& PHARYNX (5) Schizoaffective disorder Assessment/Plan: on no medications Code(s): F25.9 - SCHIZOAFFECTIVE DISORDER, UNSPECIFIED Qualifiers: Schizoaffective disorder type: unspecified Qualified Code(s): F25.9 - Schizoaffective disorder, unspecified; F25.9 - Schizoaffective disorder, unspecified; F25.9 - Schizoaffective disorder, unspecified; F25.9 - Schizoaffective disorder, unspecified (6) Cardiac arrest Assessment/Plan: s/p cardiac arrest, cardiac enzymes normalized ECHO: normal LVF, mild apical hypokinesis Code(s): I46.9 - CARDIAC ARREST, CAUSE UNSPECIFIED (7) Cachexia Assessment/Plan: the patient has poor nutritional status,restarted regular diet Code(s): R64 - CACHEXIA (8) Glucose intolerance (impaired glucose tolerance) Assessment/Plan: had borderline Hb A1 C of 6.5 before the weigh loss, since IV steroids were started will monitor glucose levels Code(s): R73.02 - IMPAIRED GLUCOSE TOLERANCE (ORAL)
[2017-06-26] MEDS: PANTOPRAZOLE 40 MG TABLET (FP) PO SCH (09:12)
[2017-06-26] MEDS: ENOXAPARIN NA (PORCINE) 40 MG/0.4 ML DISP.SYRIN SQ SCH (09:12)
[2017-06-26] MEDS: MULTIVITAMINS (DAILY MVI) TABLET (FP) PO SCH (09:12)
--- NOTE | 2017-06-26 09:22 | PN ---
Progress Note (short form) - Note Progress Note: PULM / CCM Pt seen & examined in the ICU. OOB --> Chair. Remains extubated off all pressors , CA+OX3, interactive, conversant, NAD. R CTs remain to LWS. Active Medications Acetaminophen (Tylenol -) 325 mg PO Q6H PRN PRN Reason: FEVER OR PAIN Albuterol Sulfate (Ventolin 0.083% Nebulizer Soln -) 1 amp NEB Q2H PRN PRN Reason: SHORT OF BREATH/WHEEZING Albuterol/Ipratropium (Duoneb -) 1 amp NEB Q6H [facility] Enoxaparin Sodium (Lovenox -) 40 mg SQ DAILY [facility] Last Admin: 06/26/17 09:12 Dose: 40 mg Hydromorphone HCl (Dilaudid Injection -) 1 mg IVPUSH Q4H PRN PRN Reason: PAIN Last Admin: 06/26/17 06:16 Dose: 1 mg Insulin Aspart (Novolog Vial Sliding Scale -) 1 vial SQ Q6H [facility] PRN Reason: Protocol Last Admin: 06/26/17 05:45 Dose: Not Given Methylprednisolone Sodium Succinate (Solu-Medrol -) 40 mg IVPB Q8H-IV [facility] Last Admin: 06/26/17 09:19 Dose: 40 mg Multivitamins/Minerals/Vitamin C (Tab-A-Vit -) 1 tab PO DAILY [facility] Last Admin: 06/26/17 09:12 Dose: 1 tab Pantoprazole Sodium (Protonix -) 40 mg PO DAILY [facility] Last Admin: 06/26/17 09:12 Dose: 40 mg Piperacillin Sod/Tazobactam Sod (Zosyn 4.5gm Ivpb (Pre-Docked)) 4.5 gm IVPB Q8H -IV [facility] Last Admin: 06/26/17 09:10 Dose: 4.5 gm Zolpidem Tartrate (Ambien -) 5 mg PO HS PRN PRN Reason: INSOMNIA Last Admin: 06/25/17 23:01 Dose: 5 mg PE: V/S Temp 97.4 F L 06/26/17 06:00 Pulse 85 06/26/17 08:00 Resp 24 06/26/17 08:00 BP 127/67 06/26/17 08:00 Pulse Ox 100 06/25/17 20:33 I's & O's 06/25/17 06/25/17 06/26/17 11:59 23:59 11:59 Intake Total 2157 2830 1037.5 Output Total 563 941 650 Balance 1594 1889 387.5 Weight 62 kg 63.412 kg Intake: IV 2007 1750 937.5 Normal Saline - 1,000 ml 750 @ 150 mls/hr IV ASDIR [facility]IS Rx#:[id number] Versed - 100 mg In Normal 15 Saline - 100 ml @ 1 MG/ HR 1 mls/hr IVPB TITR [facility] Rx#:[id number] Levophed - 8,000 Mcg In 222 D5w - 492 ml @ 5 MCG/MIN 18.75 mls/hr IV TITR [facility] Rx#:[id number] D5-Ns - 1,000 ml @ 190 044 0729 937.5 mls/hr IV ASDIR [facility]IS Rx#: [id number] fentanyl 145 IVPB 150 500 100 Oral 580 Output: Chest Tube Drainage 283 241 Right Anterior Chest 83 52 Right Lateral Chest 75 55 #2 LATERAL CHEST 125 134 Urine 280 700 650 Void 280 Cruz 700 650 Other: Voiding Method Indwelling Catheter Indwelling Catheter Bowel Movement No No Weight Measurement Method [facility] GEN: Elderly man, OOB --> Chair, CA+OX3, friendly, conversant PULM: Diminished in the R, CT x 3 intact, small air leak @ CT #2 noted CV: nml S1 S2, RR, unable to appreciate any G/M/R ABD: soft, nontender EXT: + Pulses, WWPX4, no edema STUDIES TO NOTE: CXR 06/26: R CTs X 3, resolving R side empyema, L clear (My Read) ASSESS: -Loculated Pleural Effusion (m/l Empyema) now s/p R VATs/decort/converted --> Thora w/ CT x 3 (06/24) -C/c/b Post-Op Cardiac Arrest -Exacerb/o COPD -PTSD -Hx/o Laryngeal Ca -Smoker PLAN: - Supp Fio2 for an SpO2 > 92% - IS - Cont Zo X 14 Days - f/u pleural fluid analysis - BD TX - Tylenol for mild pain - Dilaudid for mod - severe pain - Dr. Brayan Cleaning Following - Taper Steroids from Medrol 40q 8 --> 40 BID - FSs - SS Insulin - Strict I & O - Follow CXR - Lovenox - PPI - PT/OT DGL [facility] ICU PULM / [facility] 1487 Critical Care Total Critical Care Time (in minutes): 38 Critical Care Statement: The care of this patient involved high complexity decision making to prevent further life threatening deterioration of the patient 's condition and/or to evaluate & treat vital organ system(s) failure or risk of failure.
--- NOTE | 2017-06-26 09:49 | PN ---
Progress Note (short form) - Note Progress Note: OOB in chair s/p VATS 06/24 right lung empyema, post op cardiac arrest c/o discomfort at chest tube site Vital Signs Period Temp Pulse Resp BP Sys/Bunn Pulse Ox Last 24 Hr 97 F-98.8 F 66-92 12-28 110-135/61-80 97-100 cor-rrr lungs decreased bs at bases abd firm, nt ext no edema +chest tubes viveros CBC, BMP 06/26/17 05:45 06/26/17 05:45 Microbiology 06/24/17 11:00 Tissue-Other Gram Stain - Final 06/24/17 11:00 Tissue-Other Tissue Culture - Preliminary NO AEROBIC GROWTH, 24 HRS 06/24/17 09:40 Pleural Fluid Gram Stain - Final 06/24/17 09:40 Pleural Fluid Body Fluid Culture - Preliminary NO AEROBIC GROWTH, 24 HRS 06/24/17 09:40 Bronchial Washings - Right Upper Lobe Gram Stain - Final 06/24/17 09:40 Bronchial Washings - Right Upper Lobe Bronchoalveolar Lavage Culture - Preliminary 06/24/17 10:07 Lung - Right AFB Smear Concentration - Preliminary 06/24/17 10:07 Lung - Right Mycobacterial Culture - Preliminary 06/24/17 09:40 Pleural Fluid AFB Smear Concentration - Preliminary 06/24/17 09:40 Pleural Fluid Mycobacterial Culture - Preliminary 06/24/17 09:40 Bronchial Washings - Right Upper Lobe AFB Smear Concentration - Preliminary 06/24/17 09:40 Bronchial Washings - Right Upper Lobe Mycobacterial Culture - Preliminary 06/21/17 16:30 Pleural Fluid AFB Smear Concentration - Final 06/21/17 16:30 Pleural Fluid Mycobacterial Culture - Preliminary 06/21/17 16:30 Pleural Fluid Gram Stain - Final 06/21/17 16:30 Pleural Fluid Body Fluid Culture - Final NO GROWTH OF AEROBIC ORGANISMS AFTER 48 HOURS INCUBATION 06/21/17 16:30 Pleural Fluid Anaerobic Culture - Final NO ANAEROBES WERE ISOLATED 06/24/17 11:00 Lung - Right REBECA Preparation - Preliminary 06/24/17 11:00 Lung - Right Fungal Culture - Preliminary 06/24/17 09:40 Pleural Fluid REBECA Preparation - Preliminary 06/24/17 09:40 Pleural Fluid Fungal Culture - Preliminary 06/24/17 09:40 Bronchial Washings - Right Upper Lobe REBECA Preparation - Preliminary 06/24/17 09:40 Bronchial Washings - Right Upper Lobe Fungal Culture - Preliminary 06/19/17 11:10 Blood - Peripheral Venous Blood Culture - Final NO GROWTH AFTER 5 DAYS INCUBATION 06/19/17 11:10 Blood - Peripheral Venous Blood Culture - Final NO GROWTH AFTER 5 DAYS INCUBATION 06/21/17 16:30 Pleural Fluid REBECA Preparation - Preliminary 06/21/17 16:30 Pleural Fluid Fungal Culture - Preliminary 06/19/17 10:00 Urine - Urine Clean Catch Urine Culture - Final NO GROWTH OBTAINED Current Medications Acetaminophen (Tylenol -) 325 mg PO Q6H PRN PRN Reason: FEVER OR PAIN Albuterol Sulfate (Ventolin 0.083% Nebulizer Soln -) 1 amp NEB Q2H PRN PRN Reason: SHORT OF BREATH/WHEEZING Albuterol/Ipratropium (Duoneb -) 1 amp NEB Q6H [facility] Enoxaparin Sodium (Lovenox -) 40 mg SQ DAILY [facility] Last Admin: 06/26/17 09:12 Dose: 40 mg Hydromorphone HCl (Dilaudid Injection -) 1 mg IVPUSH Q4H PRN PRN Reason: PAIN Last Admin: 06/26/17 06:16 Dose: 1 mg Insulin Aspart (Novolog Vial Sliding Scale -) 1 vial SQ Q6H [facility] PRN Reason: Protocol Last Admin: 06/26/17 05:45 Dose: Not Given Methylprednisolone Sodium Succinate (Solu-Medrol -) 40 mg IVPB Q8H-IV [facility] Last Admin: 06/26/17 09:19 Dose: 40 mg Multivitamins/Minerals/Vitamin C (Tab-A-Vit -) 1 tab PO DAILY [facility] Last Admin: 06/26/17 09:12 Dose: 1 tab Pantoprazole Sodium (Protonix -) 40 mg PO DAILY [facility] Last Admin: 06/26/17 09:12 Dose: 40 mg Piperacillin Sod/Tazobactam Sod (Zosyn 4.5gm Ivpb (Pre-Docked)) 4.5 gm IVPB Q8H -IV [facility] Last Admin: 06/26/17 09:10 Dose: 4.5 gm Zolpidem Tartrate (Ambien -) 5 mg PO HS PRN PRN Reason: INSOMNIA Last Admin: 06/25/17 23:01 Dose: 5 mg a/p POD #2 s/p Vats - empyema continue zosyn s/p arrest- suspected mucous plugging history of laryngeal cancer
[2017-06-26] MEDS ORDERED: methylPREDNISolone NA SUCC 40 MG/1 ML VIAL IVPB SCH ×2 (10:00→22:00)
--- NOTE | 2017-06-26 11:15 | PN ---
Progress Note, Physician History of Present Illness: Extubated on NC, no arrhythmias on telemetry. - Current Medication List Current Medications: Active Medications Acetaminophen (Tylenol -) 325 mg PO Q6H PRN PRN Reason: FEVER OR PAIN Albuterol Sulfate (Ventolin 0.083% Nebulizer Soln -) 1 amp NEB Q2H PRN PRN Reason: SHORT OF BREATH/WHEEZING Last Admin: 06/26/17 10:53 Dose: 1 amp Albuterol/Ipratropium (Duoneb -) 1 amp NEB Q6H [facility] Enoxaparin Sodium (Lovenox -) 40 mg SQ DAILY [facility] Last Admin: 06/26/17 09:12 Dose: 40 mg Hydromorphone HCl (Dilaudid Injection -) 1 mg IVPUSH Q4H PRN PRN Reason: PAIN Last Admin: 06/26/17 09:51 Dose: 1 mg Insulin Aspart (Novolog Vial Sliding Scale -) 1 vial SQ Q6H [facility] PRN Reason: Protocol Last Admin: 06/26/17 05:45 Dose: Not Given Methylprednisolone Sodium Succinate (Solu-Medrol -) 40 mg IVPB Q8H-IV [facility] Last Admin: 06/26/17 09:19 Dose: 40 mg Multivitamins/Minerals/Vitamin C (Tab-A-Vit -) 1 tab PO DAILY [facility] Last Admin: 06/26/17 09:12 Dose: 1 tab Pantoprazole Sodium (Protonix -) 40 mg PO DAILY [facility] Last Admin: 06/26/17 09:12 Dose: 40 mg Piperacillin Sod/Tazobactam Sod (Zosyn 4.5gm Ivpb (Pre-Docked)) 4.5 gm IVPB Q8H -IV [facility] Last Admin: 06/26/17 09:10 Dose: 4.5 gm Zolpidem Tartrate (Ambien -) 5 mg PO HS PRN PRN Reason: INSOMNIA Last Admin: 06/25/17 23:01 Dose: 5 mg - Objective Vital Signs: Vital Signs Temperature 97.5 F L 06/26/17 10:00 Pulse Rate 98 H 06/26/17 10:50 Respiratory Rate 32 H 06/26/17 10:00 Blood Pressure 116/76 06/26/17 10:00 O2 Sat by Pulse Oximetry (%) 97 06/26/17 10:50 Constitutional: Yes: No Distress, Calm, Thin Neck: Yes: Supple Cardiovascular: Yes: Regular Rate and Rhythm Respiratory: Yes: Regular, Diminished, On Nasal O2, Other (Right chest tubes in situ) Gastrointestinal: Yes: Normal Bowel Sounds, Soft Edema: No Labs: CBC, BMP 06/26/17 05:45 06/26/17 05:45 INR, PTT INR 1.23 (0.82-1.09) H 06/24/17 14:40 - ....Imaging Chest X-ray: Report Reviewed (06/26: R CTs X 3, resolving R side empyema, L clear ) Problem List - Problems (1) Acute blood loss anemia Code(s): D62 - ACUTE POSTHEMORRHAGIC ANEMIA (2) COPD (chronic obstructive pulmonary disease) Code(s): J44.9 - CHRONIC OBSTRUCTIVE PULMONARY DISEASE, UNSPECIFIED Qualifiers : COPD type: COPD with acute exacerbation Qualified Code(s): J44.1 - Chronic obstructive pulmonary disease with (acute) exacerbation; J44.1 - Chronic obstructive pulmonary disease with (acute) exacerbation; J44.1 - Chronic obstructive pulmonary disease with (acute) exacerbation; J44.1 - Chronic obstructive pulmonary disease with (acute) exacerbation (3) Empyema Code(s): J86.9 - PYOTHORAX WITHOUT FISTULA (4) Hemoptysis Code(s): R04.2 - HEMOPTYSIS (5) History of throat cancer Code(s): Z85.819 - PRSNL HX OF MALIG NEOPLM OF UNSP SITE LIP,ORAL CAV,& PHARYNX (6) PTSD (post-traumatic stress disorder) Code(s): F43.10 - POST-TRAUMATIC STRESS DISORDER, UNSPECIFIED (7) Schizoaffective disorder Code(s): F25.9 - SCHIZOAFFECTIVE DISORDER, UNSPECIFIED Qualifiers: Schizoaffective disorder type: unspecified Qualified Code(s): F25.9 - Schizoaffective disorder, unspecified; F25.9 - Schizoaffective disorder, unspecified; F25.9 - Schizoaffective disorder, unspecified; F25.9 - Schizoaffective disorder, unspecified (8) Leukocytosis Code(s): D72.829 - ELEVATED WHITE BLOOD CELL COUNT, UNSPECIFIED Qualifiers: Leukocytosis type: unspecified Qualified Code(s): D72.829 - Elevated white blood cell count, unspecified; D72.829 - Elevated white blood cell count, unspecified (9) Acute hypercapnic respiratory failure Code(s): J96.02 - ACUTE RESPIRATORY FAILURE WITH HYPERCAPNIA Assessment/Plan 06/25/2017 Echo: Normal LV size an xn with mild apical anterior HK, mild-mod MR, mild TR, RVSP 30-40 mmHg 1. Post-op bradycardic/asystolic arrest suspect mucous plugging and atelectasis 2. Hemoptysis and loculated pleural effusion likely empyema s/p R VATs/decort/ converted --> Thora w/ CT x 3 (06/24) 3. h/o Laryngeal Ca 4. PTSD 5. Acute COPD Exacerbation improving 6. Anemia P: 1. BD, empiric abx, steroid taper, wean FIO2 per saO2, transfuse to maintain Hgb >8.0, analgesia as needed 2. Chest tube management, daily CXR, f/u pleural fluid studies and cultures 3. DVT and GI prophylaxis
[2017-06-26] MEDS: ALBUTEROL SO4 2.5/IPRATROPIUM 0.5 INH SOL 3 ML VIAL.NEB. NEB SCH ×2 (12:24→18:33)
--- NOTE | 2017-06-26 12:49 | CONSULT ---
Admitting History and Physical - Past Medical History BARREL RAISER: Yes: Other (PTSD) Cardiovascular: Yes: HTN Pulmonary: Yes: COPD Gastrointestinal: Yes: Cancer (type? to get records), Irritable Bowel Disease Hepatobiliary: No: Cirrhosis, Cholelithiasis, Cholecystitis, Choledocholithiasis , Hepatitis A, Hepatitis B, Hepatitis C, Other Renal/: No: Renal Failure, Renal Inusuff, BPH, Cancer, Hematuria, Hemodialysis , Neurogenic Bladder, Renal Calculi, UTI, Other Heme/Onc: Yes: Anemia Infectious Disease: No: AIDS, C-Diff, Herpes Zoster, HIV, MRSA, STD's, Tuberculosis, VREF, Other Psych: Yes: Other (PTSD) Musculoskeletal: No: Bursitis, Chronic low back pain, Hemiparesis, Hemiplegia, Osteoarthritis, Paraplegia, Other Rheumatology: No: Fibromyalgia, Gout, Lupus, Rheumatoid Arthritis, Sarcoidosis, Vasculitis, Other ENT: No: Allergic Rhinitis, Sinusitis, Other Endocrine: Yes: Other (Throat cancer) Dermatology: No: Basal Cell, Cellulitis, Eczema, Melanoma, Psoriasis, Squamous Cell, Other - Past Surgical History Past Surgical History: Yes: None - Smoking History Smoking history: Current every day smoker Have you smoked in the past 12 months: Yes Aproximately how many cigarettes per day: 10 - Alcohol/Substance Use Hx Alcohol Use: No (occ) History of Substance Use: reports: None - Social History History of Recent Travel: No History - Admission Reason For Visit: PLEURAL EFFUSION - Hearing Hearing: Normal Hearing Aide: No With Patient: No Speech Evaluation - Communication Primary Language: SERBIAN Communication: Yes: Within Normal Limits, Simple Responses Oral Expression Ability: Yes: No Impairment - Speech Production Able to Make Needs Known: Yes: WNL Intelligibility: Yes: WNL - Speech Characteristics Voice Loudness: Mildly Soft/Quiet (secondary to respiratory distress) Voice Pitch: Yes: Mildly Low Voice Phonatory-based Quality: Yes: Hoarse, Breathy Speech Pattern: Normal Nasal Resonance: Normal Articulation: Yes: Precise Rate of Speech: Intact - Language/Auditory Comprehension Follows: Yes: 1 Stage Simple Commands (WFL), 2 Stage Simple Commands (WFL), Complex Commands (WFL) Observation: Able to respond to yes/no queries: Yes, Yes/No Confusion: No, Comprehends Conversational Speech: Yes, Benefits from Slow Speech: No, Benefits from Repetiton: No, Benefits from Increased Volume of Speech: No - Language/Verbal Expression Able to Communicate Wants and Needs: Yes: WNL Functional Communication Status: Yes: WNL Aware of Errors: Yes Attempts to Correct Errors: Yes Use of Gestures: No Written Expression: Not examined. Oral Expression: WFL for environment Reading Comprehension: Not examined. Calculations: Not examined. - Memory/Perception intermediate frame tender Memory: Yes: WNL Short Term Memory: Yes: WNL - Swallow Evaluation/Bedside Assessment Current Nutritional Intake: Regular, Thin Liquids Oral Secretions: Yes: WFL Tracheostomy Present: No Patient on Ventilator: No Dentition: Yes: Missing Teeth Facial Symmetry at Rest: Symmetrical Facial Symmetry on Retraction: Symmetrical Facial Movement: Controlled Sensation: Normal Facial Comment: WFL for speech and swallow purposes. Jaw Position: Closed at Rest Against Resistance Opening: Normal Against Resistance Closing: Normal Pucker Lips: Normal Lips, Comment: WFL for speech and swallow purposes. Lingual Movement: Normal Lingual Speed of Movement: Normal Lingual Movement Strgth Against Opposition: Normal Lingual Movement Characteristics: Normal Lingual Comment: WFL for speech and swallow purposes. Gag Reflex: Weak Velopharyngeal Movement: Normal Laryngeal Elevation: WFL Laryngeal Movement: Able to Palpate Needs Assistance: No Rate of Intake: WFL Bolus Size: WFL Labial Seal: WFL Chewing: WFL Oral Prep Time: WFL A-P Transit: WFL Pocketing: None Timing of Swallow: WFL Coughing/Throat Clear: No Change in Voice: No Other Findings/Remarks: 67 yo male seen at bedside during lunch for swallow eval to r/o dysphagia. Pt is verbal, A&OX3 cooperative. Current diet: regular solids / thin liquids. Pt presents with COPD, respiratory failure anemia recently exbated. Vocal quality is reduce with breathy weak characteristics. Adequate airway protection at bedside. Pt was observed consuming regular solids without assistance revealed good acceptance adequate bolus formation and transport. Pharyngeal swallow appears timely with no coughing observed after the swallow. Thin liquids trials were unremarkable for dysphagia during this session. Recommendations - Speech Evaluation, Impression/Plan Impression: Pt is able to tolerate regular solids and thin liquids without assistance with no s/s of dysphagia at this time. Vocal quality is reduced with adequate airway protection. Short Story Writer Goals: tolerate the least restrictive diet without s/s of aspiration. Short Term Goals: tolerate the least restrictive diet without s/s of aspiration. - Dysphagia Impressions/Plan Swallowing Skills: [facility] Dysphagia Impressions: No Impairment (at bedside at this time.) Dysphagia Treatment Plan: Small Bites, Safe Rate, Elevate HOB during feed Dysphagia Evaluation Summary: Pt is able to tolerate regular solids and thin liquids without s/s of dysphagia and / or aspiration at this time. Continue current diet. Observe standard aspiration precautions. Results given verbally to charge accounts audit clerk Judy and to pcp via chart. BACKPACKERS MANAGER to follow up for diet tolerance. - Recommendations Diet Consistency: Regular Medication Administration: Whole with water Liquids: Thin Liquids
[2017-06-26] MEDS: methylPREDNISolone NA SUCC 40 MG/1 ML VIAL IVPB SCH (18:22)
--- NOTE | 2017-06-26 18:49 | EKG ---
Test Reason : Blood Pressure : / mmHG Vent. Rate : 101 BPM Atrial Rate : 101 BPM P-R Int : 130 ms QRS Dur : 100 ms QT Int : 354 ms P-R-T Axes : 076 037 064 degrees QTc Int : 459 ms SINUS TACHYCARDIA WITH PREMATURE ATRIAL COMPLEXES LOW VOLTAGE QRS BORDERLINE ECG WHEN COMPARED WITH ECG OF 25-JUN-2017 10:55, PREMATURE ATRIAL COMPLEXES ARE NOW PRESENT PATIENT SITTING IN CHAIR DURING EKG BASELINE ARTIFACT REPEAT EKG IF CLINICALLY INDICATED Confirmed by GIOVANA HUSSEIN MD ([id number]) on 06/26/2017 6:49:11 PM Referred By: Hailey DODD Confirmed By:GIOVANA HUSSEIN MD
[2017-06-26] MEDS: ZOLPIDEM TARTRATE 5 MG TABLET PO PRN (23:17)
[2017-06-27] MEDS: ALBUTEROL SO4 2.5/IPRATROPIUM 0.5 INH SOL 3 ML VIAL.NEB. NEB SCH ×5 (00:06→23:08)
[2017-06-27] MEDS: PIPERACILLIN/TAZOB 4.5 GM/100 ML PRE-DOCKED IVPB SCH ×3 (01:46→17:23)
[2017-06-27] MEDS: methylPREDNISolone NA SUCC 40 MG/1 ML VIAL IVPB SCH ×3 (01:47→17:23)
[2017-06-27] MEDS: HYDROmorphone HCL CARPU-JECT 1 MG/1 ML DISP.SYRIN IVPUSH PRN ×3 (01:47→22:17)
[2017-06-27] MEDS: INSULIN SLIDING SCALE (NOVOLOG) 1 VIAL SQ SCH ×4 (05:47→22:23)
[2017-06-27 06:19] LABS: MCHC 32.3 g/dl (32.0-35.9); MEAN CELL VOLUME 83.6 fl (80-96); MEAN PLT VOLUME 8.3 fl (7.5-11.1); PLATELET COUNT 412 K/MM3 (134-434); RDW 16.2 % (11.9-15.9); WHITE BLOOD COUNT 20.2 K/mm3 (4.0-10.0)
[2017-06-27 06:42] LABS: ALBUMIN 1.5 g/dl (3.4-5.0); ANION GAP 7 (8-16); CALCIUM 8.2 mg/dL (8.5-10.1); CO2 33 mmol/L (21-32); GLUCOSE,RANDOM 117 mg/dL (74-106)
[2017-06-27 06:47] LABS: ALK PHOS 83 U/L (45-117); BILIRUBIN,TOTAL 0.3 mg/dL (0.2-1.0); CREATININE 0.6 mg/dL (0.7-1.3); SGOT/AST 26 U/L (15-37); SGPT/ALT 40 U/L (12-78); TOT PROT 5.9 g/dl (6.4-8.2)
[2017-06-27 07:29] LABS: PLATELET ESTIMATE ADEQUATE (NORMAL); TOTAL CELLS COUNTED 100
--- NOTE | 2017-06-27 08:25 | PN ---
Progress Note (short form) - Note Progress Note: Seen and examined in the ICU. Remains awake, alert, without distress Chest tubes remained in place, (+) air leak noted Denies: CP/SOB/cough/RIVERA/N/V Active Medications Acetaminophen (Tylenol -) 325 mg PO Q6H PRN PRN Reason: FEVER OR PAIN Albuterol Sulfate (Ventolin 0.083% Nebulizer Soln -) 1 amp NEB Q2H PRN PRN Reason: SHORT OF BREATH/WHEEZING Last Admin: 06/26/17 10:53 Dose: 1 amp Albuterol/Ipratropium (Duoneb -) 1 amp NEB Q6H [facility] Last Admin: 06/27/17 06:50 Dose: 1 amp Enoxaparin Sodium (Lovenox -) 40 mg SQ DAILY [facility] Last Admin: 06/26/17 09:12 Dose: 40 mg Hydromorphone HCl (Dilaudid Injection -) 1 mg IVPUSH Q4H PRN PRN Reason: PAIN Last Admin: 06/27/17 05:46 Dose: 1 mg Insulin Aspart (Novolog Vial Sliding Scale -) 1 vial SQ Q6H [facility] PRN Reason: Protocol Last Admin: 06/27/17 05:47 Dose: Not Given Methylprednisolone Sodium Succinate (Solu-Medrol -) 40 mg IVPB Q8H-IV [facility] Last Admin: 06/27/17 01:47 Dose: 40 mg Multivitamins/Minerals/Vitamin C (Tab-A-Vit -) 1 tab PO DAILY [facility] Last Admin: 06/26/17 09:12 Dose: 1 tab Pantoprazole Sodium (Protonix -) 40 mg PO DAILY [facility] Last Admin: 06/26/17 09:12 Dose: 40 mg Piperacillin Sod/Tazobactam Sod (Zosyn 4.5gm Ivpb (Pre-Docked)) 4.5 gm IVPB Q8H -IV [facility] Last Admin: 06/27/17 01:46 Dose: 4.5 gm Vital Signs Period Temp Pulse Resp BP Sys/Bunn Pulse Ox Last 24 Hr 97.5 F-98.6 F 63-103 18-32 109-162/59-81 94-97 Intake & Output 06/24/17 06/25/17 06/26/17 06/27/17 23:59 23:59 23:59 23:59 Intake Total 8321 9520 2987.5 240 Output Total 5105 1504 4140 410 Balance 3245 3483 -1152.5 -170 Weight 56.9 kg 62 kg 63.412 kg 62.051 kg GEN: Elderly man, sitting on side of bed, Neuro: CA+OX PULM: Exp wheeze, Diminished in the R, CT x 3 intact, air leak @ CT #1, 2 noted CV: nml S1 S2, RR, no m/r/g ABD: soft, nontender, +BS EXT: + Pulses, WWPX4, no edema CBCD WBC 20.2 K/mm3 (4.0-10.0) H 06/27/17 06:00 RBC 2.95 M/mm3 (4.00-5.60) L 06/27/17 06:00 Hgb 8.0 GM/dL (11.7-16.9) L 06/27/17 06:00 Hct 24.6 % (35.4-49) L 06/27/17 06:00 MCV 83.6 fl (80-96) 06/27/17 06:00 MCHC 32.3 g/dl (32.0-35.9) 06/27/17 06:00 RDW 16.2 % (11.9-15.9) H 06/27/17 06:00 Plt Count 412 K/MM3 (134-434) 06/27/17 06:00 MPV 8.3 fl (7.5-11.1) 06/27/17 06:00 CMP Sodium 140 mmol/L (136-145) 06/27/17 06:00 Potassium 4.4 mmol/L (3.5-5.1) 06/27/17 06:00 Chloride 100 mmol/L (98-107) 06/27/17 06:00 Carbon Dioxide 33 mmol/L (21-32) H 06/27/17 06:00 Anion Gap 7 (8-16) L 06/27/17 06:00 BUN 24 mg/dL (7-18) H 06/27/17 06:00 Creatinine 0.6 mg/dL (0.7-1.3) L 06/27/17 06:00 Creat Clearance w eGFR > 60 (>60) 06/27/17 06:00 Random Glucose 117 mg/dL (74-106) H 06/27/17 06:00 Calcium 8.2 mg/dL (8.5-10.1) L 06/27/17 06:00 Total Bilirubin 0.3 mg/dL (0.2-1.0) D 06/27/17 06:00 AST 26 U/L (15-37) 06/27/17 06:00 ALT 40 U/L (12-78) 06/27/17 06:00 Alkaline Phosphatase 83 U/L (45-117) 06/27/17 06:00 Total Protein 5.9 g/dl (6.4-8.2) L 06/27/17 06:00 Albumin 1.5 g/dl (3.4-5.0) L 06/27/17 06:00 CARDIAC ENZYMES Creatine Kinase 107 IU/L (39-308) 06/26/17 05:45 Troponin I 0.02 ng/ml (0.00-0.05) D 06/26/17 05:45 STUDIES TO NOTE: CXR 06/27: R CTs X 3, resolving R side effusion, no pneumo noted, L clear ASSESS: -Loculated Pleural Effusion (m/l Empyema) now s/p R VATs/decort/converted --> Thora w/ CT x 3 (06/24) -C/c/b Post-Op Cardiac Arrest -Exacerb/o COPD -PTSD -Hx/o Laryngeal Ca -Smoker PLAN: - Supp Fio2 for an SpO2 > 92%, currently RA - IS - Cont Zo X 14 Days, ID following - f/u pleural fluid analysis - BD TX - Tylenol for mild pain - Dilaudid for mod - severe pain - Dr. Brayan Cleaning Following - Taper Steroids from Medrol 40q 8 --> 40 BID - Normal transfusion thresholds - FSs - SS Insulin - Strict I & O - Follow CXR - Lovenox - PPI - PT/OT Boerem ACNP Pulm/CCM CCT: 38m
--- NOTE | 2017-06-27 09:10 | PN ---
Progress Note (short form) - Note Progress Note: NAD, resting in bed s/p VATS 10/ right lung empyema, post op cardiac arrest Vital Signs Period Temp Pulse Resp BP Sys/Bunn Pulse Ox Last 24 Hr 97.5 F-98.6 F 63-103 18-32 109-162/59-87 94-97 cor-rrr lungs decreased bs at bases +chest tubes abd soft,nt ext no edema CBC, BMP 06/27/17 06:00 06/27/17 06:00 Current Medications Acetaminophen (Tylenol -) 325 mg PO Q6H PRN PRN Reason: FEVER OR PAIN Albuterol Sulfate (Ventolin 0.083% Nebulizer Soln -) 1 amp NEB Q2H PRN PRN Reason: SHORT OF BREATH/WHEEZING Last Admin: 06/26/17 10:53 Dose: 1 amp Albuterol/Ipratropium (Duoneb -) 1 amp NEB Q6H [facility] Last Admin: 06/27/17 06:50 Dose: 1 amp Enoxaparin Sodium (Lovenox -) 40 mg SQ DAILY [facility] Last Admin: 06/26/17 09:12 Dose: 40 mg Hydromorphone HCl (Dilaudid Injection -) 1 mg IVPUSH Q4H PRN PRN Reason: PAIN Last Admin: 06/27/17 05:46 Dose: 1 mg Insulin Aspart (Novolog Vial Sliding Scale -) 1 vial SQ Q6H [facility] PRN Reason: Protocol Last Admin: 06/27/17 05:47 Dose: Not Given Methylprednisolone Sodium Succinate (Solu-Medrol -) 40 mg IVPB Q8H-IV [facility] Stop: 06/27/17 17:30 Last Admin: 06/27/17 01:47 Dose: 40 mg Methylprednisolone Sodium Succinate (Solu-Medrol -) 40 mg IVPB Q12H [facility] Multivitamins/Minerals/Vitamin C (Tab-A-Vit -) 1 tab PO DAILY [facility] Last Admin: 06/26/17 09:12 Dose: 1 tab Pantoprazole Sodium (Protonix -) 40 mg PO DAILY [facility] Last Admin: 06/26/17 09:12 Dose: 40 mg Piperacillin Sod/Tazobactam Sod (Zosyn 4.5gm Ivpb (Pre-Docked)) 4.5 gm IVPB Q8H -IV [facility] Last Admin: 06/27/17 01:46 Dose: 4.5 gm Current Medications Acetaminophen (Tylenol -) 325 mg PO Q6H PRN PRN Reason: FEVER OR PAIN Albuterol Sulfate (Ventolin 0.083% Nebulizer Soln -) 1 amp NEB Q2H PRN PRN Reason: SHORT OF BREATH/WHEEZING Last Admin: 06/26/17 10:53 Dose: 1 amp Albuterol/Ipratropium (Duoneb -) 1 amp NEB Q6H [facility] Last Admin: 06/27/17 06:50 Dose: 1 amp Enoxaparin Sodium (Lovenox -) 40 mg SQ DAILY [facility] Last Admin: 06/26/17 09:12 Dose: 40 mg Hydromorphone HCl (Dilaudid Injection -) 1 mg IVPUSH Q4H PRN PRN Reason: PAIN Last Admin: 06/27/17 05:46 Dose: 1 mg Insulin Aspart (Novolog Vial Sliding Scale -) 1 vial SQ Q6H [facility] PRN Reason: Protocol Last Admin: 06/27/17 05:47 Dose: Not Given Methylprednisolone Sodium Succinate (Solu-Medrol -) 40 mg IVPB Q8H-IV [facility] Stop: 06/27/17 17:30 Last Admin: 06/27/17 01:47 Dose: 40 mg Methylprednisolone Sodium Succinate (Solu-Medrol -) 40 mg IVPB Q12H [facility] Multivitamins/Minerals/Vitamin C (Tab-A-Vit -) 1 tab PO DAILY [facility] Last Admin: 06/26/17 09:12 Dose: 1 tab Pantoprazole Sodium (Protonix -) 40 mg PO DAILY [facility] Last Admin: 06/26/17 09:12 Dose: 40 mg Piperacillin Sod/Tazobactam Sod (Zosyn 4.5gm Ivpb (Pre-Docked)) 4.5 gm IVPB Q8H -IV [facility] Last Admin: 06/27/17 01:46 Dose: 4.5 gm a/p POD #3 s/p Vats - empyema continue zosyn, was on antibiotics prior to surgery, wbc trending down s/p arrest- suspected mucous plugging history of laryngeal cancer
[2017-06-27] MEDS: PANTOPRAZOLE 40 MG TABLET (FP) PO SCH (09:47)
[2017-06-27] MEDS: ENOXAPARIN NA (PORCINE) 40 MG/0.4 ML DISP.SYRIN SQ SCH (09:47)
[2017-06-27] MEDS: MULTIVITAMINS (DAILY MVI) TABLET (FP) PO SCH (09:48)
[2017-06-27] MEDS: ACETAMINOPHEN 325 MG TABLET (FP) PO PRN (09:49)
--- NOTE | 2017-06-27 10:51 | PN ---
Progress Note, Physician History of Present Illness: Sitting in chair on MT, denies chest pain or dyspnea, no arrhythmias on telemetry. - Current Medication List Current Medications: Active Medications Acetaminophen (Tylenol -) 325 mg PO Q6H PRN PRN Reason: FEVER OR PAIN Last Admin: 06/27/17 09:49 Dose: 325 mg Albuterol Sulfate (Ventolin 0.083% Nebulizer Soln -) 1 amp NEB Q2H PRN PRN Reason: SHORT OF BREATH/WHEEZING Last Admin: 06/26/17 10:53 Dose: 1 amp Albuterol/Ipratropium (Duoneb -) 1 amp NEB Q6H [facility] Last Admin: 06/27/17 06:50 Dose: 1 amp Enoxaparin Sodium (Lovenox -) 40 mg SQ DAILY [facility] Last Admin: 06/27/17 09:47 Dose: 40 mg Hydromorphone HCl (Dilaudid Injection -) 1 mg IVPUSH Q4H PRN PRN Reason: PAIN Last Admin: 06/27/17 05:46 Dose: 1 mg Insulin Aspart (Novolog Vial Sliding Scale -) 1 vial SQ Q6H [facility] PRN Reason: Protocol Last Admin: 06/27/17 05:47 Dose: Not Given Methylprednisolone Sodium Succinate (Solu-Medrol -) 40 mg IVPB Q8H-IV [facility] Stop: 06/27/17 17:30 Last Admin: 06/27/17 09:48 Dose: Not Given Methylprednisolone Sodium Succinate (Solu-Medrol -) 40 mg IVPB Q12H [facility] Multivitamins/Minerals/Vitamin C (Tab-A-Vit -) 1 tab PO DAILY [facility] Last Admin: 06/27/17 09:48 Dose: 1 tab Pantoprazole Sodium (Protonix -) 40 mg PO DAILY [facility] Last Admin: 06/27/17 09:47 Dose: 40 mg Piperacillin Sod/Tazobactam Sod (Zosyn 4.5gm Ivpb (Pre-Docked)) 4.5 gm IVPB Q8H -IV [facility] Last Admin: 06/27/17 09:48 Dose: 4.5 gm - Objective Vital Signs: Vital Signs Temperature 98.6 F 06/27/17 06:00 Pulse Rate 64 06/27/17 08:00 Respiratory Rate 22 06/27/17 08:00 Blood Pressure 115/87 06/27/17 08:00 O2 Sat by Pulse Oximetry (%) 95 06/27/17 08:49 Constitutional: Yes: No Distress, Calm, Thin Neck: Yes: Supple Cardiovascular: Yes: Regular Rate and Rhythm Respiratory: Yes: Regular, Diminished, On Nasal O2, Other (Right chest tubes in place) Gastrointestinal: Yes: Normal Bowel Sounds, Soft Edema: No Labs: CBC, BMP 06/27/17 06:00 06/27/17 06:00 INR, PTT INR 1.23 (0.82-1.09) H 06/24/17 14:40 - ....Imaging Chest X-ray: Report Reviewed (Stable study, right line removed) EKG: Report Reviewed (Tele: NSR) Problem List - Problems (1) Acute blood loss anemia Code(s): D62 - ACUTE POSTHEMORRHAGIC ANEMIA (2) COPD (chronic obstructive pulmonary disease) Code(s): J44.9 - CHRONIC OBSTRUCTIVE PULMONARY DISEASE, UNSPECIFIED Qualifiers : COPD type: COPD with acute exacerbation Qualified Code(s): J44.1 - Chronic obstructive pulmonary disease with (acute) exacerbation; J44.1 - Chronic obstructive pulmonary disease with (acute) exacerbation; J44.1 - Chronic obstructive pulmonary disease with (acute) exacerbation; J44.1 - Chronic obstructive pulmonary disease with (acute) exacerbation (3) Empyema Code(s): J86.9 - PYOTHORAX WITHOUT FISTULA (4) Hemoptysis Code(s): R04.2 - HEMOPTYSIS (5) History of throat cancer Code(s): Z85.819 - PRSNL HX OF MALIG NEOPLM OF UNSP SITE LIP,ORAL CAV,& PHARYNX (6) PTSD (post-traumatic stress disorder) Code(s): F43.10 - POST-TRAUMATIC STRESS DISORDER, UNSPECIFIED (7) Schizoaffective disorder Code(s): F25.9 - SCHIZOAFFECTIVE DISORDER, UNSPECIFIED Qualifiers: Schizoaffective disorder type: unspecified Qualified Code(s): F25.9 - Schizoaffective disorder, unspecified; F25.9 - Schizoaffective disorder, unspecified; F25.9 - Schizoaffective disorder, unspecified; F25.9 - Schizoaffective disorder, unspecified (8) Leukocytosis Code(s): D72.829 - ELEVATED WHITE BLOOD CELL COUNT, UNSPECIFIED Qualifiers: Leukocytosis type: unspecified Qualified Code(s): D72.829 - Elevated white blood cell count, unspecified; D72.829 - Elevated white blood cell count, unspecified (9) Acute hypercapnic respiratory failure Code(s): J96.02 - ACUTE RESPIRATORY FAILURE WITH HYPERCAPNIA Assessment/Plan 06/25/2017 Echo: Normal LV size an xn with mild apical anterior HK, mild-mod MR, mild TR, RVSP 30-40 mmHg 1. Post-op bradycardic/asystolic arrest suspect mucous plugging and atelectasis 2. Hemoptysis and loculated pleural effusion likely empyema s/p R VATs/decort/ converted --> Thora w/ CT x 3 (06/24) 3. h/o Laryngeal Ca 4. PTSD 5. Acute COPD Exacerbation improving 6. Anemia P: 1. BD, empiric abx, steroid taper, wean FIO2 per saO2, transfuse to maintain Hgb >8.0, analgesia as needed 2. Chest tube management, daily CXR, f/u pleural fluid studies and cultures 3. DVT and GI prophylaxis
--- NOTE | 2017-06-27 11:38 | PN ---
Progress Note, Physician Chief Complaint: Patient seen,alert, hungry, not dyspneic and with bilateral wheezes, using O2 while eating, there was no fever during the night and the urine output was good (3 L) during the first 6 hours post LAsix yesterday. 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 The patient tolerated well OOB to chair this morning. History of Present Illness: 67 yo male with PMH of ENT cancer was admitted with complaints of weight loss, poor appetite and elevated WBC. He was diagnosed with right empyema which was treated with VATS pulmonary decortication and temporary placement of 3 right chest tubes. The right chest pain responds to Dilaudid. The patient coded post op and had to be intubated due to low blood pressure and collapsed right lung. The patient was extubated and is off pressors, the central line and the Cruz catheter were discontinued. - Current Medication List Current Medications: Active Medications Acetaminophen (Tylenol -) 325 mg PO Q6H PRN PRN Reason: FEVER OR PAIN Last Admin: 06/27/17 09:49 Dose: 325 mg Albuterol Sulfate (Ventolin 0.083% Nebulizer Soln -) 1 amp NEB Q2H PRN PRN Reason: SHORT OF BREATH/WHEEZING Last Admin: 06/26/17 10:53 Dose: 1 amp Albuterol/Ipratropium (Duoneb -) 1 amp NEB Q6H [facility] Last Admin: 06/27/17 06:50 Dose: 1 amp Enoxaparin Sodium (Lovenox -) 40 mg SQ DAILY [facility] Last Admin: 06/27/17 09:47 Dose: 40 mg Furosemide (Lasix Injection -) 40 mg IVPUSH ONCE ONE Stop: 06/27/17 11:34 Hydromorphone HCl (Dilaudid Injection -) 1 mg IVPUSH Q4H PRN PRN Reason: PAIN Last Admin: 06/27/17 05:46 Dose: 1 mg Insulin Aspart (Novolog Vial Sliding Scale -) 1 vial SQ Q6H [facility] PRN Reason: Protocol Last Admin: 06/27/17 11:14 Dose: 2 units Methylprednisolone Sodium Succinate (Solu-Medrol -) 40 mg IVPB Q8H-IV [facility] Stop: 06/27/17 17:30 Last Admin: 06/27/17 09:48 Dose: Not Given Methylprednisolone Sodium Succinate (Solu-Medrol -) 40 mg IVPB Q12H [facility] Multivitamins/Minerals/Vitamin C (Tab-A-Vit -) 1 tab PO DAILY [facility] Last Admin: 06/27/17 09:48 Dose: 1 tab Pantoprazole Sodium (Protonix -) 40 mg PO DAILY [facility] Last Admin: 06/27/17 09:47 Dose: 40 mg Piperacillin Sod/Tazobactam Sod (Zosyn 4.5gm Ivpb (Pre-Docked)) 4.5 gm IVPB Q8H -IV [facility] Last Admin: 06/27/17 09:48 Dose: 4.5 gm - Objective Vital Signs: Vital Signs Temperature 98.4 F 06/27/17 10:00 Pulse Rate 68 06/27/17 11:30 Respiratory Rate 22 06/27/17 11:30 Blood Pressure 129/8 06/27/17 11:30 O2 Sat by Pulse Oximetry (%) 95 06/27/17 08:49 Constitutional: Yes: No Distress, Calm Eyes: Yes: Conjunctiva Clear, EOM Intact HENT: Yes: Atraumatic, Normocephalic Neck: Yes: Supple, Trachea Midline Cardiovascular: Yes: Regular Rate and Rhythm, S1, S2 Respiratory: Yes: Regular, CTA Bilaterally Gastrointestinal: Yes: Normal Bowel Sounds, Soft ...Rectal Exam: Yes: Deferred Breast(s): Yes: WNL Musculoskeletal: Yes: WNL Extremities: No: Calf Tenderness Edema: No Peripheral Pulses WNL: Yes Neurological: Yes: Alert, Oriented Psychiatric: Yes: Alert, Oriented Labs: CBC, BMP 06/27/17 06:00 06/27/17 06:00 INR, PTT INR 1.23 (0.82-1.09) H 06/24/17 14:40 - ....Imaging Chest X-ray: Other (congestive cahnges , expanded and improved air entry of the right lung) Problem List - Problems (1) Empyema Assessment/Plan: S/p decortication and VATS, with 3 chest tubes planted in the right hemithorax, continue empiric IV antibiotics since cultures and yannick stain are negative Code(s): J86.9 - PYOTHORAX WITHOUT FISTULA (2) COPD (chronic obstructive pulmonary disease) Assessment/Plan: Albuterol nebulizer changed to every 6 hours scheduled and not prn added Albuterol nebs every 2 hours prn Solu Medrol, decreased dosage to every 12 hours Code(s): J44.9 - CHRONIC OBSTRUCTIVE PULMONARY DISEASE, UNSPECIFIED Qualifiers : COPD type: COPD with acute exacerbation Qualified Code(s): J44.1 - Chronic obstructive pulmonary disease with (acute) exacerbation; J44.1 - Chronic obstructive pulmonary disease with (acute) exacerbation; J44.1 - Chronic obstructive pulmonary disease with (acute) exacerbation; J44.1 - Chronic obstructive pulmonary disease with (acute) exacerbation (3) Schizoaffective disorder Assessment/Plan: on no medications Code(s): F25.9 - SCHIZOAFFECTIVE DISORDER, UNSPECIFIED Qualifiers: Schizoaffective disorder type: unspecified Qualified Code(s): F25.9 - Schizoaffective disorder, unspecified; F25.9 - Schizoaffective disorder, unspecified; F25.9 - Schizoaffective disorder, unspecified; F25.9 - Schizoaffective disorder, unspecified (4) Cardiac arrest Assessment/Plan: s/p cardiac arrest, cardiac enzymes normalized ECHO: normal LVF, mild apical hypokinesis the patient received fluids post resuscitation and now he seems to be fluids overloaded LAsix 40 mg iv given today once Code(s): I46.9 - CARDIAC ARREST, CAUSE UNSPECIFIED (5) Cachexia Assessment/Plan: the patient has poor nutritional status,restarted regular diet, add Glucerna Code(s): R64 - CACHEXIA (6) Glucose intolerance (impaired glucose tolerance) Assessment/Plan: had borderline Hb A1 C of 6.5 before the weight loss, since IV steroids were started will monitor glucose levels Code(s): R73.02 - IMPAIRED GLUCOSE TOLERANCE (ORAL) (7) History of throat cancer Assessment/Plan: pleural fluid negative for malignancy Code(s): Z85.819 - PRSNL HX OF MALIG NEOPLM OF UNSP SITE LIP,ORAL CAV,& PHARYNX (8) Fluid overload Assessment/Plan: associated with wheezing Lasix 40 mg iv once monitor output Code(s): E87.70 - FLUID OVERLOAD, UNSPECIFIED
[2017-06-27] MEDS ORDERED: FUROSEMIDE 40 MG/4 ML INJECTABLE VIAL IVPUSH ONE (11:45)
[2017-06-27] MEDS ORDERED: ZOLPIDEM TARTRATE 5 MG TABLET PO ONE (22:35)
[2017-06-28] MEDS: PIPERACILLIN/TAZOB 4.5 GM/100 ML PRE-DOCKED IVPB SCH ×3 (01:34→17:16)
[2017-06-28] MEDS: ACETAMINOPHEN 325 MG TABLET (FP) PO PRN (04:38)
[2017-06-28] MEDS: methylPREDNISolone NA SUCC 40 MG/1 ML VIAL IVPB SCH (05:07)
[2017-06-28 06:00] LABS: MCH 27.4 pg (25.7-33.7); MCHC 32.7 g/dl (32.0-35.9); MEAN CELL VOLUME 83.8 fl (80-96); MEAN PLT VOLUME 8.2 fl (7.5-11.1); PLATELET COUNT 427 K/MM3 (134-434); RDW 16.8 % (11.9-15.9); WHITE BLOOD COUNT 14.8 K/mm3 (4.0-10.0)
[2017-06-28] MEDS: INSULIN SLIDING SCALE (NOVOLOG) 1 VIAL SQ SCH ×4 (06:00→22:30)
[2017-06-28 06:40] LABS: ALBUMIN 1.6 g/dl (3.4-5.0); ANION GAP 6 (8-16); BILIRUBIN,TOTAL 0.2 mg/dL (0.2-1.0); CALCIUM 8.3 mg/dL (8.5-10.1); CO2 34 mmol/L (21-32); CREATININE 0.6 mg/dL (0.7-1.3); GLUCOSE,RANDOM 91 mg/dL (74-106); SGOT/AST 29 U/L (15-37); SGPT/ALT 43 U/L (12-78)
[2017-06-28] MEDS: ALBUTEROL SO4 2.5/IPRATROPIUM 0.5 INH SOL 3 ML VIAL.NEB. NEB SCH ×4 (06:40→23:03)
[2017-06-28 06:41] LABS: ALK PHOS 87 U/L (45-117); TOT PROT 6.1 g/dl (6.4-8.2)
--- NOTE | 2017-06-28 07:51 | PN ---
Progress Note, Physician Chief Complaint: ID Day 4 post op thoracotomy In good spirits though very cachectic Remains on Zosyn - Current Medication List Current Medications: Active Medications Acetaminophen (Tylenol -) 325 mg PO Q6H PRN PRN Reason: FEVER OR PAIN Last Admin: 06/28/17 04:38 Dose: 325 mg Albuterol Sulfate (Ventolin 0.083% Nebulizer Soln -) 1 amp NEB Q2H PRN PRN Reason: SHORT OF BREATH/WHEEZING Last Admin: 06/26/17 10:53 Dose: 1 amp Albuterol/Ipratropium (Duoneb -) 1 amp NEB Q6H [facility] Last Admin: 06/28/17 06:40 Dose: 1 amp Enoxaparin Sodium (Lovenox -) 40 mg SQ DAILY [facility] Last Admin: 06/27/17 09:47 Dose: 40 mg Hydromorphone HCl (Dilaudid Injection -) 1 mg IVPUSH Q4H PRN PRN Reason: PAIN Last Admin: 06/27/17 22:17 Dose: 1 mg Insulin Aspart (Novolog Vial Sliding Scale -) 1 vial SQ Q6H [facility] PRN Reason: Protocol Last Admin: 06/28/17 06:00 Dose: Not Given Methylprednisolone Sodium Succinate (Solu-Medrol -) 40 mg IVPB Q12H [facility] Last Admin: 06/28/17 05:07 Dose: 40 mg Multivitamins/Minerals/Vitamin C (Tab-A-Vit -) 1 tab PO DAILY [facility] Last Admin: 06/27/17 09:48 Dose: 1 tab Pantoprazole Sodium (Protonix -) 40 mg PO DAILY [facility] Last Admin: 06/27/17 09:47 Dose: 40 mg Piperacillin Sod/Tazobactam Sod (Zosyn 4.5gm Ivpb (Pre-Docked)) 4.5 gm IVPB Q8H -IV [facility] Last Admin: 06/28/17 01:34 Dose: 4.5 gm Zolpidem Tartrate (Ambien -) 5 mg PO HS PRN PRN Reason: INSOMNIA - Objective Vital Signs: Vital Signs Temperature 97.8 F 06/28/17 06:00 Pulse Rate 72 06/28/17 06:00 Respiratory Rate 12 06/28/17 06:00 Blood Pressure 129/77 06/28/17 06:00 O2 Sat by Pulse Oximetry (%) 96 06/28/17 06:00 Constitutional: Yes: No Distress, Cachectic HENT: Yes: WNL, Atraumatic Neck: Yes: WNL, Supple Cardiovascular: Yes: Regular Rate and Rhythm, S1, S2. No: Murmur Respiratory: Yes: WNL, Regular, CTA Bilaterally, Other (Chest tubes) Gastrointestinal: Yes: WNL, Normal Bowel Sounds, Soft. No: Tenderness, Tenderness, Epigastrium Extremities: No: Cold, Cool, Cyanosis Edema: No Labs: CBC, BMP 06/28/17 05:00 06/28/17 05:00 INR, PTT INR 1.23 (0.82-1.09) H 06/24/17 14:40 Problem List - Problems (1) COPD (chronic obstructive pulmonary disease) Code(s): J44.9 - CHRONIC OBSTRUCTIVE PULMONARY DISEASE, UNSPECIFIED Qualifiers : COPD type: COPD with acute exacerbation Qualified Code(s): J44.1 - Chronic obstructive pulmonary disease with (acute) exacerbation; J44.1 - Chronic obstructive pulmonary disease with (acute) exacerbation; J44.1 - Chronic obstructive pulmonary disease with (acute) exacerbation; J44.1 - Chronic obstructive pulmonary disease with (acute) exacerbation (2) History of throat cancer Code(s): Z85.819 - PRSNL HX OF MALIG NEOPLM OF UNSP SITE LIP,ORAL CAV,& PHARYNX (3) Empyema Code(s): J86.9 - PYOTHORAX WITHOUT FISTULA (4) Hemoptysis Code(s): R04.2 - HEMOPTYSIS Assessment/Plan Microbiology 06/24/17 11:00 Tissue-Other Gram Stain - Final 06/24/17 11:00 Tissue-Other Anaerobic Culture - Final NO GROWTH OF AEROBIC ORGANISMS AFTER 48 HOURS INCUBATION NO ANAEROBES WERE ISOLATED 06/24/17 09:40 Pleural Fluid Gram Stain - Final 06/24/17 09:40 Pleural Fluid Anaerobic Culture - Final NO GROWTH OF AEROBIC ORGANISMS AFTER 48 HOURS INCUBATION NO ANAEROBES WERE ISOLATED 06/24/17 09:40 Bronchial Washings - Right Upper Lobe Gram Stain - Final 06/24/17 09:40 Bronchial Washings - Right Upper Lobe Bronchoalveolar Lavage Culture - Final 06/21/17 16:30 Pleural Fluid Gram Stain - Final 06/21/17 16:30 Pleural Fluid Anaerobic Culture - Final NO GROWTH OF AEROBIC ORGANISMS AFTER 48 HOURS INCUBATION NO ANAEROBES WERE ISOLATED 06/21/17 16:30 Pleural Fluid AFB Smear Concentration - Final 06/24/17 11:00 Lung - Right REBECA Preparation - Preliminary 06/24/17 11:00 Lung - Right Fungal Culture - Preliminary 06/24/17 10:07 Lung - Right AFB Smear Concentration - Preliminary 06/24/17 10:07 Lung - Right Mycobacterial Culture - Preliminary 06/24/17 09:40 Pleural Fluid REBECA Preparation - Preliminary 06/24/17 09:40 Pleural Fluid Fungal Culture - Preliminary 06/24/17 09:40 Pleural Fluid AFB Smear Concentration - Preliminary 06/24/17 09:40 Pleural Fluid Mycobacterial Culture - Preliminary 06/24/17 09:40 Bronchial Washings - Right Upper Lobe REBECA Preparation - Preliminary 06/24/17 09:40 Bronchial Washings - Right Upper Lobe Fungal Culture - Preliminary 06/24/17 09:40 Bronchial Washings - Right Upper Lobe AFB Smear Concentration - Preliminary 06/24/17 09:40 Bronchial Washings - Right Upper Lobe Mycobacterial Culture - Preliminary 06/21/17 16:30 Pleural Fluid Mycobacterial Culture - Preliminary 06/21/17 16:30 Pleural Fluid REBECA Preparation - Preliminary 06/21/17 16:30 Pleural Fluid Fungal Culture - Preliminary Assessment Empyema post thoracotomy Cultured negative Pathology pending but pus found at time of surgery Plan Continue IV antibiotic for now and repeat CRP Await pathology Mercedes ROBERTS
[2017-06-28] MEDS: ENOXAPARIN NA (PORCINE) 40 MG/0.4 ML DISP.SYRIN SQ SCH (09:14)
[2017-06-28] MEDS: PANTOPRAZOLE 40 MG TABLET (FP) PO SCH (09:14)
[2017-06-28] MEDS: MULTIVITAMINS (DAILY MVI) TABLET (FP) PO SCH (09:15)
[2017-06-28] MEDS: HYDROmorphone HCL CARPU-JECT 1 MG/1 ML DISP.SYRIN IVPUSH PRN ×3 (09:19→22:34)
--- NOTE | 2017-06-28 10:29 | PN ---
Progress Note, Physician History of Present Illness: Resting in bed on NC, denies chest pain or dyspnea, no arrhythmias on telemetry. - Current Medication List Current Medications: Active Medications Acetaminophen (Tylenol -) 325 mg PO Q6H PRN PRN Reason: FEVER OR PAIN Last Admin: 06/28/17 04:38 Dose: 325 mg Albuterol Sulfate (Ventolin 0.083% Nebulizer Soln -) 1 amp NEB Q2H PRN PRN Reason: SHORT OF BREATH/WHEEZING Last Admin: 06/26/17 10:53 Dose: 1 amp Albuterol/Ipratropium (Duoneb -) 1 amp NEB Q6H [facility] Last Admin: 06/28/17 06:40 Dose: 1 amp Enoxaparin Sodium (Lovenox -) 40 mg SQ DAILY [facility] Last Admin: 06/28/17 09:14 Dose: 40 mg Hydromorphone HCl (Dilaudid Injection -) 1 mg IVPUSH Q4H PRN PRN Reason: PAIN Last Admin: 06/28/17 09:19 Dose: 1 mg Insulin Aspart (Novolog Vial Sliding Scale -) 1 vial SQ Q6H [facility] PRN Reason: Protocol Last Admin: 06/28/17 06:00 Dose: Not Given Methylprednisolone Sodium Succinate (Solu-Medrol -) 40 mg IVPB Q12H [facility] Last Admin: 06/28/17 05:07 Dose: 40 mg Multivitamins/Minerals/Vitamin C (Tab-A-Vit -) 1 tab PO DAILY [facility] Last Admin: 06/28/17 09:15 Dose: 1 tab Pantoprazole Sodium (Protonix -) 40 mg PO DAILY [facility] Last Admin: 06/28/17 09:14 Dose: 40 mg Piperacillin Sod/Tazobactam Sod (Zosyn 4.5gm Ivpb (Pre-Docked)) 4.5 gm IVPB Q8H -IV [facility] Last Admin: 06/28/17 09:16 Dose: 4.5 gm Zolpidem Tartrate (Ambien -) 5 mg PO HS PRN PRN Reason: INSOMNIA - Objective Vital Signs: Vital Signs Temperature 97.8 F 06/28/17 06:00 Pulse Rate 85 06/28/17 09:59 Respiratory Rate 12 06/28/17 06:00 Blood Pressure 129/77 06/28/17 06:00 O2 Sat by Pulse Oximetry (%) 100 10/09/17 09:59 Constitutional: Yes: No Distress, Calm Neck: Yes: Supple Cardiovascular: Yes: Regular Rate and Rhythm Respiratory: Yes: Regular, Diminished, On Nasal O2, Other (Right chest tubes in place) Gastrointestinal: Yes: Normal Bowel Sounds, Soft Edema: No Labs: CBC, BMP 06/28/17 05:00 06/28/17 05:00 INR, PTT INR 1.23 (0.82-1.09) H 06/24/17 14:40 - ....Imaging Chest X-ray: Report Reviewed (2 chest tubes on right) Problem List - Problems (1) Acute blood loss anemia Code(s): D62 - ACUTE POSTHEMORRHAGIC ANEMIA (2) COPD (chronic obstructive pulmonary disease) Code(s): J44.9 - CHRONIC OBSTRUCTIVE PULMONARY DISEASE, UNSPECIFIED Qualifiers : COPD type: COPD with acute exacerbation Qualified Code(s): J44.1 - Chronic obstructive pulmonary disease with (acute) exacerbation; J44.1 - Chronic obstructive pulmonary disease with (acute) exacerbation; J44.1 - Chronic obstructive pulmonary disease with (acute) exacerbation; J44.1 - Chronic obstructive pulmonary disease with (acute) exacerbation (3) Empyema Code(s): J86.9 - PYOTHORAX WITHOUT FISTULA (4) Hemoptysis Code(s): R04.2 - HEMOPTYSIS (5) History of throat cancer Code(s): Z85.819 - PRSNL HX OF MALIG NEOPLM OF UNSP SITE LIP,ORAL CAV,& PHARYNX (6) PTSD (post-traumatic stress disorder) Code(s): F43.10 - POST-TRAUMATIC STRESS DISORDER, UNSPECIFIED (7) Schizoaffective disorder Code(s): F25.9 - SCHIZOAFFECTIVE DISORDER, UNSPECIFIED Qualifiers: Schizoaffective disorder type: unspecified Qualified Code(s): F25.9 - Schizoaffective disorder, unspecified; F25.9 - Schizoaffective disorder, unspecified; F25.9 - Schizoaffective disorder, unspecified; F25.9 - Schizoaffective disorder, unspecified (8) Leukocytosis Code(s): D72.829 - ELEVATED WHITE BLOOD CELL COUNT, UNSPECIFIED Qualifiers: Leukocytosis type: unspecified Qualified Code(s): D72.829 - Elevated white blood cell count, unspecified; D72.829 - Elevated white blood cell count, unspecified (9) Acute hypercapnic respiratory failure Code(s): J96.02 - ACUTE RESPIRATORY FAILURE WITH HYPERCAPNIA Assessment/Plan 06/25/2017 Echo: Normal LV size an xn with mild apical anterior HK, mild-mod MR, mild TR, RVSP 30-40 mmHg 1. Post-op bradycardic/asystolic arrest suspect mucous plugging and atelectasis 2. Hemoptysis and loculated empyema s/p R VATs/decort/converted --> Thora w/ CT x 3 (06/24) 3. h/o Laryngeal Ca 4. PTSD 5. Acute COPD Exacerbation improving 6. Anemia P: 1. BD, empiric abx, steroid taper, wean FIO2 per saO2, transfuse to maintain Hgb >8.0, analgesia as needed 2. Chest tube management, daily CXR, f/u pleural fluid studies and cultures 3. DVT and GI prophylaxis
--- NOTE | 2017-06-28 11:18 | PN ---
Progress Note (short form) - Note Progress Note: Thoracic Surgery Attending: Slowly improving. Breathing well. Needs to ambulate, ok for tubes to be off suction for ambulation. One tube removed. Other tubes on 10 suction. WBC trending down. Will continue tubes through week until air-leak improves.
--- NOTE | 2017-06-28 11:48 | PN ---
Physical Exam: SUBJECTIVE: 67 yo M with h/o COPD, PTSD ([place] ), chronic tobacco use, and throat cancer in remission s/p radiation therapy who presents to ICU with right sided loculated pleural effusion day 4 s/p VATS with BL chest tube placement complicated with cardiac arrest and ROSC. Overnight no acute events. On encounter patient is alert, and resting comfortably in bed. He denies fevers/chills, chest pain, dysuria, melena/ hematochezia abdominal pain, or difficulty sleeping. Breathing is improved pain well controlled with hydromorphone. Pt. Afebrile and hemodynamically stable. Right lat chest tube 65 cc and right ant chest tube with 25 cc serosainguenous output in 24 hours. Goal for patient is to ambulate with physical therapy today and remove anterior chest tube. OBJECTIVE: Vital Signs Period Temp Pulse Resp BP Sys/Bunn Pulse Ox Last 24 Hr 97.8 F-98.6 F 63-100 12-22 119-150/71-135 96-100 GGENERAL: Patient on 2 L NC. The patient is awake, alert, and fully oriented, in no acute distress. HEAD: Normal with no signs of trauma. NECK: supple without lymphadenopathy, JVD, or masses. LUNGS: chest tubes in place c/d/i. + Serosaingenous drainge. absent rhonci with absent rales. Dullness to percussion at right lung base. No accessory muscle use. + BL air leak in chest tubes. HEART:+ Apical systolic murmur. Normal S1 and S2 without rub or gallop. ABDOMEN: Soft, nontender, not distended, normoactive bowel sounds, no guarding, no rebound, no masses. No hepatomegaly or splenomegaly. MUSCULOSKELETAL: Normal range of motion at all joints. No bony deformities or tenderness. No CVA tenderness. UPPER EXTREMITIES: 2+ pulses, warm, well-perfused. No cyanosis. No clubbing. Cap refill <2 seconds. No peripheral edema. LOWER EXTREMITIES: 2+ pulses, warm, well-perfused. No calf tenderness. No peripheral edema. PSYCHIATRIC: Slightly agitated Appropriate mood and affect. SKIN: Warm, dry, normal turgor, no rashes or lesions noted. Laboratory Results - last 24 hr 06/23/17 06/28/17 06/28/17 14:00 05:00 05:00 WBC 14.8 H RBC 3.20 L Hgb 8.8 L Hct 26.8 L MCV 83.8 MCH 27.4 MCHC 32.7 RDW 16.8 H Plt Count 427 MPV 8.2 Sodium 140 Potassium 4.1 Chloride 100 Carbon Dioxide 34 H Anion Gap 6 L BUN 27 H Creatinine 0.6 L Creat Clearance w eGFR > 60 Random Glucose 91 D Calcium 8.3 L Total Bilirubin 0.2 D AST 29 ALT 43 Alkaline Phosphatase 87 Total Protein 6.1 L Albumin 1.6 L Blood Type O NEGATIVE Antibody Screen Negative Crossmatch See Detail Active Medications Generic Name Dose Route Start Last Admin Trade Name Freq PRN Reason Stop Dose Admin Acetaminophen 325 mg 06/19/17 17:16 06/28/17 04:38 Tylenol - PO 325 mg Q6H PRN Administration FEVER OR PAIN Albuterol Sulfate 1 amp 06/26/17 08:26 06/26/17 10:53 Ventolin 0.083% Nebulizer Soln - NEB 1 amp Q2H PRN Administration SHORT OF BREATH/WHEEZING Albuterol/Ipratropium 1 amp 06/26/17 12:00 06/28/17 11:01 Duoneb - NEB 1 amp Q6H [facility] Administration Enoxaparin Sodium 40 mg 06/25/17 13:00 06/28/17 09:14 Lovenox - SQ 40 mg DAILY [facility] Administration Hydromorphone HCl 1 mg 06/25/17 09:31 06/28/17 09:19 Dilaudid Injection - IVPUSH 1 mg Q4H PRN Administration PAIN Insulin Aspart 1 vial 06/24/17 23:00 06/28/17 06:00 Novolog Vial Sliding Scale - SQ Not Given Q6H [facility] Protocol Multivitamins/Minerals/Vitamin C 1 tab 06/20/17 14:15 06/28/17 09:15 Tab-A-Vit - PO 1 tab DAILY [facility] Administration Pantoprazole Sodium 40 mg 06/21/17 20:00 06/28/17 09:14 Protonix - PO 40 mg DAILY [facility] Administration Piperacillin Sod/Tazobactam Sod 4.5 gm 06/20/17 14:00 06/28/17 09:16 Zosyn 4.5gm Ivpb (Pre-Docked) IVPB 4.5 gm Q8H-IV [facility] Administration Zolpidem Tartrate 5 mg 06/28/17 22:00 Ambien - PO HS PRN INSOMNIA ASSESSMENT/PLAN: 67 yo M with h/o COPD, PTSD ([place] ), chronic tobacco use, and throat cancer in remission s/p radiation therapy who presents to ICU with right sided loculated pleural effusion day 4 s/p VATS with BL chest tube placement complicated with cardiac arrest and ROSC. Neuro: H/o PTSD -A&Ox3 - holding PTSD medications Cardiovascular: Anemia: stable - Hgb 11.1 -9.0 (06/24) - PRBC if Hgb <7.0. Patient given 1 PRBC (06/21) - Fe studies: Anemia of chronic disease. Ferritin 384.676 Plan: - Trend Hgb/Hct - Transfuse to maintain Hgb>8.0 Day 1 s/p cardiac arrest: - (06/24) Patient arrived from OR without difficulty following flexible bronchoscopy, right thoracoscopy, pneumolysis, thoracotomy, and decortication. 30 minutes upon his arrival SBP dropped from 100's-60's. Patient was given 1 L NS and SBP improved to 90's. 5-10 minutes later SBP declined to 46, and patient became bradycardic. 1 Unit PRBC was then ordered. Shortly after patient developed PEA and 4 cycles of chest compressions were started, Epi x 1. Patient then ROSC and chest compressions were withheld. SBP improved to 187. 2 minutes later patient developed v-tach and v-fib and cardioverted to NSR at 200 Joules. Central line was placed. - Most likely 2/2 mucous plugging or atelectasis - EKG with NSR and low voltage QRS waves - Chest tube management - Echo pending: To assess ventricular and valve function Pulmonary: Massive R sided loculated pleural effusion: Possible right sided complicated parapneumoinic effusion vs empyema 2/2 to infection vs. paraneoplastic effusion or malignancy. - Day 4 s/p VATS and chest tube placement x 3. - Most likely 2/2 empyema. - Pleural protein/Total protein ratio of 5.249/6.4- 0.82, Pleural LDH 30827/ (2/ 3 x upper limit of normal)- 148. Lites criteria positive for exudative effusion. - cytology (06/24) reveals non malignant cells with increased inflammatory cells. - R chest pig tail placement; insufficient purulent drainage ( 520 cc total) wit minimal cxr improvement -pleural fluid exudative, gram stain negative, cytology p/d; send out triglyceride level -CT chest ( 06/19) Centrilobular emphysema, large partially loculated right sided pleural effusion, nonspeciifc free fluid in abdomen and pelvis. CT chest from past summer depicts RML consolidation -blood cultures negative - Patient afebrile through admission. - WBC on admission 33,000--> 29 ( 06/28) -Per cardiothoracic discuss risk/benefit of tPA x2 with patient vs. surgical management. - HIV negative - Unasyn D/c'd Plan: - continue zosyn and - D/c IV solumedrol - BiPAP PRN - Pulmonary hygeine - Up with ambulation PT. - Adequate pain control with IV Tylenol, and dilaudid - Chest tube management. - Pathology pending Hemoptysis: 2/2 malignancy vs. underlying infection. - In setting of underlying infection - resolved COPD: -Albuterol PRN - incentive spriometry - BiPAP Tobacco/smoking: -smoking cessation/counseling Oncology - Thrombocytosis and increased RDW - Per Dr. Kaur ( Oncology) (06/24) bone marrow biopsy to evaluate MDS -Thrombocytosis may be reactive in setting of empyema. FEN -No IVF -Lytes PRN -DM diet as tolerated Dispo: monitor in ICU Problem List - Problems (1) Empyema Code(s): J86.9 - PYOTHORAX WITHOUT FISTULA Visit type - Emergency Visit Emergency Visit: Yes ED Registration Date: 06/19/17 Care time: The patient presented to the Emergency Department on the above date and was hospitalized for further evaluation of their emergent condition. - New Patient This patient is new to me today: Yes Date on this admission: 06/28/17 - Critical Care Critical Care patient: Yes Total Critical Care Time (in minutes): 30 Critical Care Statement: The care of this patient involved high complexity decision making to prevent further life threatening deterioration of the patient 's condition and/or to evaluate & treat vital organ system(s) failure or risk of failure.
--- NOTE | 2017-06-28 13:31 | PN ---
Teaching Attending Note Name of Resident: John Smiley ATTENDING PHYSICIAN STATEMENT I saw and evaluated the patient. I reviewed the resident's note and discussed the case with the resident. I agree with the resident's findings and plan as documented. SUBJECTIVE: Pt seen and examined in the ICU. States breathing better. One chest tube removed. No shortness of breath, cough or wheezing. No fevers recorded. OBJECTIVE: Last Vital Signs Temp Pulse Resp BP Pulse Ox 98 F 86 19 101/61 100 06/28/17 10:34 06/28/17 12:08 06/28/17 12:08 06/28/17 12:08 06/28/17 09:59 Intake & Output 06/25/17 06/26/17 06/27/17 06/28/17 23:59 23:59 23:59 23:59 Intake Total 4987 2987.5 1030 220 Output Total 1504 4140 3980 880 Balance 3483 -1152.5 -2950 -660 Weight 136 lb 10.986 oz 139 lb 12.8 oz 136 lb 12.8 oz 131 lb 8 oz Gen: NAD at rest Heart: RRR Lung: distant breath sounds, no wheezes, scattered rhonchi Abd: soft, nontender Ext: no edema Chest tube: + air leak CBC, BMP 06/28/17 05:00 06/28/17 05:00 Active Medications Acetaminophen (Tylenol -) 325 mg PO Q6H PRN PRN Reason: FEVER OR PAIN Last Admin: 06/28/17 04:38 Dose: 325 mg Albuterol Sulfate (Ventolin 0.083% Nebulizer Soln -) 1 amp NEB Q2H PRN PRN Reason: SHORT OF BREATH/WHEEZING Last Admin: 06/26/17 10:53 Dose: 1 amp Albuterol/Ipratropium (Duoneb -) 1 amp NEB Q6H [facility] Last Admin: 06/28/17 11:01 Dose: 1 amp Enoxaparin Sodium (Lovenox -) 40 mg SQ DAILY [facility] Last Admin: 06/28/17 09:14 Dose: 40 mg Hydromorphone HCl (Dilaudid Injection -) 1 mg IVPUSH Q4H PRN PRN Reason: PAIN Last Admin: 06/28/17 09:19 Dose: 1 mg Insulin Aspart (Novolog Vial Sliding Scale -) 1 vial SQ Q6H [facility] PRN Reason: Protocol Last Admin: 06/28/17 12:00 Dose: 4 units Multivitamins/Minerals/Vitamin C (Tab-A-Vit -) 1 tab PO DAILY [facility] Last Admin: 06/28/17 09:15 Dose: 1 tab Pantoprazole Sodium (Protonix -) 40 mg PO DAILY [facility] Last Admin: 06/28/17 09:14 Dose: 40 mg Piperacillin Sod/Tazobactam Sod (Zosyn 4.5gm Ivpb (Pre-Docked)) 4.5 gm IVPB Q8H -IV [facility] Last Admin: 06/28/17 09:16 Dose: 4.5 gm Zolpidem Tartrate (Ambien -) 5 mg PO HS PRN PRN Reason: INSOMNIA ASSESSMENT AND PLAN: Loculated Empyema s/p R VATS converted to thoracotomy/decortication/chest tube placements Septic Shock improving s/p Cardiac Arrest COPD Anemia DM - continue antibiotics - chest tubes to low wall suction - pain control - incentive spirometry - inhaled bronchodilators - can d/c steroids - O2 to keep SpO2 >90% - OOB to chair - DVT prophylaxis - continue ICU monitoring critical care time spent in reviewing chart, evaluating patient and formulating plan 35min
[2017-06-28] MEDS ORDERED: PT OWN MED DRAWER 7, Y5N ONE (15:57)
--- NOTE | 2017-06-28 18:11 | PN ---
Progress Note, [employer] - Note Progress Note: Pt observed at bedside during dinner as a follow up to swallow evaluation with recommendations for regular solids and thin liquids. Pt was independently consuming the meal with no s/s of dysphagia and / or aspiration. Chart review data indicates that pt is consuming 100% of all meals at this time. No further speech intervention needed unless there is a change in medical status. Results given to charge account clerk and to pcp via chart.
--- NOTE | 2017-06-28 19:23 | PN ---
Progress Note, Physician Chief Complaint: Patient seen,alert, hungry, not dyspneic wheezing resolved, using O2, there was no fever during the night. One chest tube was removed and the other 2 are draining sangvinolent fluid. The patient tolerated well OOB to chair this morning. History of Present Illness: 67 yo male with PMH of ENT cancer was admitted with complaints of weight loss, poor appetite and elevated WBC. He was diagnosed with right empyema which was treated with VATS pulmonary decortication and temporary placement of 3 right chest tubes. The right chest pain responds to Dilaudid. The patient coded post op and had to be intubated due to low blood pressure and collapsed right lung. The patient was extubated and is off pressors, the central line and the Cruz catheter were discontinued.One of the 3 chest tubes was removed and the patient has 2 left. - Current Medication List Current Medications: Active Medications Acetaminophen (Tylenol -) 325 mg PO Q6H PRN PRN Reason: FEVER OR PAIN Last Admin: 06/28/17 04:38 Dose: 325 mg Albuterol Sulfate (Ventolin 0.083% Nebulizer Soln -) 1 amp NEB Q2H PRN PRN Reason: SHORT OF BREATH/WHEEZING Last Admin: 06/26/17 10:53 Dose: 1 amp Albuterol/Ipratropium (Duoneb -) 1 amp NEB Q6H [facility] Last Admin: 06/28/17 18:38 Dose: 1 amp Enoxaparin Sodium (Lovenox -) 40 mg SQ DAILY [facility] Last Admin: 06/28/17 09:14 Dose: 40 mg Hydromorphone HCl (Dilaudid Injection -) 1 mg IVPUSH Q4H PRN PRN Reason: PAIN Last Admin: 06/28/17 13:23 Dose: 1 mg Insulin Aspart (Novolog Vial Sliding Scale -) 1 vial SQ Q6H [facility] PRN Reason: Protocol Last Admin: 06/28/17 16:58 Dose: 2 units Multivitamins/Minerals/Vitamin C (Tab-A-Vit -) 1 tab PO DAILY [facility] Last Admin: 06/28/17 09:15 Dose: 1 tab Pantoprazole Sodium (Protonix -) 40 mg PO DAILY [facility] Last Admin: 06/28/17 09:14 Dose: 40 mg Piperacillin Sod/Tazobactam Sod (Zosyn 4.5gm Ivpb (Pre-Docked)) 4.5 gm IVPB Q8H -IV [facility] Last Admin: 06/28/17 17:16 Dose: 4.5 gm Zolpidem Tartrate (Ambien -) 5 mg PO HS PRN PRN Reason: INSOMNIA - Objective Vital Signs: Vital Signs Temperature 98.5 F 06/28/17 14:50 Pulse Rate 113 H 06/28/17 18:00 Respiratory Rate 12 06/28/17 18:00 Blood Pressure 134/96 06/28/17 18:00 O2 Sat by Pulse Oximetry (%) 100 06/28/17 15:46 Constitutional: Yes: No Distress, Calm Eyes: Yes: Conjunctiva Clear, EOM Intact HENT: Yes: Atraumatic, Normocephalic Neck: Yes: Supple, Trachea Midline Cardiovascular: Yes: Regular Rate and Rhythm, S1, S2 Respiratory: Yes: Regular, CTA Bilaterally Gastrointestinal: Yes: Normal Bowel Sounds, Soft. No: Hepatomegaly, Splenomegaly ...Rectal Exam: Yes: Deferred Breast(s): Yes: WNL Musculoskeletal: Yes: WNL Extremities: No: Calf Tenderness Edema: Yes Integumentary: Yes: Other (justus at the level of the right hemithorax) Neurological: Yes: Alert, Oriented Psychiatric: Yes: Alert, Oriented Labs: CBC, BMP 06/28/17 05:00 06/28/17 05:00 INR, PTT INR 1.23 (0.82-1.09) H 06/24/17 14:40 Problem List - Problems (1) Empyema Assessment/Plan: S/p decortication and VATS, with 3 chest tubes planted in the right hemithorax, one removed today continue empiric IV antibiotics since cultures and Gram stain are negative WBC normalizing Code(s): J86.9 - PYOTHORAX WITHOUT FISTULA (2) COPD (chronic obstructive pulmonary disease) Assessment/Plan: Albuterol nebulizer changed to every 6 hours scheduled and not prn added Albuterol nebs every 2 hours prn Solu Medrol, decreased dosage to every 12 hours Code(s): J44.9 - CHRONIC OBSTRUCTIVE PULMONARY DISEASE, UNSPECIFIED Qualifiers : COPD type: COPD with acute exacerbation Qualified Code(s): J44.1 - Chronic obstructive pulmonary disease with (acute) exacerbation; J44.1 - Chronic obstructive pulmonary disease with (acute) exacerbation; J44.1 - Chronic obstructive pulmonary disease with (acute) exacerbation; J44.1 - Chronic obstructive pulmonary disease with (acute) exacerbation (3) Schizoaffective disorder Assessment/Plan: on no medications Code(s): F25.9 - SCHIZOAFFECTIVE DISORDER, UNSPECIFIED Qualifiers: Schizoaffective disorder type: unspecified Qualified Code(s): F25.9 - Schizoaffective disorder, unspecified; F25.9 - Schizoaffective disorder, unspecified; F25.9 - Schizoaffective disorder, unspecified; F25.9 - Schizoaffective disorder, unspecified (4) Cardiac arrest Assessment/Plan: s/p cardiac arrest, cardiac enzymes normalized ECHO: normal LVF, mild apical hypokinesis the patient received fluids post resuscitation and now he seems to be fluids overloaded LAsix 40 mg iv given twice with good diuretic response and resolution of wheezing Code(s): I46.9 - CARDIAC ARREST, CAUSE UNSPECIFIED (5) Cachexia Assessment/Plan: the patient has poor nutritional status,restarted regular diet, add Glucerna Code(s): R64 - CACHEXIA (6) Glucose intolerance (impaired glucose tolerance) Assessment/Plan: had borderline Hb A1 C of 6.5 before the weight loss, since IV steroids were started will monitor glucose levels Code(s): R73.02 - IMPAIRED GLUCOSE TOLERANCE (ORAL) (7) History of throat cancer Assessment/Plan: pleural fluid negative for malignancy Code(s): Z85.819 - PRSNL HX OF MALIG NEOPLM OF UNSP SITE LIP,ORAL CAV,& PHARYNX (8) Fluid overload Assessment/Plan: associated with wheezing Lasix 40 mg iv given twice over the past 48 hours improved the patient's respiratory status monitor output decreased iv Steroid Code(s): E87.70 - FLUID OVERLOAD, UNSPECIFIED
[2017-06-28] MEDS ORDERED: HEMOQUE TEST 1 EACH EACH ONE (21:36)
[2017-06-28] MEDS ORDERED: ZOLPIDEM TARTRATE 5 MG TABLET PO PRN (22:00)
[2017-06-29] MEDS: PIPERACILLIN/TAZOB 4.5 GM/100 ML PRE-DOCKED IVPB SCH ×3 (01:42→17:12)
[2017-06-29] MEDS ORDERED: HEMOQUE TEST 1 EACH EACH ONE (05:34)
[2017-06-29] MEDS: INSULIN SLIDING SCALE (NOVOLOG) 1 VIAL SQ SCH ×4 (05:41→23:06)
[2017-06-29 06:11] LABS: MCH 27.5 pg (25.7-33.7); MCHC 32.3 g/dl (32.0-35.9); MEAN CELL VOLUME 85.2 fl (80-96); MEAN PLT VOLUME 7.9 fl (7.5-11.1); PLATELET COUNT 477 K/MM3 (134-434); RDW 17.1 % (11.9-15.9); WHITE BLOOD COUNT 19.3 K/mm3 (4.0-10.0)
[2017-06-29] MEDS: HYDROmorphone HCL CARPU-JECT 1 MG/1 ML DISP.SYRIN IVPUSH PRN (06:30)
[2017-06-29] MEDS: ALBUTEROL SO4 2.5/IPRATROPIUM 0.5 INH SOL 3 ML VIAL.NEB. NEB SCH ×4 (06:32→23:13)
[2017-06-29 06:41] LABS: ALBUMIN 1.8 g/dl (3.4-5.0); ANION GAP 9 (8-16); CALCIUM 7.4 mg/dL (8.5-10.1); CO2 33 mmol/L (21-32); GLUCOSE,RANDOM 78 mg/dL (74-106); MAGNESIUM 2.4 mg/dL (1.8-2.4)
[2017-06-29 06:45] LABS: ALK PHOS 95 U/L (45-117); BILIRUBIN,TOTAL 0.4 mg/dL (0.2-1.0); CREATININE 0.5 mg/dL (0.7-1.3); PHOSPHOROUS 2.7 mg/dL (2.5-4.9); SGOT/AST 22 U/L (15-37); SGPT/ALT 45 U/L (12-78); TOT PROT 6.3 g/dl (6.4-8.2)
--- NOTE | 2017-06-29 07:53 | PN ---
Progress Note (short form) - Note Progress Note: POD #5 Resting comfortably without complaint. CXR 10/: small right basilar ptx unchanged compared to yesterdays xray. Last Vital Signs Temp Pulse Resp BP Pulse Ox 98.2 F 108 H 16 131/78 100 06/29/17 06:00 06/29/17 06:00 06/29/17 06:00 06/29/17 06:00 06/28/17 20:06 CBC, BMP 06/29/17 05:50 06/29/17 05:50 Gen: nad Right Chest: Pleurovac #2 --> small air leak on suction Pleurovac #3 --> small air leak on suction LE: SCDs b/l. Soft. NT. Problem List - Problems (1) Empyema Assessment/Plan: POD #5 s/p Bronchoscopy, right VATS, thoracotomy, pneumolysis, partial decortication, drainage of empyema PT to help patient mobilize Chest tubes to remain until air leak improves CXR in AM Pain management PRN Monitor WBC 19(14) DVT ppx Pulmonary toileting Above discussed with Dr. Cleaning and agrees Code(s): J86.9 - PYOTHORAX WITHOUT FISTULA
[2017-06-29] MEDS ORDERED: NAPH,MB-DB/K PH,MBDB POWDER PACKET PO ONE (08:30)
[2017-06-29] MEDS ORDERED: PT OWN MED DRAWER 7, Y5N ONE (08:57)
--- NOTE | 2017-06-29 09:00 | PN ---
Progress Note, Physician Chief Complaint: weakness ,SOB History of Present Illness: 67 y/o male w hx L oropharyngeal cancer s/p RT , now w R empyema s/p thoracotomy , partial decortication , VATS ; pt recovering , CT's draining , on ab's ; no sign of malignancy . Pt c/o mild soreness CT sites, mild SOB at rest. - Current Medication List Current Medications: Active Medications Acetaminophen (Tylenol -) 325 mg PO Q6H PRN PRN Reason: FEVER OR PAIN Last Admin: 06/28/17 04:38 Dose: 325 mg Albuterol Sulfate (Ventolin 0.083% Nebulizer Soln -) 1 amp NEB Q2H PRN PRN Reason: SHORT OF BREATH/WHEEZING Last Admin: 06/26/17 10:53 Dose: 1 amp Albuterol/Ipratropium (Duoneb -) 1 amp NEB Q6H [facility] Last Admin: 06/29/17 06:32 Dose: 1 amp Enoxaparin Sodium (Lovenox -) 40 mg SQ DAILY [facility] Last Admin: 06/28/17 09:14 Dose: 40 mg Hydromorphone HCl (Dilaudid Injection -) 1 mg IVPUSH Q4H PRN PRN Reason: PAIN Last Admin: 06/29/17 06:30 Dose: 1 mg Insulin Aspart (Novolog Vial Sliding Scale -) 1 vial SQ Q6H [facility] PRN Reason: Protocol Last Admin: 06/29/17 05:41 Dose: Not Given Multivitamins/Minerals/Vitamin C (Tab-A-Vit -) 1 tab PO DAILY [facility] Last Admin: 06/28/17 09:15 Dose: 1 tab Pantoprazole Sodium (Protonix -) 40 mg PO DAILY [facility] Last Admin: 06/28/17 09:14 Dose: 40 mg Piperacillin Sod/Tazobactam Sod (Zosyn 4.5gm Ivpb (Pre-Docked)) 4.5 gm IVPB Q8H -IV [facility] Last Admin: 06/29/17 01:42 Dose: 4.5 gm Prednisone (Deltasone -) 40 mg PO DAILY [facility] Zolpidem Tartrate (Ambien -) 5 mg PO HS PRN PRN Reason: INSOMNIA Last Admin: 06/28/17 22:34 Dose: 5 mg - Objective Vital Signs: Vital Signs Temperature 98.2 F 06/29/17 06:00 Pulse Rate 108 H 06/29/17 06:00 Respiratory Rate 16 06/29/17 08:46 Blood Pressure 131/78 06/29/17 06:00 O2 Sat by Pulse Oximetry (%) 93 L 06/29/17 08:46 Constitutional: Yes: No Distress, Calm, Thin Eyes: Yes: WNL, Conjunctiva Clear, EOM Intact HENT: Yes: WNL, Atraumatic, Normocephalic Neck: Yes: WNL, Supple, Trachea Midline Cardiovascular: Yes: WNL, Regular Rate and Rhythm Respiratory: Yes: Diminished, Dullness (R base dullness) Gastrointestinal: Yes: WNL, Normal Bowel Sounds, Soft. No: Abdomen, Obese, Ascites, Distention, Hematemesis, Hemorrhoids, Hepatomegaly, Hernia, Hyperactive Bowel Sounds, Hypoactive Bowel Sounds, Melena, Palpable Mass, Pulsatile Mass, Rectal Bleeding, Splenomegaly, Tenderness, Tenderness, Epigastrium, Tenderness, Rebound, Vomiting, Other Musculoskeletal: Yes: WNL Extremities: Yes: WNL Edema: No Integumentary: Yes: WNL Psychiatric: Yes: Alert, Oriented Labs: CBC, BMP 06/29/17 05:50 06/29/17 05:50 INR, PTT INR 1.23 (0.82-1.09) H 06/24/17 14:40 Problem List - Problems (1) COPD (chronic obstructive pulmonary disease) Qualifiers: COPD type: COPD with acute exacerbation Qualified Code(s): J44.1 - Chronic obstructive pulmonary disease with (acute) exacerbation; J44.1 - Chronic obstructive pulmonary disease with (acute) exacerbation; J44.1 - Chronic obstructive pulmonary disease with (acute) exacerbation; J44.1 - Chronic obstructive pulmonary disease with (acute) exacerbation (2) History of throat cancer Code(s): Z85.819 - PRSNL HX OF MALIG NEOPLM OF UNSP SITE LIP,ORAL CAV,& PHARYNX (3) Pleural effusion Code(s): J90 - PLEURAL EFFUSION, NOT ELSEWHERE CLASSIFIED (4) Empyema Code(s): J86.9 - PYOTHORAX WITHOUT FISTULA (5) Anemia, iron deficiency Code(s): D50.9 - IRON DEFICIENCY ANEMIA, UNSPECIFIED Assessment/Plan pt recovering from empyema , on ab's, post-op ; anemia of chronic disease , possible iron def. since sat 9% ; WBC seems to be coming down ,plates borderline high. To follow up all pathology and consider whether to do any more hematological w/u (eg BM exam to confirm iron def and r/o underlying MDS )
[2017-06-29] MEDS: MULTIVITAMINS (DAILY MVI) TABLET (FP) PO SCH (09:15)
[2017-06-29] MEDS: PANTOPRAZOLE 40 MG TABLET (FP) PO SCH (09:16)
[2017-06-29] MEDS: ENOXAPARIN NA (PORCINE) 40 MG/0.4 ML DISP.SYRIN SQ SCH (09:16)
[2017-06-29] MEDS ORDERED: predniSONE 20 MG TABLET (UD) PO SCH (10:00)
--- NOTE | 2017-06-29 10:46 | PN ---
Progress Note, Physician Chief Complaint: Events noted Sitting in chair in ICU Chest tube in place History of Present Illness: Patient was seen and examined. Awake. Chart was reviewed Denies chest pain or palpitations Less SOB but complains of productive cough - Current Medication List Current Medications: Active Medications Acetaminophen (Tylenol -) 325 mg PO Q6H PRN PRN Reason: FEVER OR PAIN Last Admin: 06/28/17 04:38 Dose: 325 mg Albuterol Sulfate (Ventolin 0.083% Nebulizer Soln -) 1 amp NEB Q2H PRN PRN Reason: SHORT OF BREATH/WHEEZING Last Admin: 06/26/17 10:53 Dose: 1 amp Albuterol/Ipratropium (Duoneb -) 1 amp NEB Q6H [facility] Last Admin: 06/29/17 06:32 Dose: 1 amp Enoxaparin Sodium (Lovenox -) 40 mg SQ DAILY [facility] Last Admin: 06/29/17 09:16 Dose: 40 mg Hydromorphone HCl (Dilaudid Injection -) 1 mg IVPUSH Q4H PRN PRN Reason: PAIN Last Admin: 06/29/17 06:30 Dose: 1 mg Insulin Aspart (Novolog Vial Sliding Scale -) 1 vial SQ Q6H [facility] PRN Reason: Protocol Last Admin: 06/29/17 05:41 Dose: Not Given Multivitamins/Minerals/Vitamin C (Tab-A-Vit -) 1 tab PO DAILY [facility] Last Admin: 06/29/17 09:15 Dose: 1 tab Pantoprazole Sodium (Protonix -) 40 mg PO DAILY [facility] Last Admin: 06/29/17 09:16 Dose: 40 mg Piperacillin Sod/Tazobactam Sod (Zosyn 4.5gm Ivpb (Pre-Docked)) 4.5 gm IVPB Q8H -IV [facility] Last Admin: 06/29/17 09:15 Dose: 4.5 gm Prednisone (Deltasone -) 40 mg PO DAILY [facility] Last Admin: 06/29/17 09:37 Dose: 40 mg Zolpidem Tartrate (Ambien -) 5 mg PO HS PRN PRN Reason: INSOMNIA Last Admin: 06/28/17 22:34 Dose: 5 mg - Objective Vital Signs: Vital Signs Temperature 98 F 06/29/17 09:43 Pulse Rate 107 H 06/29/17 09:43 Respiratory Rate 16 06/29/17 09:43 Blood Pressure 111/63 06/29/17 09:43 O2 Sat by Pulse Oximetry (%) 93 L 06/29/17 08:46 Neck: Yes: Supple Cardiovascular: Yes: Regular Rate and Rhythm, Tachycardia, S1, S2 Respiratory: Yes: Diminished, Other (Chest tube in place) Gastrointestinal: Yes: Normal Bowel Sounds, Soft. No: Tenderness Edema: No Labs: CBC, BMP 06/29/17 05:50 06/29/17 05:50 Problem List - Problems (1) Acute hypercapnic respiratory failure Code(s): J96.02 - ACUTE RESPIRATORY FAILURE WITH HYPERCAPNIA (2) Anemia, iron deficiency Code(s): D50.9 - IRON DEFICIENCY ANEMIA, UNSPECIFIED (3) COPD (chronic obstructive pulmonary disease) Code(s): J44.9 - CHRONIC OBSTRUCTIVE PULMONARY DISEASE, UNSPECIFIED Qualifiers : COPD type: COPD with acute exacerbation Qualified Code(s): J44.1 - Chronic obstructive pulmonary disease with (acute) exacerbation; J44.1 - Chronic obstructive pulmonary disease with (acute) exacerbation; J44.1 - Chronic obstructive pulmonary disease with (acute) exacerbation; J44.1 - Chronic obstructive pulmonary disease with (acute) exacerbation (4) Cardiac arrest Code(s): I46.9 - CARDIAC ARREST, CAUSE UNSPECIFIED (5) Empyema Code(s): J86.9 - PYOTHORAX WITHOUT FISTULA (6) History of throat cancer Code(s): Z85.819 - PRSNL HX OF MALIG NEOPLM OF UNSP SITE LIP,ORAL CAV,& PHARYNX (7) Leukocytosis Code(s): D72.829 - ELEVATED WHITE BLOOD CELL COUNT, UNSPECIFIED Qualifiers: Leukocytosis type: unspecified Qualified Code(s): D72.829 - Elevated white blood cell count, unspecified; D72.829 - Elevated white blood cell count, unspecified Assessment/Plan 1. Post-op bradycardic/asystolic arrest suspect mucous plugging and atelectasis 2. Hemoptysis and loculated empyema s/p R VATs and with chest tube 3. History of Laryngeal CA 4. PTSD 5. Acute COPD Exacerbation 6. Anemia PLAN: 1. Bronchodilator, empiric antibiotic, steroid taper, O2, transfuse to maintain Hgb>8.0 and analgesia as needed 2. Chest tube management, daily CXR and f/u pleural fluid studies and cultures 3. DVT and GI prophylaxis Further plans are to follow Dustin Grey MD
--- NOTE | 2017-06-29 12:35 | PN ---
Teaching Attending Note Name of Resident: John Smiley ATTENDING PHYSICIAN STATEMENT I saw and evaluated the patient. I reviewed the resident's note and discussed the case with the resident. I agree with the resident's findings and plan as documented. SUBJECTIVE: Pt seen and examined in the ICU. Pain controlled, shortness of breath improving. No fevers or chills. OBJECTIVE: Last Vital Signs Temp Pulse Resp BP Pulse Ox 98 F 104 H 16 127/74 93 L 06/29/17 10:00 06/29/17 12:00 06/29/17 12:00 06/29/17 12:00 06/29/17 08:46 Intake & Output 06/26/17 06/27/17 06/28/17 06/29/17 23:59 23:59 23:59 23:59 Intake Total 2987.5 1030 810 250 Output Total 4140 3980 3230 1130 Balance -1152.5 -2950 -2420 -880 Weight 139 lb 12.8 oz 136 lb 12.8 oz 131 lb 8 oz 118 lb 9 oz Gen: less tachypneic Heart: tachycardic, regular Lung: bilateral rhonchi Abd: soft, nontender Ext: no edema Chest tube: + air leak CBC, BMP 06/29/17 05:50 06/29/17 05:50 Active Medications Acetaminophen (Tylenol -) 325 mg PO Q6H PRN PRN Reason: FEVER OR PAIN Last Admin: 06/28/17 04:38 Dose: 325 mg Albuterol Sulfate (Ventolin 0.083% Nebulizer Soln -) 1 amp NEB Q2H PRN PRN Reason: SHORT OF BREATH/WHEEZING Last Admin: 06/26/17 10:53 Dose: 1 amp Albuterol/Ipratropium (Duoneb -) 1 amp NEB Q6H [facility] Last Admin: 06/29/17 11:41 Dose: 1 amp Enoxaparin Sodium (Lovenox -) 40 mg SQ DAILY [facility] Last Admin: 06/29/17 09:16 Dose: 40 mg Hydromorphone HCl (Dilaudid Injection -) 1 mg IVPUSH Q4H PRN PRN Reason: PAIN Last Admin: 06/29/17 06:30 Dose: 1 mg Insulin Aspart (Novolog Vial Sliding Scale -) 1 vial SQ Q6H [facility] PRN Reason: Protocol Last Admin: 06/29/17 05:41 Dose: Not Given Multivitamins/Minerals/Vitamin C (Tab-A-Vit -) 1 tab PO DAILY [facility] Last Admin: 06/29/17 09:15 Dose: 1 tab Pantoprazole Sodium (Protonix -) 40 mg PO DAILY [facility] Last Admin: 06/29/17 09:16 Dose: 40 mg Piperacillin Sod/Tazobactam Sod (Zosyn 4.5gm Ivpb (Pre-Docked)) 4.5 gm IVPB Q8H -IV [facility] Last Admin: 06/29/17 09:15 Dose: 4.5 gm Prednisone (Deltasone -) 40 mg PO DAILY [facility] Last Admin: 06/29/17 09:37 Dose: 40 mg Zolpidem Tartrate (Ambien -) 5 mg PO HS PRN PRN Reason: INSOMNIA Last Admin: 06/28/17 22:34 Dose: 5 mg ASSESSMENT AND PLAN: Loculated Empyema s/p R VATS converted to thoracotomy/decortication/chest tube placements Septic Shock improving s/p Cardiac Arrest COPD Anemia DM - continue antibiotics - chest tubes to low wall suction - pain control - incentive spirometry - inhaled bronchodilators - O2 to keep SpO2 >90% - OOB to chair - DVT prophylaxis - continue ICU monitoring critical care time spent in reviewing chart, evaluating patient and formulating plan 35min
--- NOTE | 2017-06-29 12:49 | PN ---
Progress Note (short form) - Note Progress Note: ID Zosyn continues Selected Entries 06/29/17 06/29/17 06/29/17 08:46 10:00 12:00 Temperature 98 F Pulse Rate 104 H Respiratory 16 Rate Blood Pressure 127/74 O2 Sat by Pulse 93 L Oximetry (%) Oxygen Flow 4 Rate Chest tubes x 2 Microbiology 06/24/17 11:00 Tissue-Other Gram Stain - Final 06/24/17 11:00 Tissue-Other Anaerobic Culture - Final NO GROWTH OF AEROBIC ORGANISMS AFTER 48 HOURS INCUBATION NO ANAEROBES WERE ISOLATED 06/24/17 09:40 Pleural Fluid Gram Stain - Final 06/24/17 09:40 Pleural Fluid Anaerobic Culture - Final NO GROWTH OF AEROBIC ORGANISMS AFTER 48 HOURS INCUBATION NO ANAEROBES WERE ISOLATED 06/24/17 09:40 Bronchial Washings - Right Upper Lobe Gram Stain - Final 06/24/17 09:40 Bronchial Washings - Right Upper Lobe Bronchoalveolar Lavage Culture - Final 06/21/17 16:30 Pleural Fluid Gram Stain - Final 06/21/17 16:30 Pleural Fluid Anaerobic Culture - Final NO GROWTH OF AEROBIC ORGANISMS AFTER 48 HOURS INCUBATION NO ANAEROBES WERE ISOLATED 06/24/17 11:00 Lung - Right REBECA Preparation - Preliminary 06/24/17 11:00 Lung - Right Fungal Culture - Preliminary 06/24/17 10:07 Lung - Right AFB Smear Concentration - Preliminary 06/24/17 10:07 Lung - Right Mycobacterial Culture - Preliminary 06/24/17 09:40 Pleural Fluid REBECA Preparation - Preliminary 06/24/17 09:40 Pleural Fluid Fungal Culture - Preliminary 06/24/17 09:40 Pleural Fluid AFB Smear Concentration - Preliminary 06/24/17 09:40 Pleural Fluid Mycobacterial Culture - Preliminary 06/24/17 09:40 Bronchial Washings - Right Upper Lobe REBECA Preparation - Preliminary 06/24/17 09:40 Bronchial Washings - Right Upper Lobe Fungal Culture - Preliminary 06/24/17 09:40 Bronchial Washings - Right Upper Lobe AFB Smear Concentration - Preliminary 06/24/17 09:40 Bronchial Washings - Right Upper Lobe Mycobacterial Culture - Preliminary 06/21/17 16:30 Pleural Fluid REBECA Preparation - Preliminary 06/21/17 16:30 Pleural Fluid Fungal Culture - Preliminary Assessment Post op thoracotomy day 5 Larngeal CA by history Post cardiac arrest previously Plan Same antibiotic for today Laboratory Tests 06/29/17 05:50 WBC 19.3 H D Hgb 10.0 L D Hct 31.0 L D Plt Count 477 H Problem List - Problems (1) COPD (chronic obstructive pulmonary disease) Code(s): J44.9 - CHRONIC OBSTRUCTIVE PULMONARY DISEASE, UNSPECIFIED Qualifiers : COPD type: COPD with acute exacerbation Qualified Code(s): J44.1 - Chronic obstructive pulmonary disease with (acute) exacerbation; J44.1 - Chronic obstructive pulmonary disease with (acute) exacerbation; J44.1 - Chronic obstructive pulmonary disease with (acute) exacerbation; J44.1 - Chronic obstructive pulmonary disease with (acute) exacerbation (2) History of throat cancer Code(s): Z85.819 - PRSNL HX OF MALIG NEOPLM OF UNSP SITE LIP,ORAL CAV,& PHARYNX (3) Empyema Code(s): J86.9 - PYOTHORAX WITHOUT FISTULA (4) Hemoptysis Code(s): R04.2 - HEMOPTYSIS
--- NOTE | 2017-06-29 13:44 | PN ---
Physical Exam: SUBJECTIVE: 67 yo M with h/o COPD, PTSD ([place] ), chronic tobacco use, and throat cancer in remission s/p radiation therapy who presents to ICU with right sided loculated pleural effusion day 5 s/p VATS with BL chest tube placement complicated with cardiac arrest and ROSC. Overnight no acute events. On encounter patient is alert, and resting comfortably in bed. He denies fevers/chills, chest pain, dysuria, melena/ hematochezia abdominal pain, or difficulty sleeping. Breathing is improved pain well controlled with hydromorphone. Pt. Afebrile and hemodynamically stable. Right lat chest tube 80 cc serosainguenous output in 24 hours. + BL air leak from chest tubes. CXR with small right sided pneumothorax. Goal for patient is to ambulate with physical therapy today. OBJECTIVE: Vital Signs Period Temp Pulse Resp BP Sys/Bunn Pulse Ox Last 24 Hr 98 F-98.5 F 82-131 12-23 111-167/63-96 93-100 GENERAL: Patient on 2 L NC. The patient is awake, alert, and fully oriented, in no acute distress. HEAD: Normal with no signs of trauma. NECK: supple without lymphadenopathy, JVD, or masses. LUNGS: chest tubes in place c/d/i. + Serosaingenous drainge. + Coarse lung sounds bilaterally. Dullness to percussion at right lung base. No accessory muscle use. + BL air leak in chest tubes. HEART:+ Apical systolic murmur. Normal S1 and S2 without rub or gallop. ABDOMEN: Soft, nontender, not distended, normoactive bowel sounds, no guarding, no rebound, no masses. No hepatomegaly or splenomegaly. MUSCULOSKELETAL: Normal range of motion at all joints. No bony deformities or tenderness. No CVA tenderness. UPPER EXTREMITIES: 2+ pulses, warm, well-perfused. No cyanosis. No clubbing. Cap refill <2 seconds. No peripheral edema. LOWER EXTREMITIES: 2+ pulses, warm, well-perfused. No calf tenderness. No peripheral edema. PSYCHIATRIC: Appropriate mood and affect. SKIN: Warm, dry, normal turgor, no rashes or lesions noted. Laboratory Results - last 24 hr 06/29/17 06/29/17 05:50 05:50 WBC 19.3 H D RBC 3.64 L Hgb 10.0 L D Hct 31.0 L D MCV 85.2 MCH 27.5 MCHC 32.3 RDW 17.1 H Plt Count 477 H MPV 7.9 Sodium 143 Potassium 4.2 Chloride 101 Carbon Dioxide 33 H Anion Gap 9 BUN 28 H Creatinine 0.5 L Creat Clearance w eGFR > 60 Random Glucose 78 Calcium 7.4 L Phosphorus 2.7 Magnesium 2.4 Total Bilirubin 0.4 D AST 22 D ALT 45 Alkaline Phosphatase 95 Total Protein 6.3 L Albumin 1.8 L Active Medications Generic Name Dose Route Start Last Admin Trade Name Freq PRN Reason Stop Dose Admin Acetaminophen 325 mg 06/19/17 17:16 06/28/17 04:38 Tylenol - PO 325 mg Q6H PRN Administration FEVER OR PAIN Albuterol Sulfate 1 amp 06/26/17 08:26 06/26/17 10:53 Ventolin 0.083% Nebulizer Soln - NEB 1 amp Q2H PRN Administration SHORT OF BREATH/WHEEZING Albuterol/Ipratropium 1 amp 06/26/17 12:00 06/29/17 11:41 Duoneb - NEB 1 amp Q6H [facility] Administration Enoxaparin Sodium 40 mg 06/25/17 13:00 06/29/17 09:16 Lovenox - SQ 40 mg DAILY [facility] Administration Hydromorphone HCl 1 mg 06/25/17 09:31 06/29/17 06:30 Dilaudid Injection - IVPUSH 1 mg Q4H PRN Administration PAIN Insulin Aspart 1 vial 06/24/17 23:00 06/29/17 05:41 Novolog Vial Sliding Scale - SQ Not Given Q6H [facility] Protocol Multivitamins/Minerals/Vitamin C 1 tab 06/20/17 14:15 06/29/17 09:15 Tab-A-Vit - PO 1 tab DAILY [facility] Administration Pantoprazole Sodium 40 mg 06/21/17 20:00 06/29/17 09:16 Protonix - PO 40 mg DAILY [facility] Administration Piperacillin Sod/Tazobactam Sod 4.5 gm 06/20/17 14:00 06/29/17 09:15 Zosyn 4.5gm Ivpb (Pre-Docked) IVPB 4.5 gm Q8H-IV [facility] Administration Prednisone 40 mg 06/29/17 10:00 06/29/17 09:37 Deltasone - PO 40 mg DAILY [facility] Administration Zolpidem Tartrate 5 mg 06/28/17 22:00 06/28/17 22:34 Ambien - PO 5 mg HS PRN Administration INSOMNIA ASSESSMENT/PLAN: ASSESSMENT/PLAN: 67 yo M with h/o COPD, PTSD ([place] ), chronic tobacco use, and throat cancer in remission s/p radiation therapy who presents to ICU with right sided loculated pleural effusion day 4 s/p VATS with BL chest tube placement complicated with cardiac arrest and ROSC. Neuro: H/o PTSD -A&Ox3 - holding PTSD medications Cardiovascular: Anemia: stable - Hgb 11.1 -9.0 (06/24) - PRBC if Hgb <7.0. Patient given 1 PRBC (06/21) - Fe studies: Anemia of chronic disease. Ferritin 384.676 Plan: - Trend Hgb/Hct - Transfuse to maintain Hgb>8.0 Day 1 s/p cardiac arrest: - (06/24) Patient arrived from OR without difficulty following flexible bronchoscopy, right thoracoscopy, pneumolysis, thoracotomy, and decortication. 30 minutes upon his arrival SBP dropped from 100's-60's. Patient was given 1 L NS and SBP improved to 90's. 5-10 minutes later SBP declined to 46, and patient became bradycardic. 1 Unit PRBC was then ordered. Shortly after patient developed PEA and 4 cycles of chest compressions were started, Epi x 1. Patient then ROSC and chest compressions were withheld. SBP improved to 187. 2 minutes later patient developed v-tach and v-fib and cardioverted to NSR at 200 Joules. Central line was placed. - Most likely 2/2 mucous plugging or atelectasis - EKG with NSR and low voltage QRS waves - Chest tube management - Echo pending: To assess ventricular and valve function Pulmonary: Massive R sided loculated pleural effusion: Possible right sided complicated parapneumoinic effusion vs empyema 2/2 to infection vs. paraneoplastic effusion or malignancy. - Day 4 s/p VATS and chest tube placement x 3. - Most likely 2/2 empyema. - Pleural protein/Total protein ratio of 5.249/6.4- 0.82, Pleural LDH 84192/ (2/ 3 x upper limit of normal)- 148. Lites criteria positive for exudative effusion. - cytology (06/24) reveals non malignant cells with increased inflammatory cells. - R chest pig tail placement; insufficient purulent drainage ( 520 cc total) wit minimal cxr improvement -pleural fluid exudative, gram stain negative, cytology p/d; send out triglyceride level -CT chest ( 06/19) Centrilobular emphysema, large partially loculated right sided pleural effusion, nonspeciifc free fluid in abdomen and pelvis. CT chest from past summer depicts RML consolidation -blood cultures negative - Patient afebrile through admission. - WBC on admission 33,000--> 19.3 ( 06/29) -Per cardiothoracic discuss risk/benefit of tPA x2 with patient vs. surgical management. - HIV negative - Unasyn D/c'd - CXR ( small right sided pneumothorax) Plan: - continue zosyn ( Day 9 ) - BiPAP PRN - Pulmonary hygeine - Up with ambulation PT. - Adequate pain control with IV Tylenol, and dilaudid - Chest tube management. - Pathology pending Hemoptysis: 2/2 malignancy vs. underlying infection. - In setting of underlying infection - resolved COPD: -Albuterol PRN - incentive spriometry - BiPAP Tobacco/smoking: -smoking cessation/counseling Oncology - Thrombocytosis and increased RDW - Per Dr. Kaur ( Oncology) (06/24) bone marrow biopsy to evaluate MDS -Thrombocytosis may be reactive in setting of empyema. FEN -No IVF -Lytes PRN -DM diet as tolerated PPx: PPI Dispo: monitor in ICU Problem List - Problems (1) Empyema Code(s): J86.9 - PYOTHORAX WITHOUT FISTULA Visit type - Emergency Visit Emergency Visit: Yes ED Registration Date: 06/19/17 Care time: The patient presented to the Emergency Department on the above date and was hospitalized for further evaluation of their emergent condition. - New Patient This patient is new to me today: No - Critical Care Critical Care patient: Yes Total Critical Care Time (in minutes): 30 Critical Care Statement: The care of this patient involved high complexity decision making to prevent further life threatening deterioration of the patient 's condition and/or to evaluate & treat vital organ system(s) failure or risk of failure.
--- NOTE | 2017-06-29 16:08 | PN ---
Progress Note (short form) - Note Progress Note: Thoracic Attending: Improving. Pain well-controlled. CXR stable. CT drainage minimal but drainage more sanguineous. Air-leak smaller. Continue resp therapy, ambulation, CT's to suction. WBC more elevated as is HCT. Spurious? Will reassess drainage tomorrow, possibly water seal chest tubes.
[2017-06-29] MEDS ORDERED: oxyCODONE HCL 5 MG TABLET PO PRN (16:23)
--- NOTE | 2017-06-29 17:09 | PN ---
Progress Note, Physician Chief Complaint: Patient seen,alert, comfortable, hungry, not dyspneic. The wheezing resolved, he is using O2, there was no fever during the night. One chest tube was removed and the other 2 are draining sangvinolent fluid. The patient had a couple of episodes of MAT earlier today which subsided spontaneously. History of Present Illness: 67 yo male with PMH of ENT cancer was admitted with complaints of weight loss, poor appetite and elevated WBC. He was diagnosed with right empyema which was treated with VATS pulmonary decortication and temporary placement of 3 right chest tubes. The right chest pain responds to Dilaudid. The patient coded post op and had to be intubated due to low blood pressure and collapsed right lung. The patient was extubated and is off pressors, the central line and the Cruz catheter were discontinued.One of the 3 chest tubes was removed and the patient has 2 left. - Current Medication List Current Medications: Active Medications Acetaminophen (Tylenol -) 325 mg PO Q6H PRN PRN Reason: FEVER OR PAIN Last Admin: 06/28/17 04:38 Dose: 325 mg Albuterol Sulfate (Ventolin 0.083% Nebulizer Soln -) 1 amp NEB Q2H PRN PRN Reason: SHORT OF BREATH/WHEEZING Last Admin: 06/26/17 10:53 Dose: 1 amp Albuterol/Ipratropium (Duoneb -) 1 amp NEB Q6H [facility] Last Admin: 06/29/17 11:41 Dose: 1 amp Enoxaparin Sodium (Lovenox -) 40 mg SQ DAILY [facility] Last Admin: 06/29/17 09:16 Dose: 40 mg Insulin Aspart (Novolog Vial Sliding Scale -) 1 vial SQ Q6H [facility] PRN Reason: Protocol Last Admin: 06/29/17 16:27 Dose: 2 units Multivitamins/Minerals/Vitamin C (Tab-A-Vit -) 1 tab PO DAILY [facility] Last Admin: 06/29/17 09:15 Dose: 1 tab Oxycodone HCl (Roxicodone -) 10 mg PO Q4H PRN PRN Reason: PAIN Pantoprazole Sodium (Protonix -) 40 mg PO DAILY [facility] Last Admin: 06/29/17 09:16 Dose: 40 mg Piperacillin Sod/Tazobactam Sod (Zosyn 4.5gm Ivpb (Pre-Docked)) 4.5 gm IVPB Q8H -IV [facility] Last Admin: 06/29/17 09:15 Dose: 4.5 gm Prednisone (Deltasone -) 40 mg PO DAILY [facility] Last Admin: 06/29/17 09:37 Dose: 40 mg Zolpidem Tartrate (Ambien -) 5 mg PO HS PRN PRN Reason: INSOMNIA Last Admin: 06/28/17 22:34 Dose: 5 mg - Objective Vital Signs: Vital Signs Temperature 98.3 F 06/29/17 13:01 Pulse Rate 92 H 06/29/17 16:43 Respiratory Rate 18 06/29/17 16:43 Blood Pressure 110/89 06/29/17 16:43 O2 Sat by Pulse Oximetry (%) 93 L 06/29/17 08:46 Constitutional: Yes: No Distress, Calm, Other Eyes: Yes: Conjunctiva Clear HENT: Yes: Atraumatic, Normocephalic Neck: Yes: Supple, Trachea Midline Cardiovascular: Yes: Regular Rate and Rhythm, S1, S2 Respiratory: Yes: Other (rigt lung rubs, no wheezes. no crackles from bottom to the top) Gastrointestinal: Yes: Normal Bowel Sounds, Soft ...Rectal Exam: Yes: Deferred Genitourinary: Yes: Other (Fol;ey's discontinued) Extremities: No: Calf Tenderness Edema: No Peripheral Pulses WNL: Yes Integumentary: Yes: Other (justus right hemithorax) Wound/Incision: Yes: Well Approximated, Justus Intact (right hemithorax) Neurological: Yes: Alert, Oriented Psychiatric: Yes: Alert, Oriented Labs: CBC, BMP 06/29/17 05:50 06/29/17 05:50 INR, PTT INR 1.23 (0.82-1.09) H 06/24/17 14:40 - ....Imaging Chest X-ray: Other (improved aeration atthe right luing base, no fluid) Problem List - Problems (1) Empyema Assessment/Plan: S/p decortication and VATS, with 2 chest tubes planted in the right hemithorax continue empiric IV antibiotics since cultures and Gram stain are negative WBC normalizing Code(s): J86.9 - PYOTHORAX WITHOUT FISTULA (2) COPD (chronic obstructive pulmonary disease) Assessment/Plan: Albuterol nebulizer changed to every 6 hours scheduled and not prn added Albuterol nebs every 2 hours prn switched to Prednisone po Code(s): J44.9 - CHRONIC OBSTRUCTIVE PULMONARY DISEASE, UNSPECIFIED Qualifiers : COPD type: COPD with acute exacerbation Qualified Code(s): J44.1 - Chronic obstructive pulmonary disease with (acute) exacerbation; J44.1 - Chronic obstructive pulmonary disease with (acute) exacerbation; J44.1 - Chronic obstructive pulmonary disease with (acute) exacerbation; J44.1 - Chronic obstructive pulmonary disease with (acute) exacerbation (3) Schizoaffective disorder Assessment/Plan: on no medications Code(s): F25.9 - SCHIZOAFFECTIVE DISORDER, UNSPECIFIED Qualifiers: Schizoaffective disorder type: unspecified Qualified Code(s): F25.9 - Schizoaffective disorder, unspecified; F25.9 - Schizoaffective disorder, unspecified; F25.9 - Schizoaffective disorder, unspecified; F25.9 - Schizoaffective disorder, unspecified (4) Cardiac arrest Assessment/Plan: had a couple of episodes of MAT associated with Oxygen desaturation l Code(s): I46.9 - CARDIAC ARREST, CAUSE UNSPECIFIED (5) Cachexia Assessment/Plan: proteo caloric malnutrition the patient has poor nutritional status,restarted regular diet, add Glucerna Code(s): R64 - CACHEXIA (6) Glucose intolerance (impaired glucose tolerance) Assessment/Plan: on accuchecks Code(s): R73.02 - IMPAIRED GLUCOSE TOLERANCE (ORAL) (7) History of throat cancer Assessment/Plan: pleural fluid negative for malignancy Code(s): Z85.819 - PRSNL HX OF MALIG NEOPLM OF UNSP SITE LIP,ORAL CAV,& PHARYNX (8) Fluid overload Assessment/Plan: associated with wheezing Lasix 40 mg iv given twice over the past 48 hours improved the patient's respiratory status monitor output switched to po Prednisone Code(s): E87.70 - FLUID OVERLOAD, UNSPECIFIED (9) Multifocal atrial tachycardia Assessment/Plan: check ABG in Am Code(s): I47.1 - SUPRAVENTRICULAR TACHYCARDIA
[2017-06-29] MEDS: ZOLPIDEM TARTRATE 5 MG TABLET PO PRN (23:30)
[2017-06-29] MEDS: oxyCODONE HCL 5 MG TABLET PO PRN (23:30)
[2017-06-30] MEDS ORDERED: PIPERACILLIN/TAZOB 4.5 GM/100 ML PRE-DOCKED IVPB ONE (02:00)
[2017-06-30] MEDS: INSULIN SLIDING SCALE (NOVOLOG) 1 VIAL SQ SCH ×4 (04:52→23:25)
[2017-06-30] MEDS: oxyCODONE HCL 5 MG TABLET PO PRN ×2 (06:13→23:21)
[2017-06-30 06:16] LABS: BASOPHIL 0.2 % (0-2.0); EOSINOPHIL 0.5 % (0-4.5); MCH 27.8 pg (25.7-33.7); MCHC 32.5 g/dl (32.0-35.9); MEAN CELL VOLUME 85.4 fl (80-96); MEAN PLT VOLUME 8.4 fl (7.5-11.1); NEUTROPHILS 81.2 % (42.8-82.8); PLATELET COUNT 499 K/MM3 (134-434); RDW 17.7 % (11.9-15.9); WHITE BLOOD COUNT 15.7 K/mm3 (4.0-10.0)
[2017-06-30 06:41] LABS: ALBUMIN 1.8 g/dl (3.4-5.0); ANION GAP 4 (8-16); CALCIUM 8.4 mg/dL (8.5-10.1); CO2 37 mmol/L (21-32); CREATININE 0.6 mg/dL (0.7-1.3); GLUCOSE,RANDOM 90 mg/dL (74-106); SGOT/AST 19 U/L (15-37); SGPT/ALT 38 U/L (12-78)
[2017-06-30 06:43] LABS: ALK PHOS 95 U/L (45-117); BILIRUBIN,TOTAL 0.3 mg/dL (0.2-1.0); TOT PROT 6.3 g/dl (6.4-8.2)
[2017-06-30] MEDS: ALBUTEROL SO4 2.5/IPRATROPIUM 0.5 INH SOL 3 ML VIAL.NEB. NEB SCH ×3 (06:55→17:30)
--- NOTE | 2017-06-30 08:07 | PN ---
Progress Note, Physician Chief Complaint: ID Stable with chest tubes Zosyn day 6 since thoracotomy - Current Medication List Current Medications: Active Medications Acetaminophen (Tylenol -) 325 mg PO Q6H PRN PRN Reason: FEVER OR PAIN Albuterol Sulfate (Ventolin 0.083% Nebulizer Soln -) 1 amp NEB Q2H PRN PRN Reason: SHORT OF BREATH/WHEEZING Albuterol/Ipratropium (Duoneb -) 1 amp NEB QIDR [facility] Last Admin: 06/30/17 06:55 Dose: Not Given Enoxaparin Sodium (Lovenox -) 40 mg SQ DAILY [facility] Insulin Aspart (Novolog Vial Sliding Scale -) 1 vial SQ Q6H [facility] PRN Reason: Protocol Last Admin: 06/30/17 04:52 Dose: Not Given Multivitamins/Minerals/Vitamin C (Tab-A-Vit -) 1 tab PO DAILY [facility] Oxycodone HCl (Roxicodone -) 10 mg PO Q4H PRN PRN Reason: PAIN Last Admin: 06/30/17 06:13 Dose: 10 mg Pantoprazole Sodium (Protonix -) 40 mg PO DAILY [facility] Piperacillin Sod/Tazobactam Sod (Zosyn 4.5gm Ivpb (Pre-Docked)) 4.5 gm IVPB Q8H -IV [facility] Prednisone (Deltasone -) 40 mg PO DAILY [facility] Zolpidem Tartrate (Ambien -) 5 mg PO HS PRN PRN Reason: INSOMNIA Last Admin: 06/29/17 23:30 Dose: 5 mg - Objective Vital Signs: Vital Signs Temperature 98.0 F 06/30/17 05:47 Pulse Rate 78 06/30/17 05:47 Respiratory Rate 18 06/30/17 05:47 Blood Pressure 125/77 06/30/17 05:47 O2 Sat by Pulse Oximetry (%) 98 06/29/17 21:00 Constitutional: Yes: Cachectic Neck: Yes: WNL, Supple Cardiovascular: Yes: S1, S2 Respiratory: Yes: WNL, Regular, CTA Bilaterally. No: Rhonchi Gastrointestinal: Yes: WNL, Normal Bowel Sounds, Soft. No: Tenderness, Tenderness, Rebound Extremities: No: Cold, Cool, Cyanosis Labs: CBC, BMP 06/30/17 05:00 06/30/17 05:00 INR, PTT INR 1.23 (0.82-1.09) H 06/24/17 14:40 Problem List - Problems (1) COPD (chronic obstructive pulmonary disease) Code(s): J44.9 - CHRONIC OBSTRUCTIVE PULMONARY DISEASE, UNSPECIFIED Qualifiers : COPD type: COPD with acute exacerbation Qualified Code(s): J44.1 - Chronic obstructive pulmonary disease with (acute) exacerbation; J44.1 - Chronic obstructive pulmonary disease with (acute) exacerbation; J44.1 - Chronic obstructive pulmonary disease with (acute) exacerbation; J44.1 - Chronic obstructive pulmonary disease with (acute) exacerbation (2) History of throat cancer Code(s): Z85.819 - PRSNL HX OF MALIG NEOPLM OF UNSP SITE LIP,ORAL CAV,& PHARYNX (3) Empyema Code(s): J86.9 - PYOTHORAX WITHOUT FISTULA (4) Hemoptysis Code(s): R04.2 - HEMOPTYSIS Assessment/Plan Laboratory Tests 06/30/17 06/30/17 05:00 05:00 WBC 15.7 H Hgb 9.7 L Hct 29.9 L Plt Count 499 H BUN 28 H Creatinine 0.6 L Creat Clearance w eGFR > 60 Assessment Post VAT for empyema ( culture negative) COPD History of CA Plan Stop Zosyn Augmentin for 3 more days Elevated WBC secondary to steroids Kindly recall for any questions Isabella ROBERTS
[2017-06-30] MEDS: ENOXAPARIN NA (PORCINE) 40 MG/0.4 ML DISP.SYRIN SQ SCH (09:44)
[2017-06-30] MEDS: MULTIVITAMINS (DAILY MVI) TABLET (FP) PO SCH (09:45)
[2017-06-30] MEDS: PANTOPRAZOLE 40 MG TABLET (FP) PO SCH (09:45)
[2017-06-30] MEDS ORDERED: PIPERACILLIN/TAZOB 4.5 GM/100 ML PRE-DOCKED IVPB SCH (10:00)
[2017-06-30] MEDS ORDERED: predniSONE 20 MG TABLET (UD) PO SCH (10:00)
--- NOTE | 2017-06-30 11:37 | PN ---
Progress Note, Physician Chief Complaint: Patient seen,had a few episodes of sinus tachycardia at 130 b/min, there is no ABG available for today BGM's less then 100mg/dl during the afternoon alert, comfortable, hungry, not dyspneic. There is no wheezing, he is using O2, there was no fever during the night.Second chest tube was removed and the other 1 is draining sangvinolent fluid History of Present Illness: 67 yo male with PMH of ENT cancer was admitted with complaints of weight loss, poor appetite and elevated WBC. He was diagnosed with right empyema which was treated with VATS pulmonary decortication and temporary placement of 3 right chest tubes. The right chest pain responds to Dilaudid. The patient coded post op and had to be intubated due to low blood pressure and collapsed right lung. The patient was extubated and is off pressors, the central line and the Cruz catheter were discontinued.Two of the 3 chest tubes was removed and the patient has one left. - Current Medication List Current Medications: Active Medications Acetaminophen (Tylenol -) 325 mg PO Q6H PRN PRN Reason: FEVER OR PAIN Albuterol Sulfate (Ventolin 0.083% Nebulizer Soln -) 1 amp NEB Q2H PRN PRN Reason: SHORT OF BREATH/WHEEZING Albuterol/Ipratropium (Duoneb -) 1 amp NEB QIDR [facility] Last Admin: 06/30/17 06:55 Dose: Not Given Amoxicillin/Clavulanate Potassium (Augmentin - 875mg Tablet) 1 tab PO BID@0800, 1730 [facility] Enoxaparin Sodium (Lovenox -) 40 mg SQ DAILY [facility] Last Admin: 06/30/17 09:44 Dose: 40 mg Insulin Aspart (Novolog Vial Sliding Scale -) 1 vial SQ Q6H [facility] PRN Reason: Protocol Last Admin: 06/30/17 04:52 Dose: Not Given Multivitamins/Minerals/Vitamin C (Tab-A-Vit -) 1 tab PO DAILY [facility] Last Admin: 06/30/17 09:45 Dose: 1 tab Oxycodone HCl (Roxicodone -) 10 mg PO Q4H PRN PRN Reason: PAIN Last Admin: 06/30/17 06:13 Dose: 10 mg Pantoprazole Sodium (Protonix -) 40 mg PO DAILY [facility] Last Admin: 06/30/17 09:45 Dose: 40 mg Prednisone (Deltasone -) 20 mg PO DAILY [facility] Zolpidem Tartrate (Ambien -) 5 mg PO HS PRN PRN Reason: INSOMNIA Last Admin: 06/29/17 23:30 Dose: 5 mg - Objective Vital Signs: Vital Signs Temperature 98.4 F 06/30/17 09:00 Pulse Rate 70 06/30/17 09:00 Respiratory Rate 20 06/30/17 09:00 Blood Pressure 108/63 06/30/17 09:00 O2 Sat by Pulse Oximetry (%) 99 06/30/17 09:00 Constitutional: Yes: No Distress, Calm Eyes: Yes: Conjunctiva Clear, EOM Intact HENT: Yes: Atraumatic, Normocephalic Neck: Yes: Supple, Trachea Midline Cardiovascular: Yes: Regular Rate and Rhythm Respiratory: Yes: Regular Gastrointestinal: Yes: Normal Bowel Sounds, Soft ...Rectal Exam: Yes: Deferred Extremities: Yes: WNL Edema: No Peripheral Pulses WNL: Yes Psychiatric: Yes: Alert, Oriented Labs: CBC, BMP 06/30/17 05:00 06/30/17 05:00 INR, PTT INR 1.23 (0.82-1.09) H 06/24/17 14:40 Problem List - Problems (1) Empyema Assessment/Plan: S/p decortication and VATS, with 2 chest tubes planted in the right hemithorax continue empiric IV antibiotics since cultures and Gram stain are negative WBC normalizing Code(s): J86.9 - PYOTHORAX WITHOUT FISTULA (2) COPD (chronic obstructive pulmonary disease) Assessment/Plan: Albuterol nebulizer changed to every 6 hours scheduled and not prn added Albuterol nebs every 2 hours prn switched to Prednisone po Code(s): J44.9 - CHRONIC OBSTRUCTIVE PULMONARY DISEASE, UNSPECIFIED Qualifiers : COPD type: COPD with acute exacerbation Qualified Code(s): J44.1 - Chronic obstructive pulmonary disease with (acute) exacerbation; J44.1 - Chronic obstructive pulmonary disease with (acute) exacerbation; J44.1 - Chronic obstructive pulmonary disease with (acute) exacerbation; J44.1 - Chronic obstructive pulmonary disease with (acute) exacerbation (3) Schizoaffective disorder Assessment/Plan: on no medications Code(s): F25.9 - SCHIZOAFFECTIVE DISORDER, UNSPECIFIED Qualifiers: Schizoaffective disorder type: unspecified Qualified Code(s): F25.9 - Schizoaffective disorder, unspecified; F25.9 - Schizoaffective disorder, unspecified; F25.9 - Schizoaffective disorder, unspecified; F25.9 - Schizoaffective disorder, unspecified (4) Cardiac arrest Assessment/Plan: had a couple of episodes of MAT associated with Oxygen desaturation l Code(s): I46.9 - CARDIAC ARREST, CAUSE UNSPECIFIED (5) Cachexia Assessment/Plan: proteo caloric malnutrition the patient has poor nutritional status,restarted regular diet, add Glucerna Code(s): R64 - CACHEXIA (6) Glucose intolerance (impaired glucose tolerance) Assessment/Plan: on accuchecks Code(s): R73.02 - IMPAIRED GLUCOSE TOLERANCE (ORAL) (7) History of throat cancer Assessment/Plan: pleural fluid negative for malignancy Code(s): Z85.819 - PRSNL HX OF MALIG NEOPLM OF UNSP SITE LIP,ORAL CAV,& PHARYNX (8) Fluid overload Assessment/Plan: associated with wheezing Lasix 40 mg iv given twice over the past 48 hours improved the patient's respiratory status monitor output switched to po Prednisone Code(s): E87.70 - FLUID OVERLOAD, UNSPECIFIED (9) Multifocal atrial tachycardia Assessment/Plan: check ABG in Am Code(s): I47.1 - SUPRAVENTRICULAR TACHYCARDIA
--- NOTE | 2017-06-30 12:10 | PN ---
Progress Note, Physician History of Present Illness: Resting in bed on [place], denies chest pain or dyspnea, no arrhythmias on telemetry. - Current Medication List Current Medications: Active Medications Acetaminophen (Tylenol -) 325 mg PO Q6H PRN PRN Reason: FEVER OR PAIN Albuterol Sulfate (Ventolin 0.083% Nebulizer Soln -) 1 amp NEB Q2H PRN PRN Reason: SHORT OF BREATH/WHEEZING Albuterol/Ipratropium (Duoneb -) 1 amp NEB QIDR [facility] Last Admin: 06/30/17 06:55 Dose: Not Given Amoxicillin/Clavulanate Potassium (Augmentin - 875mg Tablet) 1 tab PO BID@0800, 1730 [facility] Stop: 07/03/17 08:01 Enoxaparin Sodium (Lovenox -) 40 mg SQ DAILY [facility] Last Admin: 06/30/17 09:44 Dose: 40 mg Insulin Aspart (Novolog Vial Sliding Scale -) 1 vial SQ Q6H [facility] PRN Reason: Protocol Last Admin: 06/30/17 12:05 Dose: Not Given Multivitamins/Minerals/Vitamin C (Tab-A-Vit -) 1 tab PO DAILY [facility] Last Admin: 06/30/17 09:45 Dose: 1 tab Oxycodone HCl (Roxicodone -) 10 mg PO Q4H PRN PRN Reason: PAIN Last Admin: 06/30/17 06:13 Dose: 10 mg Pantoprazole Sodium (Protonix -) 40 mg PO DAILY [facility] Last Admin: 06/30/17 09:45 Dose: 40 mg Prednisone (Deltasone -) 20 mg PO DAILY [facility] Zolpidem Tartrate (Ambien -) 5 mg PO HS PRN PRN Reason: INSOMNIA Last Admin: 06/29/17 23:30 Dose: 5 mg - Objective Vital Signs: Vital Signs Temperature 98.4 F 06/30/17 09:00 Pulse Rate 70 06/30/17 09:00 Respiratory Rate 20 06/30/17 09:00 Blood Pressure 108/63 06/30/17 09:00 O2 Sat by Pulse Oximetry (%) 99 06/30/17 09:00 Constitutional: Yes: No Distress, Calm, Thin Neck: Yes: Supple Cardiovascular: Yes: Regular Rate and Rhythm Respiratory: Yes: Regular, Diminished, On Nasal O2, Other (Right chest tube in situ) Gastrointestinal: Yes: Normal Bowel Sounds, Soft Edema: No Labs: CBC, BMP 06/30/17 05:00 06/30/17 05:00 INR, PTT INR 1.23 (0.82-1.09) H 06/24/17 14:40 - ....Imaging Chest X-ray: Report Reviewed (Right based PTX, [address]) Problem List - Problems (1) Acute blood loss anemia Code(s): D62 - ACUTE POSTHEMORRHAGIC ANEMIA (2) COPD (chronic obstructive pulmonary disease) Code(s): J44.9 - CHRONIC OBSTRUCTIVE PULMONARY DISEASE, UNSPECIFIED Qualifiers : COPD type: COPD with acute exacerbation Qualified Code(s): J44.1 - Chronic obstructive pulmonary disease with (acute) exacerbation; J44.1 - Chronic obstructive pulmonary disease with (acute) exacerbation; J44.1 - Chronic obstructive pulmonary disease with (acute) exacerbation; J44.1 - Chronic obstructive pulmonary disease with (acute) exacerbation (3) Empyema Code(s): J86.9 - PYOTHORAX WITHOUT FISTULA (4) Hemoptysis Code(s): R04.2 - HEMOPTYSIS (5) History of throat cancer Code(s): Z85.819 - PRSNL HX OF MALIG NEOPLM OF UNSP SITE LIP,ORAL CAV,& PHARYNX (6) PTSD (post-traumatic stress disorder) Code(s): F43.10 - POST-TRAUMATIC STRESS DISORDER, UNSPECIFIED (7) Schizoaffective disorder Code(s): F25.9 - SCHIZOAFFECTIVE DISORDER, UNSPECIFIED Qualifiers: Schizoaffective disorder type: unspecified Qualified Code(s): F25.9 - Schizoaffective disorder, unspecified; F25.9 - Schizoaffective disorder, unspecified; F25.9 - Schizoaffective disorder, unspecified; F25.9 - Schizoaffective disorder, unspecified (8) Leukocytosis Code(s): D72.829 - ELEVATED WHITE BLOOD CELL COUNT, UNSPECIFIED Qualifiers: Leukocytosis type: unspecified Qualified Code(s): D72.829 - Elevated white blood cell count, unspecified; D72.829 - Elevated white blood cell count, unspecified (9) Acute hypercapnic respiratory failure Code(s): J96.02 - ACUTE RESPIRATORY FAILURE WITH HYPERCAPNIA Assessment/Plan 06/25/2017 Echo: Normal LV size an xn with mild apical anterior HK, mild-mod MR, mild TR, RVSP 30-40 mmHg 1. Post-op bradycardic/asystolic arrest suspect mucous plugging and atelectasis 2. Hemoptysis and loculated empyema s/p R VATs/decort/converted --> Thora w/ CT x 3 (06/24) 3. h/o Laryngeal Ca 4. PTSD 5. Acute COPD Exacerbation improving 6. Anemia P: 1. BD, complete empiric abx course, steroid taper, wean FIO2 per saO2, transfuse to maintain Hgb>8.0, analgesia as needed 2. Chest tube management, daily CXR, f/u pleural fluid studies and cultures 3. DVT and GI prophylaxis
[2017-06-30] MEDS: predniSONE 20 MG TABLET (UD) PO SCH (12:15)
--- NOTE | 2017-06-30 16:35 | PN ---
Progress Note (short form) - Note Progress Note: POD#6. Ambulating. Breathing comfortable. CXR improving. CT drainage minimal. Second tube removed. One remaining. Still with air-leak. Will keep on suction to -10 until tomorrow at least, probably stay in until Wednesday AM. CXR tomorrow AM. Continue step-down care.
[2017-06-30] MEDS: AMOX TR/POT CLAV 875MG/125MG TABLETS (FP) PO SCH (17:34)
[2017-06-30] MEDS: ZOLPIDEM TARTRATE 5 MG TABLET PO PRN (23:22)
[2017-07-01] MEDS: oxyCODONE HCL 5 MG TABLET PO PRN ×3 (04:43→23:38)
[2017-07-01] MEDS: INSULIN SLIDING SCALE (NOVOLOG) 1 VIAL SQ SCH ×3 (04:47→17:18)
[2017-07-01] MEDS: ALBUTEROL SO4 2.5/IPRATROPIUM 0.5 INH SOL 3 ML VIAL.NEB. NEB SCH ×5 (07:35→23:45)
[2017-07-01 07:38] LABS: ARTERIAL BLD GAS O2 SATURATION 92.4 % (90-98.9); ARTERIAL BLOOD GAS BASE EXCESS 7.9 meq/l (-2-2); ARTERIAL BLOOD GAS HCO3 32.1 meq/L (22-26); ARTERIAL BLOOD GAS PO2 63.7 mmHg (80-100); ARTERIAL BLOOD GAS pH 7.47 (7.35-7.45)
[2017-07-01 07:43] LABS: ALLENS TEST POSITIVE; ART PUNCT SITE RIGHT RADIAL; PT. ON O2? NO
[2017-07-01 07:44] LABS: LPM/O2% 21%; TYPE OF O2 R/A
[2017-07-01] MEDS: predniSONE 20 MG TABLET (UD) PO SCH (09:48)
[2017-07-01] MEDS: AMOX TR/POT CLAV 875MG/125MG TABLETS (FP) PO SCH ×2 (09:48→16:51)
[2017-07-01] MEDS: MULTIVITAMINS (DAILY MVI) TABLET (FP) PO SCH (09:48)
[2017-07-01] MEDS: ENOXAPARIN NA (PORCINE) 40 MG/0.4 ML DISP.SYRIN SQ SCH (09:48)
[2017-07-01] MEDS: PANTOPRAZOLE 40 MG TABLET (FP) PO SCH (09:48)
[2017-07-01] MEDS ORDERED: INSULIN (NOVOLOG) ASPART 100 UNITS/ML 10ML VIAL ONE (10:11)
--- NOTE | 2017-07-01 10:45 | PN ---
Progress Note, Physician History of Present Illness: Resting in bed on [place], denies chest pain or dyspnea, no arrhythmias on telemetry. - Current Medication List Current Medications: Active Medications Acetaminophen (Tylenol -) 325 mg PO Q6H PRN PRN Reason: FEVER OR PAIN Albuterol Sulfate (Ventolin 0.083% Nebulizer Soln -) 1 amp NEB Q2H PRN PRN Reason: SHORT OF BREATH/WHEEZING Albuterol/Ipratropium (Duoneb -) 1 amp NEB QIDR [facility] Last Admin: 07/01/17 07:35 Dose: 1 amp Amoxicillin/Clavulanate Potassium (Augmentin - 875mg Tablet) 1 tab PO BID@0800, 1730 [facility] Stop: 07/03/17 08:01 Last Admin: 07/01/17 09:48 Dose: 1 tab Enoxaparin Sodium (Lovenox -) 40 mg SQ DAILY [facility] Last Admin: 07/01/17 09:48 Dose: 40 mg Insulin Aspart (Novolog Vial Sliding Scale -) 1 vial SQ Q6H [facility] PRN Reason: Protocol Last Admin: 07/01/17 10:07 Dose: 4 units Multivitamins/Minerals/Vitamin C (Tab-A-Vit -) 1 tab PO DAILY [facility] Last Admin: 07/01/17 09:48 Dose: 1 tab Oxycodone HCl (Roxicodone -) 10 mg PO Q4H PRN PRN Reason: PAIN Last Admin: 07/01/17 04:43 Dose: 10 mg Pantoprazole Sodium (Protonix -) 40 mg PO DAILY [facility] Last Admin: 07/01/17 09:48 Dose: 40 mg Prednisone (Deltasone -) 20 mg PO DAILY [facility] Last Admin: 07/01/17 09:48 Dose: 20 mg Zolpidem Tartrate (Ambien -) 5 mg PO HS PRN PRN Reason: INSOMNIA Last Admin: 06/30/17 23:22 Dose: 5 mg - Objective Vital Signs: Vital Signs Temperature 98.6 F 07/01/17 10:00 Pulse Rate 104 H 07/01/17 10:00 Respiratory Rate 20 07/01/17 10:00 Blood Pressure 116/71 07/01/17 10:00 O2 Sat by Pulse Oximetry (%) 94 L 07/01/17 09:59 Constitutional: Yes: No Distress, Calm, Thin Neck: Yes: Supple Cardiovascular: Yes: Regular Rate and Rhythm Respiratory: Yes: Regular, Diminished, Other (1 chest tube remaining) Edema: No Labs: CBC, BMP 06/30/17 05:00 06/30/17 05:00 INR, PTT INR 1.23 (0.82-1.09) H 06/24/17 14:40 - ....Imaging Chest X-ray: Report Reviewed (1 chest tube remaining on right) Problem List - Problems (1) Acute blood loss anemia Code(s): D62 - ACUTE POSTHEMORRHAGIC ANEMIA (2) COPD (chronic obstructive pulmonary disease) Code(s): J44.9 - CHRONIC OBSTRUCTIVE PULMONARY DISEASE, UNSPECIFIED Qualifiers : COPD type: COPD with acute exacerbation Qualified Code(s): J44.1 - Chronic obstructive pulmonary disease with (acute) exacerbation; J44.1 - Chronic obstructive pulmonary disease with (acute) exacerbation; J44.1 - Chronic obstructive pulmonary disease with (acute) exacerbation; J44.1 - Chronic obstructive pulmonary disease with (acute) exacerbation (3) Empyema Code(s): J86.9 - PYOTHORAX WITHOUT FISTULA (4) Hemoptysis Code(s): R04.2 - HEMOPTYSIS (5) History of throat cancer Code(s): Z85.819 - PRSNL HX OF MALIG NEOPLM OF UNSP SITE LIP,ORAL CAV,& PHARYNX (6) PTSD (post-traumatic stress disorder) Code(s): F43.10 - POST-TRAUMATIC STRESS DISORDER, UNSPECIFIED (7) Schizoaffective disorder Code(s): F25.9 - SCHIZOAFFECTIVE DISORDER, UNSPECIFIED Qualifiers: Schizoaffective disorder type: unspecified Qualified Code(s): F25.9 - Schizoaffective disorder, unspecified; F25.9 - Schizoaffective disorder, unspecified; F25.9 - Schizoaffective disorder, unspecified; F25.9 - Schizoaffective disorder, unspecified (8) Leukocytosis Code(s): D72.829 - ELEVATED WHITE BLOOD CELL COUNT, UNSPECIFIED Qualifiers: Leukocytosis type: unspecified Qualified Code(s): D72.829 - Elevated white blood cell count, unspecified; D72.829 - Elevated white blood cell count, unspecified (9) Acute hypercapnic respiratory failure Code(s): J96.02 - ACUTE RESPIRATORY FAILURE WITH HYPERCAPNIA Assessment/Plan 06/25/2017 Echo: Normal LV size an xn with mild apical anterior HK, mild-mod MR, mild TR, RVSP 30-40 mmHg 1. Post-op bradycardic/asystolic arrest suspect mucous plugging and atelectasis 2. Hemoptysis and loculated empyema s/p R VATs/decort/converted --> Thora w/ CT x 3 (06/24) 3. h/o Laryngeal Ca 4. PTSD 5. Acute COPD Exacerbation improving 6. Anemia P: 1. BD, complete empiric abx course, steroid taper, wean FIO2 per saO2, transfuse to maintain Hgb>8.0, analgesia as needed 2. Chest tube management, daily CXR, f/u pleural fluid studies and cultures 3. DVT and GI prophylaxis
--- NOTE | 2017-07-01 13:13 | PN ---
Progress Note (short form) - Note Progress Note: PULMONARY Denies shortness of breath or chest pain. Remaining chest tube with + air leak. Last Vital Signs Temp Pulse Resp BP Pulse Ox 98.6 F 104 H 20 116/71 98 07/01/17 10:00 07/01/17 10:00 07/01/17 10:00 07/01/17 10:00 07/01/17 11:32 Intake & Output 06/28/17 06/29/17 06/30/17 07/01/17 23:59 23:59 23:59 23:59 Intake Total 810 350 380 Output Total 3230 3040 2020 770 Balance -2420 -2690 -1640 -770 Weight 131 lb 8 oz 118 lb 9 oz Gen: NAD at rest Heart: tachycardic, regular Lung: scattered rhonchi Abd: soft, nontender Ext: no edema Chest tube: + air leak, serosanguinous drainage CBC, BMP 06/30/17 05:00 06/30/17 05:00 Active Medications Acetaminophen (Tylenol -) 325 mg PO Q6H PRN PRN Reason: FEVER OR PAIN Albuterol Sulfate (Ventolin 0.083% Nebulizer Soln -) 1 amp NEB Q2H PRN PRN Reason: SHORT OF BREATH/WHEEZING Albuterol/Ipratropium (Duoneb -) 1 amp NEB QIDR [facility] Last Admin: 07/01/17 11:00 Dose: 1 amp Amoxicillin/Clavulanate Potassium (Augmentin - 875mg Tablet) 1 tab PO BID@0800, 1730 [facility] Stop: 07/03/17 08:01 Last Admin: 07/01/17 09:48 Dose: 1 tab Enoxaparin Sodium (Lovenox -) 40 mg SQ DAILY [facility] Last Admin: 07/01/17 09:48 Dose: 40 mg Insulin Aspart (Novolog Vial Sliding Scale -) 1 vial SQ Q6H [facility] PRN Reason: Protocol Last Admin: 07/01/17 10:07 Dose: 4 units Multivitamins/Minerals/Vitamin C (Tab-A-Vit -) 1 tab PO DAILY [facility] Last Admin: 07/01/17 09:48 Dose: 1 tab Oxycodone HCl (Roxicodone -) 10 mg PO Q4H PRN PRN Reason: PAIN Last Admin: 07/01/17 10:57 Dose: 10 mg Pantoprazole Sodium (Protonix -) 40 mg PO DAILY [facility] Last Admin: 07/01/17 09:48 Dose: 40 mg Prednisone (Deltasone -) 20 mg PO DAILY [facility] Last Admin: 07/01/17 09:48 Dose: 20 mg Zolpidem Tartrate (Ambien -) 5 mg PO HS PRN PRN Reason: INSOMNIA Last Admin: 06/30/17 23:22 Dose: 5 mg A/P Loculated Empyema s/p R VATS converted to thoracotomy/decortication/chest tube placements Septic Shock improving s/p Cardiac Arrest COPD Anemia DM - continue antibiotics - chest tube to low wall suction - daily CXR while chest tube in place - pain control - incentive spirometry - inhaled bronchodilators - prednisone taper - O2 to keep SpO2 >90% - OOB to chair - DVT prophylaxis
--- NOTE | 2017-07-01 16:24 | PN ---
Progress Note (short form) - Note Progress Note: Thoracic Surgery: Continues improving. Pulm toilet better. AF WBC still elevated (?steroids?) Drainage serous. Air-leak still. Now on water seal. Please discontinue steroids if possible marcio as this may be impairing lung from healing. Tube to stay until Wednesday. If leak still will do clamp trial. If fails clamp trial can attach pneumostat for discharge.
[2017-07-01] MEDS: ACETAMINOPHEN 325 MG TABLET (FP) PO PRN ×2 (16:52→23:39)
[2017-07-01] MEDS ORDERED: HEMOQUE TEST 1 EACH EACH ONE (17:02)
--- NOTE | 2017-07-01 17:47 | PN ---
Progress Note, Physician Chief Complaint: Patient seen, had a melanotic stool in the morning continues to have episodes of sinus tachycardia at 130 b/min, BGM's less then 100mg/dl and the Prednisone was discontinued The patient is alert, comfortable, hungry, not dyspneic, has good appetite. There is no wheezing, he is using O2, there was no fever during the night.The remaining chest tube continues to drain sangvinolent fluid - Current Medication List Current Medications: Active Medications Acetaminophen (Tylenol -) 325 mg PO Q6H PRN PRN Reason: FEVER OR PAIN Last Admin: 07/01/17 16:52 Dose: 325 mg Albuterol Sulfate (Ventolin 0.083% Nebulizer Soln -) 1 amp NEB Q2H PRN PRN Reason: SHORT OF BREATH/WHEEZING Albuterol/Ipratropium (Duoneb -) 1 amp NEB QIDR [facility] Last Admin: 07/01/17 17:45 Dose: 1 amp Amoxicillin/Clavulanate Potassium (Augmentin - 875mg Tablet) 1 tab PO BID@0800, 1730 [facility] Stop: 07/03/17 08:01 Last Admin: 07/01/17 16:51 Dose: 1 tab Enoxaparin Sodium (Lovenox -) 40 mg SQ DAILY [facility] Last Admin: 07/01/17 09:48 Dose: 40 mg Insulin Aspart (Novolog Vial Sliding Scale -) 1 vial SQ Q6H [facility] PRN Reason: Protocol Last Admin: 07/01/17 17:18 Dose: Not Given Multivitamins/Minerals/Vitamin C (Tab-A-Vit -) 1 tab PO DAILY [facility] Last Admin: 07/01/17 09:48 Dose: 1 tab Oxycodone HCl (Roxicodone -) 10 mg PO Q4H PRN PRN Reason: PAIN Last Admin: 07/01/17 10:57 Dose: 10 mg Pantoprazole Sodium (Protonix -) 40 mg PO DAILY [facility] Last Admin: 07/01/17 09:48 Dose: 40 mg Zolpidem Tartrate (Ambien -) 5 mg PO HS PRN PRN Reason: INSOMNIA Last Admin: 06/30/17 23:22 Dose: 5 mg - Objective Vital Signs: Vital Signs Temperature 98.6 F 07/01/17 14:00 Pulse Rate 76 07/01/17 17:26 Respiratory Rate 16 07/01/17 17:26 Blood Pressure 116/74 07/01/17 17:26 O2 Sat by Pulse Oximetry (%) 98 07/01/17 11:32 Constitutional: Yes: No Distress, Calm Eyes: Yes: Conjunctiva Clear, EOM Intact HENT: Yes: Atraumatic, Normocephalic Neck: Yes: Supple, Trachea Midline Cardiovascular: Yes: Regular Rate and Rhythm, S1, S2 Respiratory: Yes: Regular, CTA Bilaterally, Other (right hemitghorax chest tube present, justus at the site of the removed chest tubes with healing wounds) Gastrointestinal: Yes: Normal Bowel Sounds, Soft. No: Hepatomegaly, Splenomegaly Breast(s): Yes: WNL Extremities: No: Calf Tenderness Edema: No Peripheral Pulses WNL: Yes Neurological: Yes: Alert, Oriented Psychiatric: Yes: Alert, Oriented Labs: CBC, BMP 06/30/17 05:00 06/30/17 05:00 INR, PTT INR 1.23 (0.82-1.09) H 06/24/17 14:40 - ....Imaging Chest X-ray: Other (significantly improved right lung aireentry, no pleural effusion present, no masses) Problem List - Problems (1) Empyema Assessment/Plan: S/p decortication and VATS, with 2 chest tubes planted in the right hemithorax continue empiric IV antibiotics since cultures and Gram stain are negative WBC normalizing Code(s): J86.9 - PYOTHORAX WITHOUT FISTULA (2) COPD (chronic obstructive pulmonary disease) Assessment/Plan: Albuterol nebulizer changed to every 6 hours scheduled and not prn added Albuterol nebs every 2 hours prn switched to Prednisone po prednisone possibly delaying healing removed from the daily medication Code(s): J44.9 - CHRONIC OBSTRUCTIVE PULMONARY DISEASE, UNSPECIFIED Qualifiers : COPD type: COPD with acute exacerbation Qualified Code(s): J44.1 - Chronic obstructive pulmonary disease with (acute) exacerbation; J44.1 - Chronic obstructive pulmonary disease with (acute) exacerbation; J44.1 - Chronic obstructive pulmonary disease with (acute) exacerbation; J44.1 - Chronic obstructive pulmonary disease with (acute) exacerbation (3) Schizoaffective disorder Assessment/Plan: on no medications Code(s): F25.9 - SCHIZOAFFECTIVE DISORDER, UNSPECIFIED Qualifiers: Schizoaffective disorder type: unspecified Qualified Code(s): F25.9 - Schizoaffective disorder, unspecified; F25.9 - Schizoaffective disorder, unspecified; F25.9 - Schizoaffective disorder, unspecified; F25.9 - Schizoaffective disorder, unspecified (4) Glucose intolerance (impaired glucose tolerance) Assessment/Plan: on accuchecks Code(s): R73.02 - IMPAIRED GLUCOSE TOLERANCE (ORAL) (5) History of throat cancer Assessment/Plan: pleural fluid negative for malignancy Code(s): Z85.819 - PRSNL HX OF MALIG NEOPLM OF UNSP SITE LIP,ORAL CAV,& PHARYNX (6) Fluid overload Assessment/Plan: resolved monitor output stopped po Prednisone started injectable Code(s): E87.70 - FLUID OVERLOAD, UNSPECIFIED (7) Multifocal atrial tachycardia Assessment/Plan: check ABG in Am Code(s): I47.1 - SUPRAVENTRICULAR TACHYCARDIA (8) Protein calorie malnutrition Assessment/Plan: severe protein caloric malnutrition Code(s): E46 - UNSPECIFIED PROTEIN-CALORIE MALNUTRITION
[2017-07-01] MEDS: ZOLPIDEM TARTRATE 5 MG TABLET PO PRN (23:38)
[2017-07-02] MEDS: oxyCODONE HCL 5 MG TABLET PO PRN ×2 (05:26→23:31)
[2017-07-02] MEDS: ACETAMINOPHEN 325 MG TABLET (FP) PO PRN ×2 (05:26→23:31)
[2017-07-02 06:06] LABS: MCHC 32.7 g/dl (32.0-35.9); MEAN CELL VOLUME 85.6 fl (80-96); MEAN PLT VOLUME 8.3 fl (7.5-11.1); PLATELET COUNT 508 K/MM3 (134-434); RDW 18.7 % (11.9-15.9); WHITE BLOOD COUNT 13.9 K/mm3 (4.0-10.0)
[2017-07-02] MEDS: ALBUTEROL SO4 2.5/IPRATROPIUM 0.5 INH SOL 3 ML VIAL.NEB. NEB SCH ×4 (06:31→23:03)
[2017-07-02] MEDS: AMOX TR/POT CLAV 875MG/125MG TABLETS (FP) PO SCH ×2 (08:57→17:58)
--- NOTE | 2017-07-02 09:54 | PN ---
Progress Note, Physician History of Present Illness: Resting in bed on CO, denies chest pain or dyspnea, no arrhythmias on telemetry , remaining chest tube with air leak. - Current Medication List Current Medications: Active Medications Acetaminophen (Tylenol -) 325 mg PO Q6H PRN PRN Reason: FEVER OR PAIN Last Admin: 07/02/17 05:26 Dose: 325 mg Albuterol Sulfate (Ventolin 0.083% Nebulizer Soln -) 1 amp NEB Q2H PRN PRN Reason: SHORT OF BREATH/WHEEZING Albuterol/Ipratropium (Duoneb -) 1 amp NEB QIDR [facility] Last Admin: 07/02/17 06:31 Dose: 1 amp Amoxicillin/Clavulanate Potassium (Augmentin - 875mg Tablet) 1 tab PO BID@0800, 1730 [facility] Stop: 07/03/17 08:01 Last Admin: 07/02/17 08:57 Dose: 1 tab Multivitamins/Minerals/Vitamin C (Tab-A-Vit -) 1 tab PO DAILY [facility] Last Admin: 07/01/17 09:48 Dose: 1 tab Oxycodone HCl (Roxicodone -) 10 mg PO Q4H PRN PRN Reason: PAIN Last Admin: 07/02/17 05:26 Dose: 10 mg Pantoprazole Sodium (Protonix -) 40 mg PO DAILY [facility] Last Admin: 07/01/17 09:48 Dose: 40 mg Zolpidem Tartrate (Ambien -) 5 mg PO HS PRN PRN Reason: INSOMNIA Last Admin: 07/01/17 23:38 Dose: 5 mg - Objective Vital Signs: Vital Signs Temperature 97.8 F 07/02/17 05:29 Pulse Rate 83 07/02/17 05:29 Respiratory Rate 18 07/02/17 05:29 Blood Pressure 120/75 07/02/17 05:29 O2 Sat by Pulse Oximetry (%) 95 07/01/17 21:00 Constitutional: Yes: No Distress, Calm, Thin Neck: Yes: Supple Cardiovascular: Yes: Regular Rate and Rhythm Respiratory: Yes: Regular, Diminished, Other (Right chest tube in) Gastrointestinal: Yes: Normal Bowel Sounds, Soft Edema: No Labs: CBC, BMP 07/02/17 05:55 06/30/17 05:00 INR, PTT INR 1.23 (0.82-1.09) H 06/24/17 14:40 - ....Imaging Chest X-ray: Pending EKG: Report Reviewed (Tele: SR with PAC) Problem List - Problems (1) Acute blood loss anemia Code(s): D62 - ACUTE POSTHEMORRHAGIC ANEMIA (2) COPD (chronic obstructive pulmonary disease) Code(s): J44.9 - CHRONIC OBSTRUCTIVE PULMONARY DISEASE, UNSPECIFIED Qualifiers : COPD type: COPD with acute exacerbation Qualified Code(s): J44.1 - Chronic obstructive pulmonary disease with (acute) exacerbation; J44.1 - Chronic obstructive pulmonary disease with (acute) exacerbation; J44.1 - Chronic obstructive pulmonary disease with (acute) exacerbation; J44.1 - Chronic obstructive pulmonary disease with (acute) exacerbation (3) Empyema Code(s): J86.9 - PYOTHORAX WITHOUT FISTULA (4) Hemoptysis Code(s): R04.2 - HEMOPTYSIS (5) History of throat cancer Code(s): Z85.819 - PRSNL HX OF MALIG NEOPLM OF UNSP SITE LIP,ORAL CAV,& PHARYNX (6) PTSD (post-traumatic stress disorder) Code(s): F43.10 - POST-TRAUMATIC STRESS DISORDER, UNSPECIFIED (7) Schizoaffective disorder Code(s): F25.9 - SCHIZOAFFECTIVE DISORDER, UNSPECIFIED Qualifiers: Schizoaffective disorder type: unspecified Qualified Code(s): F25.9 - Schizoaffective disorder, unspecified; F25.9 - Schizoaffective disorder, unspecified; F25.9 - Schizoaffective disorder, unspecified; F25.9 - Schizoaffective disorder, unspecified (8) Leukocytosis Code(s): D72.829 - ELEVATED WHITE BLOOD CELL COUNT, UNSPECIFIED Qualifiers: Leukocytosis type: unspecified Qualified Code(s): D72.829 - Elevated white blood cell count, unspecified; D72.829 - Elevated white blood cell count, unspecified (9) Acute hypercapnic respiratory failure Code(s): J96.02 - ACUTE RESPIRATORY FAILURE WITH HYPERCAPNIA Assessment/Plan 06/25/2017 Echo: Normal LV size an xn with mild apical anterior HK, mild-mod MR, mild TR, RVSP 30-40 mmHg 1. Post-op bradycardic/asystolic arrest suspect mucous plugging and atelectasis 2. Loculated Empyema s/p R VATS converted to thoracotomy/decortication/chest tube placements 3. h/o Laryngeal Ca 4. PTSD 5. COPD 6. Anemia P: 1. BD, complete empiric abx course, steroid taper, wean FIO2 per saO2, transfuse to maintain Hgb>8.0, analgesia as needed 2. Chest tube management, daily CXR 3. DVT and GI prophylaxis, OOB to chair
[2017-07-02] MEDS: PANTOPRAZOLE 40 MG TABLET (FP) PO SCH ×2 (10:55→21:23)
[2017-07-02] MEDS: MULTIVITAMINS (DAILY MVI) TABLET (FP) PO SCH (10:55)
--- NOTE | 2017-07-02 14:57 | PN ---
Progress Note, Physician Chief Complaint: Patient seen, had a melanotic stool in the yesterday continues to have episodes of sinus tachycardia at 130 b/min, BGM's less then 100mg/dl and the Prednisone was discontinued The patient is alert, comfortable, hungry, not dyspneic, has good appetite. There is no wheezing, he is using O2, there was no fever during the night.The remaining chest tube continues to drain sero sangvinolent fluid - Current Medication List Current Medications: Active Medications Acetaminophen (Tylenol -) 325 mg PO Q6H PRN PRN Reason: FEVER OR PAIN Last Admin: 07/02/17 05:26 Dose: 325 mg Albuterol Sulfate (Ventolin 0.083% Nebulizer Soln -) 1 amp NEB Q2H PRN PRN Reason: SHORT OF BREATH/WHEEZING Albuterol/Ipratropium (Duoneb -) 1 amp NEB QIDR [facility] Last Admin: 07/02/17 11:00 Dose: 1 amp Amoxicillin/Clavulanate Potassium (Augmentin - 875mg Tablet) 1 tab PO BID@0800, 1730 [facility] Stop: 07/03/17 08:01 Last Admin: 07/02/17 08:57 Dose: 1 tab Multivitamins/Minerals/Vitamin C (Tab-A-Vit -) 1 tab PO DAILY [facility] Last Admin: 07/02/17 10:55 Dose: 1 tab Oxycodone HCl (Roxicodone -) 10 mg PO Q4H PRN PRN Reason: PAIN Last Admin: 07/02/17 05:26 Dose: 10 mg Pantoprazole Sodium (Protonix -) 40 mg PO DAILY [facility] Last Admin: 07/02/17 10:55 Dose: 40 mg Zolpidem Tartrate (Ambien -) 5 mg PO HS PRN PRN Reason: INSOMNIA Last Admin: 07/01/17 23:38 Dose: 5 mg - Objective Vital Signs: Vital Signs Temperature 98.9 F 07/02/17 12:07 Pulse Rate 92 H 07/02/17 12:07 Respiratory Rate 20 07/02/17 12:07 Blood Pressure 108/89 07/02/17 12:07 O2 Sat by Pulse Oximetry (%) 95 07/02/17 10:49 Constitutional: Yes: No Distress, Calm Eyes: Yes: Conjunctiva Clear, EOM Intact HENT: Yes: Atraumatic, Normocephalic Neck: Yes: Supple, Trachea Midline Cardiovascular: Yes: Regular Rate and Rhythm, S1, S2 Respiratory: Yes: Regular, CTA Bilaterally, Other (rubes at the level of the left hemithorax unchanged) Gastrointestinal: Yes: Normal Bowel Sounds, Soft ...Rectal Exam: Yes: Deferred Musculoskeletal: Yes: Other (right chest tube xdraining serosangvinolent fluid) Edema: No Peripheral Pulses WNL: Yes Integumentary: Yes: WNL Wound/Incision: Yes: Clean/Dry Neurological: Yes: Alert, Oriented Psychiatric: Yes: Alert, Oriented Labs: CBC, BMP 07/02/17 05:55 06/30/17 05:00 INR, PTT INR 1.23 (0.82-1.09) H 06/24/17 14:40 Problem List - Problems (1) Empyema Assessment/Plan: S/p decortication and VATS, with 1 chest tubes left in the right hemithorax continue po antibiotics Code(s): J86.9 - PYOTHORAX WITHOUT FISTULA (2) COPD (chronic obstructive pulmonary disease) Assessment/Plan: Albuterol nebulizer changed to every 6 hours scheduled and not prn added Albuterol nebs every 2 hours prn stopped Prednisone po prednisone possibly delaying healing removed from the daily medication Code(s): J44.9 - CHRONIC OBSTRUCTIVE PULMONARY DISEASE, UNSPECIFIED Qualifiers : COPD type: COPD with acute exacerbation Qualified Code(s): J44.1 - Chronic obstructive pulmonary disease with (acute) exacerbation; J44.1 - Chronic obstructive pulmonary disease with (acute) exacerbation; J44.1 - Chronic obstructive pulmonary disease with (acute) exacerbation; J44.1 - Chronic obstructive pulmonary disease with (acute) exacerbation (3) Schizoaffective disorder Assessment/Plan: on no medications Code(s): F25.9 - SCHIZOAFFECTIVE DISORDER, UNSPECIFIED Qualifiers: Schizoaffective disorder type: unspecified Qualified Code(s): F25.9 - Schizoaffective disorder, unspecified; F25.9 - Schizoaffective disorder, unspecified; F25.9 - Schizoaffective disorder, unspecified; F25.9 - Schizoaffective disorder, unspecified (4) Glucose intolerance (impaired glucose tolerance) Assessment/Plan: on accuchecks Code(s): R73.02 - IMPAIRED GLUCOSE TOLERANCE (ORAL) (5) History of throat cancer Assessment/Plan: pleural fluid negative for malignancy Code(s): Z85.819 - PRSNL HX OF MALIG NEOPLM OF UNSP SITE LIP,ORAL CAV,& PHARYNX (6) Multifocal atrial tachycardia Assessment/Plan: check ABG in Am Code(s): I47.1 - SUPRAVENTRICULAR TACHYCARDIA (7) Protein calorie malnutrition Assessment/Plan: severe protein caloric malnutrition Code(s): E46 - UNSPECIFIED PROTEIN-CALORIE MALNUTRITION (8) Melena Assessment/Plan: check CBC, stopped prednisone, continue Protonix, hemoccult all stools, GI consult Code(s): K92.1 - MELENA
[2017-07-02 17:51] LABS: BASOPHIL 0.1 % (0-2.0); EOSINOPHIL 0.8 % (0-4.5); MCH 27.5 pg (25.7-33.7); MCHC 32.4 g/dl (32.0-35.9); MEAN CELL VOLUME 84.8 fl (80-96); MEAN PLT VOLUME 8.1 fl (7.5-11.1); PLATELET COUNT 489 K/MM3 (134-434); RDW 18.9 % (11.9-15.9); WHITE BLOOD COUNT 16.7 K/mm3 (4.0-10.0)
--- NOTE | 2017-07-02 18:35 | CON.GI ---
Consult Consult Specialty:: Gastroenterology Referred by:: Dr. Camp Reason for Consultation:: Melena - History of Present Illness Chief Complaint: Noted one episode of melena yesterday after a period of constipation History of Present Illness: 67M admitted with right lung empyema associated with Hb drop to 6.8 of undertermined origin noted a black stool yesterday after several days of constipation. He denies abdominal pain, hematemesis, acid reflux,dysphagia, early satiety or previouus h/o bleeding or ulcer disease. He did have a colonoscopy while in a psych hospital in [facility] several years ago which he believes was normal. 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 [employer] Place of : [facility] History of Recent Travel: No Home Medications - Allergies Allergies/Adverse Reactions: Allergies Allergy/AdvReac Type Severity Reaction Status Date / Time No Known Drug Allergies Allergy Verified 06/19/17 17:26 "TRANQUILIZERS AND SEDATIVES" Allergy Mild Hives Uncoded 06/19/17 17:26 - Home Medications Home Medications: Ambulatory Orders Albuterol Sulfate Inhaler - [Ventolin Hfa Inhaler -] 1 puff IH BID 06/19/17 Amox-Tr/K Cl [Augmentin - 875Mg Tablet] 1 tab PO BID 06/19/17 Cholecalciferol (Vitamin D3) [Vitamin D3] 2,000 unit PO DAILY 06/19/17 Family Disease History - Family Disease History Family Disease History: Other: Father ( 83 natural causes), Mother (alive 93 ) Other Family History: no cancers Review of Systems - Review of Systems Constitutional: reports: Lethargy, Loss of Appetite, Unintentional Wgt. Loss Eyes: reports: No Symptoms HENT: reports: No Symptoms Neck: reports: No Symptoms Cardiovascular: reports: No Symptoms Respiratory: reports: Cough, Exercise Intolerance, SOB on Exertion Gastrointestinal: reports: Constipation, Melena Genitourinary: reports: No Symptoms Musculoskeletal: reports: No Symptoms Neurological: reports: No Symptoms Psychiatric: reports: No Symptoms Physical Exam-GI Vital Signs: Vital Signs Temperature 98.8 F 07/02/17 17:00 Pulse Rate 89 07/02/17 17:00 Respiratory Rate 20 07/02/17 17:00 Blood Pressure 116/66 07/02/17 17:00 O2 Sat by Pulse Oximetry (%) 95 07/02/17 10:49 CBC,CMP WBC 16.7 K/mm3 (4.0-10.0) H 07/02/17 18:00 RBC 3.64 M/mm3 (4.00-5.60) L 07/02/17 18:00 Hgb 10.0 GM/dL (11.7-16.9) L 07/02/17 18:00 Hct 30.9 % (35.4-49) L 07/02/17 18:00 MCV 84.8 fl (80-96) 07/02/17 18:00 MCH 27.5 pg (25.7-33.7) 07/02/17 18:00 MCHC 32.4 g/dl (32.0-35.9) 07/02/17 18:00 RDW 18.9 % (11.9-15.9) H 07/02/17 18:00 Plt Count 489 K/MM3 (134-434) H 07/02/17 18:00 MPV 8.1 fl (7.5-11.1) 07/02/17 18:00 Total Counted 100 06/27/17 06:00 Neutrophils % 83.0 % (42.8-82.8) H 07/02/17 18:00 Neutrophils % (Manual) 93 % (42.8-82.8) H* 06/27/17 06:00 Band Neuts % (Manual) 6 % (0-10) D 06/24/17 22:05 Lymphocytes % 8.2 % (8-40) 07/02/17 18:00 Lymphocytes % (Manual) 4 % (8-40) L D 06/27/17 06:00 Monocytes % 7.9 % (3.8-10.2) 07/02/17 18:00 Monocytes % (Manual) 3 % (3.8-10.2) L 06/27/17 06:00 Eosinophils % 0.8 % (0-4.5) 07/02/17 18:00 Eosinophils % (Manual) 4 % (0-4.5) 06/24/17 22:05 Basophils % 0.1 % (0-2.0) 07/02/17 18:00 Myelocytes % (Man) 1 % (0-2) 06/22/17 05:00 Hypochromia 2+ 06/24/17 22:05 Platelet Estimate Adequate (NORMAL) 06/27/17 06:00 Platelet Comment Few large plts 06/24/17 22:05 Platelet Comment Few large plts 06/19/17 10:00 RBC Morphology 06/24/17 22:05 Anisocytosis 1+ 06/24/17 22:05 Microcytosis 1+ 06/24/17 22:05 ESR 128 mm/hr (0-20) H 06/21/17 07:20 Retic Count 1.63 % (0.5-1.5) H 06/22/17 05:00 Sodium 144 mmol/L (136-145) 06/30/17 05:00 Potassium 4.3 mmol/L (3.5-5.1) 06/30/17 05:00 Chloride 103 mmol/L (98-107) 06/30/17 05:00 Carbon Dioxide 37 mmol/L (21-32) H 06/30/17 05:00 Anion Gap 4 (8-16) L 06/30/17 05:00 BUN 28 mg/dL (7-18) H 06/30/17 05:00 Creatinine 0.6 mg/dL (0.7-1.3) L 06/30/17 05:00 Creat Clearance w eGFR > 60 (>60) 06/30/17 05:00 Random Glucose 90 mg/dL (74-106) 06/30/17 05:00 Lactic Acid 1.7 mmol/L (0.4-2.0) 06/25/17 05:30 Calcium 8.4 mg/dL (8.5-10.1) L 06/30/17 05:00 Phosphorus 2.7 mg/dL (2.5-4.9) 06/29/17 05:50 Magnesium 2.4 mg/dL (1.8-2.4) 06/29/17 05:50 Iron 14 ug/dL (38-169) L 06/22/17 05:00 TIBC 152 ug/dL (250-450) L 06/22/17 05:00 Iron Saturation 9 % (15-55) L 06/22/17 05:00 Transferrin 130 mg/dL (200-370) L 06/22/17 05:00 Ferritin 384.676 ng/ml (16.4-293.9) H 06/22/17 05:00 Total Bilirubin 0.3 mg/dL (0.2-1.0) D 06/30/17 05:00 AST 19 U/L (15-37) 06/30/17 05:00 ALT 38 U/L (12-78) 06/30/17 05:00 Alkaline Phosphatase 95 U/L (45-117) 06/30/17 05:00 LD Total 142 U/L (87-241) 06/22/17 05:00 Creatine Kinase 107 IU/L (39-308) 06/26/17 05:45 Creatine Kinase Index 1.3 % (0.0-5.0) 06/25/17 00:30 CK-MB (CK-2) 2.162 ng/mL (0.5-3.6) 06/25/17 00:30 Troponin I 0.02 ng/ml (0.00-0.05) D 06/26/17 05:45 C-Reactive Protein 15.7 MG/DL (0.00-0.3) H 06/20/17 06:00 B-Natriuretic Peptide 781.70 pg/ml (5-125) H 06/19/17 10:00 Total Protein 6.3 g/dl (6.4-8.2) L 06/30/17 05:00 Albumin 1.8 g/dl (3.4-5.0) L 06/30/17 05:00 Vitamin B12 628 pg/ml (180-914) 06/22/17 05:00 Serum Folate 13 ng/ml (3.1-17.5) 06/22/17 05:00 TSH 0.82 uIU/ml (0.358-3.74) D 06/22/17 05:00 Free T4 1.64 ng/dl (0.76-1.16) H 06/22/17 05:00 Free T3 1.5 pg/ml (2.0-4.4) L 06/22/17 05:00 Current Medications Generic Name Dose Route Start Last Admin Trade Name Freq PRN Reason Stop Dose Admin Acetaminophen 325 mg 06/29/17 18:10 07/02/17 05:26 Tylenol - PO 325 mg Q6H PRN Administration FEVER OR PAIN Albuterol Sulfate 1 amp 06/29/17 18:10 Ventolin 0.083% Nebulizer Soln - NEB Q2H PRN SHORT OF BREATH/WHEEZING Albuterol/Ipratropium 1 amp 06/30/17 00:00 07/02/17 11:00 Duoneb - NEB 1 amp QIDR MARIS Administration Amoxicillin/Clavulanate Potassium 1 tab 06/30/17 17:30 07/02/17 17:58 Augmentin - 875mg Tablet PO 07/03/17 08:01 1 tab BID@0800,1730 MARIS Administration Multivitamins/Minerals/Vitamin C 1 tab 06/30/17 10:00 07/02/17 10:55 Tab-A-Vit - PO 1 tab DAILY MARIS Administration Pantoprazole Sodium 40 mg 06/30/17 10:00 07/02/17 10:55 Protonix - PO 40 mg DAILY MARIS Administration Constitutional: Yes: Calm Eyes: Yes: Conjunctiva Clear HENT: Yes: Other (poor dentition) Neck: Yes: Supple Cardiovascular: Yes: Regular Rate and Rhythm Respiratory: Yes: CTA Bilaterally, Other (right chest tube) Gastrointestinal Inspection: Yes: WNL ...Auscultate: Yes: Normoactive Bowel Sounds ...Palpate: Yes: Soft, Other (nontender) ...Rectal Exam: Yes: Guaiac Positive Genitourinary: Yes: Other (atrophic testicles, no hernias) Edema: No Peripheral Pulses WNL: Yes Neurological: Yes: Alert Psychiatric: Yes: WNL Labs: CBC, BMP 07/02/17 18:00 06/30/17 05:00 INR, PTT INR 1.23 (0.82-1.09) H 06/24/17 14:40 Assessment/Plan No evidence of a brisk hemorrhage but occult bleeding does exist. I have advised an EGD when medically feasible to exclude an ulcer and neoplasm. I have discussed EGD in detail with Ponce and his sister and informed them of the potential for such complications as perforation and hemorrhage. He has signed an informed consent so EGD can be undertaken emergently if brisk bleeding ensues. Will otherwise defer until medically deemed feasible to do this electively. Would continue PPI empirically. Thank you
--- NOTE | 2017-07-02 18:43 | PROC ---
Procedure Note Procedure: Pt without copmlaints of CP/SOB. Tolerating a diet, oob to chair but become tachycardic/weak when oob to chair for long periods. Vital Signs Period Temp Pulse Resp BP Sys/Bunn Pulse Ox Last 24 Hr 97.8 F-98.9 F 80-98 16-20 96-120/58-89 95-95 CT-positive air leak, 50 ml drainage today slightly bloody. GEN: Alert, NAD Lungs: inc c/d/i with justus. no erythema or drainage noted. CBC, BMP 07/02/17 18:00 06/30/17 05:00 CXR: smaall pntx at right lung base/ CT in place. A/P: right VATS, thoracotomy, pneumolysis, partial decortication, drainage of empyema
--- NOTE | 2017-07-02 18:47 | PN ---
Progress Note (short form) - Note Progress Note: Pt without copmlaints of CP/SOB. Tolerating a diet, oob to chair but become tachycardic/weak when oob to chair for long periods. Vital Signs Period Temp Pulse Resp BP Sys/Bunn Pulse Ox Last 24 Hr 97.8 F-98.9 F 80-98 16-20 96-120/58-89 95-95 CT-positive air leak, 50 ml drainage today slightly bloody. GEN: Alert, NAD Lungs: inc c/d/i with justus. no erythema or drainage noted. CBC, BMP 07/02/17 18:00 06/30/17 05:00 CXR: smaall pntx at right lung base/ CT in place. A/P: right VATS, thoracotomy, pneumolysis, partial decortication, drainage of empyema Pt with positive air leak, Cxr stable on water seal Will continue to allow the air leak to heal for several days D/w Dr. Cleaning, will plan for clamp trial possibly on Wednesday. If PNTX enlarges will need heimlich value for discharge and VNS services
[2017-07-02] MEDS: ZOLPIDEM TARTRATE 5 MG TABLET PO PRN (23:31)
[2017-07-03] MEDS: oxyCODONE HCL 5 MG TABLET PO PRN ×2 (05:12→23:56)
[2017-07-03] MEDS: ACETAMINOPHEN 325 MG TABLET (FP) PO PRN ×3 (05:13→23:57)
[2017-07-03] MEDS: ALBUTEROL SO4 2.5/IPRATROPIUM 0.5 INH SOL 3 ML VIAL.NEB. NEB SCH ×4 (06:55→23:21)
[2017-07-03 07:44] LABS: BASOPHIL 0.5 % (0-2.0); EOSINOPHIL 1.4 % (0-4.5); MCH 26.8 pg (25.7-33.7); MCHC 31.4 g/dl (32.0-35.9); MEAN CELL VOLUME 85.2 fl (80-96); MEAN PLT VOLUME 8.5 fl (7.5-11.1); NEUTROPHILS 78.3 % (42.8-82.8); PLATELET COUNT 503 K/MM3 (134-434); RDW 18.6 % (11.9-15.9)
[2017-07-03 08:01] LABS: INR 1.02 (0.82-1.09); PROTHROMBIN TIME (PATIENT) 11.5 SEC (9.98-11.88)
[2017-07-03 08:14] LABS: ANION GAP 5 (8-16); CALCIUM 8.6 mg/dL (8.5-10.1); CO2 33 mmol/L (21-32); CREATININE 0.4 mg/dL (0.7-1.3); GLUCOSE,RANDOM 85 mg/dL (74-106)
[2017-07-03] MEDS: PANTOPRAZOLE 40 MG TABLET (FP) PO SCH ×2 (09:35→21:50)
[2017-07-03] MEDS: MULTIVITAMINS (DAILY MVI) TABLET (FP) PO SCH (09:36)
[2017-07-03] MEDS: AMOX TR/POT CLAV 875MG/125MG TABLETS (FP) PO SCH (09:36)
--- NOTE | 2017-07-03 12:20 | PN ---
Progress Note (short form) - Note Progress Note: Reports feeling overall better. Some dry cough. Denies CP. Persistent airleak noted. CXR : No change in RLL PTX Intake & Output 06/30/17 07/01/17 07/02/17 07/03/17 23:59 23:59 23:59 23:59 Intake Total 380 130 670 710 Output Total 2019 1430 1862 790 [facility] -1640 -1300 -1192 -80 Last Vital Signs Temp Pulse Resp BP Pulse Ox 97.9 F 93 H 18 98/49 94 L 07/03/17 10:00 07/03/17 11:11 07/03/17 10:00 07/03/17 10:00 07/03/17 11:11 Active Medications Acetaminophen (Tylenol -) 325 mg PO Q6H PRN PRN Reason: FEVER OR PAIN Last Admin: 07/02/17 05:26 Dose: 325 mg Acetaminophen (Tylenol -) 650 mg PO Q4H PRN PRN Reason: PAIN Stop: 07/05/17 22:15 Last Admin: 07/03/17 05:13 Dose: 650 mg Albuterol Sulfate (Ventolin 0.083% Nebulizer Soln -) 1 amp NEB Q2H PRN PRN Reason: SHORT OF BREATH/WHEEZING Albuterol/Ipratropium (Duoneb -) 1 amp NEB QIDR [facility] Last Admin: 07/03/17 11:11 Dose: 1 amp Multivitamins/Minerals/Vitamin C (Tab-A-Vit -) 1 tab PO DAILY [facility] Last Admin: 07/03/17 09:36 Dose: 1 tab Oxycodone HCl (Roxicodone -) 10 mg PO Q4H PRN PRN Reason: PAIN Last Admin: 07/03/17 05:12 Dose: 10 mg Pantoprazole Sodium (Protonix -) 40 mg PO BID [facility] Last Admin: 07/03/17 09:35 Dose: 40 mg Zolpidem Tartrate (Ambien -) 5 mg PO HS PRN PRN Reason: INSOMNIA Last Admin: 07/02/17 23:31 Dose: 5 mg Gen: NAD at rest Heart: S1S2, regular Lung: scattered rhonchi Abd: soft, nontender Ext: no edema Chest tube: + air leak, serosanguinous drainage Laboratory Results - last 24 hr 1007/03/17 07/03/17 18:00 05:18 05:18 WBC 16.7 H 16.0 H RBC 3.64 L 3.73 L Hgb 10.0 L 10.0 L Hct 30.9 L 31.7 L MCV 84.8 85.2 MCH 27.5 26.8 MCHC 32.4 31.4 L RDW 18.9 H 18.6 H Plt Count 489 H 503 H MPV 8.1 8.5 Neutrophils % 83.0 H 78.3 Lymphocytes % 8.2 10.8 D Monocytes % 7.9 9.0 Eosinophils % 0.8 1.4 Basophils % 0.1 0.5 D Retic Count 2.76 H D PT with INR INR Sodium Potassium Chloride Carbon Dioxide Anion Gap BUN Creatinine Random Glucose Calcium 07/03/17 07/03/17 05:18 05:18 WBC RBC Hgb Hct MCV MCH MCHC RDW Plt Count MPV Neutrophils % Lymphocytes % Monocytes % Eosinophils % Basophils % Retic Count PT with INR 11.50 INR 1.02 Sodium 139 Potassium 4.5 Chloride 101 Carbon Dioxide 33 H Anion Gap 5 L BUN 28 H Creatinine 0.4 L D Random Glucose 85 Calcium 8.6 A/P Loculated Empyema s/p R VATS converted to thoracotomy/decortication/chest tube placements Septic Shock improving s/p Cardiac Arrest COPD Anemia DM - continue antibiotics - Will likely need Heimlich valve placement - daily CXR while chest tube in place - pain control - incentive spirometry - inhaled bronchodilators - Monitor off steroids - O2 to keep SpO2 >90% - OOB to chair - DVT prophylaxis Dr Moon
--- NOTE | 2017-07-03 12:45 | PN ---
GI Progress Note Subjective: GI NOte: No further black stools. No abdominal pain or nausea. - Objective Vital Signs: Vital Signs Temperature 97.9 F 07/03/17 10:00 Pulse Rate 93 H 07/03/17 11:11 Respiratory Rate 18 07/03/17 10:00 Blood Pressure 98/49 07/03/17 10:00 O2 Sat by Pulse Oximetry (%) 94 L 07/03/17 11:11 Constitutional: Calm ...Auscultate: Yes: Normoactive Bowel Sounds ...Palpate: Yes: Soft, Other (nontender) Labs: CBC, BMP 07/03/17 05:18 07/03/17 05:18 INR, PTT INR 1.02 (0.82-1.09) 07/03/17 05:18 Laboratory Tests 07/02/17 07/02/17 07/03/17 05:55 18:00 05:18 Hgb 10.6 L 10.0 L 10.0 L Assessment/Plan Occult GI bleeding with stable Hb allows for an elective EGD. Please notify us when this is feasible. Continue PPI.
--- NOTE | 2017-07-03 14:03 | PN ---
Progress Note, Physician Chief Complaint: Events noted Patient was seen on telemetry Chest tube in place History of Present Illness: Patient was seen and examined. Awake. Chart was reviewed Denies chest pain or palpitations Less SOB - Current Medication List Current Medications: Active Medications Acetaminophen (Tylenol -) 325 mg PO Q6H PRN PRN Reason: FEVER OR PAIN Last Admin: 07/02/17 05:26 Dose: 325 mg Acetaminophen (Tylenol -) 650 mg PO Q4H PRN PRN Reason: PAIN Stop: 07/05/17 22:15 Last Admin: 07/03/17 05:13 Dose: 650 mg Albuterol Sulfate (Ventolin 0.083% Nebulizer Soln -) 1 amp NEB Q2H PRN PRN Reason: SHORT OF BREATH/WHEEZING Albuterol/Ipratropium (Duoneb -) 1 amp NEB QIDR [facility] Last Admin: 07/03/17 11:11 Dose: 1 amp Multivitamins/Minerals/Vitamin C (Tab-A-Vit -) 1 tab PO DAILY [facility] Last Admin: 07/03/17 09:36 Dose: 1 tab Oxycodone HCl (Roxicodone -) 10 mg PO Q4H PRN PRN Reason: PAIN Last Admin: 07/03/17 05:12 Dose: 10 mg Pantoprazole Sodium (Protonix -) 40 mg PO BID [facility] Last Admin: 07/03/17 09:35 Dose: 40 mg Zolpidem Tartrate (Ambien -) 5 mg PO HS PRN PRN Reason: INSOMNIA Last Admin: 07/02/17 23:31 Dose: 5 mg - Objective Vital Signs: Vital Signs Temperature 97.9 F 07/03/17 10:00 Pulse Rate 93 H 07/03/17 11:11 Respiratory Rate 18 07/03/17 10:00 Blood Pressure 98/49 07/03/17 10:00 O2 Sat by Pulse Oximetry (%) 94 L 07/03/17 11:11 Cardiovascular: Yes: Regular Rate and Rhythm, S1, S2 Respiratory: Yes: Diminished Gastrointestinal: Yes: Normal Bowel Sounds, Soft. No: Tenderness Edema: No Additional Findings/Remarks: HEENT: No headache, photophobia, blurring of vision CARD: No chest pain, SOB or palpitations PULM: No cough, sputum production, hemoptysis GI: No nausea, vomiting, diarrhea, abdominal pain, melena. hematemesis MUSC: No joint pains NEURO: No seizure, syncope Labs: CBC, BMP 07/03/17 05:18 07/03/17 05:18 INR, PTT INR 1.02 (0.82-1.09) 07/03/17 05:18 Problem List - Problems (1) Acute hypercapnic respiratory failure Code(s): J96.02 - ACUTE RESPIRATORY FAILURE WITH HYPERCAPNIA (2) Anemia, iron deficiency Code(s): D50.9 - IRON DEFICIENCY ANEMIA, UNSPECIFIED (3) COPD (chronic obstructive pulmonary disease) Code(s): J44.9 - CHRONIC OBSTRUCTIVE PULMONARY DISEASE, UNSPECIFIED Qualifiers : COPD type: COPD with acute exacerbation Qualified Code(s): J44.1 - Chronic obstructive pulmonary disease with (acute) exacerbation; J44.1 - Chronic obstructive pulmonary disease with (acute) exacerbation; J44.1 - Chronic obstructive pulmonary disease with (acute) exacerbation; J44.1 - Chronic obstructive pulmonary disease with (acute) exacerbation (4) Empyema Code(s): J86.9 - PYOTHORAX WITHOUT FISTULA (5) History of throat cancer Code(s): Z85.819 - PRSNL HX OF MALIG NEOPLM OF UNSP SITE LIP,ORAL CAV,& PHARYNX (6) Leukocytosis Code(s): D72.829 - ELEVATED WHITE BLOOD CELL COUNT, UNSPECIFIED Qualifiers: Leukocytosis type: unspecified Qualified Code(s): D72.829 - Elevated white blood cell count, unspecified; D72.829 - Elevated white blood cell count, unspecified Assessment/Plan 1. Post-op bradycardic/asystolic arrest suspect mucous plugging and atelectasis 2. Loculated empyema s/p right VATS converted to thoracotomy/decortication/ chest tube placement 3. History of Laryngeal CA 4. PTSD 5. COPD 6. Anemia PLAN: 1. Bronchodilator, empiric antibiotic course, steroid taper, O2, transfuse to maintain Hgb>8.0 and analgesia as needed 2. Chest tube management and daily CXR 3. DVT and GI prophylaxis 4. OOB to chair and continue present management Further plans are to follow Dustin Grey MD
[2017-07-03] MEDS: LACTOBACILLUS ACIDOPHILUS 1 EACH TAB (FP) PO SCH (21:50)
[2017-07-03] MEDS: ZOLPIDEM TARTRATE 5 MG TABLET PO PRN (23:57)
[2017-07-04] MEDS: ALBUTEROL SO4 2.5/IPRATROPIUM 0.5 INH SOL 3 ML VIAL.NEB. NEB SCH ×4 (06:50→23:03)
[2017-07-04 07:49] LABS: BASOPHIL 0.5 % (0-2.0); EOSINOPHIL 1.6 % (0-4.5); MCHC 31.6 g/dl (32.0-35.9); MEAN CELL VOLUME 85.4 fl (80-96); MEAN PLT VOLUME 8.3 fl (7.5-11.1); NEUTROPHILS 73.2 % (42.8-82.8); PLATELET COUNT 486 K/MM3 (134-434); RDW 18.3 % (11.9-15.9); WHITE BLOOD COUNT 14.4 K/mm3 (4.0-10.0)
[2017-07-04 08:20] LABS: ALBUMIN 1.9 g/dl (3.4-5.0); ANION GAP 8 (8-16); CALCIUM 7.7 mg/dL (8.5-10.1); CO2 33 mmol/L (21-32); GLUCOSE,RANDOM 85 mg/dL (74-106)
[2017-07-04 08:24] LABS: ALK PHOS 105 U/L (45-117); BILIRUBIN,TOTAL 0.3 mg/dL (0.2-1.0); CREATININE 0.5 mg/dL (0.7-1.3); SGOT/AST 10 U/L (15-37); SGPT/ALT 30 U/L (12-78); TOT PROT 5.9 g/dl (6.4-8.2)
[2017-07-04] MEDS: MULTIVITAMINS (DAILY MVI) TABLET (FP) PO SCH (09:01)
[2017-07-04] MEDS: LACTOBACILLUS ACIDOPHILUS 1 EACH TAB (FP) PO SCH ×2 (09:01→22:25)
[2017-07-04] MEDS: PANTOPRAZOLE 40 MG TABLET (FP) PO SCH ×2 (09:01→22:25)
[2017-07-04] MEDS: ACETAMINOPHEN 325 MG TABLET (FP) PO PRN ×2 (09:01→23:45)
--- NOTE | 2017-07-04 09:14 | PN ---
Progress Note, Physician Chief Complaint: Events noted Not in distress Chest tube in place History of Present Illness: Patient was seen and examined. Awake. Chart was reviewed Denies chest pain or palpitations Less SOB - Current Medication List Current Medications: Active Medications Acetaminophen (Tylenol -) 325 mg PO Q6H PRN PRN Reason: FEVER OR PAIN Last Admin: 07/02/17 05:26 Dose: 325 mg Acetaminophen (Tylenol -) 650 mg PO Q4H PRN PRN Reason: PAIN Stop: 07/05/17 22:15 Last Admin: 07/04/17 09:01 Dose: 650 mg Albuterol Sulfate (Ventolin 0.083% Nebulizer Soln -) 1 amp NEB Q2H PRN PRN Reason: SHORT OF BREATH/WHEEZING Albuterol/Ipratropium (Duoneb -) 1 amp NEB QIDR [facility] Last Admin: 07/04/17 06:50 Dose: 1 amp Lactobacillus Acidophilus (Bacid -) 1 tab PO BID [facility] Last Admin: 07/04/17 09:01 Dose: 1 tab Multivitamins/Minerals/Vitamin C (Tab-A-Vit -) 1 tab PO DAILY [facility] Last Admin: 07/04/17 09:01 Dose: 1 tab Oxycodone HCl (Roxicodone -) 10 mg PO Q4H PRN PRN Reason: PAIN Last Admin: 07/03/17 23:56 Dose: 10 mg Pantoprazole Sodium (Protonix -) 40 mg PO BID [facility] Last Admin: 07/04/17 09:01 Dose: 40 mg Zolpidem Tartrate (Ambien -) 5 mg PO HS PRN PRN Reason: INSOMNIA Last Admin: 07/03/17 23:57 Dose: 5 mg - Objective Vital Signs: Vital Signs Temperature 97.8 F 07/04/17 08:35 Pulse Rate 81 07/04/17 08:35 Respiratory Rate 20 07/04/17 08:35 Blood Pressure 128/72 07/04/17 08:35 O2 Sat by Pulse Oximetry (%) 97 07/04/17 06:00 Neck: Yes: Supple Cardiovascular: Yes: Regular Rate and Rhythm, S1, S2 Respiratory: Yes: Diminished, Other (Chest tube) Gastrointestinal: Yes: Normal Bowel Sounds, Soft. No: Tenderness Edema: No Additional Findings/Remarks: Review of systems: HEENT: No headache, photophobia, blurring of vision CARD: No chest pain, SOB or palpitations PULM: No cough, sputum production, hemoptysis GI: No nausea, vomiting, diarrhea, abdominal pain, melena. hematemesis MUSC: No joint pains NEURO: No seizure, syncope Labs: CBC, BMP 07/04/17 05:15 07/04/17 05:15 INR, PTT INR 1.02 (0.82-1.09) 07/03/17 05:18 Problem List - Problems (1) Acute hypercapnic respiratory failure Code(s): J96.02 - ACUTE RESPIRATORY FAILURE WITH HYPERCAPNIA (2) Anemia, iron deficiency Code(s): D50.9 - IRON DEFICIENCY ANEMIA, UNSPECIFIED (3) COPD (chronic obstructive pulmonary disease) Code(s): J44.9 - CHRONIC OBSTRUCTIVE PULMONARY DISEASE, UNSPECIFIED Qualifiers : COPD type: COPD with acute exacerbation Qualified Code(s): J44.1 - Chronic obstructive pulmonary disease with (acute) exacerbation; J44.1 - Chronic obstructive pulmonary disease with (acute) exacerbation; J44.1 - Chronic obstructive pulmonary disease with (acute) exacerbation; J44.1 - Chronic obstructive pulmonary disease with (acute) exacerbation (4) Empyema Code(s): J86.9 - PYOTHORAX WITHOUT FISTULA (5) History of throat cancer Code(s): Z85.819 - PRSNL HX OF MALIG NEOPLM OF UNSP SITE LIP,ORAL CAV,& PHARYNX (6) Leukocytosis Code(s): D72.829 - ELEVATED WHITE BLOOD CELL COUNT, UNSPECIFIED Qualifiers: Leukocytosis type: unspecified Qualified Code(s): D72.829 - Elevated white blood cell count, unspecified; D72.829 - Elevated white blood cell count, unspecified Assessment/Plan 1. Post-op bradycardic/asystolic arrest suspect mucous plugging and atelectasis 2. Loculated empyema s/p right VATS converted to thoracotomy/decortication/ chest tube placement 3. History of Laryngeal CA 4. PTSD 5. COPD 6. Anemia PLAN: 1. Bronchodilator, empiric antibiotic course, steroid taper, O2, transfuse to maintain Hgb>8.0 and analgesia as needed 2. Chest tube management 3. DVT and GI prophylaxis 4. Continue present management Further plans are to follow Dustin Grey MD
--- NOTE | 2017-07-04 11:37 | PN ---
GI Progress Note Subjective: GI NOte : No overt bleeding. Hb stable. - Objective Vital Signs: Vital Signs Temperature 97.8 F 07/04/17 08:35 Pulse Rate 81 07/04/17 08:35 Respiratory Rate 20 07/04/17 08:35 Blood Pressure 128/72 07/04/17 08:35 O2 Sat by Pulse Oximetry (%) 97 07/04/17 06:00 Constitutional: Calm ...Auscultate: Yes: Normoactive Bowel Sounds ...Palpate: Yes: Soft, Other (nontender) Labs: CBC, BMP 07/04/17 05:15 07/04/17 05:15 INR, PTT INR 1.02 (0.82-1.09) 07/03/17 05:18 Assessment/Plan Occult GI bleeding with stable Hb allows for an elective EGD. Please notify us when this is feasible. Continue PPI.
--- NOTE | 2017-07-04 12:07 | PN ---
Progress Note (short form) - Note Progress Note: Reports feeling overall better. According to RN he was confused last night and disconnected his CT from the [facility]. Some dry cough. Denies CP. Persistent airleak noted. CXR : No change in RLL PTX Intake & Output 07/01/17 07/02/17 07/03/17 07/04/17 23:59 23:59 23:59 23:59 Intake Total 246 255 6239 480 Output Total 1430 1862 990 630 Balance -1300 -1192 80 -150 Last Vital Signs Temp Pulse Resp BP Pulse Ox 97.8 F 97 H 20 128/72 91 L 07/04/17 08:35 07/04/17 11:19 07/04/17 08:35 07/04/17 08:35 07/04/17 11:19 Active Medications Acetaminophen (Tylenol -) 325 mg PO Q6H PRN PRN Reason: FEVER OR PAIN Last Admin: 07/02/17 05:26 Dose: 325 mg Acetaminophen (Tylenol -) 650 mg PO Q4H PRN PRN Reason: PAIN Stop: 07/05/17 22:15 Last Admin: 07/04/17 09:01 Dose: 650 mg Albuterol Sulfate (Ventolin 0.083% Nebulizer Soln -) 1 amp NEB Q2H PRN PRN Reason: SHORT OF BREATH/WHEEZING Albuterol/Ipratropium (Duoneb -) 1 amp NEB QIDR [facility] Last Admin: 07/04/17 11:19 Dose: 1 amp Lactobacillus Acidophilus (Bacid -) 1 tab PO BID [facility] Last Admin: 07/04/17 09:01 Dose: 1 tab Multivitamins/Minerals/Vitamin C (Tab-A-Vit -) 1 tab PO DAILY [facility] Last Admin: 07/04/17 09:01 Dose: 1 tab Oxycodone HCl (Roxicodone -) 10 mg PO Q4H PRN PRN Reason: PAIN Last Admin: 07/03/17 23:56 Dose: 10 mg Pantoprazole Sodium (Protonix -) 40 mg PO BID [facility] Last Admin: 07/04/17 09:01 Dose: 40 mg Zolpidem Tartrate (Ambien -) 5 mg PO HS PRN PRN Reason: INSOMNIA Last Admin: 07/03/17 23:57 Dose: 5 mg Gen: NAD at rest Heart: S1S2, regular Lung: scattered rhonchi Abd: soft, nontender Ext: no edema Chest tube: + air leak, serosanguinous drainage Laboratory Results - last 24 hr 07/04/17 07/04/17 05:15 05:15 WBC 14.4 H RBC 3.58 L Hgb 9.7 L Hct 30.5 L MCV 85.4 MCH 27.0 MCHC 31.6 L RDW 18.3 H Plt Count 486 H MPV 8.3 Neutrophils % 73.2 Lymphocytes % 13.7 D Monocytes % 11.0 H Eosinophils % 1.6 Basophils % 0.5 Sodium 140 Potassium 4.5 Chloride 99 Carbon Dioxide 33 H Anion Gap 8 BUN 22 H D Creatinine 0.5 L D Creat Clearance w eGFR > 60 Random Glucose 85 Calcium 7.7 L Total Bilirubin 0.3 AST 10 L D ALT 30 D Alkaline Phosphatase 105 Total Protein 5.9 L Albumin 1.9 L A/P Loculated Empyema Persistent RLL PTX : likely residual trapped lung s/p R VATS converted to thoracotomy/decortication/chest tube placements Septic Shock improving s/p Cardiac Arrest COPD Anemia DM - continue antibiotics - Will likely need Heimlich valve placement - daily CXR while chest tube in place - pain control - incentive spirometry - inhaled bronchodilators - Monitor off steroids - O2 to keep SpO2 >90% - OOB to chair - DVT prophylaxis Dr Moon
--- NOTE | 2017-07-04 17:56 | PN ---
Progress Note, Physician Chief Complaint: Patient seen, had 2 loose bowel movements today sand 3 loose bowel movements yesterday. Stool for C . Diff. was not collected yet. The appetite continues to be very good. .The chest tube continues to drain serous fluid. History of Present Illness: 67 yo male with PMH of ENT cancer was admitted with complaints of weight loss, poor appetite and elevated WBC. He was diagnosed with right empyema which was treated with VATS pulmonary decortication and temporary placement of 3 right chest tubes. The right chest pain responds to Dilaudid. The patient coded post op and had to be intubated due to low blood pressure and collapsed right lung. The patient was extubated and is off pressors, the central line and the Cruz catheter were discontinued.Two of the 3 chest tubes was removed and the patient has one left. During the past 48 hours he had loose dark colored stools which were guaiac positive. - Current Medication List Current Medications: Active Medications Acetaminophen (Tylenol -) 325 mg PO Q6H PRN PRN Reason: FEVER OR PAIN Last Admin: 07/02/17 05:26 Dose: 325 mg Acetaminophen (Tylenol -) 650 mg PO Q4H PRN PRN Reason: PAIN Stop: 07/05/17 22:15 Last Admin: 07/04/17 09:01 Dose: 650 mg Albuterol Sulfate (Ventolin 0.083% Nebulizer Soln -) 1 amp NEB Q2H PRN PRN Reason: SHORT OF BREATH/WHEEZING Albuterol/Ipratropium (Duoneb -) 1 amp NEB QIDR [facility] Last Admin: 07/04/17 17:26 Dose: 1 amp Lactobacillus Acidophilus (Bacid -) 1 tab PO BID [facility] Last Admin: 07/04/17 09:01 Dose: 1 tab Multivitamins/Minerals/Vitamin C (Tab-A-Vit -) 1 tab PO DAILY [facility] Last Admin: 07/04/17 09:01 Dose: 1 tab Oxycodone HCl (Roxicodone -) 10 mg PO Q4H PRN PRN Reason: PAIN Last Admin: 07/03/17 23:56 Dose: 10 mg Pantoprazole Sodium (Protonix -) 40 mg PO BID [facility] Last Admin: 07/04/17 09:01 Dose: 40 mg Zolpidem Tartrate (Ambien -) 5 mg PO HS PRN PRN Reason: INSOMNIA Last Admin: 07/03/17 23:57 Dose: 5 mg - Objective Vital Signs: Vital Signs Temperature 99.2 F 07/04/17 14:00 Pulse Rate 105 H 07/04/17 14:00 Respiratory Rate 20 07/04/17 08:35 Blood Pressure 138/99 07/04/17 14:00 O2 Sat by Pulse Oximetry (%) 91 L 07/04/17 11:19 Constitutional: Yes: No Distress, Calm Eyes: Yes: Conjunctiva Clear, EOM Intact HENT: Yes: Atraumatic, Normocephalic Neck: Yes: Supple, Trachea Midline Cardiovascular: Yes: Regular Rate and Rhythm, S1, S2 Respiratory: Yes: Regular, CTA Bilaterally Gastrointestinal: Yes: Normal Bowel Sounds, Soft. No: Hepatomegaly, Splenomegaly Musculoskeletal: Yes: Muscle Weakness Extremities: No: Calf Tenderness Edema: No Peripheral Pulses WNL: Yes Integumentary: Yes: WNL Wound/Incision: Yes: Justus Intact (justus present at the level of the right hemithorax. There is no sign of infection.), Other Neurological: Yes: Alert, Oriented Psychiatric: Yes: Alert, Oriented Labs: CBC, BMP 07/04/17 05:15 07/04/17 05:15 INR, PTT INR 1.02 (0.82-1.09) 07/03/17 05:18 Problem List - Problems (1) Empyema Assessment/Plan: S/p decortication and VATS, with 1 chest tubes left in the right hemithorax continue po antibiotics Code(s): J86.9 - PYOTHORAX WITHOUT FISTULA (2) COPD (chronic obstructive pulmonary disease) Assessment/Plan: Albuterol nebulizer changed to every 6 hours scheduled and not prn added Albuterol nebs every 2 hours prn stopped Prednisone po Code(s): J44.9 - CHRONIC OBSTRUCTIVE PULMONARY DISEASE, UNSPECIFIED Qualifiers : COPD type: COPD with acute exacerbation Qualified Code(s): J44.1 - Chronic obstructive pulmonary disease with (acute) exacerbation; J44.1 - Chronic obstructive pulmonary disease with (acute) exacerbation; J44.1 - Chronic obstructive pulmonary disease with (acute) exacerbation; J44.1 - Chronic obstructive pulmonary disease with (acute) exacerbation (3) Schizoaffective disorder Assessment/Plan: on no medications Code(s): F25.9 - SCHIZOAFFECTIVE DISORDER, UNSPECIFIED Qualifiers: Schizoaffective disorder type: unspecified Qualified Code(s): F25.9 - Schizoaffective disorder, unspecified; F25.9 - Schizoaffective disorder, unspecified; F25.9 - Schizoaffective disorder, unspecified; F25.9 - Schizoaffective disorder, unspecified (4) Glucose intolerance (impaired glucose tolerance) Assessment/Plan: on accuchecks Code(s): R73.02 - IMPAIRED GLUCOSE TOLERANCE (ORAL) (5) History of throat cancer Assessment/Plan: pleural fluid negative for malignancy Code(s): Z85.819 - PRSNL HX OF MALIG NEOPLM OF UNSP SITE LIP,ORAL CAV,& PHARYNX (6) Multifocal atrial tachycardia Assessment/Plan: check ABG in Am Code(s): I47.1 - SUPRAVENTRICULAR TACHYCARDIA (7) Protein calorie malnutrition Assessment/Plan: severe protein caloric malnutrition Code(s): E46 - UNSPECIFIED PROTEIN-CALORIE MALNUTRITION (8) Melena Assessment/Plan: check CBC, stopped prednisone, continue Protonix, hemoccult all stools, GI consult noted and appreciated Code(s): K92.1 - MELENA
[2017-07-04] MEDS: oxyCODONE HCL 5 MG TABLET PO PRN (23:43)
[2017-07-04] MEDS: ZOLPIDEM TARTRATE 5 MG TABLET PO PRN (23:43)
[2017-07-05] MEDS: ACETAMINOPHEN 325 MG TABLET (FP) PO PRN (07:03)
[2017-07-05] MEDS: MULTIVITAMINS (DAILY MVI) TABLET (FP) PO SCH (09:50)
[2017-07-05] MEDS: LACTOBACILLUS ACIDOPHILUS 1 EACH TAB (FP) PO SCH ×2 (09:51→21:58)
[2017-07-05] MEDS: PANTOPRAZOLE 40 MG TABLET (FP) PO SCH ×2 (09:51→21:58)
--- NOTE | 2017-07-05 10:00 | PN ---
Progress Note (short form) - Note Progress Note: Thoracic Surgery: CT drainage minimal. Pain controlled on right but new onset left chest pain. VSS WBC lower. Small air-leak. Clamp chest tube. CXR now and in 4 hours and tomorrow. Pull vs. Pneumostat. EKG.
[2017-07-05] MEDS: ALBUTEROL SO4 0.083% IH SOL 2.5 MG/3 ML VIAL.NEB. NEB PRN ×2 (10:40→19:19)
--- NOTE | 2017-07-05 10:56 | PN ---
Progress Note, Physician Chief Complaint: Events noted Not in distress Chest tube in place, but clamped History of Present Illness: Patient was seen and examined. Awake. Chart was reviewed Denies chest pain, SOB or palpitations - Current Medication List Current Medications: Active Medications Acetaminophen (Tylenol -) 325 mg PO Q6H PRN PRN Reason: FEVER OR PAIN Last Admin: 07/05/17 07:03 Dose: 325 mg Acetaminophen (Tylenol -) 650 mg PO Q4H PRN PRN Reason: PAIN Stop: 07/05/17 22:15 Last Admin: 07/04/17 23:45 Dose: 650 mg Albuterol Sulfate (Ventolin 0.083% Nebulizer Soln -) 1 amp NEB Q2H PRN PRN Reason: SHORT OF BREATH/WHEEZING Lactobacillus Acidophilus (Bacid -) 1 tab PO BID [facility] Last Admin: 07/05/17 09:51 Dose: 1 tab Multivitamins/Minerals/Vitamin C (Tab-A-Vit -) 1 tab PO DAILY [facility] Last Admin: 07/05/17 09:50 Dose: 1 tab Oxycodone HCl (Roxicodone -) 10 mg PO Q4H PRN PRN Reason: PAIN Last Admin: 07/04/17 23:43 Dose: 10 mg Pantoprazole Sodium (Protonix -) 40 mg PO BID [facility] Last Admin: 07/05/17 09:51 Dose: 40 mg Zolpidem Tartrate (Ambien -) 5 mg PO HS PRN PRN Reason: INSOMNIA Last Admin: 07/04/17 23:43 Dose: 5 mg - Objective Vital Signs: Vital Signs Temperature 97.7 F 07/05/17 06:00 Pulse Rate 92 H 07/05/17 06:00 Respiratory Rate 20 07/05/17 06:00 Blood Pressure 120/72 07/05/17 06:00 O2 Sat by Pulse Oximetry (%) 96 07/04/17 21:41 Neck: Yes: Supple Cardiovascular: Yes: Regular Rate and Rhythm, S1, S2 Respiratory: Yes: Diminished Gastrointestinal: Yes: Normal Bowel Sounds, Soft. No: Tenderness Edema: No Additional Findings/Remarks: Review of systems: HEENT: No headache, photophobia, blurring of vision CARD: No chest pain, SOB or palpitations PULM: No cough, sputum production, hemoptysis GI: No nausea, vomiting, diarrhea, abdominal pain, melena. hematemesis MUSC: No joint pains NEURO: No seizure, syncope Labs: CBC, BMP 07/04/17 05:15 07/04/17 05:15 INR, PTT Problem List - Problems (1) Acute hypercapnic respiratory failure Code(s): J96.02 - ACUTE RESPIRATORY FAILURE WITH HYPERCAPNIA (2) Anemia, iron deficiency Code(s): D50.9 - IRON DEFICIENCY ANEMIA, UNSPECIFIED (3) COPD (chronic obstructive pulmonary disease) Code(s): J44.9 - CHRONIC OBSTRUCTIVE PULMONARY DISEASE, UNSPECIFIED Qualifiers : COPD type: COPD with acute exacerbation Qualified Code(s): J44.1 - Chronic obstructive pulmonary disease with (acute) exacerbation; J44.1 - Chronic obstructive pulmonary disease with (acute) exacerbation; J44.1 - Chronic obstructive pulmonary disease with (acute) exacerbation; J44.1 - Chronic obstructive pulmonary disease with (acute) exacerbation (4) Empyema Code(s): J86.9 - PYOTHORAX WITHOUT FISTULA (5) History of throat cancer Code(s): Z85.819 - PRSNL HX OF MALIG NEOPLM OF UNSP SITE LIP,ORAL CAV,& PHARYNX (6) Leukocytosis Code(s): D72.829 - ELEVATED WHITE BLOOD CELL COUNT, UNSPECIFIED Qualifiers: Leukocytosis type: unspecified Qualified Code(s): D72.829 - Elevated white blood cell count, unspecified; D72.829 - Elevated white blood cell count, unspecified Assessment/Plan 1. Post-op bradycardic/asystolic arrest suspect mucous plugging and atelectasis 2. Loculated empyema s/p right VATS converted to thoracotomy/decortication/ chest tube placement 3. History of Laryngeal CA 4. PTSD 5. COPD 6. Anemia PLAN: 1. Bronchodilator, empiric antibiotic course, steroid taper, O2, transfuse to maintain Hgb>8.0 and analgesia as needed 2. Chest tube management 3. DVT and GI prophylaxis 4. Continue present management Further plans are to follow Dustin Grey MD
--- NOTE | 2017-07-05 11:27 | PN ---
Progress Note, Physician History of Present Illness: pulmonary alert,comfortable,-resp distress,ambulation with physical therapy - Current Medication List Current Medications: Active Medications Acetaminophen (Tylenol -) 325 mg PO Q6H PRN PRN Reason: FEVER OR PAIN Last Admin: 07/05/17 07:03 Dose: 325 mg Acetaminophen (Tylenol -) 650 mg PO Q4H PRN PRN Reason: PAIN Stop: 07/05/17 22:15 Last Admin: 07/04/17 23:45 Dose: 650 mg Albuterol Sulfate (Ventolin 0.083% Nebulizer Soln -) 1 amp NEB Q2H PRN PRN Reason: SHORT OF BREATH/WHEEZING Lactobacillus Acidophilus (Bacid -) 1 tab PO BID [facility] Last Admin: 07/05/17 09:51 Dose: 1 tab Multivitamins/Minerals/Vitamin C (Tab-A-Vit -) 1 tab PO DAILY [facility] Last Admin: 07/05/17 09:50 Dose: 1 tab Oxycodone HCl (Roxicodone -) 10 mg PO Q4H PRN PRN Reason: PAIN Last Admin: 07/04/17 23:43 Dose: 10 mg Pantoprazole Sodium (Protonix -) 40 mg PO BID [facility] Last Admin: 07/05/17 09:51 Dose: 40 mg Zolpidem Tartrate (Ambien -) 5 mg PO HS PRN PRN Reason: INSOMNIA Last Admin: 07/04/17 23:43 Dose: 5 mg - Objective Vital Signs: Vital Signs Temperature 97.8 F 07/05/17 10:00 Pulse Rate 91 H 07/05/17 10:00 Respiratory Rate 20 07/05/17 10:00 Blood Pressure 128/64 07/05/17 10:00 O2 Sat by Pulse Oximetry (%) 96 07/04/17 21:41 Constitutional: Yes: Calm, Thin Eyes: Yes: WNL HENT: Yes: WNL Neck: Yes: WNL Cardiovascular: Yes: Regular Rate and Rhythm, S1, S2 Respiratory: Yes: Diminished Gastrointestinal: Yes: Normal Bowel Sounds, Soft Extremities: Yes: WNL Edema: No Labs: CBC, BMP - ....Imaging Chest X-ray: Report Reviewed, Image Reviewed Problem List - Problems (1) Acute hypercapnic respiratory failure Code(s): J96.02 - ACUTE RESPIRATORY FAILURE WITH HYPERCAPNIA (2) Anemia, iron deficiency Code(s): D50.9 - IRON DEFICIENCY ANEMIA, UNSPECIFIED (3) COPD (chronic obstructive pulmonary disease) Code(s): J44.9 - CHRONIC OBSTRUCTIVE PULMONARY DISEASE, UNSPECIFIED Qualifiers : COPD type: COPD with acute exacerbation Qualified Code(s): J44.1 - Chronic obstructive pulmonary disease with (acute) exacerbation; J44.1 - Chronic obstructive pulmonary disease with (acute) exacerbation; J44.1 - Chronic obstructive pulmonary disease with (acute) exacerbation; J44.1 - Chronic obstructive pulmonary disease with (acute) exacerbation (4) Empyema lung Code(s): J86.9 - PYOTHORAX WITHOUT FISTULA (5) S/P thoracostomy tube placement Code(s): Z93.8 - OTHER ARTIFICIAL OPENING STATUS (6) Empyema Code(s): J86.9 - PYOTHORAX WITHOUT FISTULA Assessment/Plan A/P Loculated Empyema Persistent RLL PTX : likely residual trapped lung s/p R VATS converted to thoracotomy/decortication/chest tube placements Septic Shock improving s/p Cardiac Arrest COPD Anemia DM - daily CXR while chest tube in place - pain control - incentive spirometry - inhaled bronchodilators - O2 to keep SpO2 >90% - ambulate - DVT prophylaxis DR REYES
--- NOTE | 2017-07-05 13:36 | PN ---
Progress Note, Physician Chief Complaint: Patient seen, had 2 loose bowel movements today sand 3 loose bowel movements yesterday. Stool for C . Diff. was not collected yet. The appetite continues to be very good. .The chest tube continues to drain serous fluid and it was clamped this morning History of Present Illness: 67 yo male with PMH of ENT cancer was admitted with complaints of weight loss, poor appetite and elevated WBC. He was diagnosed with right empyema which was treated with VATS pulmonary decortication and temporary placement of 3 right chest tubes. The right chest pain responds to Dilaudid. The patient coded post op and had to be intubated due to low blood pressure and collapsed right lung. The patient was extubated and is off pressors, the central line and the Cruz catheter were discontinued.Two of the 3 chest tubes was removed and the patient has one left. During the past 48 hours he had loose dark colored stools which were guaiac positive. - Current Medication List Current Medications: Active Medications Acetaminophen (Tylenol -) 325 mg PO Q6H PRN PRN Reason: FEVER OR PAIN Last Admin: 07/05/17 07:03 Dose: 325 mg Acetaminophen (Tylenol -) 650 mg PO Q4H PRN PRN Reason: PAIN Stop: 07/05/17 22:15 Last Admin: 07/04/17 23:45 Dose: 650 mg Albuterol Sulfate (Ventolin 0.083% Nebulizer Soln -) 1 amp NEB Q2H PRN PRN Reason: SHORT OF BREATH/WHEEZING Last Admin: 07/05/17 10:40 Dose: 1 amp Lactobacillus Acidophilus (Bacid -) 1 tab PO BID [facility] Last Admin: 07/05/17 09:51 Dose: 1 tab Multivitamins/Minerals/Vitamin C (Tab-A-Vit -) 1 tab PO DAILY [facility] Last Admin: 07/05/17 09:50 Dose: 1 tab Oxycodone HCl (Roxicodone -) 10 mg PO Q4H PRN PRN Reason: PAIN Last Admin: 07/04/17 23:43 Dose: 10 mg Pantoprazole Sodium (Protonix -) 40 mg PO BID [facility] Last Admin: 07/05/17 09:51 Dose: 40 mg Zolpidem Tartrate (Ambien -) 5 mg PO HS PRN PRN Reason: INSOMNIA Last Admin: 07/04/17 23:43 Dose: 5 mg - Objective Vital Signs: Vital Signs Temperature 97.8 F 07/05/17 10:00 Pulse Rate 84 07/05/17 10:45 Respiratory Rate 20 07/05/17 10:00 Blood Pressure 128/64 07/05/17 10:00 O2 Sat by Pulse Oximetry (%) 95 07/05/17 10:45 Constitutional: Yes: No Distress, Calm Eyes: Yes: Conjunctiva Clear, EOM Intact HENT: Yes: Atraumatic, Normocephalic Neck: Yes: Supple, Trachea Midline Cardiovascular: Yes: Regular Rate and Rhythm, S1, S2 Respiratory: Yes: Regular, CTA Bilaterally Gastrointestinal: Yes: Normal Bowel Sounds, Soft. No: Hepatomegaly, Splenomegaly Breast(s): Yes: WNL Musculoskeletal: Yes: Muscle Weakness Extremities: No: Calf Tenderness Edema: No Peripheral Pulses WNL: Yes Neurological: Yes: Alert, Oriented Psychiatric: Yes: Alert, Oriented Labs: CBC, BMP 07/04/17 05:15 07/04/17 05:15 INR, PTT INR 1.02 (0.82-1.09) 07/03/17 05:18 Problem List - Problems (1) Empyema Assessment/Plan: S/p decortication and VATS, with 1 chest tubes left in the right hemithorax continue po antibiotics Code(s): J86.9 - PYOTHORAX WITHOUT FISTULA (2) COPD (chronic obstructive pulmonary disease) Assessment/Plan: Albuterol nebulizer changed to every 6 hours scheduled and not prn added Albuterol nebs every 2 hours prn stopped Prednisone po Code(s): J44.9 - CHRONIC OBSTRUCTIVE PULMONARY DISEASE, UNSPECIFIED Qualifiers : COPD type: COPD with acute exacerbation Qualified Code(s): J44.1 - Chronic obstructive pulmonary disease with (acute) exacerbation; J44.1 - Chronic obstructive pulmonary disease with (acute) exacerbation; J44.1 - Chronic obstructive pulmonary disease with (acute) exacerbation; J44.1 - Chronic obstructive pulmonary disease with (acute) exacerbation (3) Schizoaffective disorder Assessment/Plan: on no medications Code(s): F25.9 - SCHIZOAFFECTIVE DISORDER, UNSPECIFIED Qualifiers: Schizoaffective disorder type: unspecified Qualified Code(s): F25.9 - Schizoaffective disorder, unspecified; F25.9 - Schizoaffective disorder, unspecified; F25.9 - Schizoaffective disorder, unspecified; F25.9 - Schizoaffective disorder, unspecified (4) Glucose intolerance (impaired glucose tolerance) Assessment/Plan: on accuchecks Code(s): R73.02 - IMPAIRED GLUCOSE TOLERANCE (ORAL) (5) History of throat cancer Assessment/Plan: pleural fluid negative for malignancy Code(s): Z85.819 - PRSNL HX OF MALIG NEOPLM OF UNSP SITE LIP,ORAL CAV,& PHARYNX (6) Multifocal atrial tachycardia Assessment/Plan: check ABG in Am Code(s): I47.1 - SUPRAVENTRICULAR TACHYCARDIA (7) Protein calorie malnutrition Assessment/Plan: severe protein caloric malnutrition Code(s): E46 - UNSPECIFIED PROTEIN-CALORIE MALNUTRITION (8) Melena Assessment/Plan: check CBC, stopped prednisone, continue Protonix, hemoccult all stools, GI consult noted and appreciated Code(s): K92.1 - MELENA (9) Diarrhea Assessment/Plan: C difficile in stool Code(s): R19.7 - DIARRHEA, UNSPECIFIED
[2017-07-05] MEDS ORDERED: ZOLPIDEM TARTRATE 5 MG TABLET PO ONE (23:30)
[2017-07-05] MEDS ORDERED: oxyCODONE HCL 5 MG TABLET PO ONE (23:45)
[2017-07-05] MEDS ORDERED: ACETAMINOPHEN 325 MG TABLET (FP) PO ONE (23:45)
--- NOTE | 2017-07-06 07:08 | EKG ---
Test Reason : Blood Pressure : / mmHG Vent. Rate : 093 BPM Atrial Rate : 093 BPM P-R Int : 140 ms QRS Dur : 098 ms QT Int : 370 ms P-R-T Axes : 086 -23 063 degrees QTc Int : 460 ms SINUS RHYTHM WITH PREMATURE ATRIAL COMPLEXES LOW VOLTAGE QRS BORDERLINE ECG WHEN COMPARED WITH ECG OF 26-JUN-2017 09:31, NO SIGNIFICANT CHANGE WAS FOUND Confirmed by MAURO ROBERTS, ANN MARIE ([id number]) on 07/06/2017 7:08:25 AM Referred By: TAMARA CARLIN DR Confirmed By:ANN MARIE WADE MD
[2017-07-06] MEDS: ACETAMINOPHEN 325 MG TABLET (FP) PO PRN (08:20)
[2017-07-06] MEDS: PANTOPRAZOLE 40 MG TABLET (FP) PO SCH ×2 (10:14→21:10)
[2017-07-06] MEDS: LACTOBACILLUS ACIDOPHILUS 1 EACH TAB (FP) PO SCH ×2 (10:15→21:10)
[2017-07-06] MEDS: MULTIVITAMINS (DAILY MVI) TABLET (FP) PO SCH (10:15)
--- NOTE | 2017-07-06 10:32 | PN ---
Progress Note, Physician Chief Complaint: Patient seen, no bowel movements since yesterday. Stool for C . Diff. was not collected yet. The appetite continues to be very good. .The chest tube continues to drain sero-sangvinolent fluid and it was clamped yesterday morning, approximately 20 cc siting oin the tube at 10 am History of Present Illness: 67 yo male with PMH of ENT cancer was admitted with complaints of weight loss, poor appetite and elevated WBC. He was diagnosed with right empyema which was treated with VATS pulmonary decortication and temporary placement of 3 right chest tubes. The right chest pain responds to Dilaudid. The patient coded post op and had to be intubated due to low blood pressure and collapsed right lung. The patient was extubated and is off pressors, the central line and the Cruz catheter were discontinued.Two of the 3 chest tubes was removed and the patient has one left. - Current Medication List Current Medications: Active Medications Acetaminophen (Tylenol -) 325 mg PO Q6H PRN PRN Reason: FEVER OR PAIN Last Admin: 07/06/17 08:20 Dose: 325 mg Albuterol Sulfate (Ventolin 0.083% Nebulizer Soln -) 1 amp NEB Q2H PRN PRN Reason: SHORT OF BREATH/WHEEZING Last Admin: 07/05/17 19:19 Dose: 1 amp Lactobacillus Acidophilus (Bacid -) 1 tab PO BID [facility] Last Admin: 07/06/17 10:15 Dose: 1 tab Multivitamins/Minerals/Vitamin C (Tab-A-Vit -) 1 tab PO DAILY [facility] Last Admin: 07/06/17 10:15 Dose: 1 tab Pantoprazole Sodium (Protonix -) 40 mg PO BID [facility] Last Admin: 07/06/17 10:14 Dose: 40 mg - Objective Vital Signs: Vital Signs Temperature 97.3 F L 07/06/17 08:55 Pulse Rate 88 07/06/17 08:55 Respiratory Rate 18 07/06/17 08:55 Blood Pressure 121/63 07/06/17 08:55 O2 Sat by Pulse Oximetry (%) 93 L 07/05/17 20:46 Constitutional: Yes: No Distress, Calm Eyes: Yes: Conjunctiva Clear, EOM Intact HENT: Yes: Atraumatic, Normocephalic Neck: Yes: Supple, Trachea Midline Respiratory: Yes: Regular, CTA Bilaterally Gastrointestinal: Yes: Normal Bowel Sounds, Soft Extremities: No: Calf Tenderness Edema: No Peripheral Pulses WNL: Yes Integumentary: Yes: WNL Wound/Incision: Yes: Ruth Intact (right hemithorax) Neurological: Yes: Alert, Oriented Psychiatric: Yes: Alert, Oriented Labs: CBC, BMP 07/04/17 05:15 07/04/17 05:15 INR, PTT INR 1.02 (0.82-1.09) 07/03/17 05:18 Problem List - Problems (1) Empyema Assessment/Plan: S/p decortication and VATS, with 1 chest tubes left in the right hemithorax poor healing ncrease po intake pro stat po completed antibiotics Code(s): J86.9 - PYOTHORAX WITHOUT FISTULA (2) COPD (chronic obstructive pulmonary disease) Assessment/Plan: Albuterol nebulizer changed to every 6 hours scheduled and not prn added Albuterol nebs every 2 hours prn stopped Prednisone po Code(s): J44.9 - CHRONIC OBSTRUCTIVE PULMONARY DISEASE, UNSPECIFIED Qualifiers : COPD type: COPD with acute exacerbation Qualified Code(s): J44.1 - Chronic obstructive pulmonary disease with (acute) exacerbation; J44.1 - Chronic obstructive pulmonary disease with (acute) exacerbation; J44.1 - Chronic obstructive pulmonary disease with (acute) exacerbation; J44.1 - Chronic obstructive pulmonary disease with (acute) exacerbation (3) Schizoaffective disorder Assessment/Plan: on no medications Code(s): F25.9 - SCHIZOAFFECTIVE DISORDER, UNSPECIFIED Qualifiers: Schizoaffective disorder type: unspecified Qualified Code(s): F25.9 - Schizoaffective disorder, unspecified; F25.9 - Schizoaffective disorder, unspecified; F25.9 - Schizoaffective disorder, unspecified; F25.9 - Schizoaffective disorder, unspecified (4) Glucose intolerance (impaired glucose tolerance) Assessment/Plan: liberalized diet due to low albumin level Code(s): R73.02 - IMPAIRED GLUCOSE TOLERANCE (ORAL) (5) History of throat cancer Assessment/Plan: pleural fluid negative for malignancy Code(s): Z85.819 - PRSNL HX OF MALIG NEOPLM OF UNSP SITE LIP,ORAL CAV,& PHARYNX (6) Multifocal atrial tachycardia Assessment/Plan: persisting Code(s): I47.1 - SUPRAVENTRICULAR TACHYCARDIA (7) Protein calorie malnutrition Assessment/Plan: severe protein caloric malnutrition protein supplements Code(s): E46 - UNSPECIFIED PROTEIN-CALORIE MALNUTRITION (8) Melena Assessment/Plan: check CBC, stopped prednisone, continue Protonix, hemoccult all stools, GI consult noted and appreciated melena not recurring will pursue endoscopy as outpatient Code(s): K92.1 - MELENA (9) Diarrhea Assessment/Plan: resolved Code(s): R19.7 - DIARRHEA, UNSPECIFIED
--- NOTE | 2017-07-06 11:24 | PN ---
Progress Note, Physician History of Present Illness: PULMONARY ALERT,COMFORTABLE,NAD,+CIFUENTES. - Current Medication List Current Medications: Active Medications Acetaminophen (Tylenol -) 325 mg PO Q6H PRN PRN Reason: FEVER OR PAIN Last Admin: 07/06/17 08:20 Dose: 325 mg Albuterol Sulfate (Ventolin 0.083% Nebulizer Soln -) 1 amp NEB Q2H PRN PRN Reason: SHORT OF BREATH/WHEEZING Last Admin: 07/05/17 19:19 Dose: 1 amp Amino Acids (Prosource No Carb Liquid Pkt) 30 ml PO BID@0800,1730 [facility] Lactobacillus Acidophilus (Bacid -) 1 tab PO BID [facility] Last Admin: 07/06/17 10:15 Dose: 1 tab Multivitamins/Minerals/Vitamin C (Tab-A-Vit -) 1 tab PO DAILY [facility] Last Admin: 07/06/17 10:15 Dose: 1 tab Pantoprazole Sodium (Protonix -) 40 mg PO BID [facility] Last Admin: 07/06/17 10:14 Dose: 40 mg - Objective Vital Signs: Vital Signs Temperature 97.3 F L 07/06/17 08:55 Pulse Rate 88 07/06/17 08:55 Respiratory Rate 18 07/06/17 08:55 Blood Pressure 121/63 07/06/17 08:55 O2 Sat by Pulse Oximetry (%) 93 L 07/05/17 20:46 Constitutional: Yes: Calm, Thin Eyes: Yes: WNL HENT: Yes: Nasal Congestion Neck: Yes: WNL Cardiovascular: Yes: Regular Rate and Rhythm, S1, S2 Respiratory: Yes: Diminished Gastrointestinal: Yes: Normal Bowel Sounds, Soft Extremities: Yes: WNL Edema: No Labs: CBC, BMP 07/04/17 05:15 07/04/17 05:15 INR, PTT INR 1.02 (0.82-1.09) 07/03/17 05:18 Problem List - Problems (1) Acute hypercapnic respiratory failure Code(s): J96.02 - ACUTE RESPIRATORY FAILURE WITH HYPERCAPNIA (2) Anemia, iron deficiency Code(s): D50.9 - IRON DEFICIENCY ANEMIA, UNSPECIFIED (3) COPD (chronic obstructive pulmonary disease) Code(s): J44.9 - CHRONIC OBSTRUCTIVE PULMONARY DISEASE, UNSPECIFIED Qualifiers : COPD type: COPD with acute exacerbation Qualified Code(s): J44.1 - Chronic obstructive pulmonary disease with (acute) exacerbation; J44.1 - Chronic obstructive pulmonary disease with (acute) exacerbation; J44.1 - Chronic obstructive pulmonary disease with (acute) exacerbation; J44.1 - Chronic obstructive pulmonary disease with (acute) exacerbation (4) Empyema lung Code(s): J86.9 - PYOTHORAX WITHOUT FISTULA (5) S/P thoracostomy tube placement Code(s): Z93.8 - OTHER ARTIFICIAL OPENING STATUS (6) Empyema Code(s): J86.9 - PYOTHORAX WITHOUT FISTULA Assessment/Plan A/P Loculated Empyema Persistent RLL PTX : likely residual trapped lung s/p R VATS converted to thoracotomy/decortication/chest tube placements Septic Shock improving s/p Cardiac Arrest COPD Anemia DM - daily CXR while chest tube in place - pain control - incentive spirometry - inhaled bronchodilators - O2 to keep SpO2 >90% - ambulate - DVT prophylaxis - chest tube as per thoracic surgery DR REYES
--- NOTE | 2017-07-06 11:25 | PROC ---
Procedure Note Procedure: Chest tube pulled after being clamped to gravity for 24hours. occlusive dressing applied. post-pull CXR ordered. [place] to be removed by Dr Cleaning in office. Evaluation and plan discussed with Dr Cleaning.
--- NOTE | 2017-07-06 14:11 | PN ---
Progress Note, Physician Chief Complaint: Events noted Not in distress Chest tube in place this am, but pulled in the afternoon History of Present Illness: Patient was seen and examined. Awake. Chart was reviewed Denies chest pain, SOB or palpitations - Current Medication List Current Medications: Active Medications Acetaminophen (Tylenol -) 325 mg PO Q6H PRN PRN Reason: FEVER OR PAIN Last Admin: 07/06/17 08:20 Dose: 325 mg Albuterol Sulfate (Ventolin 0.083% Nebulizer Soln -) 1 amp NEB Q2H PRN PRN Reason: SHORT OF BREATH/WHEEZING Last Admin: 07/05/17 19:19 Dose: 1 amp Amino Acids (Prosource No Carb Liquid Pkt) 30 ml PO BID@0800,1730 [facility] Lactobacillus Acidophilus (Bacid -) 1 tab PO BID [facility] Last Admin: 07/06/17 10:15 Dose: 1 tab Multivitamins/Minerals/Vitamin C (Tab-A-Vit -) 1 tab PO DAILY [facility] Last Admin: 07/06/17 10:15 Dose: 1 tab Pantoprazole Sodium (Protonix -) 40 mg PO BID [facility] Last Admin: 07/06/17 10:14 Dose: 40 mg - Objective Vital Signs: Vital Signs Temperature 97.7 F 07/06/17 12:00 Pulse Rate 88 07/06/17 12:00 Respiratory Rate 20 07/06/17 12:00 Blood Pressure 116/61 07/06/17 12:00 O2 Sat by Pulse Oximetry (%) 93 L 07/05/17 20:46 Neck: Yes: Supple Cardiovascular: Yes: Regular Rate and Rhythm, Murmur (Soft SM), S1, S2 Respiratory: Yes: Diminished Gastrointestinal: Yes: Normal Bowel Sounds, Soft. No: Tenderness Edema: No Additional Findings/Remarks: Review of systems: HEENT: No headache, photophobia, blurring of vision CARD: No chest pain, SOB or palpitations PULM: No cough, sputum production, hemoptysis GI: No nausea, vomiting, diarrhea, abdominal pain, melena. hematemesis MUSC: No joint pains NEURO: No seizure, syncope Problem List - Problems (1) Acute hypercapnic respiratory failure Code(s): J96.02 - ACUTE RESPIRATORY FAILURE WITH HYPERCAPNIA (2) Anemia, iron deficiency Code(s): D50.9 - IRON DEFICIENCY ANEMIA, UNSPECIFIED (3) COPD (chronic obstructive pulmonary disease) Code(s): J44.9 - CHRONIC OBSTRUCTIVE PULMONARY DISEASE, UNSPECIFIED Qualifiers : COPD type: COPD with acute exacerbation Qualified Code(s): J44.1 - Chronic obstructive pulmonary disease with (acute) exacerbation; J44.1 - Chronic obstructive pulmonary disease with (acute) exacerbation; J44.1 - Chronic obstructive pulmonary disease with (acute) exacerbation; J44.1 - Chronic obstructive pulmonary disease with (acute) exacerbation (4) Empyema Code(s): J86.9 - PYOTHORAX WITHOUT FISTULA (5) History of throat cancer Code(s): Z85.819 - PRSNL HX OF MALIG NEOPLM OF UNSP SITE LIP,ORAL CAV,& PHARYNX (6) Leukocytosis Code(s): D72.829 - ELEVATED WHITE BLOOD CELL COUNT, UNSPECIFIED Qualifiers: Leukocytosis type: unspecified Qualified Code(s): D72.829 - Elevated white blood cell count, unspecified; D72.829 - Elevated white blood cell count, unspecified Assessment/Plan 1. Post-op bradycardic/asystolic arrest suspect mucous plugging and atelectasis 2. Loculated empyema s/p right VATS converted to thoracotomy/decortication/ chest tube placement 3. History of Laryngeal CA 4. PTSD 5. COPD 6. Anemia PLAN: 1. Bronchodilator, empiric antibiotic course, steroid taper, O2, transfuse to maintain Hgb>8.0 and analgesia as needed 2. Chest tube pulled 3. DVT and GI prophylaxis 4. Continue present management Further plans are to follow Dustin Grey MD
[2017-07-06] MEDS: AMINO ACIDS/PROTEIN HYDROLYS 30 ML LIQUID.PKT PO SCH (16:59)
[2017-07-06] MEDS: ALBUTEROL SO4 0.083% IH SOL 2.5 MG/3 ML VIAL.NEB. NEB PRN (22:51)
[2017-07-06] MEDS ORDERED: oxyCODONE HCL 5 MG TABLET PO PRN (23:39)
[2017-07-06] MEDS ORDERED: ACETAMINOPHEN 325 MG TABLET (FP) PO PRN (23:39)
[2017-07-07 07:17] LABS: BASOPHIL 0.5 % (0-2.0); MCH 27.5 pg (25.7-33.7); MCHC 31.9 g/dl (32.0-35.9); MEAN PLT VOLUME 8.1 fl (7.5-11.1); NEUTROPHILS 77.9 % (42.8-82.8); PLATELET COUNT 465 K/MM3 (134-434); RDW 18.8 % (11.9-15.9); WHITE BLOOD COUNT 14.3 K/mm3 (4.0-10.0)
[2017-07-07 07:48] LABS: ALBUMIN 1.9 g/dl (3.4-5.0); ANION GAP 5 (8-16); CALCIUM 8.3 mg/dL (8.5-10.1); CO2 34 mmol/L (21-32); GLUCOSE,RANDOM 82 mg/dL (74-106)
[2017-07-07 07:54] LABS: ALK PHOS 114 U/L (45-117); BILIRUBIN,TOTAL 0.3 mg/dL (0.2-1.0); CREATININE 0.6 mg/dL (0.7-1.3); SGOT/AST 19 U/L (15-37); SGPT/ALT 30 U/L (12-78); TOT PROT 5.9 g/dl (6.4-8.2)
[2017-07-07] MEDS: ACETAMINOPHEN 325 MG TABLET (FP) PO PRN (10:02)
[2017-07-07] MEDS: MULTIVITAMINS (DAILY MVI) TABLET (FP) PO SCH (10:03)
[2017-07-07] MEDS: LACTOBACILLUS ACIDOPHILUS 1 EACH TAB (FP) PO SCH (10:03)
[2017-07-07] MEDS: AMINO ACIDS/PROTEIN HYDROLYS 30 ML LIQUID.PKT PO SCH (10:03)
[2017-07-07] MEDS: PANTOPRAZOLE 40 MG TABLET (FP) PO SCH (10:03)
[2017-07-07] MEDS: ALBUTEROL SO4 0.083% IH SOL 2.5 MG/3 ML VIAL.NEB. NEB PRN (11:25)
--- NOTE | 2017-07-07 11:47 | PN ---
Progress Note, Physician History of Present Illness: PULMONARY ALERT,NAD,CHEST TUBE REMOVED. AMBULATING WITH PT - Current Medication List Current Medications: Active Medications Acetaminophen (Tylenol -) 325 mg PO Q6H PRN PRN Reason: FEVER OR PAIN Last Admin: 07/07/17 10:02 Dose: 325 mg Acetaminophen (Tylenol -) 650 mg PO Q4H PRN PRN Reason: PAIN Stop: 07/09/17 23:38 Last Admin: 07/06/17 23:47 Dose: 650 mg Albuterol Sulfate (Ventolin 0.083% Nebulizer Soln -) 1 amp NEB Q2H PRN PRN Reason: SHORT OF BREATH/WHEEZING Last Admin: 07/06/17 22:51 Dose: 1 amp Amino Acids (Prosource No Carb Liquid Pkt) 30 ml PO BID@0800,1730 [facility] Last Admin: 07/07/17 10:03 Dose: 30 ml Lactobacillus Acidophilus (Bacid -) 1 tab PO BID [facility] Last Admin: 07/07/17 10:03 Dose: 1 tab Multivitamins/Minerals/Vitamin C (Tab-A-Vit -) 1 tab PO DAILY [facility] Last Admin: 07/07/17 10:03 Dose: 1 tab Oxycodone HCl (Roxicodone -) 10 mg PO Q4H PRN PRN Reason: PAIN Last Admin: 07/06/17 23:47 Dose: 10 mg Pantoprazole Sodium (Protonix -) 40 mg PO BID [facility] Last Admin: 07/07/17 10:03 Dose: 40 mg - Objective Vital Signs: Vital Signs Temperature 98.1 F 07/07/17 11:23 Pulse Rate 88 07/07/17 11:23 Respiratory Rate 20 07/07/17 11:23 Blood Pressure 112/68 07/07/17 11:23 O2 Sat by Pulse Oximetry (%) 100 07/07/17 09:00 Constitutional: Yes: Calm, Thin Eyes: Yes: WNL HENT: Yes: WNL Neck: Yes: WNL Cardiovascular: Yes: Regular Rate and Rhythm, S1, S2 Respiratory: Yes: Diminished Gastrointestinal: Yes: Normal Bowel Sounds, Soft Extremities: Yes: WNL Edema: No Labs: CBC, BMP 07/07/17 05:18 07/07/17 05:18 INR, PTT INR 1.02 (0.82-1.09) 07/03/17 05:18 Problem List - Problems (1) Acute hypercapnic respiratory failure Code(s): J96.02 - ACUTE RESPIRATORY FAILURE WITH HYPERCAPNIA (2) Anemia, iron deficiency Code(s): D50.9 - IRON DEFICIENCY ANEMIA, UNSPECIFIED (3) COPD (chronic obstructive pulmonary disease) Code(s): J44.9 - CHRONIC OBSTRUCTIVE PULMONARY DISEASE, UNSPECIFIED Qualifiers : COPD type: COPD with acute exacerbation Qualified Code(s): J44.1 - Chronic obstructive pulmonary disease with (acute) exacerbation; J44.1 - Chronic obstructive pulmonary disease with (acute) exacerbation; J44.1 - Chronic obstructive pulmonary disease with (acute) exacerbation; J44.1 - Chronic obstructive pulmonary disease with (acute) exacerbation (4) Empyema lung Code(s): J86.9 - PYOTHORAX WITHOUT FISTULA (5) S/P thoracostomy tube placement Code(s): Z93.8 - OTHER ARTIFICIAL OPENING STATUS (6) Empyema Code(s): J86.9 - PYOTHORAX WITHOUT FISTULA Assessment/Plan A/P Loculated Empyema Persistent RLL PTX : likely residual trapped lung s/p R VATS converted to thoracotomy/decortication/chest tube placements Septic Shock improving s/p Cardiac Arrest COPD Anemia DM - incentive spirometry - inhaled bronchodilators - O2 to keep SpO2 >90% - ambulate - DVT prophylaxis - SHORT TERM PULMONARY REHAB DR REYES
--- NOTE | 2017-07-07 12:49 | PN ---
Progress Note, Physician History of Present Illness: Resting in bed on AL, denies chest pain or dyspnea, no arrhythmias on telemetry , remaining chest tube with air leak. - Current Medication List Current Medications: Active Medications Acetaminophen (Tylenol -) 325 mg PO Q6H PRN PRN Reason: FEVER OR PAIN Last Admin: 07/07/17 10:02 Dose: 325 mg Acetaminophen (Tylenol -) 650 mg PO Q4H PRN PRN Reason: PAIN Stop: 07/09/17 23:38 Last Admin: 07/06/17 23:47 Dose: 650 mg Albuterol Sulfate (Ventolin 0.083% Nebulizer Soln -) 1 amp NEB Q2H PRN PRN Reason: SHORT OF BREATH/WHEEZING Last Admin: 07/07/17 11:25 Dose: 1 amp Amino Acids (Prosource No Carb Liquid Pkt) 30 ml PO BID@0800,1730 [facility] BEDS AT [facility] Last Admin: 07/07/17 10:03 Dose: 30 ml Lactobacillus Acidophilus (Bacid -) 1 tab PO BID [facility] B[facility]S AT [facility] Last Admin: 07/07/17 10:03 Dose: 1 tab Multivitamins/Minerals/Vitamin C (Tab-A-Vit -) 1 tab PO DAILY [facility] BEDS AT [facility] Last Admin: 07/07/17 10:03 Dose: 1 tab Oxycodone HCl (Roxicodone -) 10 mg PO Q4H PRN PRN Reason: PAIN Last Admin: 07/06/17 23:47 Dose: 10 mg Pantoprazole Sodium (Protonix -) 40 mg PO BID [facility] 234 BEDS AT [facility] Last Admin: 07/07/17 10:03 Dose: 40 mg - Objective Vital Signs: Vital Signs Temperature 98.1 F 07/07/17 11:23 Pulse Rate 88 07/07/17 11:23 Respiratory Rate 20 07/07/17 11:23 Blood Pressure 112/68 07/07/17 11:23 O2 Sat by Pulse Oximetry (%) 100 07/07/17 09:00 Constitutional: Yes: No Distress, Calm Neck: Yes: Supple Cardiovascular: Yes: Regular Rate and Rhythm Respiratory: Yes: Regular, Diminished Gastrointestinal: Yes: Normal Bowel Sounds, Soft Edema: No Labs: CBC, BMP 07/07/17 05:18 07/07/17 05:18 INR, PTT INR 1.02 (0.82-1.09) 07/03/17 05:18 - ....Imaging EKG: Report Reviewed (Tele: SR) Problem List - Problems (1) COPD (chronic obstructive pulmonary disease) Code(s): J44.9 - CHRONIC OBSTRUCTIVE PULMONARY DISEASE, UNSPECIFIED Qualifiers : COPD type: COPD with acute exacerbation Qualified Code(s): J44.1 - Chronic obstructive pulmonary disease with (acute) exacerbation; J44.1 - Chronic obstructive pulmonary disease with (acute) exacerbation; J44.1 - Chronic obstructive pulmonary disease with (acute) exacerbation; J44.1 - Chronic obstructive pulmonary disease with (acute) exacerbation (2) Empyema Code(s): J86.9 - PYOTHORAX WITHOUT FISTULA (3) History of throat cancer Code(s): Z85.819 - PRSNL HX OF MALIG NEOPLM OF UNSP SITE LIP,ORAL CAV,& PHARYNX (4) PTSD (post-traumatic stress disorder) Code(s): F43.10 - POST-TRAUMATIC STRESS DISORDER, UNSPECIFIED (5) Schizoaffective disorder Code(s): F25.9 - SCHIZOAFFECTIVE DISORDER, UNSPECIFIED Qualifiers: Schizoaffective disorder type: unspecified Qualified Code(s): F25.9 - Schizoaffective disorder, unspecified; F25.9 - Schizoaffective disorder, unspecified; F25.9 - Schizoaffective disorder, unspecified; F25.9 - Schizoaffective disorder, unspecified (6) Leukocytosis Code(s): D72.829 - ELEVATED WHITE BLOOD CELL COUNT, UNSPECIFIED Qualifiers: Leukocytosis type: unspecified Qualified Code(s): D72.829 - Elevated white blood cell count, unspecified; D72.829 - Elevated white blood cell count, unspecified (7) Acute hypercapnic respiratory failure Code(s): J96.02 - ACUTE RESPIRATORY FAILURE WITH HYPERCAPNIA Assessment/Plan 06/25/2017 Echo: Normal LV size an xn with mild apical anterior HK, mild-mod MR, mild TR, RVSP 30-40 mmHg 1. Post-op bradycardic/asystolic arrest suspect mucous plugging and atelectasis 2. Loculated empyema s/p right VATS converted to thoracotomy/decortication/ chest tube placement 3. Persistent RLL PTX : likely residual trapped lung 4. History of Laryngeal CA 5. PTSD 6. COPD 7. Anemia PLAN: 1. Bronchodilator, completed antibiotic and steroid course, O2, transfuse to maintain Hgb>8.0 and analgesia as needed 2. Chest tube pulled 3. DVT and GI prophylaxis 4. D/c telemetry, d/c planning to short term pulm rehab
[2017-07-07 14:22] VITALS: BP 113/56; PULSE 79; TEMP 98.3
--- NOTE | 2017-07-07 15:19 | DS ---
Physical Examination Vital Signs: Vital Signs Temperature 98.3 F 07/07/17 14:20 Pulse Rate 79 07/07/17 14:20 Respiratory Rate 20 07/07/17 14:20 Blood Pressure 113/56 07/07/17 14:20 O2 Sat by Pulse Oximetry (%) 100 07/07/17 09:00 Constitutional: Yes: No Distress, Calm Eyes: Yes: Conjunctiva Clear, EOM Intact HENT: Yes: Atraumatic, Normocephalic Neck: Yes: Supple, Trachea Midline Cardiovascular: Yes: Regular Rate and Rhythm, S1, S2 Respiratory: Yes: Regular, On Nasal O2, Other (decreased breath sounds at [place] level of the right hemithorax right hemithorax justus are present). No: Rales , SOB, Wheezes Gastrointestinal: Yes: Normal Bowel Sounds, Soft. No: Abdomen, Obese, Hepatomegaly, Splenomegaly ...Rectal Exam: Yes: Deferred Musculoskeletal: Yes: WNL Extremities: No: Calf Tenderness, Pallor Edema: No Peripheral Pulses WNL: Yes Integumentary: Yes: Incision (site clean no signs of infection) Wound/Incision: Yes: Well Approximated, Justus Intact Neurological: Yes: Alert, Oriented Psychiatric: Yes: Alert, Oriented Labs: CBC, BMP 07/07/17 05:18 07/07/17 05:18 Discharge Summary Reason For Visit: PLEURAL EFFUSION Current Active Problems Acute hypercapnic respiratory failure (Acute) Anemia, iron deficiency (Acute) COPD (chronic obstructive pulmonary disease) (Acute) Diarrhea (Acute) Empyema (Acute) Empyema lung (Acute) Glucose intolerance (impaired glucose tolerance) (Acute) History of throat cancer (Acute) Leukocytosis (Acute) Melena (Acute) Multifocal atrial tachycardia (Acute) Protein calorie malnutrition (Acute) S/P thoracostomy tube placement (Acute) Schizoaffective disorder (Acute) Hospital Course: 67 yo male admitted for sepsis secondary to empyema. He had 3 chest tubes inserted in the right hemithorax, and broad coverage antibiotics with good improvement. The cultures were all negative. Due to his severe protein caloric cachexia the patient required extensive support. He developed cardiac arrest and was successfully resuscitated after the chest tubes were placed. He had no more complications after that. the last chest tube was removed yesterday 07/06/17 and the patient has been stable since. patient will require follow up with dr. Cleaning thoracic surgeon for justus removal in approximately 7-10 days Condition: Stable - Instructions Referrals: Lona Camp MD [Primary Care Provider] - - Home Medications Comprehensive Discharge Medication List: Ambulatory Orders Albuterol Sulfate Inhaler - [Ventolin Hfa Inhaler -] 1 puff IH BID 06/19/17 Amox-Tr/K Cl [Augmentin - 875Mg Tablet] 1 tab PO BID 06/19/17 Cholecalciferol (Vitamin D3) [Vitamin D3] 2,000 unit PO DAILY 06/19/17
== END 2017-07-07 17:35 | DRG 163 ==
LOC: FER 09:05 → FM/S 12:53 → JICU 06-21 13:07 → J2W 06-29 18:59 → J4W 07-02 21:36
PROVIDERS: ADMIT Internal Medicine; ATTEND Internal Medicine
PROC: 30233H1 Transfusion of Nonautologous Whole Blood into Peripheral Vein, Percutaneous Approach (ICD-10-PCS; 2017-06-21)
PROC: 0BJ08ZZ Inspection of Tracheobronchial Tree, Via Natural or Artificial Opening Endoscopic (ICD-10-PCS; 2017-06-24)
PROC: 5A12012 Performance of Cardiac Output, Single, Manual (ICD-10-PCS; 2017-06-24)
PROC: 0BH17EZ Insertion of Endotracheal Airway into Trachea, Via Natural or Artificial Opening (ICD-10-PCS; 2017-06-24)
PROC: 5A1945Z Respiratory Ventilation, 24-96 Consecutive Hours (ICD-10-PCS; 2017-06-24)
PROC: 0BNK4ZZ Release Right Lung, Percutaneous Endoscopic Approach (ICD-10-PCS; principal; 2017-06-24 08:00)
PROC: 0BNF4ZZ Release Right Lower Lung Lobe, Percutaneous Endoscopic Approach (ICD-10-PCS; 2017-06-24 08:00)
PROC: 0B9 Respiratory System, Drainage (ICD-10-PCS; 2017-06-24 08:00)
DX: J86.9 Pyothorax without fistula (principal); J96.02 Acute respiratory failure with hypercapnia; E43 Unspecified severe protein-calorie malnutrition; I97.121 Postprocedural cardiac arrest following other surgery; J90 Pleural effusion, not elsewhere classified; J44.1 Chronic obstructive pulmonary disease with (acute) exacerbation; Z68.1 Body mass index [BMI] 19.9 or less, adult; R64 Cachexia; I47.1 Supraventricular tachycardia; R04.2 Hemoptysis; D62 Acute posthemorrhagic anemia; J98.11 Atelectasis; T17.890A Other foreign object in other parts of respiratory tract causing asphyxiation, initial encounter; I97.89 Other postprocedural complications and disorders of the circulatory system, not elsewhere classified; K92.1 Melena; R19.7 Diarrhea, unspecified; Z85.818 Personal history of malignant neoplasm of other sites of lip, oral cavity, and pharynx; E74.39 Other disorders of intestinal carbohydrate absorption; F25.9 Schizoaffective disorder, unspecified; K59.00 Constipation, unspecified; F43.10 Post-traumatic stress disorder, unspecified; I10 Essential (primary) hypertension; D18.09 Hemangioma of other sites; D63.8 Anemia in other chronic diseases classified elsewhere; F17.210 Nicotine dependence, cigarettes, uncomplicated; Y83.8 Other surgical procedures as the cause of abnormal reaction of the patient, or of later complication, without mention of misadventure at the time of the procedure; Y92.230 Patient room in hospital as the place of occurrence of the external cause; I34.0 Nonrheumatic mitral (valve) insufficiency
CPT/HCPCS: 31500; 32557; 36415; 36430; 36600; 71010-TC; 71020-TC; 71260-TC; 74177-TC; 76098-TC; 76604-TC; 76998-TC; 80048; 80053; 81003; 82042; 82150; 82272; 82553; 82607; 82728; 82746; 82803; 82945; 83540; 83550; 83605; 83615; 83735; 83880; 84100; 84157; 84439; 84443; 84466; 84478; 84481; 84484; 85025; 85027; 85044; 85610; 85651; 85730; 86140; 86850; 86900; 86901; 86922; 87040; 87070; 87075; 87086; 87102; 87116; 87205; 87206; 87210; 87389; 87899; 88108; 88305-TC; 88331-TC; 89051; 93005; 93010; 93306-TC; 94002; 94010; 94640; 94660; 97116-GP; 97161-GP; 99285-25; A4358; C1729; P9038; P9058

== ENCOUNTER 2017-09-05 00:08 | Emergency (ER) | payer OTHER ==
[2017-09-05 00:22] VITALS: BMI 18.6
[2017-09-05] MEDS ORDERED: SODIUM CHLORIDE 1,000 ML IV SCH (01:15)
--- NOTE | 2017-09-05 01:43 | PDOC ---
History of Present Illness <Latrice Matamoros - Last Filed: 09/05/17 02:06> <Hina Hoffmann - Last Filed: 09/05/17 06:48> - History of Present Illness Initial Comments: 09/05/17 01:39 The patient is a 66 year old male with past medical history of COPD, schizoaffective disorder, and recent empyema s/p drainage and course of abx, who presents to the ED with complaints of left arm numbness and weakness for one week. The patient states he is unable to recall exactly when his symptoms began. He states that he has had difficulty lifting his coffee mug with his left arm. He denies any weakness or numbness in his legs. He also reports some pain in his L shoulder when his symptoms began, but this has since subsided. The patient denies any recent falls or trauma, and denies straining his neck at any point. Denies falling asleep in any uncomfortable positions. He denies any headache, change in vision, facial numbness, weakness, or droop. He denies any fever, chills, nausea, vomiting, diarrhea, cough, SOB, CP, or urinary symptoms. <AngelikaYossi - Last Filed: 09/07/17 08:20> - General Chief Complaint: Weakness Stated Complaint: LEFT SIDE WEAKNESS Time Seen by Provider: 09/05/17 00:55 NIH Stroke Scale - Last Known Well Date/Time & Onset Date Last Known Well: 08/29/17 - Initial Evaluation Level of consciousness: Alert Ask patient the month and their age: Answers both correctly Ask patient to open & close eyes; make fist and let go: Obeys both correctly Best gaze (horizontal eye movement): Normal Visual field testing: No visual field loss Facial paresis (Show teeth/raise eyebrows/close eyes tight): Normal symmetrical movement Motor Function: Left Arm: Some effort against gravity Motor Function: Right Arm: Normal (extends arm 90 (or 45) degrees for 10 seconds without drift Motor Function: Left Leg: Normal (extends leg 30 degrees for 5 seconds without drift) Motor Function: Right Leg: Normal (extends leg 30 degrees for 5 seconds without drift) Limb Ataxia: No ataxia Sensory(Use pinprick test arms,legs,trunk,face/side to side): Normal Best language (Describe picture, name items, read sentences): No Aphasia Dysarthria (read several words): Normal articulation Extinction and Inattention: No abnormality - Total Score NIH Stroke Scale Score: 2 <Yossi Carney - Last Filed: 09/07/17 08:20> Past History <Latrice Matamoros - Last Filed: 09/05/17 02:06> <Hina Hoffmann - Last Filed: 09/05/17 06:48> - Past Medical History Cancer: Yes (throat in remission) COPD: Yes - Suicide/Smoking/Psychosocial Hx Smoking History: Current every day smoker Have you smoked in the past 12 months: Yes Number of Cigarettes Smoked Daily: 10 Information on smoking cessation initiated: No 'Breaking Loose' booklet given: 06/19/17 Hx Alcohol Use: No Drug/Substance Use Hx: No <Yossi Carney - Last Filed: 09/07/17 08:20> - Past Medical History Allergies/Adverse Reactions: Allergies Allergy/AdvReac Type Severity Reaction Status Date / Time "TRANQUILIZERS AND SEDATIVES" Allergy Mild Hives Uncoded 09/05/17 01:58 Home Medications: Ambulatory Orders Albuterol Sulfate Inhaler - [Ventolin HFA Inhaler -] 1 puff IH BID 06/19/17 Acetaminophen [Tylenol .Regular Strength -] 650 mg PO Q4H PRN #0 tablet Albuterol 0.083% Nebulizer Carmen [Ventolin 0.083% Nebulizer Soln -] 1 amp NEB Q2H PRN #0 amp 07/07/17 Multivitamins [Multivit ([facility] Formul[facility])] 1 tab PO DAILY tab 07/07/17 Review of Systems - Review of Systems Comments:: 09/05/17 01:44 "GENERAL/CONSTITUTIONAL: No fever or chills. No weakness. HEAD, EYES, EARS, NOSE AND THROAT: No change in vision. No ear pain or discharge. No sore throat. CARDIOVASCULAR: No chest pain or shortness of breath. RESPIRATORY: No cough, wheezing, or hemoptysis. GASTROINTESTINAL: No nausea, vomiting, diarrhea or constipation. GENITOURINARY: No dysuria, frequency, or change in urination. MUSCULOSKELETAL: No joint or muscle swelling or pain. No neck or back pain. SKIN: No rash NEUROLOGIC: Present: left arm numbness and weakness No headache, vertigo, loss of consciousness, or change in strength/sensation. ENDOCRINE: No increased thirst. No abnormal weight change. HEMATOLOGIC/LYMPHATIC: No anemia, easy bleeding, or history of blood clots. ALLERGIC/IMMUNOLOGIC: No hives or skin allergy. " <Yossi Carney - Last Filed: 09/07/17 08:20> *Physical Exam - Vital Signs Last Vital Signs Temp Pulse Resp BP Pulse Ox 98.6 F 84 14 140/91 100 09/05/17 00:21 09/05/17 00:21 09/05/17 00:21 09/05/17 00:21 09/05/17 00:21 <Latrice Matamoros - Last Filed: 09/05/17 02:06> - Vital Signs Last Vital Signs Temp Pulse Resp BP Pulse Ox 98.2 F 78 19 132/78 98 09/05/17 02:58 09/05/17 02:58 09/05/17 02:58 09/05/17 02:58 09/05/17 02:58 <Catalina Hoffmannreen - Last Filed: 09/05/17 06:48> - Vital Signs Last Vital Signs Temp Pulse Resp BP Pulse Ox 98.6 F 84 14 140/91 100 09/05/17 00:21 09/05/17 00:21 09/05/17 00:21 09/05/17 00:21 09/05/17 00:21 - Physical Exam Comments: 09/05/17 01:44 "GENERAL: Awake, alert, and fully oriented, in no acute distress HEAD: No signs of trauma EYES: PERRLA, EOMI, sclera anicteric, conjunctiva clear ENT: Auricles normal inspection, hearing grossly normal, nares patent, oropharynx clear without exudates. Moist mucosa NECK: Nontender, no stepoffs, Normal ROM, supple, no lymphadenopathy, JVD, or masses LUNGS: Breath sounds equal, clear to auscultation bilaterally. No wheezes, and no crackles HEART: Regular rate and rhythm, normal S1 and S2, no murmurs, rubs or gallops ABDOMEN: Soft, nontender, normoactive bowel sounds. No guarding, no rebound. No masses EXTREMITIES: Normal range of motion, no edema. No clubbing or cyanosis. No cords, erythema, or tenderness NEUROLOGICAL: LUE - 2/5 flexion and 2/5 ABduction of shoulder, 4/5 tricep, 5/5 bicep, 5/5 plaster applicator strength, sensation intact RUE - 5/5 strength and sensatoin BLE - 5/5 strength and sensation Cranial nerves II through XII intact. SKIN: Warm, Dry, normal turgor, no rashes or lesions noted. " <Yossi Carney - Last Filed: 09/07/17 08:20> ED Treatment Course - LABORATORY CBC & Chemistry Diagram: 09/05/17 01:43 09/05/17 01:43 - ADDITIONAL ORDERS Additional order review: 09/05/17 01:43 RBC 4.26 D MCV 81.1 MCHC 32.4 RDW 16.8 H D MPV 8.1 Neutrophils % 63.1 Lymphocytes % 21.2 D Monocytes % 11.5 H Eosinophils % 3.9 D Basophils % 0.3 <Latrice Matamoros - Last Filed: 09/05/17 02:06> - LABORATORY CBC & Chemistry Diagram: 09/05/17 01:43 09/05/17 01:43 - ADDITIONAL ORDERS Additional order review: Laboratory Results 09/05/17 09/05/17 09/05/17 01:43 01:43 01:43 PT with INR INR PTT (Actin FS) Sodium 142 Potassium 4.2 Chloride 106 Carbon Dioxide 28 Anion Gap 8 BUN 17 Creatinine 0.7 Creat Clearance w eGFR > 60 Random Glucose 84 Calcium 8.6 Total Bilirubin < 0.1 L D AST 18 ALT 19 D Alkaline Phosphatase 94 Creatine Kinase 104 Troponin I < 0.02 Total Protein 6.9 Albumin 2.8 L D Triglycerides 85 Cholesterol 141 Total LDL Cholesterol 76 HDL Cholesterol 58 Urine Color Straw Urine Appearance Clear Urine pH 5.0 Ur Specific [place] 1.009 Urine Protein Negative Urine Glucose (UA) Negative Urine Ketones Negative Urine Blood Negative Urine Nitrite Negative Urine Bilirubin Negative Urine Urobilinogen Negative Blood Type Cancelled Antibody Screen Cancelled Spec Expiration Date Cancelled 09/05/17 01:43 PT with INR 11.80 INR 1.04 PTT (Actin FS) 35.6 H Sodium Potassium Chloride Carbon Dioxide Anion Gap BUN Creatinine Creat Clearance w eGFR Random Glucose Calcium Total Bilirubin AST ALT Alkaline Phosphatase Creatine Kinase Troponin I Total Protein Albumin Triglycerides Cholesterol Total LDL Cholesterol HDL Cholesterol Urine Color Urine Appearance Urine pH Ur Specific [place] Urine Protein Urine Glucose (UA) Urine Ketones Urine Blood Urine Nitrite Urine Bilirubin Urine Urobilinogen Blood Type Antibody Screen Spec Expiration Date 09/05/17 01:43 RBC 4.26 D MCV 81.1 MCHC 32.4 RDW 16.8 H D MPV 8.1 Neutrophils % 63.1 Lymphocytes % 21.2 D Monocytes % 11.5 H Eosinophils % 3.9 D Basophils % 0.3 - RADIOLOGY Radiology Studies Ordered: Category Date Time Status CERVICAL SPINE CT W/O CONTR [CT] Stat CT Scan 09/05/17 02:24 Taken <Hina Hoffmann - Last Filed: 09/05/17 06:48> - LABORATORY CBC & Chemistry Diagram: 09/05/17 01:43 09/05/17 01:43 - RADIOLOGY Radiology Studies Ordered: Category Date Time Status HEAD CT (STROKE) [CT] Stat CT Scan 09/05/17 01:15 Ordered CHEST PA & LAT [RAD] Stat Radiology 09/05/17 01:15 Ordered <Yossi Carney - Last Filed: 09/07/17 08:20> Medical Decision Making - Medical Decision Making 09/05/17 02:06 Phone call [address] Dr[address] Mason, superintendent of generation neurologist. Awaiting call back. <Latrice Matamoros - Last Filed: 09/05/17 02:06> - Medical Decision Making I received pt on signout at 2:30AM. Neurologist Dr. Morales aware of the patient. He agrees that if pt's CT scans are normal, pt will require outpatient EMG. There is a need for MRI also as an outpatient. 09/05/17 04:31 Patient Name: JOSE WEEMS THIS IS A PRELIMINARY REPORT FROM [facility] DATE OF SERVICE: 2017-09-05 02:20:36 IMAGES: [id number] EXAM: CT HEAD WITHOUT CONTRAST No acute brain parenchymal abnormality. No hemorrhage, mass or acute territorial infarct. Age-related involutional changes and chronic small vessel ischemic changes. Clear visualized paranasal sinuses. Visualized mastoid air cells clear. THIS DOCUMENT HAS BEEN ELECTRONICALLY SIGNED 09/05/17 04:[address] Camp who is aware of the CT results and the normal labs and she will send pt for outpatient studies. She is aware that his exam is more consistent with a rotator cuff injury. Patient Name: JOSE WEEMS THIS IS A PRELIMINARY REPORT FROM [facility] DATE OF SERVICE: 2017-09-05 03:06:10 IMAGES: [id number] EXAM: CT CERVICAL SPINE WITHOUT CONTRAST No acute fracture or malalignment. Artifact versus possible extrusion-type disc herniation C7-T1 causing minimal canal stenosis; MRI could better characterize. Multilevel spondylosis, including several areas of minimal to moderate neural foraminal stenosis, worst at C5-C6 on the right. Emphysematous changes upper lobes. <Hina Hoffmann - Last Filed: 09/05/17 06:48> - Medical Decision Making 09/05/17 01:47 67 M with LUE weakness x 1 week. On exam, pt with weakness of deltoid and tricep , otherwise normal neurologically. Possible Erb's palsy. Also consider cervical radiculopathy. CVA is less likely given isolated weakness of deltoid and tricep with preserved bicep strength. Pt with NIHSS 2 but pt's symptoms not consistent with stroke, and he is well outside window for tPA. - CT head - Consider MRI C-spine - Labs - Neuro consult 09/05/17 02:30 Pt signed out to oncoming physician, Dr. Hoffmann. Pt's disposition pending CT imaging and neurology consultation. Case discussed in detail with oncoming Emergency Physician including history, physical exam and ancillary studies. Oncoming Emergency Physician has assumed care for the patient and will complete the evaluation and treatment. Patient is aware of the plan. <Yossi Carney - Last Filed: 09/07/17 08:20> *DC/Admit/Observation/Transfer <Latrice Matamoros - Last Filed: 09/05/17 02:06> - Discharge Dispostion Admit: No <Hina Hoffmann - Last Filed: 09/05/17 06:48> <Yossi Carney - Last Filed: 09/07/17 08:20> Diagnosis at time of Disposition: Rotator cuff arthropathy of left shoulder, Neural foraminal stenosis of cervical spine - Discharge Dispostion Disposition: HOME Condition at time of disposition: Stable - Patient Instructions Printed Discharge Instructions: Spinal Stenosis, DI for Rotator Cuff Injury
[2017-09-05 01:53] LABS: BASOPHIL 0.3 % (0-2.0); EOSINOPHIL 3.9 % (0-4.5); MCH 26.3 pg (25.7-33.7); MCHC 32.4 g/dl (32.0-35.9); MEAN CELL VOLUME 81.1 fl (80-96); MEAN PLT VOLUME 8.1 fl (7.5-11.1); NEUTROPHILS 63.1 % (42.8-82.8); PLATELET COUNT 320 K/MM3 (134-434); RDW 16.8 % (11.9-15.9)
[2017-09-05 01:54] LABS: URINE APPEARANCE CLEAR; URINE BILIRUBIN NEGATIVE (NEGATIVE); URINE BLOOD NEGATIVE (NEGATIVE); URINE COLOR STRAW; URINE GLUCOSE (UA) NEGATIVE (NEGATIVE); URINE KETONE NEGATIVE (NEGATIVE); URINE LEUK ESTERASE NEGATIVE (NEGATIVE); URINE NITRITE NEGATIVE (NEGATIVE); URINE PROTEIN NEGATIVE (NEGATIVE); URINE UROBILINOGEN NEGATIVE mg/dL (0.2-1.0)
[2017-09-05 02:08] LABS: INR 1.04 (0.82-1.09); PROTHROMBIN TIME (PATIENT) 11.8 SEC (9.98-11.88)
[2017-09-05 02:10] LABS: ACTIVATED PTT 35.6 SECONDS (26.9-34.4)
[2017-09-05 02:18] LABS: ALBUMIN 2.8 g/dl (3.4-5.0); ANION GAP 8 (8-16); CALCIUM 8.6 mg/dL (8.5-10.1); CHOLESTEROL 141 mg/dL (50-200); CO2 28 mmol/L (21-32); CREATININE 0.7 mg/dL (0.7-1.3); GLUCOSE,RANDOM 84 mg/dL (74-106); SGOT/AST 18 U/L (15-37); SGPT/ALT 19 U/L (12-78); TOT PROT 6.9 g/dl (6.4-8.2)
[2017-09-05 02:21] LABS: ALK PHOS 94 U/L (45-117); CPK 104 IU/L (39-308); TROPONIN I < 0.02 ng/ml (0.00-0.05)
[2017-09-05 02:30] LABS: BILIRUBIN,TOTAL < 0.1 mg/dL (0.2-1.0)
[2017-09-05 02:59] VITALS: BP 132/78; PULSE 78; TEMP 98.2
[2017-09-05 11:16] LABS: URINE LEUK ESTERASE Negative (NEGATIVE)
--- NOTE | 2017-09-07 01:39 | EKG ---
Test Reason : Blood Pressure : / mmHG Vent. Rate : 074 BPM Atrial Rate : 074 BPM P-R Int : 172 ms QRS Dur : 104 ms QT Int : 404 ms P-R-T Axes : 085 -54 055 degrees QTc Int : 448 ms NORMAL SINUS RHYTHM WITH SINUS ARRHYTHMIA LEFT AXIS DEVIATION BASELINE ARTIFACT CANNOT RULE OUT INFERIOR INFARCT , AGE UNDETERMINED ABNORMAL ECG WHEN COMPARED WITH ECG OF 05-JUL-2017 10:26, LIKELY NO SIGNIFICANT CHANGES WERE SEEN Confirmed by ANN MARIE WADE MD ([id number]) on 09/07/2017 1:39:13 AM Referred By: Confirmed By:ANN MARIE WADE MD
== END 2017-09-05 05:50 | disposition home or self-care (01) ==
LOC: JER 00:08
DX: M13.812 Other specified arthritis, left shoulder (principal); M48.02 Spinal stenosis, cervical region; J44.9 Chronic obstructive pulmonary disease, unspecified; F25.9 Schizoaffective disorder, unspecified
CPT/HCPCS: 36415; 70450-TC; 71020-TC; 72125-TC; 80053; 81003; 82465; 82550; 83718; 83721; 84478; 84484; 85025; 85610; 85730; 86850; 86900; 86901; 93005; 93010; 99283-25

== ENCOUNTER 2018-09-23 15:00 | Observation (INO) | payer OTHER ==
--- NOTE | 2018-09-23 15:09 | PDOC ---
History of Present Illness - General Chief Complaint: Nausea/Vomiting Stated Complaint: VOMITING Time Seen by Provider: 09/23/18 15:04 - History of Present Illness Initial Comments: 68yo M with PMH of COPD, Schizoaffective disorder, 50+ pack-year smoker, HTN presenting with black emesis. Patient reports four episodes of vomiting this morning. The first two consisted of undigested food and the second two consisted of black emesis with badillo streaks. Patient did not see blood in the vomit. Denies abdominal pain, fevers, or chills. No history of abdominal surgeries. Last bowel movement was a normal formed brown stool without blood this morning. Last colonoscopy was more than ten years ago. No fevers, chills, chest pain, or shortness of breath. Past History - Past Medical History Allergies/Adverse Reactions: Allergies Allergy/AdvReac Type Severity Reaction Status Date / Time No Known Drug Allergies Allergy Verified 09/23/18 22:05 "TRANQUILIZERS AND SEDATIVES" Allergy Hives Uncoded 09/23/18 18:14 Home Medications: Ambulatory Orders Albuterol Sulfate Inhaler - [Ventolin Hfa Inhaler -] 2 inh PO Q6H PRN 09/23/18 Amlodipine Besylate [Norvasc -] 2.5 mg PO DAILY 09/23/18 Aspirin [Aspirin EC] 325 mg PO DAILY 09/23/18 Fluticasone Propionate [Flovent Diskus] 100 mcg IH BID 09/23/18 Multivitamin [One Daily] 1 each PO DAILY 09/23/18 Polyethylene Glycol 3350 17 gm PO DAILY 09/23/18 Cancer: Yes (throat in remission) COPD: Yes - Suicide/Smoking/Psychosocial Hx Smoking History: Current every day smoker Have you smoked in the past 12 months: Yes Number of Cigarettes Smoked Daily: 10 'Breaking Loose' booklet given: 06/19/17 Hx Alcohol Use: No Drug/Substance Use Hx: No Review of Systems - Review of Systems Comments:: Constitutional: no fever, no chills HEENT: no throat pain, no dysphagia Cardiovascular: +chest pain, no palpitations Respiratory: no cough, no shortness of breath Gastrointestinal: no abdominal pain, +vomiting Genitourinary: no dysuria, no frequency Musculoskeletal: no myalgia, no arthralgia Skin: no rash, no itching Neurologic: no headache, +lightheadedness *Physical Exam - Physical Exam Comments: General: Awake, alert, and fully oriented, in no acute distress Head: No signs of trauma Eyes: EOMI, sclera anicteric ENT: Dry mucus membranes Neck: Normal ROM, supple Lungs: Lungs clear, Normal breath sounds Cardio: Regular rhythm, S1 and S2 present Abdomen: Soft, nontender, nondistended. No guarding, no rebound, no masses Extremities: Normal range of motion, Distal pulses present SKIN: Warm, Dry, normal turgor Neurologic: Cranial nerves II through XII grossly intact. Normal speech ED Treatment Course - LABORATORY CBC & Chemistry Diagram: 09/24/18 07:18 09/24/18 07:18 Medical Decision Making - Medical Decision Making 68yo M with PMH of COPD, Schizoaffective disorder, 50+ pack-year smoker, HTN presenting with black emesis. -DDX includes GI bleed, pancreatitis, ulcer, gastritis, gastroenteritis -Do not suspect bowel obstruction as patient had normal bowel movmement earlier today -Labs -Plan to admit -500cc NS, 4mg Zofran, 40mg IV protonix -NPO 09/23/18 16:33 No leukocytosis or anemia, Hgb=13.3, FOBT negative 09/23/18 18:[address] Camp who accepted patient for observation. 09/23/18 18:33 CXR indicative of RLL lung mass. Per chart review, CT Chest in May 2018 indicates the same findings. Upon discussing with Dr. Camp, she is aware of this lung finding. She also requested that I do not put in for a GI consult at this time given that it is difficult to get someone to come in for the weekend. She states that patient may be able to see GI on an outpatient basis if her remains hemodynamically stable during admission. 09/23/18 18:49 *DC/Admit/Observation/Transfer Diagnosis at time of Disposition: Dark emesis - Discharge Dispostion Condition at time of disposition: Guarded Decision to Admit order: Yes - Referrals - Patient Instructions - Post Discharge Activity
--- NOTE | 2018-09-23 15:52 | PDOC ---
Attending Attestation - Resident Resident Name: Dena Carrera - ED Attending Attestation I have performed the following: I have examined & evaluated the patient, The case was reviewed & discussed with the resident, I agree w/resident's findings & plan, Exceptions are as noted - HPI HPI: 09/23/18 18:34 68 years old past medical history significant for COPD schizoaffective disorder active tobacco hypertension presents with 4 episodes of vomiting. The first 2 were food and the next 2 or black emesis. Denies recent dark or tarry stools dizziness lightheadedness. Last endoscopy was greater than 10 years ago he does not remember where it was done or who it was with - Physicial Exam PE: 09/23/18 18:34 Vitals: Triage Vital signs reviewed General Appearance: no acute distress, well nourished well developed, Head: Atraumatic, Cardiac: Regular rate and rhythym, no murmurs, no rubs, no gallops, Lungs: Clear to auscultation bilateral, good air movement bilaterally, Abdomen: Soft, non distended, normal bowel sounds, [non tender Extremities: Full range of motion to all extremities, no cyanosis, clubbing, or edema Skin: Warm and dry, no rashes or lesions, no rash, no petechiae Psych: normal mood, normal affect - Medical Decision Making 09/23/18 18:35 68 years old presents with 2 episodes of lack emesis Upon arrival to the emergency department patient's vital signs notable for mild tachycardia IV fluids Zofran Protonix ordered Hemagolobin and hematocrit are stable patient is well-appearing been no additional episodes of emesis We'll admit to medicine for further management GI consultation for possible GI bleed Patient appears to be very stable at this time his stool was negative for blood. Chest x-ray interpreted by me. Demonstrates a questionable right lower lobe mass Prior imaging reviewed this appears to have been present on previous CAT scan. PCP aware. Heart Score/ECG Review - ECG Impressions Comment:: 09/23/18 19:01 EKG performed at 1817 demonstrates normal sinus rhythm left axis deviation no ST elevations or T-wave inversions. Interpreted by me.
[2018-09-23] MEDS ORDERED: PANTOPRAZOLE SODIUM 40 MG VIAL IVPUSH ONE (15:53)
[2018-09-23] MEDS ORDERED: SODIUM CHLORIDE 500 ML IV STA (15:54)
[2018-09-23] MEDS ORDERED: ONDANSETRON 4 MG/2 ML VIAL IVPUSH ONE (15:54)
[2018-09-23 16:32] LABS: ALBUMIN 3.3 g/dl (3.5-5.0); ALK PHOS 77 U/L (32-92); ANION GAP 12 MMOL/L (8-16); BASO % 0.1 % (0-2.0); BILIRUBIN,TOTAL 1.3 mg/dl (0.2-1.0); BLOOD UREA NITROGEN 38 mg/dl (7-18); CALCIUM 8.3 mg/dl (8.4-10.2); CHLORIDE 102 mmol/L (98-107); CO2 27 mmol/L (22-28); EOS % 0.6 % (0-4.5); GLUCOSE,RANDOM 132 mg/dl (74-106); HEMATOCRIT 40.7 % (35.4-49); HEMOGLOBIN 13.3 GM/dl (11.7-16.9); LYMPH % 4.1 % (8-40); MCH 28.2 pg (25.7-33.7); MCHC 32.7 g/dl (32.0-35.9); MEAN PLT VOLUME 8.8 fl (7.5-11.1); MONO % 5.5 % (3.8-10.2); NEUT % 89.7 % (42.8-82.8); PLATELET COUNT 236 K/MM3 (134-434); POTASSIUM 4.6 mmol/L (3.5-5.1); RBC 4.73 M/mm3 (4.00-5.60); RDW 16.1 % (11.9-15.9); SGOT/AST 28 U/L (10-42); SGPT/ALT 15 U/L (10-40); SODIUM 141 mmol/L (136-145); TOT PROT 7.2 g/dl (6.4-8.3); WHITE BLOOD COUNT 8.1 K/mm3 (4.0-10.8)
[2018-09-23 17:12] LABS: ACTIVATED PTT 21.4 SECONDS (25.2-36.5); INR 1.11 (0.82-1.09); PROTHROMBIN TIME (PATIENT) 12.4 SEC (10.2-13.0)
--- NOTE | 2018-09-23 19:07 | HP ---
Admitting History and Physical - Admission Chief Complaint: nausea and vomiting History of Present Illness: 68yo male living in a rest home, came in for complaints of vomiting "black and rush" gastric contents. Symptoms started yesterday in the evening when he vomited 3-4 times an continued during the morning. He feels extremely weak. Denies any diarrhea, abdominal cramps or black stools. His room mate had similar symptoms and a few other residents at the rest home had diarrhea and vomiting last week. The patient is being investigated for a right lung mass and he is supposed to follow up with IR at [facility] next week. 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: Yes: Other (PTSD) Cardiovascular: Yes: HTN Pulmonary: Yes: COPD, Other (right lung empyema requiring decortication 06/24) Gastrointestinal: Yes: Cancer (left oropharyngeal malignancy rx'ed with RT in 2008 @ [facility]) Heme/Onc: Yes: Anemia Psych: Yes: Other (PTSD) Endocrine: Yes: Other (Throat cancer) Dermatology: Yes: Other - Past Surgical History Additional Past Surgical History: s/p VATS procedure right lung for multiloculated pleural effusion - Smoking History Smoking history: Current every day smoker Have you smoked in the past 12 months: Yes Aproximately how many cigarettes per day: 10 - Alcohol/Substance Use Hx Alcohol Use: No History of Substance Use: reports: None, Heroin (smoked heroin while serving in [place]) - Social History ADL: Independent 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 [employer] History of Recent Travel: No Home Medications - Allergies Allergies/Adverse Reactions: Allergies Allergy/AdvReac Type Severity Reaction Status Date / Time No Known Drug Allergies Allergy Verified 09/23/18 22:05 "TRANQUILIZERS AND SEDATIVES" Allergy Hives Uncoded 09/23/18 18:14 - Home Medications Home Medications: Ambulatory Orders Albuterol Sulfate Inhaler - [Ventolin HFA Inhaler -] 2 inh PO Q6H PRN 09/23/18 Amlodipine Besylate [Norvasc -] 2.5 mg PO DAILY 09/23/18 Aspirin [Aspirin EC] 325 mg PO DAILY 09/23/18 Fluticasone Propionate [Flovent Diskus] 100 mcg IH BID 09/23/18 Multivitamin [One Daily] 1 each PO DAILY 09/23/18 Family Disease History - Family Disease History Family Disease History: Other: Father ( 83 natural causes), Mother (alive 93 ) Review of Systems - Review of Systems Constitutional: reports: Weakness Eyes: reports: No Symptoms HENT: reports: No Symptoms Neck: reports: No Symptoms Cardiovascular: reports: No Symptoms Respiratory: reports: Cough. denies: SOB, Wheezing Gastrointestinal: reports: Nausea, Vomiting Genitourinary: reports: No Symptoms Breasts: reports: No Symptoms Reported Integumentary: reports: No Symptoms Endocrine: reports: No Symptoms Hematology/Lymphatic: reports: No Symptoms Psychiatric: reports: Other (PTSD) Physical Examination Vital Signs: Vital Signs Temperature 97.8 F 09/23/18 18:24 Pulse Rate 89 09/23/18 18:24 Respiratory Rate 16 09/23/18 18:24 Blood Pressure 108/87 09/23/18 18:24 O2 Sat by Pulse Oximetry (%) 94 L 09/23/18 18:24 Constitutional: Yes: No Distress, Calm Eyes: Yes: Conjunctiva Clear, EOM Intact HENT: Yes: Atraumatic, Normocephalic Neck: Yes: Supple, Trachea Midline Cardiovascular: Yes: Regular Rate and Rhythm, S1, S2 Respiratory: Yes: Regular, CTA Bilaterally Gastrointestinal: Yes: Normal Bowel Sounds, Soft, Vomiting. No: Hematemesis, Hepatomegaly, Rectal Bleeding, Splenomegaly Extremities: No: Calf Tenderness Edema: No Peripheral Pulses WNL: Yes Integumentary: Yes: WNL Neurological: Yes: Alert, Oriented Psychiatric: Yes: Alert, Oriented Labs: CBC, BMP 09/23/18 15:45 09/23/18 15:45 Imaging - Results EKG: Other (NSR, 97 b/min, LUH, Q V1, normal p and TX interval, QRS at -30 , non specific sT T changes) Problem List - Problems (1) Gastritis and duodenitis Assessment/Plan: NPO Protonix iv serial CBC type and cross match guaiac all stools NPO D51/2 NS at 75 cc/hr Code(s): K29.90 - GASTRODUODENITIS, UNSPECIFIED, WITHOUT BLEEDING (2) COPD (chronic obstructive pulmonary disease) Assessment/Plan: stable Code(s): J44.9 - CHRONIC OBSTRUCTIVE PULMONARY DISEASE, UNSPECIFIED Qualifiers: COPD type: COPD with acute exacerbation Qualified Code(s): J44.1 - Chronic obstructive pulmonary disease with (acute) exacerbation (3) History of throat cancer Assessment/Plan: stable Code(s): Z85.819 - PRSNL HX OF MALIG NEOPLM OF UNSP SITE LIP,ORAL CAV,& PHARYNX (4) Pulmonary mass Assessment/Plan: in the process of being scheduled for IR at [facility] Code(s): R91.8 - OTHER NONSPECIFIC ABNORMAL FINDING OF LUNG FIELD
[2018-09-23] MEDS ORDERED: ONDANSETRON 4 MG/2 ML VIAL IVPUSH PRN (19:48)
[2018-09-23] MEDS ORDERED: DEXTROSE 5%-0.45% SALINE 1,000 ML IV SCH (20:00)
[2018-09-23 20:55] LABS: MEAN PLT VOLUME 8.2 fl (7.5-11.1)
[2018-09-23 21:04] LABS: HEMATOCRIT 34.9 % (35.4-49); HEMOGLOBIN 11.4 GM/dl (11.7-16.9); MCH 28.1 pg (25.7-33.7); MCHC 32.7 g/dl (32.0-35.9); MEAN CELL VOLUME 86.1 fl (80-96); PLATELET COUNT 202 K/MM3 (134-434); RBC 4.06 M/mm3 (4.00-5.60); RDW 15.8 % (11.9-15.9); WHITE BLOOD COUNT 5.9 K/mm3 (4.0-10.8)
[2018-09-23 23:34] LABS: PLATELET ESTIMATE ADEQUATE
[2018-09-24 08:33] LABS: ALBUMIN 2.7 g/dl (3.5-5.0); ALK PHOS 62 U/L (32-92); ANION GAP 8 MMOL/L (8-16); BILIRUBIN,TOTAL 0.2 mg/dl (0.2-1.0); BLOOD UREA NITROGEN 28 mg/dl (7-18); CHLORIDE 105 mmol/L (98-107); CO2 26 mmol/L (22-28); CREATININE 0.8 mg/dl (0.6-1.3); GLUCOSE,RANDOM 102 mg/dl (74-106); POTASSIUM 3.6 mmol/L (3.5-5.1); SGOT/AST 20 U/L (10-42); SGPT/ALT 14 U/L (10-40); SODIUM 139 mmol/L (136-145); TOT PROT 5.8 g/dl (6.4-8.3)
[2018-09-24 10:09] VITALS: PULSE 71
[2018-09-24 10:10] LABS: BASO % 0.2 % (0-2.0); EOS % 4.2 % (0-4.5); HEMOGLOBIN 11.1 GM/dl (11.7-16.9); LYMPH % 18.8 % (8-40); MCH 28.4 pg (25.7-33.7); MCHC 32.7 g/dl (32.0-35.9); MEAN CELL VOLUME 86.8 fl (80-96); MEAN PLT VOLUME 8.6 fl (7.5-11.1); MONO % 11.9 % (3.8-10.2); NEUT % 64.9 % (42.8-82.8); PLATELET COUNT 182 K/MM3 (134-434); RBC 3.92 M/mm3 (4.00-5.60); RDW 15.8 % (11.9-15.9); WHITE BLOOD COUNT 4.4 K/mm3 (4.0-10.8)
--- NOTE | 2018-09-24 12:57 | EKG ---
Test Reason : Blood Pressure : / mmHG Vent. Rate : 097 BPM Atrial Rate : 097 BPM P-R Int : 172 ms QRS Dur : 098 ms QT Int : 356 ms P-R-T Axes : 081 -38 060 degrees QTc Int : 452 ms NORMAL SINUS RHYTHM BIATRIAL ENLARGEMENT LEFT ATRIAL ENLARGEMENT ABNORMAL ECG Confirmed by MD TY, HOOD ([id number]) on 09/24/2018 12:56:34 PM Referred By: MD MAHONEY Confirmed By:HOOD CRAWFORD MD
[2018-09-24 14:22] VITALS: BP 104/61; TEMP 98.5
--- NOTE | 2018-09-24 18:00 | DS ---
Physical Examination Vital Signs: Vital Signs Temperature 98.5 F 09/24/18 14:00 Pulse Rate 71 09/24/18 14:00 Respiratory Rate 18 09/24/18 14:00 Blood Pressure 104/61 09/24/18 14:00 O2 Sat by Pulse Oximetry (%) 95 09/24/18 14:00 Constitutional: Yes: No Distress, Calm Eyes: Yes: Conjunctiva Clear, EOM Intact HENT: Yes: Atraumatic, Pharyngeal Erythema Neck: Yes: Supple, Trachea Midline Cardiovascular: Yes: Regular Rate and Rhythm, S1, S2 Respiratory: Yes: Regular, CTA Bilaterally Gastrointestinal: Yes: Normal Bowel Sounds, Soft. No: Hepatomegaly, Splenomegaly Peripheral Pulses WNL: No Neurological: Yes: Alert, Oriented Psychiatric: Yes: Alert, Oriented Labs: CBC, BMP 09/24/18 07:18 09/24/18 07:18 Discharge Summary Reason For Visit: DARK EMESIS Current Active Problems Dark emesis (Acute) Gastritis and duodenitis (Acute) Procedures: Principal: iv fluids, iv antiacids, NPO Hospital Course: 68 y male who presented to Er for dark emesis and weakness. He was admitted for observation, serial CBC were performed and were stable. The patient had no episode of emesis during his hospital observation, and did not have a bowel movement. The patient was discharged to home. Condition: Guarded - Instructions Referrals: Lona Camp MD [Primary Care Provider] - Disposition: HOME - Home Medications Comprehensive Discharge Medication List: Ambulatory Orders Albuterol Sulfate Inhaler - [Ventolin HFA Inhaler -] 2 inh PO Q6H PRN 09/23/18 Amlodipine Besylate [Norvasc -] 2.5 mg PO DAILY 09/23/18 Aspirin [Aspirin EC] 325 mg PO DAILY 09/23/18 Fluticasone Propionate [Flovent Diskus] 100 mcg IH BID 09/23/18 Multivitamin [One Daily] 1 each PO DAILY 09/23/18
== END 2018-09-24 18:27 | disposition home or self-care (01) ==
LOC: FER 15:00 → FM/S 19:20
PROVIDERS: ADMIT Internal Medicine; ATTEND Internal Medicine
PROC: 3E033GC Introduction of Other Therapeutic Substance into Peripheral Vein, Percutaneous Approach (ICD-10-PCS; principal; 2018-09-23)
PROC: 3E0337Z Introduction of Electrolytic and Water Balance Substance into Peripheral Vein, Percutaneous Approach (ICD-10-PCS; 2018-09-23)
DX: K92.0 Hematemesis (principal); K29.90 Gastroduodenitis, unspecified, without bleeding; K29.80 Duodenitis without bleeding; J44.1 Chronic obstructive pulmonary disease with (acute) exacerbation; I10 Essential (primary) hypertension; F25.9 Schizoaffective disorder, unspecified; R91.8 Other nonspecific abnormal finding of lung field; Z85.819 Personal history of malignant neoplasm of unspecified site of lip, oral cavity, and pharynx; Z79.82 Long term (current) use of aspirin
CPT/HCPCS: 36415; 71045-TC-FY; 80053; 82272; 83690; 85025; 85610; 85730; 86850; 86900; 86901; 93005; 96361; 96374; 96375; 99285-25; G0378

== ENCOUNTER 2018-09-30 10:39 | Inpatient (IN) | payer OTHER ==
--- NOTE | 2018-09-30 12:40 | PDOC ---
History of Present Illness - General Chief Complaint: Coffee Ground Emesis Stated Complaint: Vomiting Blood Time Seen by Provider: 09/30/18 10:46 History Source: Patient Exam Limitations: Dementia - History of Present Illness Initial Comments: 09/30/18 12:34 Pt. is a 68 y.o. M w/ PMHx. of PTSD, HTN, COPD, Right lung empyema(s/p VATS ), anemia, throat CA and Lung CA? presents to the ED for coughing up blood( 5- 6 times since yesterday evening). Pt. states that it was a good amount of blood that started out as dark colored clots and is now darleen red blood with some clots. Pt. denies any other symptoms including nausea, vomiting, chest pain, abdominal pain, blood in the stool, blood in the urine, changes in abdominal or urinary habits, fever, chills, dizziness, lightheadedness, sudden changes in vision, shortness of breath, unsteady gait, decreased appetite or weight loss. Pt. states that he has not taken Aspirin in the last 2 days in anticipation of a biopsy procedure for a suspicious lung mass found on prior imaging during last ED visit. Pt. states he has had a negative colonoscopy eithin the last few years. Pt. is a poor historian. Pt. denies having any chronic medical conditions and states that he is allergic to all drugs. Pt. is alert and oriented to person, place and date. CBC, CMP, CXR, PT/INR ordered to evaluate for amount of blood loss and ascertain location with CXR (given hx. of hemoptysis vs. dark emesis low suspicion of localizing bleed but is standard of care)- will consider HRCT for evaluation after. IVF, Saline lock, Type and screen and 40mg Protonix ordered to maintain adequate volume status and for volume resuscitation if needed. Protonix given prophylactically given Pt.'s poor memory and hx. of dark emesis less than a week ago. Will check FOBT as well pending CBC results. 09/30/18 13:42 Per discussion with [facility]ayan (assisted living), Pt. "threw up a lot of blood" since last night, was not able to quantify and is an active smoker. He is scheduled for a biopsy with Dr. Cunningham on the 10/04/18 and has been holding his ASA in preparation. 09/30/18 14:42 Discussed with ICU staff for admission as Pt. has active hemoptysis. Discussed with Dr. Camp who stats carmela tas Pt. had recent negative PET scan, Pt. is not a good candidate for HRCT. Bronchoscopy is the next indication as determined by his [employer] Dr. Green. Message left for Dr. Green's service. Timing/Duration: 24 hours Severity: mild Associated Symptoms: reports: weakness. denies: chest pain, fever/chills, headaches, loss of appetite, nausea/vomiting, shortness of breath Aspirin Received prior to arrival: Yes: no aspirin today Asa Contraindications(Core Measure): Yes: Active Blding w/i 24 hrs. Beta Jessica Contraindications(Core Measure): Yes: Not Prescribed Past History - Travel Traveled outside of the country in the last 30 days: No Close contact w/someone who was outside of country & ill: No - Past Medical History Allergies/Adverse Reactions: Allergies Allergy/AdvReac Type Severity Reaction Status Date / Time No Known Drug Allergies Allergy Verified 09/30/18 10:43 "TRANQUILIZERS AND SEDATIVES" Allergy Hives Uncoded 09/30/18 10:43 Home Medications: Ambulatory Orders Albuterol Sulfate Inhaler - [Ventolin HFA Inhaler -] 2 inh PO Q6H PRN 09/23/18 Amlodipine Besylate [Norvasc -] 2.5 mg PO DAILY 09/23/18 Aspirin [Aspirin EC] 325 mg PO DAILY 09/23/18 Fluticasone Propionate [Flovent Diskus] 100 mcg IH BID 09/23/18 Multivitamin [One Daily] 1 each PO DAILY 09/23/18 Polyethylene Glycol 3350 [Miralax (For Daily Use) -] 17 gm PO DAILY 09/30/18 Cancer: Yes (throat in remission) COPD: Yes HTN: Yes - Surgical History Lung Surgery: Yes (VATS) Other Surgical History: 09/30/18 12:49 ENT Surrgery 20+ years ago - Suicide/Smoking/Psychosocial Hx Smoking History: Current every day smoker Have you smoked in the past 12 months: Yes Number of Cigarettes Smoked Daily: 10 Information on smoking cessation initiated: No 'Breaking Loose' booklet given: 06/19/17 Hx Alcohol Use: No Drug/Substance Use Hx: No Substance Use Type: None Hx Substance Use Treatment: No Review of Systems - Review of Systems Constitutional: Yes: Symptoms Reported, Weakness. No: Chills, Fever, Loss of Appetite, Unintentional Wgt. Loss, Unexplained wgt Loss HEENTM: No: Symptoms Reported, Recent change in vision, Throat Pain, Difficulty Swallowing Respiratory: Yes: Cough, Productive cough, Hemoptysis. No: Orthopnea, Shortness of Breath, SOB with Exertion, SOB at Rest, Stridor, Wheezing Cardiac (ROS): No: Chest Pain, Edema, Irregular Heart Rate, Lightheadedness, Palpitations, Syncope, Chest Tightness ABD/GI: No: Symptoms Reported, Blood Streaked Bowels, Constipated, Diarrhea, Difficulty Swallowing, Nausea, Poor Appetite, Poor Fluid Intake, Rectal Bleeding , Vomiting : No: Symptoms Reported, Burning, Dysuria, Discharge, Frequency, Flank Pain, Hematuria, Incontinence, Pain, Urgency Musculoskeletal: Yes: Muscle Weakness. No: Symptoms Reported Integumentary: No: Symptoms Reported Neurological: Yes: Weakness. No: Headache, Numbness, Ataxia, Dizziness Endocrine: No: Symptoms Reported, Unexplained Weight Loss, Change in Weight Hematologic/Lymphatic: No: Symptoms Reported *Physical Exam - Vital Signs Last Vital Signs Temp Pulse Resp BP Pulse Ox 97.8 F 89 18 119/70 95 09/30/18 10:43 09/30/18 10:43 09/30/18 10:43 09/30/18 10:43 09/30/18 10:43 - Physical Exam General Appearance: Yes: Appropriately Dressed, Apparent Distress, Cachetic, Thin HEENT: positive: CITLALI, Normal ENT Inspection, Symmetrical, Pharynx Normal, Muffled/Hoarse voice, Hearing Grossly Normal. negative: Pharyngeal Erythema, Tonsillar Exudate, Tonsillar Erythema, Sinus Tenderness Neck: positive: Trachea midline, Normal Thyroid, Supple. negative: Tender, Decreased range of motion, Lymphadenopathy (R), Lymphadenopathy (L) Respiratory/Chest: positive: Respiratory Distress, Decreased Breath Sounds, Wheezing. negative: Chest Tender Cardiovascular: positive: Regular Rhythm, Regular Rate, S1, S2. negative: Edema , JVD, Murmur Vascular Pulses: Dorsalis-Pedis (R): 2+, Doralis-Pedis (L): 2+ Gastrointestinal/Abdominal: positive: Normal Bowel Sounds, Flat, Soft. negative : Tender, Distended, Guarding, Rebound, Tenderness, Hernia, Mass Male Genitalia: negative: CVAT Rectal Exam: positive: deferred Lymphatic: negative: Adenopathy, Tenderness Musculoskeletal: positive: Normal Inspection. negative: CVA Tenderness, Decreased Range of Motion, Vertebral Tenderness Extremity: positive: Normal Inspection, Normal Range of Motion, Pelvis Stable, Delayed Capillary Refill (3 seconds). negative: Normal Capillary Refill, Tender , Coldness, Pedal Edema, Swelling, Calf Tenderness, Erythema Integumentary: positive: Normal Color, Dry, Warm Neurologic: positive: Fully Oriented, Alert, Normal Mood/Affect, Normal Response , Motor Strength 5/5, Respond to painful stimul, Responsive, Confused. negative : Numbness Moderate Sedation - Procedure Monitoring Vital Signs: Procedure Monitoring Vital Signs Temperature 97.8 F 09/30/18 10:43 Pulse Rate 89 09/30/18 10:43 Respiratory Rate 18 09/30/18 10:43 Blood Pressure 119/70 09/30/18 10:43 O2 Sat by Pulse Oximetry (%) 95 09/30/18 10:43 ED Treatment Course - LABORATORY CBC & Chemistry Diagram: 09/30/18 13:46 09/30/18 13:46 *DC/Admit/Observation/Transfer Diagnosis at time of Disposition: Pulmonary mass, Hemoptysis - Discharge Dispostion Condition at time of disposition: Guarded Decision to Admit order: Yes - Referrals Referrals: Martin Shoemaker [Primary Care Provider] - - Patient Instructions - Post Discharge Activity
[2018-09-30] MEDS ORDERED: PANTOPRAZOLE SODIUM 40 MG VIAL IVPUSH ONE (13:05)
--- NOTE | 2018-09-30 13:29 | PDOC ---
Attending Attestation - Resident Resident Name: Sid Chang - ED Attending Attestation I have performed the following: I have examined & evaluated the patient, The case was reviewed & discussed with the resident, I agree w/resident's findings & plan, Exceptions are as noted - HPI HPI: 09/30/18 13:25 68yo M hx HTN, COPD, R lung empyema s/p VATs, distant head and neck ca, lung mass, schizoaffective d/o presents with hemoptysis. Since yesterday 5-6 episodes of initially dark red blood with clots, now darleen red blood. Pt is a very poor historian, is unable to quantify how much. Denies all other symptoms of fevers, chills, headache, focal weakness/numness, cp, sob, abd pain, N/V/D, LE edema - Physicial Exam PE: 09/30/18 13:49 agree with resident exam - Medical Decision Making 09/30/18 13:49 68yo M hx MMP including lung mass presents to the ED with hemoptysis. Unable to quantify if massive as pt is poor historian. Vitals stable for now, exam with diminished R sided BS. Plan for labs, XR, discuss with Dr. Camp, monitor, admit. Will attempt to discuss code status, although pt here from assisted living alone. 09/30/18 14:27 Pt with an episode of about 6cc of bright red hemoptysis Case discussed with Dr. Camp, she will admit pt Dr. Robert c/s, awaiting call back At this time, will request ICU bed for airway monitoring, possible intubation 09/30/18 14:40 Pt admitted to the ICU for airway monitoring, no beds at this time Dr. Camp updated about ICU status Case discussed in detail with admitting physician including history, physical exam and ancillary studies. Admitting physician has assumed care for the patient, will follow all pending diagnostics and will complete the evaluation and treatment. Heart Score/ECG Review #1 09/30/18 13:53 Twelve-lead EKG was performed and reviewed by me. Normal sinus rhythm, rate 93. Left axis deviation. No ST elevations. When compared to EKG from 09/23/2018, no significant changes.
[2018-09-30] MEDS ORDERED: PANTOPRAZOLE SODIUM 40 MG/100 ML BAG IVPB ONE (13:45)
[2018-09-30 13:57] LABS: BASO % 0.5 % (0-2.0); EOS % 1.1 % (0-4.5); HEMOGLOBIN 11.3 GM/dL (11.7-16.9); LYMPH % 12.9 % (8-40); MCH 26.7 pg (25.7-33.7); MCHC 31.3 g/dl (32.0-35.9); MEAN CELL VOLUME 85.4 fl (80-96); MEAN PLT VOLUME 8.2 fl (7.5-11.1); MONO % 10.4 % (3.8-10.2); NEUT % 75.1 % (42.8-82.8); PLATELET COUNT 267 K/MM3 (134-434); RBC 4.21 M/mm3 (4.00-5.60); RDW 16.4 % (11.9-15.9); WHITE BLOOD COUNT 13.9 K/mm3 (4.0-10.0)
[2018-09-30] MEDS: SODIUM CHLORIDE 1,000 ML IV SCH (13:59)
[2018-09-30 14:15] LABS: ALBUMIN 3.1 g/dl (3.4-5.0); ALK PHOS 89 U/L (45-117); ANION GAP 6 MMOL/L (8-16); BILIRUBIN,TOTAL 0.3 mg/dL (0.2-1); BLOOD UREA NITROGEN 16 mg/dL (7-18); CALCIUM 8.4 mg/dL (8.5-10.1); CHLORIDE 106 mmol/L (98-107); CO2 28 mmol/L (21-32); CREATININE 0.9 mg/dL (0.55-1.3); GLUCOSE,RANDOM 83 mg/dL (74-106); SGOT/AST 24 U/L (15-37); SGPT/ALT 22 U/L (13-61); SODIUM 139 mmol/L (136-145)
[2018-09-30 14:37] LABS: ALBUMIN 3.1 g/dl (3.4-5.0); ALK PHOS 90 U/L (45-117); ANION GAP 5 MMOL/L (8-16); BILIRUBIN,TOTAL 0.3 mg/dL (0.2-1); BLOOD UREA NITROGEN 16 mg/dL (7-18); CALCIUM 8.4 mg/dL (8.5-10.1); CHLORIDE 105 mmol/L (98-107); CO2 29 mmol/L (21-32); CREATININE 0.9 mg/dL (0.55-1.3); GLUCOSE,RANDOM 81 mg/dL (74-106); INR 1.05 (0.83-1.09); POTASSIUM 5.1 mmol/L (3.5-5.1); PROTHROMBIN TIME (PATIENT) 12.4 SEC (9.7-13.0); SGOT/AST 32 U/L (15-37); SGPT/ALT 21 U/L (13-61); SODIUM 140 mmol/L (136-145); TOT PROT 7.2 g/dl (6.4-8.2)
--- NOTE | 2018-09-30 14:50 | CONSULT ---
Consult Consult Specialty:: Pulm/CCM Referred by:: Dr. 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 Patient states he was admitted to the hospital last week for one night after coming in for coffee ground emesis, he was watched, CBC, trended, it was stable, and he was discharged since he did not have any further episodes while here. Patient is for IR image guided biopsy of right lung mass in 4 days (). Patient states he had a few episodes of coughing up dark blood which progressed to clots which progressed to bright red. Patient states he has probably coughed up a little more than a cup since last night and now in the ER. He denies nausea, vomiting, fever, chills, chest pain, SOB, urinary, GI symptoms, blood in stool or urine. He denies lightheadedness or dizziness. Patient stopped aspirin 2 days ago in preparation for the biopsy. Patient is a poor historian and he denies any medical problems. He is currently an active smoker. He has bright red blood in a vomit bag at bedside and his mouth is covered with fresh red blood. There is also fresh red blood in the sink. Hemodynamically stable at this time. - History Source History Provided By: Patient, Medical Record Limitations to Obtaining History: Clinical Condition - Past Medical History Cardio/Vascular: Yes: HTN Pulmonary: Yes: COPD, Other (right lung empyema requiring decortication 06/24) Gastrointestinal: Yes: Cancer (left oropharyngeal malignancy rx'ed with RT in 2008 @ [facility]) Psych: Yes: Other (PTSD) Endocrine: Yes: Other (Throat cancer) Dermatology: Yes: Other Additional Medical History: ? 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 [employer] History of Recent Travel: No Home Medications - Allergies Allergies/Adverse Reactions: Allergies Allergy/AdvReac Type Severity Reaction Status Date / Time No Known Drug Allergies Allergy Verified 09/30/18 10:43 "TRANQUILIZERS AND SEDATIVES" Allergy Hives Uncoded 09/30/18 10:43 - Home Medications Home Medications: Ambulatory Orders Albuterol Sulfate Inhaler - [Ventolin HFA Inhaler -] 2 inh PO Q6H PRN 09/23/18 Amlodipine Besylate [Norvasc -] 2.5 mg PO DAILY 09/23/18 Aspirin [Aspirin EC] 325 mg PO DAILY 09/23/18 Fluticasone Propionate [Flovent Diskus] 100 mcg IH BID 09/23/18 Multivitamin [One Daily] 1 each PO DAILY 09/23/18 Polyethylene Glycol 3350 [Miralax (For Daily Use) -] 17 gm PO DAILY 09/30/18 Family Disease History - Family Disease History Family Disease History: Other: Father ( 83 natural causes), Mother (alive 93 ) Review of Systems - Review of Systems Constitutional: reports: Loss of Appetite Eyes: reports: No Symptoms HENT: reports: No Symptoms Neck: reports: No Symptoms Cardiovascular: reports: No Symptoms Respiratory: reports: Hemoptysis Gastrointestinal: reports: Other (coffee ground emesis last week now resolved) Genitourinary: reports: No Symptoms Musculoskeletal: reports: No Symptoms Integumentary: reports: No Symptoms Neurological: reports: No Symptoms Endocrine: reports: No Symptoms Physical Exam Vital Signs: Vital Signs Temperature 97.8 F 09/30/18 10:43 Pulse Rate 89 09/30/18 10:43 Respiratory Rate 18 09/30/18 10:43 Blood Pressure 119/70 09/30/18 10:43 O2 Sat by Pulse Oximetry (%) 95 09/30/18 10:43 Constitutional: Yes: No Distress, Calm, Cachectic, Thin Eyes: Yes: EOM Intact HENT: Yes: Atraumatic, Normocephalic, Other (red blood around mouth) Neck: Yes: Supple, Trachea Midline Cardiovascular: Yes: Regular Rate and Rhythm Respiratory: Yes: Rhonchi (bilaterally and diffusely), Wheezes (bilaterally and diffusey) Gastrointestinal: Yes: Normal Bowel Sounds, Soft. No: Tenderness Edema: No Neurological: Yes: Alert, Oriented (to person place and time) Psychiatric: Yes: Alert, Oriented Labs: CBC, BMP 09/30/18 13:46 09/30/18 13:46 Assessment/Plan 68M with history of HTN COPD Anemia left oropharyngeal Ca s/p RT with a right lung mass now with hemoptysis in the setting of recent aspirin use. Problem List: Hemoptysis in the setting of a right lung mass and recent antiplatelet use ( Aspirin) history of left oropharyngeal Ca s/p RT in 2008 Normocytic Hypochromic Anemia HTN Acute exacerbation of COPD s/p VATS Active smoker Right Lung Mass possible Ca RLL Pneumonia-CAP Leukocytosis Plan: Will admit to ICU for airway watch and to closely monitor volume of hemoptysis Patient is also in active COPD exacerbation If patient starts to have large volume hemoptysis or starts to drop his H/H will call IR for possible intervention (Embolization) Will start Duonebs Robitussin with Codeine Solu-Medrol Will start Ceftriaxone/Azithromycin for CAP DVT PPx with SCDs PPI for GI PPx in the setting of bleeding Trend CBC Transfuse PRN Will send hemotysis for cytology IVF CT surgery Blood cultures Urinalysis Urine culture Case discussed with Dr. Moon CCTime 36 minutes
--- NOTE | 2018-09-30 15:10 | PN ---
Teaching Attending Note Name of Resident: Arturo Flores ATTENDING PHYSICIAN STATEMENT I saw and evaluated the patient. I reviewed the resident's note and discussed the case with the resident. I agree with the resident's findings and plan as documented. SUBJECTIVE: 68 M, well known to our service. PTSD, HTN, COPD due to prolonged and active smoking history, Right lung empyema (s/p VATS 07/07), anemia, throat CA and suspected Lung CA. The patient has been holding his ASA in preparation for a CT guided lung biopsy on 10/04/2018. He reports acute onset on hemoptysis last night. He has a total of 5 to 6 episodes last night that has totaled about 1 cup. In the ER has about 1/2 cup of bright red blood. He appears comfortable on RA. He does not feel SOB or CP. No fever or chills. No travel history or sick contacts. CXR: New RLL density Intake & Output 09/27/18 09/28/18 09/29/18 09/30/18 23:59 23:59 23:59 23:59 Weight 137 lb Last Vital Signs Temp Pulse Resp BP Pulse Ox 97.8 F 89 18 119/70 95 09/30/18 10:43 09/30/18 10:43 09/30/18 10:43 09/30/18 10:43 09/30/18 10:43 Active Medications Chlorhexidine Gluconate (Hibiclens For Decolonization -) 1 applic TP HS MARIS Sodium Chloride (Normal Saline -) 1,000 mls @ 83 mls/hr IV ASDIR MARIS Last Admin: 09/30/18 13:59 Dose: 83 mls/hr Azithromycin 500 mg/ Dextrose 250 mls @ 250 mls/hr IVPB DAILY MARIS Ceftriaxone Sodium 1,000 mg/ (Dextrose) 50 mls @ 100 mls/hr IVPB DAILY MARIS Mupirocin (Bactroban Ointment (For Decolonization) -) 1 applic NS BID MARIS Stop: 10/05/18 21:59 Pantoprazole Sodium (Protonix Iv) 40 mg IVPUSH DAILY [facility] - Physical Exam General Appearance: Thin, NAD HEENT: (-) Pallor, (-) Epistaxis Neck: Trachea midline, Supple. Respiratory/Chest: Diminished breath sounds at the bases, scattered rhonchi, no Wheeze Cardiovascular: S1S2 Gastrointestinal/Abdominal: Normal Bowel Sounds, Flat, Soft. Non-tender Extremity: (+) PP Integumentary: positive: Normal Color, Dry, Warm Neurologic: Oriented, Alert, Non-focal Laboratory Results - last 24 hr 09/30/18 09/30/18 09/30/18 13:12 13:12 13:12 WBC Cancelled Corrected WBC (auto) Cancelled RBC Cancelled Hgb Cancelled Hct Cancelled MCV Cancelled MCH Cancelled MCHC Cancelled RDW Cancelled Plt Count Cancelled MPV Cancelled Absolute Neuts (auto) Cancelled Neutrophils % Cancelled Lymphocytes % Cancelled Monocytes % Cancelled Eosinophils % Cancelled Basophils % Cancelled Nucleated RBC % Cancelled Platelet Estimate Cancelled Platelet Comment Cancelled PT with INR Cancelled INR Cancelled PTT (Actin FS) Sodium 139 Potassium 5.0 Chloride 106 Carbon Dioxide 28 Anion Gap 6 L BUN 16 Creatinine 0.9 Creat Clearance w eGFR > 60 Random Glucose 83 Calcium 8.4 L Total Bilirubin 0.3 AST 24 ALT 22 Alkaline Phosphatase 89 Total Protein 7.0 Albumin 3.1 L 09/30/18 09/30/18 09/30/18 13:46 13:46 13:46 WBC 13.9 H Corrected WBC (auto) RBC 4.21 Hgb 11.3 L Hct 36.0 MCV 85.4 MCH 26.7 MCHC 31.3 L RDW 16.4 H Plt Count 267 MPV 8.2 Absolute Neuts (auto) 10.4 H Neutrophils % 75.1 Lymphocytes % 12.9 D Monocytes % 10.4 H Eosinophils % 1.1 Basophils % 0.5 Nucleated RBC % 0 Platelet Estimate Platelet Comment PT with INR INR PTT (Actin FS) 33.7 Sodium 140 Potassium 5.1 Chloride 105 Carbon Dioxide 29 Anion Gap 5 L BUN 16 Creatinine 0.9 Creat Clearance w eGFR > 60 Random Glucose 81 Calcium 8.4 L Total Bilirubin 0.3 AST 32 ALT 21 Alkaline Phosphatase 90 Total Protein 7.2 Albumin 3.1 L 09/30/18 13:46 WBC Corrected WBC (auto) RBC Hgb Hct MCV MCH MCHC RDW Plt Count MPV Absolute Neuts (auto) Neutrophils % Lymphocytes % Monocytes % Eosinophils % Basophils % Nucleated RBC % Platelet Estimate Platelet Comment PT with INR 12.40 INR 1.05 PTT (Actin FS) Sodium Potassium Chloride Carbon Dioxide Anion Gap BUN Creatinine Creat Clearance w eGFR Random Glucose Calcium Total Bilirubin AST ALT Alkaline Phosphatase Total Protein Albumin IMP: Hemoptysis: at this time does not meet the criteria for Massive, but he has had a significant amount noted since last night (1 cup) R/O PNA PTSD HTN COPD due to prolonged and active smoking history Right lung empyema (s/p VATS 07/07) Anemia Throat CA Suspected Lung CA PLAN: ICU monitoring for respiratory monitoring Accurate quantification for hemoptysis Humidified O2 BD TX Medrol Empiric ABX for now Hanson-culture Cough suppressant with Codeine Check cytology No smoking counseled Mechanical VTE prophylaxis Inform CTS of patient admission If hamoptysis becomes massive, may need IR intervention Follow H & H Dr Moon Critical care time spent in reviewing chart, evaluating patient and formulating plan - 36 minutes.
[2018-09-30] MEDS ORDERED: methylPREDNISolone NA SUCC 40 MG/1 ML VIAL IVPB SCH (15:30)
--- NOTE | 2018-09-30 15:53 | EKG ---
Test Reason : Blood Pressure : / mmHG Vent. Rate : 093 BPM Atrial Rate : 093 BPM P-R Int : 170 ms QRS Dur : 098 ms QT Int : 356 ms P-R-T Axes : 079 -07 064 degrees QTc Int : 442 ms NORMAL SINUS RHYTHM POSSIBLE LEFT ATRIAL ENLARGEMENT LOW VOLTAGE QRS BORDERLINE ECG WHEN COMPARED WITH ECG OF 23-SEP-2018 18:17, NO SIGNIFICANT CHANGE WAS FOUND Confirmed by ZENIA ROBERTS, TRUDY ([id number]) on 09/30/2018 3:53:31 PM Referred By: Confirmed By:TRUDY KNUTSON MD
[2018-09-30] MEDS ORDERED: ALBUTEROL SO4 2.5/IPRATROPIUM 0.5 INH SOL 3 ML VIAL.NEB. NEB ONE (16:23)
[2018-09-30] MEDS ORDERED: methylPREDNISolone NA SUCC 125 MG/2 ML VIAL ONE (16:24)
[2018-09-30] MEDS ORDERED: guaiFENesin/CODEINE 5 ML UNIT-DOSE CUPS PO ONE (16:24)
[2018-09-30] MEDS ORDERED: CEFTRIAXONE 1 GM/50 ML BAG ONE (16:24)
[2018-09-30] MEDS ORDERED: AZITHROMYCIN IVPB 500 MG/250 ML BAG IVPB ONE (16:24)
[2018-09-30] MEDS: guaiFENesin/CODEINE 10 ML UNIT-DOSE CUPS PO SCH ×2 (16:30→23:01)
[2018-09-30] MEDS: methylPREDNISolone NA SUCC 40 MG/1 ML VIAL IVPB SCH (16:30)
[2018-09-30] MEDS: CEFTRIAXONE 1 GM in DEXTROSE 5%-WATER - 50 ML IVPB SCH (16:30)
[2018-09-30] MEDS: ALBUTEROL SO4 2.5/IPRATROPIUM 0.5 INH SOL 3 ML VIAL.NEB. NEB SCH ×2 (16:30→21:27)
[2018-09-30] MEDS: AZITHROMYCIN IVPB 500 MG/250 ML BAG IVPB SCH (16:56)
[2018-09-30 17:32] LABS: URINE APPEARANCE CLEAR; URINE BILIRUBIN NEGATIVE (<2.0 mg/dL); URINE COLOR YELLOW; URINE GLUCOSE (UA) NEGATIVE (NEGATIVE); URINE KETONE TRACE (NEGATIVE); URINE LEUK ESTERASE NEGATIVE (NEGATIVE); URINE NITRITE NEGATIVE (NEGATIVE); URINE PROTEIN NEGATIVE (NEGATIVE)
--- NOTE | 2018-09-30 17:50 | CONSULT ---
Consult Consult Specialty:: Thoracic Surgery Referred by:: Medicine Reason for Consultation:: hemoptysis - History of Present Illness Chief Complaint: hemoptysis History of Present Illness: 68M with COPD, s/p empyema vats > 1year ago, with RLL consolidation versus mass , persistent scheduled for biopsy Wednesday. No weight loss. Now p/w 1 day of hemoptysis up to 250cc in 1 day. 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 [id number] History of Recent Travel: No Home Medications - Allergies Allergies/Adverse Reactions: Allergies Allergy/AdvReac Type Severity Reaction Status Date / Time "TRANQUILIZERS AND SEDATIVES" Allergy Hives Uncoded 09/30/18 10:43 - Home Medications Home Medications: Ambulatory Orders Albuterol Sulfate Inhaler - [Ventolin HFA Inhaler -] 2 inh PO Q6H PRN 09/23/18 Amlodipine Besylate [Norvasc -] 2.5 mg PO DAILY 09/23/18 Aspirin [Aspirin EC] 325 mg PO DAILY 09/23/18 Fluticasone Propionate [Flovent Diskus] 100 mcg IH BID 09/23/18 Multivitamin [One Daily] 1 each PO DAILY 09/23/18 Polyethylene Glycol 3350 [Miralax (For Daily Use) -] 17 gm PO DAILY 09/30/18 Family Disease History - Family Disease History Family Disease History: Other: Father ( 83 natural causes), Mother (alive 93 ) Review of Systems - Review of Systems Constitutional: denies: Fever, Unintentional Wgt. Loss Respiratory: reports: Cough, Hemoptysis, SOB on Exertion Physical Exam Vital Signs: Vital Signs Temperature 97.8 F 09/30/18 10:43 Pulse Rate 69 09/30/18 16:43 Respiratory Rate 20 09/30/18 16:43 Blood Pressure 126/73 09/30/18 16:43 O2 Sat by Pulse Oximetry (%) 98 09/30/18 16:43 Constitutional: Yes: Calm Respiratory: Yes: Other (thoracotomy scar) Labs: CBC, BMP 09/30/18 13:46 09/30/18 13:46 Imaging - Results Chest X-ray: Image Reviewed Cat Scan: Pending Problem List - Problems (1) Hemoptysis Code(s): R04.2 - HEMOPTYSIS (2) Pulmonary mass Code(s): R91.8 - OTHER NONSPECIFIC ABNORMAL FINDING OF LUNG FIELD (3) COPD (chronic obstructive pulmonary disease) Code(s): J44.9 - CHRONIC OBSTRUCTIVE PULMONARY DISEASE, UNSPECIFIED Qualifiers: COPD type: COPD with acute exacerbation Qualified Code(s): J44.1 - Chronic obstructive pulmonary disease with (acute) exacerbation (4) Schizoaffective disorder Code(s): F25.9 - SCHIZOAFFECTIVE DISORDER, UNSPECIFIED Qualifiers: Schizoaffective disorder type: unspecified Qualified Code(s): F25.9 - Schizoaffective disorder, unspecified Assessment/Plan 68M with COPD and RLL mass with hemoptysis: Admit to ICU Antitussives If stable, will request bronchoscopy by Pulmonary on Wednesday versus biopsy of RLL mass/consolidation.
[2018-09-30] MEDS ORDERED: FLU VACCINE QUAD 60 MCG/0.5 ML (MDV 18-19) IM ONE (18:16)
--- NOTE | 2018-09-30 19:13 | HP ---
Admitting History and Physical - Admission Chief Complaint: hemoptysis approximately 100 cc in ER, bright red blood History of Present Illness: chronic smoker , lifetime, 1 pack/ day, poor hystorian with possible schizoaffective disrorder and PTSD, oropharyngeal cancer, S/P RT approximately 10 year s ago, developed hemoptysis starting yesterday afternoon. Patient is unable to quantify, but he denies any dyspnea, chest pain, or cough, and he says that he is in his usual state of health. The patients has been worked up recently for possible right lung mass, and he was supposed to get a lung biopsy on October 04, off ASA for 2 days.the patient had right VATS om July of 2017 , and had extensive biopsies at that time which were negative for malignancy. recently he had a PET scan which showed possibel malignnacy vs extensive inflammation. He was supposed to have lung biopsy next week. A week ago he was admitted to the hospital for gastritis, ad vomiting dark rush gastric contents at home but not in the hospital and with normal brown stool bowel movements. 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) Cardiovascular: Yes: HTN Pulmonary: Yes: COPD, Other (right lung empyema requiring decortication 06/24) Gastrointestinal: Yes: Cancer (left oropharyngeal malignancy rx'ed with RT in 2008 @ [facility]) Heme/Onc: Yes: Anemia Psych: Yes: Other (PTSD) Endocrine: Yes: Other (Throat cancer) Dermatology: Yes: Other - Past Surgical History Past Surgical History: Yes: None - Smoking History Smoking history: Current every day smoker Have you smoked in the past 12 months: Yes Aproximately how many cigarettes per day: 10 - Alcohol/Substance Use Hx Alcohol Use: No History of Substance Use: reports: None, Heroin (smoked heroin while serving in [place]) - Social History ADL: Independent 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 [employer] Travel History of Recent Travel: No Home Medications - Allergies Allergies/Adverse Reactions: Allergies Allergy/AdvReac Type Severity Reaction Status Date / Time aspirin Allergy Verified 09/30/18 18:14 "TRANQUILIZERS AND SEDATIVES" Allergy Hives Uncoded 09/30/18 10:43 - Home Medications Home Medications: Ambulatory Orders Albuterol Sulfate Inhaler - [Ventolin HFA Inhaler -] 2 inh PO Q6H PRN 09/23/18 Amlodipine Besylate [Norvasc -] 2.5 mg PO DAILY 09/23/18 Aspirin [Aspirin EC] 325 mg PO DAILY 09/23/18 Fluticasone Propionate [Flovent Diskus] 100 mcg IH BID 09/23/18 Multivitamin [One Daily] 1 each PO DAILY 09/23/18 Polyethylene Glycol 3350 [Miralax (For Daily Use) -] 17 gm PO DAILY 09/30/18 Family Disease History - Family Disease History Family Disease History: Other: Father ( 83 natural causes), Mother (alive 93 ) Physical Examination Vital Signs: Vital Signs Temperature 99.0 F 09/30/18 18:32 Pulse Rate 72 09/30/18 18:32 Respiratory Rate 19 09/30/18 18:32 Blood Pressure 119/78 09/30/18 18:32 O2 Sat by Pulse Oximetry (%) 95 09/30/18 18:39 Labs: CBC, BMP 09/30/18 13:46 09/30/18 13:46 Imaging - Results EKG: Other (NSR, 93 b/min, LUH, DIVS, QRS AXIS AT 0, degrees. popor R wave progresssion,Q in III, nons pecific ST-T changes) Problem List - Problems (1) Hemoptysis Assessment/Plan: pateint beena steven, d/w Dr. Garnica and since the patient is stable we will monitor for now, possible lneed for intubation and IR intervention if bleeding continues Code(s): R04.2 - HEMOPTYSIS (2) Pulmonary mass Code(s): R91.8 - OTHER NONSPECIFIC ABNORMAL FINDING OF LUNG FIELD (3) COPD (chronic obstructive pulmonary disease) Code(s): J44.9 - CHRONIC OBSTRUCTIVE PULMONARY DISEASE, UNSPECIFIED Qualifiers: COPD type: COPD with acute exacerbation Qualified Code(s): J44.1 - Chronic obstructive pulmonary disease with (acute) exacerbation (4) Anemia, iron deficiency Code(s): D50.9 - IRON DEFICIENCY ANEMIA, UNSPECIFIED (5) History of throat cancer Code(s): Z85.819 - PRSNL HX OF MALIG NEOPLM OF UNSP SITE LIP,ORAL CAV,& PHARYNX
[2018-09-30 21:06] LABS: BASO % 0.3 % (0-2.0); EOS % 0.3 % (0-4.5); HEMATOCRIT 32.5 % (35.4-49); HEMOGLOBIN 11.1 GM/dL (11.7-16.9); MCH 28.8 pg (25.7-33.7); MCHC 34.2 g/dl (32.0-35.9); MEAN CELL VOLUME 84.1 fl (80-96); MEAN PLT VOLUME 8.2 fl (7.5-11.1); MONO % 2.1 % (3.8-10.2); NEUT % 90.3 % (42.8-82.8); PLATELET COUNT 253 K/MM3 (134-434); RBC 3.86 M/mm3 (4.00-5.60); RDW 16.5 % (11.9-15.9)
[2018-09-30] MEDS: MUPIROCIN 2% TOPICAL OINTMENT FOR DECOLONIZATION NS SCH (23:01)
[2018-09-30] MEDS: CHLORHEXIDINE GLUCONATE 4% CLEANSER FOR DECOLONIZATION TP SCH (23:02)
[2018-10-01] MEDS: SODIUM CHLORIDE 1,000 ML IV SCH (00:30)
[2018-10-01] MEDS: methylPREDNISolone NA SUCC 40 MG/1 ML VIAL IVPB SCH ×2 (01:16→09:37)
[2018-10-01] MEDS: guaiFENesin/CODEINE 10 ML UNIT-DOSE CUPS PO SCH ×4 (06:17→23:10)
[2018-10-01 06:56] LABS: BASO % 0.2 % (0-2.0); HEMATOCRIT 33.2 % (35.4-49); HEMOGLOBIN 10.6 GM/dL (11.7-16.9); LYMPH % 12.4 % (8-40); MCH 27.3 pg (25.7-33.7); MCHC 31.9 g/dl (32.0-35.9); MEAN CELL VOLUME 85.4 fl (80-96); MEAN PLT VOLUME 8.1 fl (7.5-11.1); MONO % 2.7 % (3.8-10.2); NEUT % 84.7 % (42.8-82.8); PLATELET COUNT 242 K/MM3 (134-434); RBC 3.88 M/mm3 (4.00-5.60); RDW 16.9 % (11.9-15.9); WHITE BLOOD COUNT 8.2 K/mm3 (4.0-10.0)
[2018-10-01 07:21] LABS: ALBUMIN 2.6 g/dl (3.4-5.0); ALK PHOS 76 U/L (45-117); ANION GAP 7 MMOL/L (8-16); BILIRUBIN,TOTAL 0.2 mg/dL (0.2-1); BLOOD UREA NITROGEN 17 mg/dL (7-18); CALCIUM 7.9 mg/dL (8.5-10.1); CHLORIDE 109 mmol/L (98-107); CO2 26 mmol/L (21-32); CREATININE 0.8 mg/dL (0.55-1.3); GLUCOSE,RANDOM 126 mg/dL (74-106); MAGNESIUM 2.2 mg/dL (1.8-2.4); PHOSPHOROUS 4.2 mg/dL (2.5-4.9); POTASSIUM 4.4 mmol/L (3.5-5.1); SGOT/AST 9 U/L (15-37); SGPT/ALT 17 U/L (13-61); SODIUM 141 mmol/L (136-145); TOT PROT 6.2 g/dl (6.4-8.2)
[2018-10-01] MEDS: ALBUTEROL SO4 2.5/IPRATROPIUM 0.5 INH SOL 3 ML VIAL.NEB. NEB SCH (07:25)
[2018-10-01] MEDS ORDERED: cefTRIAXone SODIUM 1 GM VIAL ONE (09:35)
[2018-10-01] MEDS ORDERED: PT OWN MED DRAWER 7, Y5N ONE (09:35)
[2018-10-01] MEDS ORDERED: DEXTROSE 5%-WATER - 50 ML IVPB ONE (09:36)
[2018-10-01] MEDS: AZITHROMYCIN IVPB 500 MG/250 ML BAG IVPB SCH (09:39)
[2018-10-01] MEDS: CEFTRIAXONE 1 GM in DEXTROSE 5%-WATER - 50 ML IVPB SCH (09:39)
[2018-10-01] MEDS: MUPIROCIN 2% TOPICAL OINTMENT FOR DECOLONIZATION NS SCH ×2 (09:45→21:42)
[2018-10-01] MEDS ORDERED: PANTOPRAZOLE SODIUM 40 MG VIAL IVPUSH SCH (10:00)
--- NOTE | 2018-10-01 11:12 | PN ---
Progress Note (short form) - Note Progress Note: Seen and examined in ICU Cont to have quarter sized hemptysis overnight, but darker in color Stable on RA seen by thoracic service Current Medications Albuterol/Ipratropium (Duoneb -) 1 amp NEB RQID [facility] Last Admin: 10/01/18 07:25 Dose: 1 amp Chlorhexidine Gluconate (Hibiclens For Decolonization -) 1 applic TP HS [facility] Last Admin: 09/30/18 23:02 Dose: 1 applic Guaifenesin/Codeine Phosphate (Robitussin Ac -) 10 ml PO TID [facility] Last Admin: 10/01/18 06:17 Dose: 10 ml Sodium Chloride (Normal Saline -) 1,000 mls @ 83 mls/hr IV ASDIR [facility] Last Admin: 10/01/18 00:30 Dose: 83 mls/hr Azithromycin (Zithromax 500mg Ivpb (Pre-Docked)) 500 mg in 250 mls @ 250 mls/ hr IVPB DAILY [facility] Last Admin: 10/01/18 09:39 Dose: 250 mls/hr Ceftriaxone Sodium 1 gm/ (Dextrose) 50 mls @ 100 mls/hr IVPB DAILY [facility] Last Admin: 10/01/18 09:39 Dose: 100 mls/hr Methylprednisolone Sodium Succinate (Solu-Medrol -) 60 mg IVPB Q8H-IV [facility] Last Admin: 10/01/18 09:37 Dose: 60 mg Mupirocin (Bactroban Ointment (For Decolonization) -) 1 applic NS BID [facility] Stop: 10/05/18 21:59 Last Admin: 10/01/18 09:45 Dose: 1 applic Pantoprazole Sodium (Protonix Iv) 40 mg IVPUSH DAILY [facility] Last Admin: 10/01/18 09:39 Dose: 40 mg Vital Signs Period Temp Pulse Resp BP Sys/Bunn Pulse Ox Last 24 Hr 97.2 F-99.0 F 55-80 16-28 99-126/57-82 95-98 Intake & Output 09/28/18 09/29/18 09/30/18 10/01/18 23:59 23:59 23:59 23:59 Intake Total 183 996 Output Total 400 500 Balance -217 496 Weight 60.555 kg 61 kg General: awake and alert w/o distress Pulm: coarse rhonchi on right side CV: RRR Abd: SNTND +Bs Ext: WWP Neuro: CN grossly intact CBC, BMP 10/01/18 05:30 10/01/18 05:30 CXR: hyperinflation RLL consolidation/mass CT chest: emphysematous changes R>L with upper lobe bulla. RLL [id number] mass IMP: Hemoptysis: at this time does not meet the criteria for Massive, but he has had a significant amount noted since last night (1 cup) R/O PNA PTSD HTN COPD due to prolonged and active smoking history Right lung empyema (s/p VATS 07/07) Anemia Throat CA Suspected Lung CA PLAN: ICU monitoring for respiratory monitoring Accurate quantification for hemoptysis Humidified O2 BD TX Medrol Empiric ABX for now Hanson-culture Cough suppressant with Codeine Check cytology No smoking counseled Mechanical VTE prophylaxis Inform CTS of patient admission If hamoptysis becomes massive, may need IR intervention Follow H & H Dr Moon Critical care time spent in reviewing chart, evaluating patient and formulating plan - 36 minutes.
--- NOTE | 2018-10-01 11:31 | PN ---
Progress Note, Physician Chief Complaint: hemoptysis continues with bright blood associated with cough History of Present Illness: 68 yo male with PMH of COPD emphysematous type, NOT steroid dependant, continues to have hemoptysis is admitted for monitoring and observation in ICU. The patient continues to have hemoptysis and may need IR intervention. He is not dyspneic and does not complain of discomfort. - Current Medication List Current Medications: Active Medications Chlorhexidine Gluconate (Hibiclens For Decolonization -) 1 applic TP HS [facility] Last Admin: 09/30/18 23:02 Dose: 1 applic Guaifenesin/Codeine Phosphate (Robitussin Ac -) 10 ml PO Q6H MARIS Sodium Chloride (Normal Saline -) 1,000 mls @ 83 mls/hr IV ASDIR [facility] Last Admin: 10/01/18 00:30 Dose: 83 mls/hr Azithromycin (Zithromax 500mg Ivpb (Pre-Docked)) 500 mg in 250 mls @ 250 mls/ hr IVPB DAILY [facility] Last Admin: 10/01/18 09:39 Dose: 250 mls/hr Ceftriaxone Sodium 1 gm/ (Dextrose) 50 mls @ 100 mls/hr IVPB DAILY [facility] Last Admin: 10/01/18 09:39 Dose: 100 mls/hr Methylprednisolone Sodium Succinate (Solu-Medrol -) 60 mg IVPB Q8H-IV [facility] Last Admin: 10/01/18 09:37 Dose: 60 mg Mupirocin (Bactroban Ointment (For Decolonization) -) 1 applic NS BID [facility] Stop: 10/05/18 21:59 Last Admin: 10/01/18 09:45 Dose: 1 applic Pantoprazole Sodium (Protonix Iv) 40 mg IVPUSH DAILY [facility] Last Admin: 10/01/18 09:39 Dose: 40 mg - Objective Vital Signs: Vital Signs Temperature 97.2 F L 10/01/18 06:00 Pulse Rate 74 10/01/18 08:00 Respiratory Rate 20 10/01/18 08:00 Blood Pressure 100/57 L 10/01/18 08:00 O2 Sat by Pulse Oximetry (%) 95 09/30/18 21:08 Constitutional: Yes: No Distress, Calm, Cachectic Eyes: Yes: Conjunctiva Clear, EOM Intact HENT: Yes: Atraumatic, Normocephalic Neck: Yes: Supple, Trachea Midline Cardiovascular: Yes: Regular Rate and Rhythm, S1, S2 Respiratory: Yes: Regular, CTA Bilaterally, Diminished (air entry diminished at the right base), On Nasal O2, SOB on Exertion. No: Rales, Rhonchi Gastrointestinal: Yes: Normal Bowel Sounds, Soft. No: Hepatomegaly, Splenomegaly, Tenderness ...Rectal Exam: Yes: Deferred Extremities: No: Calf Tenderness Edema: No Peripheral Pulses WNL: Yes Neurological: Yes: Alert, Oriented Psychiatric: Yes: Alert, Oriented Labs: CBC, BMP 10/01/18 05:30 10/01/18 05:30 INR, PTT INR 1.05 (0.83-1.09) 09/30/18 13:46 - ....Imaging Chest X-ray: Other (emphysema, right lower lobe opacification) Problem List - Problems (1) Hemoptysis Assessment/Plan: patient continues to bleed and he is scheduled for a bronchoscopy on Wednesday, may need IR intervention if the bleeding persists close monitoring. I do not think he will benefit from bronchodilators right now due to irritating effect of the treatments will decrease the amount of steroids, he has not been on steroids in the past repeat CBC Code(s): R04.2 - HEMOPTYSIS (2) Pulmonary mass Assessment/Plan: due for biopsy, had VATS and bipsies whoch were negative in July 2017 empiric antibiotics treatment with Ceftriaxone and Zithromax iv Code(s): R91.8 - OTHER NONSPECIFIC ABNORMAL FINDING OF LUNG FIELD (3) COPD (chronic obstructive pulmonary disease) Assessment/Plan: this patient i snot steroid dependent and does not benefit routinely from bronchodilators Code(s): J44.9 - CHRONIC OBSTRUCTIVE PULMONARY DISEASE, UNSPECIFIED Qualifiers: COPD type: COPD with acute exacerbation Qualified Code(s): J44.1 - Chronic obstructive pulmonary disease with (acute) exacerbation (4) Anemia, iron deficiency Assessment/Plan: monitor CBC and transfuse if necessary Code(s): D50.9 - IRON DEFICIENCY ANEMIA, UNSPECIFIED (5) History of throat cancer Assessment/Plan: s/p radiation therapy Code(s): Z85.819 - PRSNL HX OF MALIG NEOPLM OF UNSP SITE LIP,ORAL CAV,& PHARYNX
[2018-10-01] MEDS ORDERED: SODIUM CHLORIDE 1,000 ML IV SCH (11:36)
[2018-10-01] MEDS ORDERED: methylPREDNISolone NA SUCC 40 MG/1 ML VIAL IVPB SCH ×2 (11:45→22:00)
[2018-10-01] MEDS ORDERED: CODEINE SO4 30 MG TABLET PO ONE (13:04)
[2018-10-01 16:16] LABS: BASO % 0.1 % (0-2.0); HEMATOCRIT 30.1 % (35.4-49); HEMOGLOBIN 10.1 GM/dL (11.7-16.9); LYMPH % 6.6 % (8-40); MCH 28.1 pg (25.7-33.7); MCHC 33.5 g/dl (32.0-35.9); MEAN CELL VOLUME 83.8 fl (80-96); MEAN PLT VOLUME 7.9 fl (7.5-11.1); MONO % 7.5 % (3.8-10.2); NEUT % 85.8 % (42.8-82.8); PLATELET COUNT 268 K/MM3 (134-434); RBC 3.59 M/mm3 (4.00-5.60); RDW 16.5 % (11.9-15.9); WHITE BLOOD COUNT 16.2 K/mm3 (4.0-10.0)
[2018-10-01] MEDS: CHLORHEXIDINE GLUCONATE 4% CLEANSER FOR DECOLONIZATION TP SCH (21:42)
[2018-10-01] MEDS: CODEINE SO4 30 MG TABLET PO PRN (23:12)
[2018-10-02] MEDS: guaiFENesin/CODEINE 10 ML UNIT-DOSE CUPS PO SCH ×4 (05:56→22:36)
[2018-10-02 06:56] LABS: HEMATOCRIT 27.5 % (35.4-49); HEMOGLOBIN 8.6 GM/dL (11.7-16.9); LYMPH % 6.3 % (8-40); MCH 26.9 pg (25.7-33.7); MCHC 31.1 g/dl (32.0-35.9); MEAN CELL VOLUME 86.6 fl (80-96); MEAN PLT VOLUME 8.3 fl (7.5-11.1); MONO % 7.1 % (3.8-10.2); NEUT % 86.6 % (42.8-82.8); PLATELET COUNT 225 K/MM3 (134-434); RBC 3.18 M/mm3 (4.00-5.60); RDW 16.4 % (11.9-15.9); WHITE BLOOD COUNT 16.2 K/mm3 (4.0-10.0)
[2018-10-02 06:59] LABS: ALBUMIN 2.3 g/dl (3.4-5.0); ALK PHOS 62 U/L (45-117); ANION GAP 5 MMOL/L (8-16); BILIRUBIN,TOTAL 0.1 mg/dL (0.2-1); BLOOD UREA NITROGEN 22 mg/dL (7-18); CALCIUM 7.2 mg/dL (8.5-10.1); CHLORIDE 114 mmol/L (98-107); CO2 25 mmol/L (21-32); CREATININE 0.7 mg/dL (0.55-1.3); GLUCOSE,RANDOM 104 mg/dL (74-106); MAGNESIUM 1.9 mg/dL (1.8-2.4); POTASSIUM 4.4 mmol/L (3.5-5.1); SGOT/AST 9 U/L (15-37); SGPT/ALT 17 U/L (13-61); SODIUM 144 mmol/L (136-145); TOT PROT 5.3 g/dl (6.4-8.2)
[2018-10-02] MEDS ORDERED: DEXTROSE 5%-WATER - 50 ML IVPB ONE (08:14)
[2018-10-02] MEDS ORDERED: cefTRIAXone SODIUM 1 GM VIAL ONE (08:14)
--- NOTE | 2018-10-02 08:24 | PN ---
Progress Note (short form) - Note Progress Note: Seen and examined in ICU Yesterday day multiple episodes of tablespoon sized BRB hemoptysis Hgb 10->8 Increased codeine for cough suppresion w/ good effect no additional hemoptysis overnight Current Medications Chlorhexidine Gluconate (Hibiclens For Decolonization -) 1 applic TP HS [facility] Last Admin: 10/01/18 21:42 Dose: 1 applic Codeine Sulfate (Codeine Sulfate -) 30 mg PO Q6H PRN PRN Reason: COUGH Last Admin: 10/01/18 23:12 Dose: 30 mg Guaifenesin/Codeine Phosphate (Robitussin Ac -) 10 ml PO Q6H [facility] Last Admin: 10/02/18 05:56 Dose: 10 ml Azithromycin (Zithromax 500mg Ivpb (Pre-Docked)) 500 mg in 250 mls @ 250 mls/ hr IVPB DAILY [facility] Last Admin: 10/01/18 09:39 Dose: 250 mls/hr Ceftriaxone Sodium 1 gm/ (Dextrose) 50 mls @ 100 mls/hr IVPB DAILY [facility] Last Admin: 10/01/18 09:39 Dose: 100 mls/hr Sodium Chloride (Normal Saline -) 1,000 mls @ 50 mls/hr IV ASDIR [facility] Last Admin: 10/01/18 11:44 Dose: 50 mls/hr Methylprednisolone Sodium Succinate (Solu-Medrol -) 40 mg IVPB BID [facility] Last Admin: 10/01/18 21:43 Dose: 40 mg Mupirocin (Bactroban Ointment (For Decolonization) -) 1 applic NS BID [facility] Stop: 10/05/18 21:59 Last Admin: 10/01/18 21:42 Dose: 1 applic Vital Signs Period Temp Pulse Resp BP Sys/Bunn Pulse Ox Last 24 Hr 97.2 F-98.4 F 47-108 14-28 92-127/56-74 94-95 Intake & Output 09/29/18 09/30/18 10/01/18 10/02/18 23:59 23:59 23:59 23:59 Intake Total 183 4129.5 350 Output Total 400 1300 Balance -217 2829.5 350 Weight 60.555 kg 61 kg 61.552 kg General: awake and alert w/o distress Pulm: mild rhonchi on right side CV: RRR Abd: SNTND +Bs Ext: WWP Neuro: CN grossly intact CBC, BMP 10/02/18 05:30 10/02/18 05:30 CXR: unchanged: hyperiflated w/ RLL consolidation IMP: Hemoptysis R/O PNA PTSD HTN COPD due to prolonged and active smoking history Right lung empyema (s/p VATS 07/07) Anemia Throat CA Suspected Lung CA PLAN: ICU monitoring for respiratory monitoring Accurate quantification for hemoptysis Humidified O2 as needed BD TX Medrol taper d/c IV fluids would favor d/c ABX after 5 days Cough suppressant with Codeine Check cytology No smoking counseled Mechanical VTE prophylaxis Inform CTS of patient admission If hamoptysis becomes massive, may need IR intervention Follow H & H Arsh ELIZALDE Pulm/CCM CCT: 35m
[2018-10-02] MEDS: CEFTRIAXONE 1 GM in DEXTROSE 5%-WATER - 50 ML IVPB SCH (09:06)
[2018-10-02] MEDS: AZITHROMYCIN IVPB 500 MG/250 ML BAG IVPB SCH (09:06)
[2018-10-02] MEDS: MUPIROCIN 2% TOPICAL OINTMENT FOR DECOLONIZATION NS SCH ×2 (09:06→21:51)
[2018-10-02] MEDS: methylPREDNISolone NA SUCC 40 MG/1 ML VIAL IVPB SCH (09:06)
[2018-10-02] MEDS: PANTOPRAZOLE 40 MG TABLET (FP) PO SCH (13:13)
[2018-10-02 15:30] VITALS: BMI 19.9
--- NOTE | 2018-10-02 18:52 | PN ---
Progress Note, Physician Chief Complaint: the patient had no more hemoptysis today, the cough has decreased significantly History of Present Illness: 68 yo male with PMH of COPD emphysematous type, NOT steroid dependant, was admitted for monitoring and observation in ICU. 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 He is not dyspneic and does not complain of discomfort. and his cough has lessened. - Current Medication List Current Medications: Active Medications Chlorhexidine Gluconate (Hibiclens For Decolonization -) 1 applic TP HS [facility] Last Admin: 10/01/18 21:42 Dose: 1 applic Codeine Sulfate (Codeine Sulfate -) 30 mg PO Q6H PRN PRN Reason: COUGH Last Admin: 10/01/18 23:12 Dose: 30 mg Guaifenesin/Codeine Phosphate (Robitussin Ac -) 10 ml PO Q6H [facility] Last Admin: 10/02/18 17:25 Dose: 10 ml Azithromycin (Zithromax 500mg Ivpb (Pre-Docked)) 500 mg in 250 mls @ 250 mls/ hr IVPB DAILY [facility] Last Admin: 10/02/18 09:06 Dose: 250 mls/hr Ceftriaxone Sodium 1 gm/ (Dextrose) 50 mls @ 100 mls/hr IVPB DAILY [facility] Last Admin: 10/02/18 09:06 Dose: 100 mls/hr Methylprednisolone Sodium Succinate (Solu-Medrol -) 40 mg IVPB DAILY [facility] Stop: 10/04/18 10:01 Last Admin: 10/02/18 09:06 Dose: 40 mg Mupirocin (Bactroban Ointment (For Decolonization) -) 1 applic NS BID [facility] Stop: 10/05/18 21:59 Last Admin: 10/02/18 09:06 Dose: 1 applic Pantoprazole Sodium (Protonix -) 40 mg PO DAILY [facility] Last Admin: 10/02/18 13:13 Dose: 40 mg - Objective Vital Signs: Vital Signs Temperature 97.3 F L 10/02/18 18:00 Pulse Rate 68 10/02/18 18:00 Respiratory Rate 17 10/02/18 18:00 Blood Pressure 117/64 10/02/18 18:00 O2 Sat by Pulse Oximetry (%) 94 L 10/02/18 08:00 Constitutional: Yes: No Distress, Calm Eyes: Yes: Conjunctiva Clear, EOM Intact HENT: Yes: Atraumatic, Normocephalic Neck: Yes: Supple, Trachea Midline Cardiovascular: Yes: Regular Rate and Rhythm, S1, S2 Respiratory: Yes: Regular, CTA Bilaterally Gastrointestinal: Yes: Normal Bowel Sounds, Soft. No: Hematemesis, Hepatomegaly , Palpable Mass, Splenomegaly ...Rectal Exam: Yes: Deferred Musculoskeletal: Yes: WNL Extremities: No: Calf Tenderness Edema: No Peripheral Pulses WNL: Yes Integumentary: Yes: WNL Neurological: Yes: Alert, Oriented Psychiatric: Yes: Alert, Oriented Labs: CBC, BMP 10/02/18 05:30 10/02/18 05:30 INR, PTT INR 1.05 (0.83-1.09) 09/30/18 13:46 Problem List - Problems (1) Hemoptysis Assessment/Plan: has stopped, the patient is scheduled for a bronchoscopy tomorrow close monitoring, continues, type and cross match 2 units of PRBC . I do not think he will benefit from bronchodilators right now due to irritating effect of the treatments will decrease the amount of steroids, he has not been on steroids in the past repeat CBC in am Code(s): R04.2 - HEMOPTYSIS (2) Pulmonary mass Assessment/Plan: empiric treatment with antibiotics leukocytosis is most likely due to steroids Code(s): R91.8 - OTHER NONSPECIFIC ABNORMAL FINDING OF LUNG FIELD (3) COPD (chronic obstructive pulmonary disease) Assessment/Plan: this patient is not steroid dependent and does not benefit routinely from bronchodilators taper steroids to dc Code(s): J44.9 - CHRONIC OBSTRUCTIVE PULMONARY DISEASE, UNSPECIFIED Qualifiers: COPD type: COPD with acute exacerbation Qualified Code(s): J44.1 - Chronic obstructive pulmonary disease with (acute) exacerbation (4) Anemia, iron deficiency Assessment/Plan: monitor CBC and transfuse if necessary Code(s): D50.9 - IRON DEFICIENCY ANEMIA, UNSPECIFIED (5) History of throat cancer Assessment/Plan: s/p radiation therapy Code(s): Z85.819 - PRSNL HX OF MALIG NEOPLM OF UNSP SITE LIP,ORAL CAV,& PHARYNX
[2018-10-02] MEDS ORDERED: PT OWN MED DRAWER 7, Y5N ONE (20:32)
[2018-10-02] MEDS: CHLORHEXIDINE GLUCONATE 4% CLEANSER FOR DECOLONIZATION TP SCH (21:51)
[2018-10-02] MEDS: CODEINE SO4 30 MG TABLET PO PRN (22:36)
[2018-10-03 06:02] LABS: BASO % 0.3 % (0-2.0); EOS % 0.1 % (0-4.5); HEMATOCRIT 30.7 % (35.4-49); HEMOGLOBIN 9.6 GM/dL (11.7-16.9); LYMPH % 20.2 % (8-40); MCH 27.1 pg (25.7-33.7); MCHC 31.3 g/dl (32.0-35.9); MEAN CELL VOLUME 86.6 fl (80-96); MEAN PLT VOLUME 8.3 fl (7.5-11.1); MONO % 10.3 % (3.8-10.2); NEUT % 69.1 % (42.8-82.8); PLATELET COUNT 246 K/MM3 (134-434); RBC 3.55 M/mm3 (4.00-5.60); RDW 16.8 % (11.9-15.9)
[2018-10-03 06:22] LABS: ALBUMIN 2.6 g/dl (3.4-5.0); ALK PHOS 67 U/L (45-117); ANION GAP 4 MMOL/L (8-16); BILIRUBIN,TOTAL 0.1 mg/dL (0.2-1); BLOOD UREA NITROGEN 29 mg/dL (7-18); CALCIUM 8.3 mg/dL (8.5-10.1); CHLORIDE 109 mmol/L (98-107); CO2 33 mmol/L (21-32); CREATININE 0.9 mg/dL (0.55-1.3); GLUCOSE,RANDOM 84 mg/dL (74-106); SGOT/AST 12 U/L (15-37); SGPT/ALT 18 U/L (13-61); SODIUM 146 mmol/L (136-145); TOT PROT 5.7 g/dl (6.4-8.2)
[2018-10-03] MEDS: guaiFENesin/CODEINE 10 ML UNIT-DOSE CUPS PO SCH ×4 (06:34→22:58)
[2018-10-03] MEDS ORDERED: cefTRIAXone SODIUM 1 GM VIAL ONE (10:13)
[2018-10-03] MEDS ORDERED: DEXTROSE 5%-WATER - 50 ML IVPB ONE (10:13)
[2018-10-03] MEDS: PANTOPRAZOLE 40 MG TABLET (FP) PO SCH (10:30)
[2018-10-03] MEDS: CEFTRIAXONE 1 GM in DEXTROSE 5%-WATER - 50 ML IVPB SCH (10:30)
[2018-10-03] MEDS: methylPREDNISolone NA SUCC 40 MG/1 ML VIAL IVPB SCH (10:31)
[2018-10-03] MEDS: MUPIROCIN 2% TOPICAL OINTMENT FOR DECOLONIZATION NS SCH (10:32)
[2018-10-03] MEDS: AZITHROMYCIN IVPB 500 MG/250 ML BAG IVPB SCH (10:36)
[2018-10-03] MEDS: CODEINE SO4 30 MG TABLET PO PRN (10:38)
--- NOTE | 2018-10-03 12:39 | PN ---
Teaching Attending Note Name of Resident: Arturo Flores ATTENDING PHYSICIAN STATEMENT I saw and evaluated the patient. I reviewed the resident's note and discussed the case with the resident. I agree with the resident's findings and plan as documented. SUBJECTIVE: Patient seen and examined in the ICU. Awake and alert. No hemoptysis overnight. No CP or SOB. NO acute events overnight. Intake & Output 09/30/18 10/01/18 10/02/18 10/03/18 23:59 23:59 23:59 23:59 Intake Total 183 4129.5 1390 Output Total 400 1300 900 200 Balance -217 2829.5 490 -200 Weight 133 lb 8 oz 134 lb 7.712 oz 135 lb Last Vital Signs Temp Pulse Resp BP Pulse Ox 98 F 70 24 H 119/66 90 L 10/03/18 12:00 10/03/18 12:00 10/03/18 12:00 10/03/18 12:00 10/03/18 09:00 Active Medications Chlorhexidine Gluconate (Hibiclens For Decolonization -) 1 applic TP HS [facility] Last Admin: 10/02/18 21:51 Dose: 1 applic Codeine Sulfate (Codeine Sulfate -) 30 mg PO Q6H PRN PRN Reason: COUGH Last Admin: 10/03/18 10:38 Dose: 30 mg Guaifenesin/Codeine Phosphate (Robitussin Ac -) 10 ml PO Q6H [facility] Last Admin: 10/03/18 06:34 Dose: 10 ml Azithromycin (Zithromax 500mg Ivpb (Pre-Docked)) 500 mg in 250 mls @ 250 mls/ hr IVPB DAILY [facility] Last Admin: 10/03/18 10:36 Dose: 250 mls/hr Ceftriaxone Sodium 1 gm/ (Dextrose) 50 mls @ 100 mls/hr IVPB DAILY [facility] Last Admin: 10/03/18 10:30 Dose: 100 mls/hr Methylprednisolone Sodium Succinate (Solu-Medrol -) 40 mg IVPB DAILY [facility] Stop: 10/04/18 10:01 Last Admin: 10/03/18 10:31 Dose: 40 mg Mupirocin (Bactroban Ointment (For Decolonization) -) 1 applic NS BID [facility] Stop: 10/05/18 21:59 Last Admin: 10/03/18 10:32 Dose: 1 applic Pantoprazole Sodium (Protonix -) 40 mg PO DAILY [facility] Last Admin: 10/03/18 10:30 Dose: 40 mg - Physical Exam General Appearance: Thin, NAD HEENT: (-) Pallor, (-) Epistaxis Neck: Trachea midline, Supple. Respiratory/Chest: Diminished breath sounds at the bases, scattered rhonchi, no Wheeze Cardiovascular: S1S2 Gastrointestinal/Abdominal: Normal Bowel Sounds, Flat, Soft. Non-tender Extremity: (+) PP Integumentary: positive: Normal Color, Dry, Warm Neurologic: Oriented, Alert, Non-focal Laboratory Results - last 24 hr 10/03/18 10/03/18 10/03/18 05:15 05:15 05:15 WBC 14.0 H RBC 3.55 L Hgb 9.6 L Hct 30.7 L MCV 86.6 MCH 27.1 MCHC 31.3 L RDW 16.8 H Plt Count 246 MPV 8.3 Absolute Neuts (auto) 9.7 H Neutrophils % 69.1 D Lymphocytes % 20.2 D Monocytes % 10.3 H Eosinophils % 0.1 D Basophils % 0.3 D Nucleated RBC % 0 Sodium 146 H Potassium 4.0 Chloride 109 H Carbon Dioxide 33 H Anion Gap 4 L BUN 29 H Creatinine 0.9 Creat Clearance w eGFR > 60 Random Glucose 84 Calcium 8.3 L Total Bilirubin 0.1 L AST 12 L ALT 18 Alkaline Phosphatase 67 Total Protein 5.7 L Albumin 2.6 L Blood Type O NEGATIVE Antibody Screen Negative IMP: Hemoptysis: resolved R/O PNA PTSD HTN COPD due to prolonged and active smoking history Right lung empyema (s/p VATS 07/07) Anemia Throat CA Suspected Lung CA PLAN: Will D/W IR for tissue sampling Will hold on Broch as the most likely source of bleeding is from the RLL Accurate quantification for hemoptysis Humidified O2 BD TX Medrol Empiric ABX Cough suppressant with Codeine Check cytology that was sent on Wednesday No smoking counseled Mechanical VTE prophylaxis If hemoptysis becomes massive, may need IR intervention Follow H & H Can be safely monitored on the medical floor Dr Moon OBJECTIVE: ASSESSMENT AND PLAN:
--- NOTE | 2018-10-03 14:11 | PN ---
Progress Note (short form) - Note Progress Note: Patient seen and examined at bedside no hemoptysis since yesterday Hb Stable Vital Signs Temperature 98 F 10/03/18 12:00 Pulse Rate 70 10/03/18 12:00 Respiratory Rate 24 H 10/03/18 12:00 Blood Pressure 119/66 10/03/18 12:00 O2 Sat by Pulse Oximetry (%) 90 L 10/03/18 09:00 Constitutional: Yes: No Distress, Calm, Cachectic, Thin Eyes: Yes: EOM Intact HENT: Yes: Atraumatic, Normocephalic, Other (red blood around mouth) Neck: Yes: Supple, Trachea Midline Cardiovascular: Yes: Regular Rate and Rhythm Respiratory: Yes: Rhonchi (bilaterally and diffusely), Wheezes (bilaterally and diffusey) Gastrointestinal: Yes: Normal Bowel Sounds, Soft. No: Tenderness Edema: No Neurological: Yes: Alert, Oriented (to person place and time) Psychiatric: Yes: Alert, Oriented 10/03/18 10/03/18 10/03/18 05:15 05:15 05:15 WBC 14.0 H RBC 3.55 L Hgb 9.6 L Hct 30.7 L MCV 86.6 MCHC 31.3 L RDW 16.8 H Plt Count 246 Neutrophils % 69.1 D Lymphocytes % 20.2 D Monocytes % 10.3 H Eosinophils % 0.1 D Basophils % 0.3 D Sodium 146 H Potassium 4.0 Chloride 109 H Carbon Dioxide 33 H Anion Gap 4 L BUN 29 H Creatinine 0.9 Blood Type O NEGATIVE Antibody Screen Negative 09/30/18 20:00 Gram Stain - Final Sputum - Expectorated Sputum Culture - Final NORMAL RESPIRATORY AMMON 09/30/18 21:30 Blood Culture - Preliminary Blood - Peripheral Venous NO GROWTH OBTAINED AFTER 48 HOURS, INCUBATION TO CONTINUE FOR 3 DAYS. 09/30/18 20:00 Blood Culture - Preliminary Blood - Peripheral Venous NO GROWTH OBTAINED AFTER 48 HOURS, INCUBATION TO CONTINUE FOR 3 DAYS. 09/30/18 17:00 Urine Culture - Final Urine - Urine Clean Catch NO GROWTH OBTAINED 68M with history of HTN COPD Anemia left oropharyngeal Ca s/p RT with a right lung mass now with hemoptysis in the setting of recent aspirin use. Problem List: Hemoptysis in the setting of a right lung mass and recent antiplatelet use ( Aspirin) history of left oropharyngeal Ca s/p RT in 2008 Normocytic Hypochromic Anemia HTN Acute exacerbation of COPD s/p VATS Active smoker Right Lung Mass possible Ca RLL Pneumonia-CAP Leukocytosis Plan: If patient starts to have large volume hemoptysis or starts to drop his H/H will call IR for possible intervention (Embolization) continue Duonebs continue increased dose of Robitussin with Codeine Solu-Medrol Taper continue ABx DVT PPx with SCDs PPI for GI PPx in the setting of bleeding Trend CBC Transfuse PRN Will send hemotysis for cytology-pending IVF CT surgery Blood cultures Urinalysis Urine culture For IR guided biopsy of RLL lung lesion Case discussed with Dr. Moon Transfer to med/surg
--- NOTE | 2018-10-03 22:25 | PN ---
Progress Note, Physician Chief Complaint: no hemoptysis, sporadic cough History of Present Illness: 68 yo male with PMH of COPD emphysematous type, NOT steroid dependant, was admitted for monitoring and observation in ICU. The patient had in the past oropharyngeal cancer which was treated with radiation therapy and recently was supposed to complete lung biopsy for mass at the base of the right lung. He is not dyspneic, had no fever and does not complain of discomfort. His cough has lessened, his oxygen saturation is in low 90ies on RA. He has good appetite. - Current Medication List Current Medications: Active Medications Codeine Sulfate (Codeine Sulfate -) 30 mg PO Q6H PRN PRN Reason: COUGH Guaifenesin/Codeine Phosphate (Robitussin Ac -) 10 ml PO Q6HPO [facility] Azithromycin (Zithromax 500mg Ivpb (Pre-Docked)) 500 mg in 250 mls @ 250 mls/ hr IVPB DAILY [facility] Ceftriaxone Sodium 1 gm/ (Dextrose) 50 mls @ 100 mls/hr IVPB DAILY [facility] Pantoprazole Sodium (Protonix -) 40 mg PO DAILY [facility] - Objective Vital Signs: Vital Signs Temperature 98 F 10/03/18 18:00 Pulse Rate 74 10/03/18 18:00 Respiratory Rate 22 H 10/03/18 18:00 Blood Pressure 132/71 10/03/18 18:00 O2 Sat by Pulse Oximetry (%) 90 L 10/03/18 09:00 Constitutional: Yes: No Distress, Calm, Cachectic Eyes: Yes: Conjunctiva Clear, EOM Intact HENT: Yes: Atraumatic, Normocephalic Neck: Yes: Supple, Trachea Midline Cardiovascular: Yes: Regular Rate and Rhythm, S1, S2 Respiratory: Yes: Diminished (right base entry), Rhonchi (at the left base). No : Wheezes Gastrointestinal: Yes: Normal Bowel Sounds, Soft. No: Hepatomegaly, Splenomegaly Extremities: No: Calf Tenderness Edema: No Peripheral Pulses WNL: Yes Neurological: Yes: Alert, Oriented Psychiatric: Yes: Alert, Oriented Labs: CBC, BMP 10/03/18 05:15 10/03/18 05:15 INR, PTT INR 1.05 (0.83-1.09) 09/30/18 13:46 Problem List - Problems (1) Hemoptysis Assessment/Plan: lung mass biopsy in am Code(s): R04.2 - HEMOPTYSIS (2) Pulmonary mass Assessment/Plan: empiric treatment with antibiotics leukocytosis due to steroids Code(s): R91.8 - OTHER NONSPECIFIC ABNORMAL FINDING OF LUNG FIELD (3) COPD (chronic obstructive pulmonary disease) Assessment/Plan: this patient is not steroid dependent and does not benefit routinely from bronchodilators taper steroids to dc Code(s): J44.9 - CHRONIC OBSTRUCTIVE PULMONARY DISEASE, UNSPECIFIED Qualifiers: COPD type: COPD with acute exacerbation Qualified Code(s): J44.1 - Chronic obstructive pulmonary disease with (acute) exacerbation (4) Anemia, iron deficiency Assessment/Plan: monitor CBC and transfuse if necessary Code(s): D50.9 - IRON DEFICIENCY ANEMIA, UNSPECIFIED (5) History of throat cancer Assessment/Plan: s/p radiation therapy Code(s): Z85.819 - PRSNL HX OF MALIG NEOPLM OF UNSP SITE LIP,ORAL CAV,& PHARYNX
[2018-10-04] MEDS ORDERED: PT OWN MED DRAWER 7, Y5N ONE (04:47)
[2018-10-04] MEDS: guaiFENesin/CODEINE 10 ML UNIT-DOSE CUPS PO SCH ×4 (06:41→23:46)
[2018-10-04 08:00] LABS: BASO % 0.2 % (0-2.0); EOS % 0.3 % (0-4.5); HEMATOCRIT 30.1 % (35.4-49); HEMOGLOBIN 10.2 GM/dL (11.7-16.9); LYMPH % 24.1 % (8-40); MCH 28.7 pg (25.7-33.7); MCHC 34.1 g/dl (32.0-35.9); MEAN CELL VOLUME 84.1 fl (80-96); MEAN PLT VOLUME 8.3 fl (7.5-11.1); MONO % 12.3 % (3.8-10.2); NEUT % 63.1 % (42.8-82.8); PLATELET COUNT 269 K/MM3 (134-434); RBC 3.57 M/mm3 (4.00-5.60); WHITE BLOOD COUNT 11.8 K/mm3 (4.0-10.0)
[2018-10-04 08:12] LABS: INR 1.01 (0.83-1.09); PROTHROMBIN TIME (PATIENT) 11.9 SEC (9.7-13.0)
[2018-10-04 08:25] LABS: ALBUMIN 2.6 g/dl (3.4-5.0); ALK PHOS 75 U/L (45-117); ANION GAP 6 MMOL/L (8-16); BILIRUBIN,TOTAL 0.2 mg/dL (0.2-1); BLOOD UREA NITROGEN 29 mg/dL (7-18); CALCIUM 8.4 mg/dL (8.5-10.1); CHLORIDE 104 mmol/L (98-107); CO2 30 mmol/L (21-32); CREATININE 0.8 mg/dL (0.55-1.3); GLUCOSE,RANDOM 90 mg/dL (74-106); SGOT/AST 13 U/L (15-37); SGPT/ALT 22 U/L (13-61); SODIUM 141 mmol/L (136-145)
[2018-10-04] MEDS ORDERED: DEXTROSE 5%-WATER - 50 ML IVPB ONE (09:26)
[2018-10-04] MEDS ORDERED: cefTRIAXone SODIUM 1 GM VIAL ONE (09:26)
[2018-10-04] MEDS: CODEINE SO4 30 MG TABLET PO PRN ×2 (09:42→18:22)
[2018-10-04] MEDS: PANTOPRAZOLE 40 MG TABLET (FP) PO SCH (09:43)
[2018-10-04] MEDS: CEFTRIAXONE 1 GM in DEXTROSE 5%-WATER - 50 ML IVPB SCH ×2 (11:44→14:53)
[2018-10-04] MEDS: AZITHROMYCIN IVPB 500 MG/250 ML BAG IVPB SCH (11:54)
--- NOTE | 2018-10-04 20:48 | PN ---
Progress Note, Physician Chief Complaint: s/p lung biopsy today, sporadic cough, no hemoptysis History of Present Illness: 68 yo male with PMH of COPD emphysematous type, NOT steroid dependant, was admitted for monitoring and observation in ICU. 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 The patient had lung biopsy for a "mass' at the base of the right lung today and tolerated well the procedure. He is not dyspneic, had no fever and does not complain of discomfort. His cough has lessened, his oxygen saturation is in low 90ies on RA. He has good appetite. - Current Medication List Current Medications: Active Medications Codeine Sulfate (Codeine Sulfate -) 30 mg PO Q6H PRN PRN Reason: COUGH Last Admin: 10/04/18 18:22 Dose: 30 mg Guaifenesin/Codeine Phosphate (Robitussin Ac -) 10 ml PO Q6HPO [facility] Last Admin: 10/04/18 18:26 Dose: 10 ml Azithromycin (Zithromax 500mg Ivpb (Pre-Docked)) 500 mg in 250 mls @ 250 mls/ hr IVPB DAILY [facility] Last Admin: 10/04/18 11:54 Dose: 250 mls/hr Ceftriaxone Sodium 1 gm/ (Dextrose) 50 mls @ 100 mls/hr IVPB DAILY [facility] Last Admin: 10/04/18 14:53 Dose: 100 mls/hr Pantoprazole Sodium (Protonix -) 40 mg PO DAILY [facility] Last Admin: 10/04/18 09:43 Dose: 40 mg - Objective Vital Signs: Vital Signs Temperature 97.9 F 10/04/18 18:30 Pulse Rate 73 10/04/18 18:30 Respiratory Rate 20 10/04/18 18:30 Blood Pressure 113/74 10/04/18 18:30 O2 Sat by Pulse Oximetry (%) 99 10/04/18 11:17 Constitutional: Yes: No Distress, Calm Eyes: Yes: Conjunctiva Clear, EOM Intact HENT: Yes: Atraumatic, Normocephalic Neck: Yes: Supple, Trachea Midline Cardiovascular: Yes: S1, S2 Respiratory: Yes: Regular, Cough. No: Rhonchi, SOB, Wheezes Gastrointestinal: Yes: Normal Bowel Sounds, Soft. No: Hepatomegaly, Splenomegaly Extremities: No: Calf Tenderness Edema: No Peripheral Pulses WNL: Yes Neurological: Yes: Alert, Oriented Psychiatric: Yes: Alert, Oriented Labs: CBC, BMP 10/04/18 06:35 10/04/18 06:35 INR, PTT INR 1.01 (0.83-1.09) 10/04/18 06:35 - ....Imaging X-ray: Other (post biopsy, no pneumothorax) Problem List - Problems (1) Hemoptysis Assessment/Plan: lung mass biopsy preformed today and the results are pending monitor today and for discharge tomorrow if clinically stable Code(s): R04.2 - HEMOPTYSIS (2) Pulmonary mass Assessment/Plan: empiric treatment with antibiotics leukocytosis due to steroids is improving once steroids stopped Code(s): R91.8 - OTHER NONSPECIFIC ABNORMAL FINDING OF LUNG FIELD (3) COPD (chronic obstructive pulmonary disease) Assessment/Plan: stop smoking Code(s): J44.9 - CHRONIC OBSTRUCTIVE PULMONARY DISEASE, UNSPECIFIED Qualifiers: COPD type: COPD with acute exacerbation Qualified Code(s): J44.1 - Chronic obstructive pulmonary disease with (acute) exacerbation (4) Anemia, iron deficiency Assessment/Plan: monitor CBC and transfuse if necessary Code(s): D50.9 - IRON DEFICIENCY ANEMIA, UNSPECIFIED (5) History of throat cancer Assessment/Plan: s/p radiation therapy Code(s): Z85.819 - PRSNL HX OF MALIG NEOPLM OF UNSP SITE LIP,ORAL CAV,& PHARYNX
[2018-10-05] MEDS: guaiFENesin/CODEINE 10 ML UNIT-DOSE CUPS PO SCH ×4 (05:58→23:20)
[2018-10-05 07:27] LABS: BASO % 0.3 % (0-2.0); EOS % 2.3 % (0-4.5); HEMATOCRIT 31.5 % (35.4-49); HEMOGLOBIN 10.4 GM/dL (11.7-16.9); LYMPH % 23.1 % (8-40); MCH 28.3 pg (25.7-33.7); MONO % 10.7 % (3.8-10.2); NEUT % 63.6 % (42.8-82.8); PLATELET COUNT 261 K/MM3 (134-434); RBC 3.67 M/mm3 (4.00-5.60); RDW 16.4 % (11.9-15.9)
[2018-10-05] MEDS ORDERED: DEXTROSE 5%-WATER - 50 ML IVPB ONE (09:28)
[2018-10-05] MEDS ORDERED: cefTRIAXone SODIUM 1 GM VIAL ONE (09:28)
[2018-10-05] MEDS: CODEINE SO4 30 MG TABLET PO PRN (09:30)
[2018-10-05] MEDS: PANTOPRAZOLE 40 MG TABLET (FP) PO SCH (09:31)
[2018-10-05] MEDS: AZITHROMYCIN IVPB 500 MG/250 ML BAG IVPB SCH (09:31)
[2018-10-05] MEDS: CEFTRIAXONE 1 GM in DEXTROSE 5%-WATER - 50 ML IVPB SCH (11:18)
--- NOTE | 2018-10-05 13:35 | PN ---
Progress Note, Physician History of Present Illness: PULMONARY ALERT,NO DISTRESS,-SOB,-HEMOPTYSIS. PT S/P CT GUIDED BX RLL MASS - Current Medication List Current Medications: Active Medications Codeine Sulfate (Codeine Sulfate -) 30 mg PO Q6H PRN PRN Reason: COUGH Last Admin: 10/05/18 09:30 Dose: 30 mg Guaifenesin/Codeine Phosphate (Robitussin Ac -) 10 ml PO Q6HPO [facility] Last Admin: 10/05/18 12:01 Dose: 10 ml Azithromycin (Zithromax 500mg Ivpb (Pre-Docked)) 500 mg in 250 mls @ 250 mls/ hr IVPB DAILY [facility] Last Admin: 10/05/18 09:31 Dose: 250 mls/hr Ceftriaxone Sodium 1 gm/ (Dextrose) 50 mls @ 100 mls/hr IVPB DAILY [facility] Last Admin: 10/05/18 11:18 Dose: 100 mls/hr Pantoprazole Sodium (Protonix -) 40 mg PO DAILY [facility] Last Admin: 10/05/18 09:31 Dose: 40 mg - Objective Vital Signs: Vital Signs Temperature 97.5 F L 10/05/18 09:08 Pulse Rate 92 H 10/05/18 09:08 Respiratory Rate 20 10/05/18 09:08 Blood Pressure 124/74 10/05/18 09:08 O2 Sat by Pulse Oximetry (%) 93 L 10/04/18 21:00 Constitutional: Yes: Calm, Thin Eyes: Yes: WNL HENT: Yes: WNL Neck: Yes: WNL Cardiovascular: Yes: Regular Rate and Rhythm, S1, S2 Respiratory: Yes: Diminished Gastrointestinal: Yes: Normal Bowel Sounds, Soft Extremities: Yes: WNL Edema: No Labs: CBC, BMP 10/05/18 06:00 10/04/18 06:35 INR, PTT INR 1.01 (0.83-1.09) 10/04/18 06:35 Problem List - Problems (1) Hemoptysis Code(s): R04.2 - HEMOPTYSIS (2) Pulmonary mass Code(s): R91.8 - OTHER NONSPECIFIC ABNORMAL FINDING OF LUNG FIELD (3) Anemia, iron deficiency Code(s): D50.9 - IRON DEFICIENCY ANEMIA, UNSPECIFIED (4) COPD (chronic obstructive pulmonary disease) Code(s): J44.9 - CHRONIC OBSTRUCTIVE PULMONARY DISEASE, UNSPECIFIED Qualifiers: COPD type: COPD with acute exacerbation Qualified Code(s): J44.1 - Chronic obstructive pulmonary disease with (acute) exacerbation Assessment/Plan IMP: Hemoptysis: resolved R/O PNA PTSD RLL MASS HTN COPD due to prolonged and active smoking history Right lung empyema (s/p VATS 07/07) Anemia Throat CA Suspected Lung CA PLAN: check path Humidified O2 BD TX Empiric ABX Cough suppressant with Codeine No smoking counseled Mechanical VTE prophylaxis Follow H & H DR REYES
--- NOTE | 2018-10-05 20:19 | PATH ---
Cytology Non-Gynecological Report Patient Name: JOSE WEEMS Med. Rec. #: [id number] /Age/Gender: 1950 (Age: 68) / M Account: [id number] Location: [address] [place] [address]/[facility] Taken: 09/29/2018 Received: 10/03/2018 Reported: 10/05/2018 Physicians: Pk Flores M.D. Specimen(s) Received SPUTUM Clinical History Hemoptysis/lung mass Final Diagnosis SPUTUM FOR CYTOLOGY: EVALUATION IS LIMITED BY THE ABSENCE OF ALVEOLAR MACROPHAGES. DEGENERATIVE SQUAMOUS CELLS AND INFLAMMATORY CELLS PRESENT. Comment: The specimen does not represent lower respiratory tract. Clinical correlations are suggested. Electronically Signed Phillip Godfrey M.D. Gross Description [id number] of bloody fluid received fresh. One slide prepared.
--- NOTE | 2018-10-05 20:56 | PN ---
Progress Note, Physician Chief Complaint: s/p lung biopsy, sporadic cough persists, no hemoptysis History of Present Illness: 68 yo male with PMH of COPD emphysematous type, NOT steroid dependant, was admitted for monitoring and observation in ICU. 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 The patient is s/ p lung biopsy yesterday for a "mass' at the base of the right lung. He is not dyspneic, had no fever and does not complain of discomfort. His cough has lessened, his oxygen saturation is in low 90ies on RA. He has good appetite. - Current Medication List Current Medications: Active Medications Codeine Sulfate (Codeine Sulfate -) 30 mg PO Q6H PRN PRN Reason: COUGH Last Admin: 10/05/18 09:30 Dose: 30 mg Guaifenesin/Codeine Phosphate (Robitussin Ac -) 10 ml PO Q6HPO [facility] Last Admin: 10/05/18 18:07 Dose: 10 ml Azithromycin (Zithromax 500mg Ivpb (Pre-Docked)) 500 mg in 250 mls @ 250 mls/ hr IVPB DAILY [facility] Last Admin: 10/05/18 09:31 Dose: 250 mls/hr Ceftriaxone Sodium 1 gm/ (Dextrose) 50 mls @ 100 mls/hr IVPB DAILY [facility] Last Admin: 10/05/18 11:18 Dose: 100 mls/hr Pantoprazole Sodium (Protonix -) 40 mg PO DAILY [facility] Last Admin: 10/05/18 09:31 Dose: 40 mg - Objective Vital Signs: Vital Signs Temperature 98.2 F 10/05/18 18:45 Pulse Rate 80 10/05/18 18:45 Respiratory Rate 20 10/05/18 18:45 Blood Pressure 129/61 10/05/18 18:45 O2 Sat by Pulse Oximetry (%) 99 10/05/18 09:00 Constitutional: Yes: No Distress, Calm Eyes: Yes: Conjunctiva Clear, EOM Intact HENT: Yes: Atraumatic, Normocephalic Neck: Yes: Supple, Trachea Midline Cardiovascular: Yes: Regular Rate and Rhythm, S1, S2 Respiratory: Yes: Regular, CTA Bilaterally Gastrointestinal: Yes: Normal Bowel Sounds, Soft ...Rectal Exam: Yes: Deferred Genitourinary: Yes: WNL Extremities: No: Calf Tenderness Edema: No Peripheral Pulses WNL: Yes Neurological: Yes: Alert, Oriented Psychiatric: Yes: Alert, Oriented Labs: CBC, BMP 10/05/18 06:00 10/04/18 06:35 INR, PTT INR 1.01 (0.83-1.09) 10/04/18 06:35 Problem List - Problems (1) Hemoptysis Assessment/Plan: lung mass biopsy preformed and the results are pending monitor today and for discharge tomorrow if clinically stable Code(s): R04.2 - HEMOPTYSIS (2) Pulmonary mass Assessment/Plan: empiric treatment with antibiotics leukocytosis due to steroids is improving once steroids stopped Code(s): R91.8 - OTHER NONSPECIFIC ABNORMAL FINDING OF LUNG FIELD (3) COPD (chronic obstructive pulmonary disease) Assessment/Plan: smoking cessation Code(s): J44.9 - CHRONIC OBSTRUCTIVE PULMONARY DISEASE, UNSPECIFIED Qualifiers: COPD type: COPD with acute exacerbation Qualified Code(s): J44.1 - Chronic obstructive pulmonary disease with (acute) exacerbation (4) Anemia, iron deficiency Assessment/Plan: monitor CBC and transfuse if necessary Code(s): D50.9 - IRON DEFICIENCY ANEMIA, UNSPECIFIED (5) History of throat cancer Assessment/Plan: s/p radiation therapy Code(s): Z85.819 - PRSNL HX OF MALIG NEOPLM OF UNSP SITE LIP,ORAL CAV,& PHARYNX
[2018-10-06] MEDS: guaiFENesin/CODEINE 10 ML UNIT-DOSE CUPS PO SCH ×4 (06:22→23:26)
[2018-10-06] MEDS ORDERED: cefTRIAXone SODIUM 1 GM VIAL ONE (09:22)
[2018-10-06] MEDS ORDERED: DEXTROSE 5%-WATER - 50 ML IVPB ONE (09:22)
[2018-10-06] MEDS: PANTOPRAZOLE 40 MG TABLET (FP) PO SCH (09:50)
[2018-10-06] MEDS: CEFTRIAXONE 1 GM in DEXTROSE 5%-WATER - 50 ML IVPB SCH (09:51)
[2018-10-06] MEDS: AZITHROMYCIN IVPB 500 MG/250 ML BAG IVPB SCH (11:36)
--- NOTE | 2018-10-06 11:47 | PN ---
Progress Note (short form) - Note Progress Note: PULMONARY Denies further hemoptysis. Denies shortness of breath or wheezing. Preliminary pathology nondiagnostic. Vital Signs Period Temp Pulse Resp BP Sys/Bunn Pulse Ox Last 24 Hr 97.7 F-98.3 F 67-90 18-20 104-131/54-88 99 Intake & Output 10/03/18 10/04/18 10/05/18 10/06/18 23:59 23:59 23:59 23:59 Intake Total 2440 1160 900 Output Total 1550 Balance 890 1160 900 Gen: NAD at rest Heart: RRR Lung: decreased breath sounds at the bases Abd: soft, nontender Ext: no edema CBC, BMP 10/05/18 06:00 10/04/18 06:35 Active Medications Codeine Sulfate (Codeine Sulfate -) 30 mg PO Q6H PRN PRN Reason: COUGH Last Admin: 10/05/18 09:30 Dose: 30 mg Guaifenesin/Codeine Phosphate (Robitussin Ac -) 10 ml PO Q6HPO [facility] Last Admin: 10/06/18 11:34 Dose: 10 ml Azithromycin (Zithromax 500mg Ivpb (Pre-Docked)) 500 mg in 250 mls @ 250 mls/ hr IVPB DAILY [facility] Last Admin: 10/06/18 11:36 Dose: 250 mls/hr Ceftriaxone Sodium 1 gm/ (Dextrose) 50 mls @ 100 mls/hr IVPB DAILY [facility] Last Admin: 10/06/18 09:51 Dose: 100 mls/hr Pantoprazole Sodium (Protonix -) 40 mg PO DAILY [facility] Last Admin: 10/06/18 09:50 Dose: 40 mg A/P Hemoptysis RLL Mass suspicious for malignancy r/o Pneumonia COPD HTN - continue antibiotics - monitor hemoptysis - scheduled for bronchscopy 3 PM today, keep NPO - DVT prophylaxis
[2018-10-06] MEDS ORDERED: MIDAZOLAM HCL 2 MG/2 ML SINGLE DOSE VIAL ONE (14:39)
[2018-10-06] MEDS ORDERED: PROPOFOL 20 ML ONE ×2 (14:39)
[2018-10-06] MEDS ORDERED: SUCCINYLCHOLINE CHLORIDE 200 MG/10 ML VIAL ONE (14:40)
--- NOTE | 2018-10-06 15:48 | PROC ---
Procedure Note Procedure: BRONCHOSCOPY NOTE After discussing the risks and benefits of the procedure including bleeding and pneumothorax, informed consent was obtained. Pt was placed under general anesthesia and intubated with a size 8.0 ETT by anesthesia. SOL ELIXIRS video bronchoscope was passed via the ETT and the airways were examined down to the subsegmental level. The aileen was mildly splayed, there were no endobronchial lesions noted in the left lung. In the right mainstem bronchus proximal to the RUL take off, there was copious thick, tenacious bloody secretions obstructing the main bronchus. After extensive washing, the secretions were cleared. Underlying the secretions was an obstructing mass in the right lower lobe just distal to the superior lobe bronchus. Forcep biopsies of the mass were taken as well as washings. Area visualized until hemostasis achieved. Bronchoscope then withdrawn and procedure terminated. Pre-op Dx: lung mass Post-op Dx: r/o lung cancer Plan: - f/u pathology, cytology and cultures Ed Green MD
[2018-10-06] MEDS ORDERED: CODEINE SO4 30 MG TABLET PO PRN (16:14)
[2018-10-06] MEDS ORDERED: LACTATED RINGERS SOLUTION 1,000 ML IV SCH (17:00)
[2018-10-06] MEDS ORDERED: MAG HYDROX/AL HYDROX/SIMETH 30 ML UNIT-DOSE CUP PO ONE (20:00)
--- NOTE | 2018-10-06 21:18 | PN ---
Progress Note, Physician Chief Complaint: s/p non conclusive lung biopsy and bronchoscopy with biopsy today, has sporadic cough and sporadic hemoptysis since the results of the biopsy were nonconclusive the patient had a bronchoscopy today, and he tolerated well the procedure History of Present Illness: 68 yo male with PMH of COPD emphysematous type, NOT steroid dependant, was admitted for monitoring and observation in ICU. 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 The patient is s/ p lung biopsy for a "mass' at the base of the right lung and the pathology results were non conclusive He is not dyspneic, had no fever and does not complain of discomfort. His cough has lessened but he is still having hemoptysis and his oxygen saturation is in low 90ies on RA. He has good appetite. - Current Medication List Current Medications: Active Medications Codeine Sulfate (Codeine Sulfate -) 30 mg PO Q6H PRN PRN Reason: COUGH Guaifenesin/Codeine Phosphate (Robitussin Ac -) 10 ml PO Q6HPO MARIS Last Admin: 10/06/18 17:29 Dose: 10 ml Azithromycin (Zithromax 500mg Ivpb (Pre-Docked)) 500 mg in 250 mls @ 250 mls/ hr IVPB DAILY MARIS Ceftriaxone Sodium 1 gm/ (Dextrose) 50 mls @ 100 mls/hr IVPB DAILY MARIS Pantoprazole Sodium (Protonix -) 40 mg PO DAILY MARIS - Objective Vital Signs: Vital Signs Temperature 97.6 F 10/06/18 18:30 Pulse Rate 66 10/06/18 18:30 Respiratory Rate 20 10/06/18 18:30 Blood Pressure 105/65 10/06/18 18:30 O2 Sat by Pulse Oximetry (%) 98 10/06/18 16:15 Constitutional: Yes: No Distress, Calm Eyes: Yes: Conjunctiva Clear, EOM Intact HENT: Yes: Atraumatic, Normocephalic Neck: Yes: Supple, Trachea Midline Cardiovascular: Yes: Regular Rate and Rhythm, S1, S2 Respiratory: Yes: Regular, CTA Bilaterally, Rales (scattered over the right lung ) Gastrointestinal: Yes: Normal Bowel Sounds, Soft ...Rectal Exam: Yes: Deferred Extremities: No: Calf Tenderness Edema: No Peripheral Pulses WNL: Yes Neurological: Yes: Alert, Oriented Psychiatric: Yes: Alert, Oriented Labs: CBC, BMP 10/05/18 06:00 10/04/18 06:35 INR, PTT INR 1.01 (0.83-1.09) 10/04/18 06:35 - ....Imaging Chest X-ray: Other (CXR posrt bronchoscopy showing no pneumothorax ad right lower lobe opacity) Problem List - Problems (1) Hemoptysis Assessment/Plan: the patient had bronchoscopy with lung biopsy today, the results are pending monitor today and for discharge tomorrow if clinically stable Code(s): R04.2 - HEMOPTYSIS (2) COPD (chronic obstructive pulmonary disease) Assessment/Plan: smoking cessation taper steroids Ceftriaxone abs Zithromax iv Code(s): J44.9 - CHRONIC OBSTRUCTIVE PULMONARY DISEASE, UNSPECIFIED Qualifiers: COPD type: COPD with acute exacerbation Qualified Code(s): J44.1 - Chronic obstructive pulmonary disease with (acute) exacerbation (3) Pulmonary mass Assessment/Plan: empiric treatment with antibiotics leukocytosis due to steroids is improving once steroids stopped Code(s): R91.8 - OTHER NONSPECIFIC ABNORMAL FINDING OF LUNG FIELD (4) Anemia, iron deficiency Assessment/Plan: monitor CBC and transfuse if necessary Code(s): D50.9 - IRON DEFICIENCY ANEMIA, UNSPECIFIED (5) History of throat cancer Assessment/Plan: s/p radiation therapy Code(s): Z85.819 - PRSNL HX OF MALIG NEOPLM OF UNSP SITE LIP,ORAL CAV,& PHARYNX
[2018-10-07] MEDS: guaiFENesin/CODEINE 10 ML UNIT-DOSE CUPS PO SCH ×2 (05:52→12:28)
[2018-10-07] MEDS ORDERED: DEXTROSE 5%-WATER - 50 ML IVPB ONE (08:53)
[2018-10-07] MEDS ORDERED: cefTRIAXone SODIUM 1 GM VIAL ONE (08:53)
[2018-10-07] MEDS ORDERED: PANTOPRAZOLE 40 MG TABLET (FP) PO SCH (10:00)
[2018-10-07] MEDS ORDERED: AZITHROMYCIN IVPB 500 MG/250 ML BAG IVPB SCH (10:00)
[2018-10-07] MEDS ORDERED: CEFTRIAXONE 1 GM in DEXTROSE 5%-WATER - 50 ML IVPB SCH (10:00)
--- NOTE | 2018-10-07 10:57 | PN ---
Progress Note (short form) - Note Progress Note: Anesthesia Post op Pt seen and examined S:Alert and awake comfortable O: Vital Signs Temperature 98.3 F 10/07/18 08:58 Pulse Rate 62 10/07/18 08:58 Respiratory Rate 20 10/07/18 08:58 Blood Pressure 102/60 10/07/18 08:58 O2 Sat by Pulse Oximetry (%) 98 10/06/18 16:15 CBC, BMP 10/05/18 06:00 10/04/18 06:35 A/P Current Active Problems Hemoptysis (Acute) Pulmonary mass (Acute) s/p bronchoscopy Doing well post op Continue current care Filemon Galdamez M.D.
--- NOTE | 2018-10-07 14:20 | PN ---
Progress Note (short form) - Note Progress Note: PULMONARY AWAKE/ALERT DRESSED AND READY TO BE DISCHARGED VSS/AFEB ANICTERIC DIMINISHED BREATH SOUNDS S1S2 BS+ NO EDEMA LABS/MEDS/NOTES/ IMAGES/ REVIEWED PATH PENDING ON THE FOB/BX OK FOR DISCHARGE WILL FOLLOW UP IN OFFICE/PFT'S Tiarra LAYTON MD
--- NOTE | 2018-10-07 15:19 | DS ---
Physical Examination Vital Signs: Vital Signs Temperature 98.3 F 10/07/18 08:58 Pulse Rate 62 10/07/18 08:58 Respiratory Rate 20 10/07/18 09:00 Blood Pressure 102/60 10/07/18 08:58 O2 Sat by Pulse Oximetry (%) 95 10/07/18 09:00 Constitutional: Yes: No Distress, Anxious Eyes: Yes: Conjunctiva Clear HENT: Yes: Atraumatic, Normocephalic Neck: Yes: Supple, Trachea Midline Cardiovascular: Yes: Regular Rate and Rhythm, S1, S2 Respiratory: Yes: Regular, CTA Bilaterally Gastrointestinal: Yes: Normal Bowel Sounds, Soft. No: Hepatomegaly, Splenomegaly Labs: CBC, BMP 10/05/18 06:00 10/04/18 06:35 Discharge Summary Reason For Visit: HEMOPTYSIS/LUNG MASS Current Active Problems Hemoptysis (Acute) Pulmonary mass (Acute) Procedures: Principal: lung biopsy and bronchoscopy Other Procedures: iv antibiotics Hospital Course: 68 yo male with PMH of oropharyngeal cancer s/p radiation, was admitetd for hemoptysis. He had right lower lung biopsy and and since the biopsy was not conclusive he had bronchoschopy with endobrov=nchial lesion biopsy. The resulst for the latter are pending. The patiet will be discharged today with instructions and referral for PFT, he will follw up with Hermila Claudio for possible lunge resection in case the biospy is positivfe for lung cancer Condition: Guarded - Instructions Referrals: Martin Shoemaker [Primary Care Provider] - - Home Medications Comprehensive Discharge Medication List: Ambulatory Orders Albuterol Sulfate Inhaler - [Ventolin HFA Inhaler -] 2 inh PO Q6H PRN 09/23/18 Aspirin [Aspirin EC] 325 mg PO DAILY 09/23/18 Fluticasone Propionate [Flovent Diskus] 100 mcg IH BID 09/23/18 Multivitamin [One Daily] 1 each PO DAILY 09/23/18 Codeine Sulfate - 30 mg PO Q6H #30 tablet MDD 3 10/07/18
[2018-10-07 15:27] VITALS: BP 128/55; PULSE 77; TEMP 97.3
--- NOTE | 2018-10-07 18:05 | PATH ---
Surgical Pathology Report Patient Name: JOSE WEEMS [facility]. Rec. #: [id number] /Age/Gender: 1950 (Age: 68) / M Account: [id number] Location: [address] [place] [address]/[facility] Taken: 10/06/2018 Received: 10/06/2018 Reported: 10/07/2018 Physicians: Lona Camp M.D. Specimen(s) Received RIGHT LOWER LOBE BIOPSY Clinical History Lung mass Final Diagnosis LUNG, RIGHT LOWER LOBE, BIOPSY: BENIGN RESPIRATORY MUCOSA WITH PREDOMINANTLY CHRONIC INFLAMMATION. NEGATIVE FOR MALIGNANCY. Electronically Signed Phillip Godfrey M.D. Gross Description Received in formalin labeled "right lower lobe," are 9 corrales, irregular soft tissue fragments ranging from 0.1-1.5 cm in greatest dimension. The specimens are submitted in toto in one cassette. /10/06/201810/06/2018
--- NOTE | 2018-10-10 15:55 | PATH ---
Cytology Non-Gynecological Report Patient Name: JOSE WEEMS Med. Rec. #: [id number] /Age/Gender: 1950 (Age: 68) / M Account: [id number] Location: [address] [place] [address]/[facility] Taken: 10/06/2018 Received: 10/07/2018 Reported: 10/10/2018 Physicians: Osman Nick M.D. Specimen(s) Received BRONCHIAL WASHINGS RIGHT LOWER LOBE Clinical History Lung mass, right, lower lobe Final Diagnosis BRONCHIAL WASHING, RIGHT, LOWER LOBE, FOR CYTOLOGY: SATISFACTORY FOR EVALUATION. NO MALIGNANT CELLS IDENTIFIED. FEW AGGREGATES OF NEUTROPHILS AND FEW LYMPHOCYTES ADMIXED WITH PROTEINACEOUS MATERIAL IN HEMORRHAGIC BACKGROUND PRESENT. Comment: See concurrent material ([id number]). Electronically Signed Earline Robles M.D. Gross Description Approximately 50 cc of bloody fluid received fresh. One cytofunnel prepared and Pap stained. One cellblock prepared.
--- NOTE | 2018-10-13 10:09 | PATH ---
Surgical Pathology Report Patient Name: JOSE WEEMS [facility]. Rec. #: [id number] /Age/Gender: 1950 (Age: 68) / M Account: [id number] Location: [address] [place] [address]/[facility] Taken: 10/04/2018 Received: 10/04/2018 Reported: 10/13/2018 Physicians: Osman Nick M.D. Specimen(s) Received RIGHT LUNG BIOPSY Clinical History 68-year-old male with large right lower lobe mass with atelectasis Final Diagnosis LUNG, RIGHT BIOPSY: FIBROUS SCAR WITH CHRONIC INFLAMMATION AND REACTIVE PNEUMOCYTES THIS BIOPSY HAS A FIBROUS SCAR WITH CHRONIC INFLAMMATION AND REACTIVE PNEUMOCYTES THAT HAVE BLAND CYTOLOGIC FEATURES WITH A MILD INCREASE IN N:C RATIO AND UNIFORM HOBNAILED NUCLEI. THE SUBMITTEED IMMUNOHISTOCHEMICAL STAINS SHOW THAT THE REACTIVE PNEUMOCYTES ARE POSITIVE FOR TTF-1 AND CK7. IN SUMMARY, THE BIOPSY SHOWS A FIBROUS SCAR WITH CHRONIC INFLAMMATION AND REACTIVE PNEUMOCYTES. WE FEEL THIS IS BEST CHARACTERIZED A REACTIVE PNEUMOCYTE PROLIFERATION. CLINICAL CORRELATION IS NEEDED TO DETERMINE IF THE LARGEST LESION WAS SAMPLED. IF CLINICALLY INDICATED, A REBIOPSY MAY BE USEFUL TO FURTHER CLASSIFY THIS LESION. Case sent for consultation to Dr. Jorge Barreto from [facility] [place], [place], [place] (#:[phone]), the diagnosis above reflects his opinion. Electronically Signed Phillip Godfrey M.D. Gross Description Received in formalin labeled "right lung biopsy," are 5 corrales, cylindrical portions of soft tissue ranging from 0.3-1.0 cm in length and averaging 0.1 cm in diameter. The specimens are submitted in toto in one cassette. DL/10/04/2018 saudi10/04/2018
== END 2018-10-07 17:00 | disposition home or self-care (01) | DRG 167 ==
LOC: JER 10:39 → JERBED 14:42 → JICU 18:07 → J5S 10-03 19:07
PROVIDERS: ADMIT Internal Medicine; ATTEND Internal Medicine
PROC: 3E0F7GC Introduction of Other Therapeutic Substance into Respiratory Tract, Via Natural or Artificial Opening (ICD-10-PCS; 2018-09-30)
PROC: 0BBF8ZX Excision of Right Lower Lung Lobe, Via Natural or Artificial Opening Endoscopic, Diagnostic (ICD-10-PCS; principal; 2018-10-06 15:00)
DX: R91.8 Other nonspecific abnormal finding of lung field (principal); R04.2 Hemoptysis; R64 Cachexia; Z68.1 Body mass index [BMI] 19.9 or less, adult; J44.1 Chronic obstructive pulmonary disease with (acute) exacerbation; D50.9 Iron deficiency anemia, unspecified; Z85.819 Personal history of malignant neoplasm of unspecified site of lip, oral cavity, and pharynx; F43.10 Post-traumatic stress disorder, unspecified; Z85.118 Personal history of other malignant neoplasm of bronchus and lung; F25.9 Schizoaffective disorder, unspecified; F17.210 Nicotine dependence, cigarettes, uncomplicated; D72.829 Elevated white blood cell count, unspecified; I10 Essential (primary) hypertension
CPT/HCPCS: 32405; 36415; 71045-TC-FY; 71275-TC; 76098-TC-FY; 77012-TC; 80048; 80053; 81003; 83735; 84100; 85025; 85610; 85730; 86850; 86900; 86901; 87040; 87070; 87075; 87077; 87086; 87102; 87116; 87205; 87206; 87210; 87899; 88104; 88108; 88305-TC; 88341-TC; 90688; 93005; 93010; 94640; 94760; 99284-25; G0008; J7030